=== PATIENT | female | born 1940 | race Caucasian/White ===

== ENCOUNTER → 2016-07-19 | Outpatient (CLI) | payer OTHER, BC ==
[~2016-07-19] MED LIST: ACET325T96 PO; ACET650S10 PO; AMLO-110 PO; CALC1CHW; CALCTAB5 PO; CHOL1000 PO; CHOL100010 PO; CLOP1TAB15 PO; DVN80 PO; FLUC100T4 PO; FRRG PO; LEVO100T PO; METF750T PO; NXM/40 PO; OMEG10007 PO; ROSU5TAB PO; SPIR25TA89 PO; VALS40TA2 PO; VERA120T65 PO; WARF1TAB PO
[2016-07-19 09:32] LABS: BLOOD UREA NITROGEN 10 mg/dl (7-18); BUN/CREATININE RATIO 13.2 (10-20); CALCIUM 8.8 mg/dl (8.5-10.1); CARBON DIOXIDE 26 mmol/L (21-32); CHLORIDE 106 mmol/L (98-107); CREATININE 0.72 mg/dl (0.60-1.20); GLUCOSE 135 mg/dl (70-99); POTASSIUM 4.5 mmol/L (3.5-5.1); SODIUM 140 mmol/L (136-145)
== END | disposition home or self-care (01) ==
LOC: C.LABFOXMH 08:47
PROVIDERS: ATTEND Internal Medicine
DX: I10 Essential (primary) hypertension (principal)

== ENCOUNTER → 2016-08-06 | Outpatient (CLI) | payer OTHER, BC ==
--- NOTE | 2016-08-06 16:41 | DIAGNOSTIC IMAGING REPORT ---
CT HEAD WITHOUT CONTRAST (CT) CLINICAL HISTORY: Increasing right-sided headache. Left hand numbness. COMPARISON STUDY: 12/15/2013 TECHNIQUE: Axial CT of the brain is performed from the vertex to the skull base. IV contrast was not administered for this examination. CT DOSE: 537.48 mGy.cm FINDINGS: No intra or extra-axial mass lesions are visualized. There is no CT evidence of acute cortical infarction. There is no evidence of midline shift. There is no acute hemorrhage. No calvarial fractures are visualized. There are patchy white matter hypodensities likely on a small vessel basis. There is no evidence of pathologic ventricular dilatation. There is no evidence of acute sinusitis IMPRESSION: No acute intracranial findings Electronically signed by: Thien Sullivan M.D. 08/06/2016 4:39 PM Dictated Date/Time: 08/06/2016 4:38 PM
== END | disposition home or self-care (01) ==
LOC: C.CTS 16:27
PROVIDERS: ATTEND Internal Medicine
DX: R51 Headache (principal); H53.2 Diplopia; R20.0 Anesthesia of skin; Z91.81 History of falling

== ENCOUNTER → 2016-08-07 | Outpatient (CLI) | payer OTHER, BC ==
--- NOTE | 2016-08-07 14:29 | DIAGNOSTIC IMAGING REPORT ---
ULTRASOUND OF THE CAROTID ARTERIES CLINICAL HISTORY: Headache. Left hand numbness. Diplopia. COMPARISON STUDY: No priors. TECHNIQUE: Real-time, grayscale, and color Doppler sonography of the carotid arteries is performed. Images are reviewed in the transverse and longitudinal planes. FINDINGS: Blood pressures were not assessed at the patient's request. The carotid arteries are patent bilaterally and demonstrate antegrade flow. There is mild echogenic shadowing atherosclerotic plaque seen in the carotid bulbs bilaterally, left greater than right. Normal doppler arterial waveforms are seen throughout. Velocity measurements are listed below. Common carotid peak systolic velocity (cm/sec): RIGHT: 51 LEFT: 52 ICA proximal peak systolic velocity (cm/sec): RIGHT: 55 LEFT: 60 ICA mid peak systolic velocity (cm/sec): RIGHT: 66 LEFT: 53 ICA distal peak systolic velocity (cm/sec): RIGHT: 68 LEFT: 61 ICA/CC peak systolic ratio: RIGHT: 1.3 LEFT: 1.2 Antegrade flow was shown in the vertebral arteries. The external carotid arteries are patent. IMPRESSION: 1. There is no sonographic evidence of hemodynamically significant stenosis in the right or left carotid arterial system. 2. Antegrade flow is shown in the vertebral arteries. Electronically signed by: Bertin Siu M.D. 08/07/2016 2:27 PM Dictated Date/Time: 08/07/2016 2:26 PM
--- NOTE | 2016-08-13 07:49 | CODING QUERY MEDICAL NECESSITY ---
SUPPORTING DIAGNOSIS NEEDED A supporting diagnosis is required for the test/procedure performed on this patient in order for us to be reimbursed by the patient's insurance. Please provide a supporting diagnosis for the following test/procedure listed below next to the test name along with your signature. *If there is no additional diagnosis for this patient that would support the following test/procedure please document that below next to the test/procedure. Test(s)/Procedure(s) that require a supporting diagnosis: * CAROTID DOPPLER DUPLEX NECK DIAGNOSIS: * DOS: 08/07/16 Provider Signature: Date: Thank you Abby Basurto Health Information Management Once completed, please kindly fax back to [phone] For questions please call [phone]
== END | disposition home or self-care (01) ==
LOC: C.ULTR 13:45
PROVIDERS: ATTEND Internal Medicine
DX: R51 Headache (principal); R20.0 Anesthesia of skin; H53.2 Diplopia

== ENCOUNTER 2016-08-25 12:59 | Observation (INO) | payer OTHER, BC ==
[~2016-08-25] VITALS: Ht 162.6 cm; Wt 75.4 kg
[~2016-08-25 12:59] MED LIST changes: -ACET325T96 PO; -CALC1CHW; -CHOL1000 PO; -CLOP1TAB15 PO; -DVN80 PO; -FLUC100T4 PO; -SPIR25TA89 PO; -VERA120T65 PO
[2016-08-25] MEDS ORDERED: SODIUM CHLORIDE 0.9% 1000ML 1,000 ML IV SCH (13:02)
--- NOTE | 2016-08-25 13:24 | DIAGNOSTIC IMAGING REPORT ---
HEAD CT NONCONTRAST CT DOSE: 537.48 mGy.cm HISTORY: Mental status change Stroke. TECHNIQUE: Multiaxial CT images of the head were performed without the use of intravenous contrast. Comparison: 08/06/2016 Findings: The paranasal sinuses and mastoid air cells are clear. The calvarium and skull base are intact. The ventricles and sulci are within normal limits. There is no mass, hematoma, midline shift, or acute infarct. Impression: No acute intracranial abnormality. Electronically signed by: John Wallace M.D. 08/25/2016 1:22 PM Dictated Date/Time: 08/25/2016 1:22 PM
[2016-08-25 13:46] LABS: BASO % 0.4 %; BASO ABS # 0.04 K/uL (0-0.2); COMPLETE YES; EOS % 1.2 %; HEMATOCRIT 37.9 % (37-47); IG% 0.3 %; LYMPH % 19.6 %; LYMPH ABS # 1.76 K/uL (1.2-3.4); MEAN CELL VOLUME 88.3 fL (80-100); MEAN CORPUSCULAR HEMOGLOBIN 29.6 pg (25-34); MEAN CORPUSCULAR HGB CONC 33.5 g/dl (32-36); MEAN PLATELET VOLUME 8.5 fL (7.4-10.4); MONO % 8.7 %; NEUT % 69.8 %; PLATELET COUNT 251 K/uL (130-400); RED BLOOD COUNT 4.29 M/uL (4.2-5.4); WHITE BLOOD COUNT 8.97 K/uL (4.8-10.8)
[2016-08-25] MEDS ORDERED: SODIUM CHLORIDE 0.9% 1000ML 1,000 ML IV STA (13:50)
[2016-08-25] MEDS ORDERED: CLOPIDOGREL BISULFATE 300 MG TAB PO STA (13:50)
[2016-08-25 13:54] LABS: PARTIAL THROMBOPLASTIN RATIO 0.9; PROTHROMBIN TIME (PATIENT) 10.3 SECONDS (9.0-12.0)
[2016-08-25 14:03] LABS: ISTAT CREATININE 0.7 mg/dl (0.6-1.3); ISTAT HEMOGLOBIN 12.2 g/dl (12.0-16.0); ISTAT IONIZED CALCIUM 1.27 mmol/l (1.12-1.32)
[2016-08-25 14:05] LABS: BLOOD UREA NITROGEN 19 mg/dl (7-18); BUN/CREATININE RATIO 25.8 (10-20); CALCIUM 8.9 mg/dl (8.5-10.1); CARBON DIOXIDE 26 mmol/L (21-32); CHLORIDE 100 mmol/L (98-107); CREATININE 0.72 mg/dl (0.60-1.20); GLUCOSE 120 mg/dl (70-99); POTASSIUM 4.5 mmol/L (3.5-5.1); SODIUM 136 mmol/L (136-145)
[2016-08-25 14:10] LABS: CKMB/CK RATIO 1.9 (0-3.0)
[2016-08-25] MEDS ORDERED: ACET325T96 PO (14:25)
[2016-08-25] MEDS ORDERED: METF750T PO (14:29)
[2016-08-25] MEDS ORDERED: DVN80 PO (14:31)
[2016-08-25] MEDS ORDERED: CLOP1TAB15 PO (14:33)
[2016-08-25 14:47] LABS: BENZODIAZEPINE, URINE NEG (NEG); COCAINE,URINE NEG (NEG); PHENCYCLIDINE, URINE NEG (NEG)
[2016-08-25] MEDS ORDERED: HydrALAZINE HCL 20 MG/ML VIAL ONE (15:08)
[2016-08-25] MEDS ORDERED: HydrALAZINE HCL 20 MG/ML VIAL IV. STA (15:12)
[2016-08-25] MEDS ORDERED: PHARMACIST DISCHARGE MED REC CONSULT PRN (15:30)
[2016-08-25] MEDS ORDERED: HydrALAZINE HCL 20 MG/ML VIAL IV. PRN (15:30)
[2016-08-25] MEDS ORDERED: MAGNESIUM HYDROXIDE SUSP 30 ML UDC PO PRN (15:30)
[2016-08-25] MEDS ORDERED: GLUCOSE 10 TABS/TUBE PO PRN (15:30)
[2016-08-25] MEDS ORDERED: GLUCAGON FOR INJ 1 MG VIAL SQ PRN (15:30)
[2016-08-25] MEDS ORDERED: DEXTROSE 50% 50 ML SYR IV PRN (15:30)
[2016-08-25] MEDS ORDERED: ALUMINUM/MAGNESIUM/SIMETH (MAALOX MAX) 30 ML UDC PO PRN (15:30)
[2016-08-25] MEDS ORDERED: GLUCOSE 40% GEL 15 GM TUBE PO PRN (15:30)
[2016-08-25 16:01] LABS: URINE APPEARANCE CLEAR (CLEAR); URINE BILIRUBIN NEG (NEG); URINE COLOR YELLOW; URINE NITRITE NEG (NEG); URINE PH 6.5 (4.5-7.5); URINE SPECIFIC GRAVITY <= 1.005 (1.000-1.030); UROBILINOGEN NEG (NEG)
[2016-08-25 16:05] LABS: MANUAL MICROSCOPIC REQUIRED? YES; REVIEW REQ? NO
[2016-08-25 16:06] LABS: URINE BACTERIA NEG (NEG); URINE RBC 0-4 /hpf (0-4)
[2016-08-25] MEDS ORDERED: IV FLUIDS COMPLETED PRN (16:15)
[2016-08-25 16:30] VITALS: O2SAT 98; Ht 162.6 cm; Wt 75.4 kg
[2016-08-25 17:00] VITALS: BP 198/78; PULSE 99; TEMP 36.7; O2SAT 99
[2016-08-25 17:35] VITALS: BP 156/79
--- NOTE | 2016-08-25 18:09 | EMERGENCY ROOM VISIT NOTE ---
History Report prepared by Cholo: Gaetano Elliott Under the Supervision of: Dr. Jason Hogue D.O. First contact with patient: 13:00 Stated Complaint: STROKE SYMPTOMS History of Present Illness The patient is a 76 year old female who presents to the Emergency Room with complaints of stroke-like symptoms that began a half hour ago. [facility]. Suddenly, she could not speak words correctly, and her words were mumbling together. She then experienced right upper arm numbness and weakness. Her weakness has resolved. Two weeks ago she was here and evaluated for a TIA. She was not admitted and sent home. She notes that these symptoms are similar to her prior episode. Patient denies headache, change in vision, fevers, chest pain, shortness of breath, nausea, vomiting, diarrhea, pain with urination, and melena. She is currently not taking any blood thinners. Source of History: patient, EMS Onset: a half hour ago Position: other (global) Symptom Intensity: moderate Quality: other (stroke-like symptoms) Timing: intermittent Review of Systems See HPI for pertinent positives & negatives. A total of 10 systems reviewed and were otherwise negative. Past Medical & Surgical Medical Problems: (1) TIA (transient ischemic attack) Family History Omitted due to age. Social History Smokeless Tobacco Use: No Drug Use: none Marital Status: Occupation Status: retired Current/Historical Medications Scheduled Calcium (Caltrate), 1 TAB PO DAILY Cholecalciferol (Vitamin D), 1,000 INTER.UNIT PO DAILY Clopidogrel (Plavix), 75 MG PO DAILY Esomeprazole Magnesium (Nexium), 40 MG PO DAILY Fish Oil ([place]-3), 1 CAP PO DAILY Levothyroxine Sodium (Synthroid), 100 MCG PO DAILY Metformin Hcl (Glucophage Er), 1,500 MG PO HS Metformin Hcl (Glucophage Er), 1 TAB PO QAM Rosuvastatin Calcium (Crestor), 5 MG PO DAILY Valsartan (Diovan), 1 TAB PO DAILY Scheduled PRN Acetaminophen Tab (Tylenol), 650 MG PO DAILY PRN for Pain Allergies Coded Allergies: Oxycodone (Unverified Adverse Reaction, Severe, VOMITING, 08/25/16) Aspirin (Unverified Adverse Reaction, Unknown, "stomach bleeds", 08/25/16) Codeine (Verified Adverse Reaction, Unknown, vomiting, 08/25/16) Physical Exam Vital Signs Date Time Temp Pulse Resp B/P Pulse Ox O2 Delivery O2 Flow Rate FiO2 08/25/16 15:20 85 16 186/89 98 Room Air 08/25/16 15:15 88 18 214/98 95 Room Air 08/25/16 14:30 90 18 177/92 98 Room Air 08/25/16 14:04 99 Room Air 08/25/16 14:00 86 18 189/95 99 Room Air 08/25/16 13:29 86 08/25/16 13:20 94 18 182/96 92 Room Air 08/25/16 13:10 88 18 222/106 95 Room Air Physical Exam GENERAL: Sitting up in bed, disheveled, alert, well appearing, well nourished, no distress, non-toxic EYE EXAM: normal conjunctiva, PERRL and EOM's intact OROPHARYNX: no exudate, no erythema, lips, buccal mucosa, and tongue normal and mucous membranes are moist NECK: supple, no nuchal rigidity, no adenopathy, non-tender LUNGS: Clear to auscultation. Normal chest wall mechanics HEART: no murmurs, S1 normal and S2 normal ABDOMEN: abdomen soft, non-tender, normo-active bowel sounds, no masses, no rebound or guarding. BACK: Back is symmetrical on inspection and there is no deformity, no midline tenderness, no CVA tenderness. SKIN: no rashes and no bruising UPPER EXTREMITIES: upper extremities are grossly normal. LOWER EXTREMITIES: No pitting edema. NEURO EXAM: Normal sensorium, cranial nerves II-XII intact, normal speech, no weakness of arms, no weakness of legs. No drift. Finger to nose intact. Sensation intact. At completion of the exam, the patient began slurring her words with expressive aphasia. Stroke alert was called. Medical Decision & Procedures ER Provider Diagnostic Interpretation: Xray results per the radiologist and my interpretation. Other results have been interpreted by the radiologist and reviewed by me. HEAD CT NONCONTRAST CT DOSE: 537.48 mGy.cm HISTORY: Mental status change Stroke. TECHNIQUE: Multiaxial CT images of the head were performed without the use of intravenous contrast. Comparison: 08/06/2016 Findings: The paranasal sinuses and mastoid air cells are clear. The calvarium and skull base are intact. The ventricles and sulci are within normal limits. There is no mass, hematoma, midline shift, or acute infarct. Impression: No acute intracranial abnormality. Electronically signed by: John Wallace M.D. 08/25/2016 1:22 PM Dictated Date/Time: 08/25/2016 1:22 PM Laboratory Results 08/25/16 13:35 Red Blood Count 4.29, Mean Corpuscular Volume 88.3, Mean Corpuscular Hemoglobin 29.6, Mean Corpuscular Hemoglobin Concent 33.5, Mean Platelet Volume 8.5, Neutrophils (%) (Auto) 69.8, Lymphocytes (%) (Auto) 19.6, Monocytes (%) (Auto) 8.7, Eosinophils (%) (Auto) 1.2, Basophils (%) (Auto) 0.4, Neutrophils # (Auto) 6.25, Lymphocytes # (Auto) 1.76, Monocytes # (Auto) 0.78, Eosinophils # (Auto) 0.11, Basophils # (Auto) 0.04 08/25/16 13:35 Test 08/25/16 13:30 08/25/16 13:35 08/25/16 13:51 08/25/16 14:10 Bedside Prothrombin Time INR 0.9 (0.9-1.1) White Blood Count 8.97 K/uL (4.8-10.8) Red Blood Count 4.29 M/uL (4.2-5.4) Hemoglobin 12.7 g/dL (12.0-16.0) Hematocrit 37.9 % (37-47) Mean Corpuscular Volume 88.3 fL (80-100) Mean Corpuscular Hemoglobin 29.6 pg (25-34) Mean Corpuscular Hemoglobin Concent 33.5 g/dl (32-36) Platelet Count 251 K/uL (130-400) Mean Platelet Volume 8.5 fL (7.4-10.4) Neutrophils (%) (Auto) 69.8 % Lymphocytes (%) (Auto) 19.6 % Monocytes (%) (Auto) 8.7 % Eosinophils (%) (Auto) 1.2 % Basophils (%) (Auto) 0.4 % Neutrophils # (Auto) 6.25 K/uL (1.4-6.5) Lymphocytes # (Auto) 1.76 K/uL (1.2-3.4) Monocytes # (Auto) 0.78 K/uL (0.11-0.59) Eosinophils # (Auto) 0.11 K/uL (0-0.5) Basophils # (Auto) 0.04 K/uL (0-0.2) RDW Standard Deviation 42.5 fL (36.4-46.3) RDW Coefficient of Variation 13.2 % (11.5-14.5) Immature Granulocyte % (Auto) 0.3 % Immature Granulocyte # (Auto) 0.03 K/uL (0.00-0.02) Prothrombin Time 10.3 SECONDS (9.0-12.0) Prothromb Time International Ratio 1.0 (0.9-1.1) Activated Partial Thromboplast Time 23.3 SECONDS (21.0-31.0) Partial Thromboplastin Ratio 0.9 Est Creatinine Clear Calc Drug Dose 65.9 ml/min Estimated GFR () 94.3 Estimated GFR (Non- 81.3 BUN/Creatinine Ratio 25.8 (10-20) Calcium Level 8.9 mg/dl (8.5-10.1) Total Creatine Kinase 32 U/L (26-192) Creatine Kinase MB 0.6 ng/ml (0.5-3.6) Creatine Kinase MB Ratio 1.9 (0-3.0) Troponin I < 0.015 ng/ml (0-0.045) Bedside Hemoglobin 12.2 g/dl (12.0-16.0) Bedside Hematocrit 36 % (37-47) Bedside Sodium 134 mEq/L (135-144) Bedside Potassium 4.6 mEq/L (3.3-5.0) Bedside Chloride 98 mEq/L (101-112) Bedside Total CO2 23 mEq/l (24-31) Anion Gap 19.0 mmol/L (16-25) Bedside Blood Urea Nitrogen 20 mg/dl (7-18) Bedside Creatinine 0.7 mg/dl (0.6-1.3) Bedside Glucose (other) 121 mg/dl (70-99) Bedside Ionized Calcium ([place]) 1.27 mmol/l (1.12-1.32) Urine Opiates Screen NEG (NEG) Urine Methadone, Qualitative NEG (NEG) Urine Barbiturates NEG (NEG) Urine Phencyclidine (PCP) Level NEG (NEG) Ur Amphetamine/Methamphetamine NEG (NEG) MDMA (Ecstasy) Screen NEG (NEG) Urine Benzodiazepines Screen NEG (NEG) Urine Cocaine Metabolite NEG (NEG) Urine Marijuana (THC) NEG (NEG) Test 08/25/16 15:30 Urine Color YELLOW Urine Appearance CLEAR (CLEAR) Urine pH 6.5 (4.5-7.5) Urine Specific [place] <= 1.005 (1.000-1.030) Urine Protein NEG (NEG) Urine Glucose (UA) NEG (NEG) Urine Ketones NEG (NEG) Urine Occult Blood NEG (NEG) Urine Nitrite NEG (NEG) Urine Bilirubin NEG (NEG) Urine Urobilinogen NEG (NEG) Urine Leukocyte Esterase NEG (NEG) Urine RBC 0-4 /hpf (0-4) Urine WBC 1-5 /hpf (0-5) Urine Epithelial Cells 0-5 /lpf (0-5) Urine Bacteria NEG (NEG) Laboratory results per my review. Medications Administered Medications (Trade) Dose Ordered Sig/Maureen Route Start Time Stop Time Status Last Admin Dose Admin Sodium Chloride 1,000 ml @ 50 mls/hr Q20H IV 08/25/16 13:02 09/24/16 13:01 08/25/16 14:09 50 MLS/HR Sodium Chloride (Nss 1000ml) 1,000 ml @ 999 mls/hr Q1H1M STAT IV 08/25/16 13:50 08/25/16 14:50 DC 08/25/16 14:09 999 MLS/HR Clopidogrel Bisulfate (plAVix TAB) 300 mg NOW STAT PO 08/25/16 13:50 08/25/16 13:52 DC 08/25/16 14:16 300 MG Hydralazine HCl (HydrALAZINE INJ) 20 mg STK-MED ONCE .ROUTE 08/25/16 15:08 08/25/16 15:11 DC 08/25/16 15:14 10 MG ECG Indication: altered mental status Rate (beats per minute): 88 Rhythm: sinus rhythm Findings: 1st degree AV block, no ectopy, other (normal axis) ED Course ED COURSE: Vital signs were reviewed and showed hypertension The patients medical record was reviewed The above diagnostic studies were performed and reviewed. ED treatments and interventions as stated above. 1300: The patient was evaluated in room A1. A complete history and physical examination was performed. 1302: Ordered Sodium Chloride 1000 ml @ 50 mls/hr IV 1322: The patient is back to her baseline. 1350: Ordered Clopidogrel Bisulfate 300 mg PO, Sodium Chloride 1000 ml @ 999 mls /hr IV 1356: Upon reevaluation, the patient is resting. I discussed my findings with the patient and she understands and agrees with the treatment plan. Based on the patients age, coexisting illnesses, exam and lab findings the decision to treat as an inpatient was made. The patient remained stable while under my care. The patient will be evaluated by Dr. Cabrera ORDONEZ, for further management. Medical Decision Differential Diagnosis includes but is not limited to ischemic Stroke, hemorrhagic stroke, bells palsy, mass, neoplasm, migraine headache, seizure, subarachnoid hemorrhage, TIA, and transient global amnesia. Patient is a 76 her old female who presents the ER for strokelike symptoms. [facility] started slurring her words and had weakness of her upper extremity. EMS was called upon presentation to the ER her symptoms completely resolved. Slurred speech/aphasia has resolved along with the right upper extremity numbness and weakness. Following my exam for which she was completely neurologically intact she started having expressive aphasia again. A stroke alert was immediate recall. She was taken to the CT scanner. CT of her head was unremarkable. Her symptoms have resolved. She was evaluated by [facility] and they recommended a loading dose of Lasix along with a bolus normal saline. CBC along with BMP, and troponin were unremarkable. UA was negative. INR was unremarkable. Patient was completely neurologically intact with resolution of her symptoms and was admitted to internal medicine with a stuttering stroke at baseline. Consults Time Called: 1350 Consulting Physician: Dr. Cabrera ORDONEZ Returned Call: [phone] He will be evaluating the patient for further management. Impression Primary Impression: TIA (transient ischemic attack) Scribe Attestation The scribe's documentation has been prepared under my direction and personally reviewed by me in its entirety. I confirm that the note above accurately reflects all work, treatment, procedures, and medical decision making performed by me. Departure Information Dispostion Being Evaluated By Hospitalist Problem Qualifiers Primary Impression: TIA (transient ischemic attack) Transient cerebral ischemia type: unspecified Qualified Codes: G45.9 - Transient cerebral ischemic attack, unspecified
[2016-08-25] MEDS ORDERED: LORAZEPAM 2 MG/ML 1 ML VIAL ONE (18:11)
[2016-08-25] MEDS ORDERED: NURSING VERBAL MED ORDER ONE (18:15)
[2016-08-25] MEDS ORDERED: LORAZEPAM 2 MG/ML 1 ML VIAL IV PRN (18:30)
[2016-08-25] MEDS ORDERED: LORAZEPAM INJ 0.5 MG in SYRINGE 0.75 ML IV PRN (18:30)
--- NOTE | 2016-08-25 19:08 | DIAGNOSTIC IMAGING REPORT ---
Brain MRA HISTORY: Mental status change Stroke - Attention to [place] TECHNIQUE: 3-D [id number] MRA of the brain was performed without contrast. COMPARISON STUDY: None. FINDINGS: Visualized intracranial internal carotid arteries, distal vertebral arteries, and basilar artery are widely patent. 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 IMPRESSION: No significant stenosis, occlusion, or aneurysm within the [place]. Electronically signed by: John Wallace M.D. 08/25/2016 7:07 PM Dictated Date/Time: 08/25/2016 7:06 PM
--- NOTE | 2016-08-25 19:43 | DIAGNOSTIC IMAGING REPORT ---
MRI OF THE BRAIN WITHOUT AND WITH IV CONTRAST CLINICAL HISTORY: Stroke mental status change COMPARISON STUDY: No previous studies for comparison. TECHNIQUE: Utilizing a 1.5 [place] magnet and dedicated coil, multiplanar, multiecho imaging of the brain was performed pre and postcontrast administration. IV administration of 8 mL of Gadavist contrast was uneventful. FINDINGS: Diffusion-weighted images show no evidence for an acute ischemic process. Multiple foci of increased signal within the periventricular deep matter regions are present. This consistent with moderate chronic small vessel change of aging. Ventricular system is midline. Findings of mild age-related cerebral atrophy. Postcontrast images are negative for an enhancing lesion. IMPRESSION: 1. No evidence for an acute ischemic process. 2. Age-related changes including atrophy and chronic small vessel change. 3. No evidence for abnormal postcontrast enhancement Electronically signed by: John Wallace M.D. 08/25/2016 7:41 PM Dictated Date/Time: 08/25/2016 7:39 PM
[2016-08-25] MEDS ORDERED: GADAVIST IV PRN (20:00)
--- NOTE | 2016-08-25 20:00 | DIAGNOSTIC IMAGING REPORT ---
NECK MRA HISTORY: Mental status change Stroke TECHNIQUE: [id number] and gadolinium-enhanced MRA of the neck was performed both before and after the intravenous administration of contrast. All measurements were calculated based on NASCET criteria. COMPARISON STUDY: None. FINDINGS: The aortic arch and proximal great vessels are widely patent. Mild 30-40% narrowing origin left internal carotid artery. Minimal plaque formation carotid bifurcations bilaterally. Negative vertebral basilar system evaluation. IMPRESSION: 1. No evidence for high-grade stenosis. 2. 30-40% narrowing origin left internal carotid artery. 3. Minimal scattered plaque formation Electronically signed by: John Wallace M.D. 08/25/2016 7:58 PM Dictated Date/Time: 08/25/2016 7:56 PM
[2016-08-25 20:01] VITALS: BP_SYST 176; BP_SYST 195; BP_DIAS 84; BP_DIAS 91; PULSE 97; TEMP 36.6; O2SAT 98
[2016-08-25] MEDS: ONDANSETRON INJ 2 MG/ML 2 ML VIAL IV PRN (20:09)
[2016-08-25] MEDS: ACETAMINOPHEN 325 MG TAB PO PRN (20:15)
[2016-08-25] MEDS: INSULIN ASPART 100 UNITS/ML 3 ML PEN SC SCH (21:00)
[2016-08-25 21:16] VITALS: BP 153/80; PULSE 99; O2SAT 99
[2016-08-25] MEDS: HEPARIN SOD 5000 UNIT/0.5 ML CARP SQ SCH (21:20)
[2016-08-25 21:47] LABS: CKMB/CK RATIO 1.8 (0-3.0)
[2016-08-25 21:57] VITALS: BP 165/75; PULSE 100; TEMP 36.6; O2SAT 97
[2016-08-26] VITALS (9 sets, daily range): BP systolic 117–148; BP diastolic 70–85; PULSE 70–87; TEMP 36.4–36.9; O2SAT 96–99
--- NOTE | 2016-08-26 00:34 | History and Physical ---
History & Physical Date & Time of Service: Aug 25, 2016 at 14:43 Chief Complaint: Stroke Symptoms Primary Care Physician: Vidal Vegas History of Present Illness Source: patient, family Pt is a 76 yo female with a h/o DMII, HTN, HL, GERD, obesity, OA, Vit D deficiency, and hypothyroidism who presents as a code stroke alert to the ER. She had expressive aphasia and right sided weakness that resolved after 10 min.She presented with complaints of stroke-like symptoms that began a half hour prior to arrival. The patient was at [facility] when she started exhibiting stroke symptoms. Suddenly, she could not speak words correctly; she knew what she wanted to say but could not get the words out. She then experienced right upper arm numbness and weakness. Her weakness and aphasia resolved by the time she reached the ER via EMS, however her aphasia returned during exam with ER doctor and stroke alert was called. Two weeks ago she was here as an outpatient after describing a 15 min episode of left hand numbness to her PCP (after the fact). She had a head CT that was negative and the next day had a Carotid US which was normal. She was advised to start Plavix but never did as she forgot to take it. She was also advised by her PCP that if symptoms returned, she was to go immediately to the ER. She reports intermittent headaches since mid-May that are across the forehead and down right side of her face that sometimes last all night. She also has a h/o intermittent vertigo thought to be related to her chronic right TM rupture but not acute. No previous h/o CVA or TIA. Denies chest pains, SOB, abd pains, recent illness. Her BP has been under good control, but she recently was discontinued from her amlodipine due to side effect of heartburn, and was doubled up on her valsartan dose. Past Medical/Surgical History PMH: DMII HTN Hyperlipidemia Hypothyroidism OA s/p Right TKA Vitamin D deficiency GERD PSH: Right TKA Bilateral RC repairs Bilateral thumb joint replacements Appendectomy Cholecystectomy Family History Mom had PUD, otherwise noncontributory Social History Smoking Status: Former Smoker (briefly, in her 20s) Smokeless Tobacco Use: No Alcohol Use: occasionally (1 drink per month) Drug Use: none Marital Status: Housing status: lives alone (in independent living at [facility]) Immunizations History of Influenza Vaccine: Yes History of Tetanus Vaccine?: Unknown History of Pneumococcal: Yes History of Hepatitis B Vaccine: Unknown Allergies Coded Allergies: Oxycodone (Unverified Adverse Reaction, Severe, VOMITING, 08/25/16) Aspirin (Unverified Adverse Reaction, Unknown, "stomach bleeds", 08/25/16) Codeine (Verified Adverse Reaction, Unknown, vomiting, 08/25/16) Home Medications Scheduled Calcium (Caltrate), 1 TAB PO DAILY Cholecalciferol (Vitamin D), 1,000 INTER.UNIT PO DAILY Clopidogrel (Plavix), 75 MG PO DAILY Esomeprazole Magnesium (Nexium), 40 MG PO DAILY Fish Oil ([place]-3), 1 CAP PO DAILY Levothyroxine Sodium (Synthroid), 100 MCG PO DAILY Metformin Hcl (Glucophage Er), 1,500 MG PO HS Metformin Hcl (Glucophage Er), 1 TAB PO QAM Rosuvastatin Calcium (Crestor), 5 MG PO DAILY Valsartan (Diovan), 1 TAB PO DAILY Scheduled PRN Acetaminophen Tab (Tylenol), 650 MG PO DAILY PRN for Pain Review of Systems Constitutional: No chills, No fever Eyes: No worsening of vision ENT: No trouble swallowing Respiratory: No cough, No shortness of breath Cardiovascular: No PND, No chest pain, No edema, No orthopnea, No palpitations Abdomen: No nausea, No pain, No vomiting Musculoskeletal: No problem reported Genitourinary - Female: No problem reported Neurologic: + numbness/tingling, + vertigo, + weakness Psychiatric: No problem reported Endocrine: No problem reported Hematologic / Lymphatic: No problem reported Integumentary: No problem reported Allergic / Immunologic: No problem reported Physical Exam Vital Signs Date Time Temp Pulse Resp B/P Pulse Ox O2 Delivery O2 Flow Rate FiO2 08/25/16 14:04 99 Room Air 08/25/16 14:00 86 18 189/95 99 Room Air 08/25/16 13:29 86 08/25/16 13:20 94 18 182/96 92 Room Air 08/25/16 13:10 88 18 222/106 95 Room Air General Appearance: WD/WN, no apparent distress Head: normocephalic, atraumatic Eyes: normal inspection, PERRL, EOMI, sclerae normal ENT: hearing grossly normal, pharynx normal Neck: supple, no adenopathy, thyroid normal, no JVD, no carotid bruits, + adenopathy present Respiratory/Chest: lungs clear, normal breath sounds, no respiratory distress, no accessory muscle use Cardiovascular: regular rate, rhythm, no edema, no gallop, no JVD, normal peripheral pulses, + systolic murmur (2/6 MIN heard best at [facility] c/w mitral valve regurgitation) Abdomen/GI: normal bowel sounds, non tender, soft, no organomegaly, no pulsatile mass Back: normal inspection Extremities/Musculoskelatal: normal inspection, no calf tenderness, normal capillary refill, no pedal edema, normal range of motion, non-tender Neurologic/Psych: 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 nml as tested, no motor/sensory deficits, alert, normal mood/affect, normal reflexes, oriented x 3, + pertinent finding (neg pronator drift in arms and legs, normal finger to nose bilat) Skin: normal color, warm/dry, no rash Lymphatic: no adenopathy Diagnostics Laboratory Results Results Past 24 Hours Test 08/25/16 13:10 08/25/16 13:30 08/25/16 13:35 08/25/16 13:51 Range/Units Bedside Glucose 116 70-90 mg/dl Bedside Prothrombin Time INR 0.9 0.9-1.1 White Blood Count 8.97 4.8-10.8 K/uL Red Blood Count 4.29 4.2-5.4 M/uL Hemoglobin 12.7 12.0-16.0 g/dL Hematocrit 37.9 37-47 % Mean Corpuscular Volume 88.3 80-100 fL Mean Corpuscular Hemoglobin 29.6 25-34 pg Mean Corpuscular Hemoglobin Concent 33.5 32-36 g/dl Platelet Count 251 130-400 K/uL Mean Platelet Volume 8.5 7.4-10.4 fL Neutrophils (%) (Auto) 69.8 % Lymphocytes (%) (Auto) 19.6 % Monocytes (%) (Auto) 8.7 % Eosinophils (%) (Auto) 1.2 % Basophils (%) (Auto) 0.4 % Neutrophils # (Auto) 6.25 1.4-6.5 K/uL Lymphocytes # (Auto) 1.76 1.2-3.4 K/uL Monocytes # (Auto) 0.78 0.11-0.59 K/uL Eosinophils # (Auto) 0.11 0-0.5 K/uL Basophils # (Auto) 0.04 0-0.2 K/uL RDW Standard Deviation 42.5 36.4-46.3 fL RDW Coefficient of Variation 13.2 11.5-14.5 % Immature Granulocyte % (Auto) 0.3 % Immature Granulocyte # (Auto) 0.03 0.00-0.02 K/uL Prothrombin Time 10.3 9.0-12.0 SECONDS Prothromb Time International Ratio 1.0 0.9-1.1 Activated Partial Thromboplast Time 23.3 21.0-31.0 SECONDS Partial Thromboplastin Ratio 0.9 Sodium Level 136 136-145 mmol/L Potassium Level 4.5 3.5-5.1 mmol/L Chloride Level 100 98-107 mmol/L Carbon Dioxide Level 26 21-32 mmol/L Anion Gap 10.0 19.0 16-25 mmol/L Blood Urea Nitrogen 19 7-18 mg/dl Creatinine 0.72 0.60-1.20 mg/dl Est Creatinine Clear Calc Drug Dose 65.9 ml/min Estimated GFR () 94.3 Estimated GFR (Non- 81.3 BUN/Creatinine Ratio 25.8 10-20 Random Glucose 120 70-99 mg/dl Calcium Level 8.9 8.5-10.1 mg/dl Total Creatine Kinase 32 26-192 U/L Creatine Kinase MB 0.6 0.5-3.6 ng/ml Creatine Kinase MB Ratio 1.9 0-3.0 Troponin I < 0.015 0-0.045 ng/ml Bedside Hemoglobin 12.2 12.0-16.0 g/dl Bedside Hematocrit 36 37-47 % Bedside Sodium 134 135-144 mEq/L Bedside Potassium 4.6 3.3-5.0 mEq/L Bedside Chloride 98 101-112 mEq/L Bedside Total CO2 23 24-31 mEq/l Bedside Blood Urea Nitrogen 20 7-18 mg/dl Bedside Creatinine 0.7 0.6-1.3 mg/dl Bedside Glucose (other) 121 70-99 mg/dl Bedside Ionized Calcium ([place]) 1.27 1.12-1.32 mmol/l Test 08/25/16 14:10 Range/Units Diagnostic Radiology HEAD CT NONCONTRAST CT DOSE: 537.48 mGy.cm HISTORY: Mental status change Stroke. TECHNIQUE: Multiaxial CT images of the head were performed without the use of intravenous contrast. Comparison: 08/06/2016 Findings: The paranasal sinuses and mastoid air cells are clear. The calvarium and skull base are intact. The ventricles and sulci are within normal limits. There is no mass, hematoma, midline shift, or acute infarct. Impression: No acute intracranial abnormality. EKG Normal Sinus rhythm,1st degree AV block, no ischemic changes Impression Assessment and Plan Pt is a 76 yo female with a h/o DMII, HTN, HL, GERD, obesity, OA, Vit D deficiency, and hypothyroidism who presents as a code stroke alert to the ER. She had expressive aphasia and right sided weakness that resolved after 10 min. TIA, rule out CVA- 10 min of expressive aphasia and right sided weakness, symptoms resolved. CT head negative, BP significantly elevated on presentation at 222/106-acclerated HTN, Hypertensive emergency, HTN--> Her symptoms could be a result of hypertensive emergency with hypertensive encephalopathy vs TIA/CVA. TeleStroke consultation made and recommendation was for admission for MRI/MRA brain and load with Plavix 300mg po x 1, then continue daily.No TPA indicated given resolution of symptoms. Clinically is a stuttering stroke. No residual symptoms at this time. Headaches frequent since May may be related to elevated BPs -monitor on tele for cardiac arrhythmia -Neuro checks q4 hrs -Consult to Neurology placed and appreciated -loaded with Plavix 300mg po x 1 then continue 75mg once daily (cannot tolerate ASA due to GI upset) -bring BP down as is significantly elevated at 215 systolic--> IV hydralazine prn but allow permissive HTN 160-180 range -continue valsartan but hold for BP<160/80 -check brain MRI/MRA and Neck MRA (despite normal carotid Doppler 2 weeks ago) -check ECHO and serial troponin/CK/CKMB -PT/OT/ST evals -continue home statin DMII-stable, usual glucose in low 100s at home but lately has been elevated in the 170s the last 2 weeks -check HgbA1C to assess control of DM -SSI, accuchecks qachs -restart home metformin upon discharge-holding due to dye load with MRIs Hypothyroidism-stable -check TSH -continue home levothyroxine dose and adjust as necessary GERD-stable, no issues -continue PPI Proph- heparin, PPI Dispo-FULL CODE -to [facility] independent living likely in 1 day Level of Care Telemetry Resuscitation Status FULL RESUSCITATION VTE Prophylaxis VTE Risk Assessment Done? Y/N: Yes Risk Level: Low Given or contraindicated: Unfractionated heparin SQ Additional Copies To Mina Enamorado M.D.
[2016-08-26] MEDS: LEVOTHYROXINE 100 MCG TAB PO SCH (05:30)
[2016-08-26 06:04] LABS: BASO % 0.3 %; BASO ABS # 0.02 K/uL (0-0.2); COMPLETE YES; EOS % 1.2 %; HEMATOCRIT 35.9 % (37-47); IG% 0.1 %; LYMPH % 19.3 %; MEAN CELL VOLUME 86.1 fL (80-100); MEAN CORPUSCULAR HEMOGLOBIN 28.8 pg (25-34); MEAN CORPUSCULAR HGB CONC 33.4 g/dl (32-36); MEAN PLATELET VOLUME 8.3 fL (7.4-10.4); MONO % 7.7 %; NEUT % 71.4 %; PLATELET COUNT 261 K/uL (130-400); RED BLOOD COUNT 4.17 M/uL (4.2-5.4); WHITE BLOOD COUNT 6.74 K/uL (4.8-10.8)
[2016-08-26 06:36] LABS: BLOOD UREA NITROGEN 16 mg/dl (7-18); CALCIUM 8.7 mg/dl (8.5-10.1); CARBON DIOXIDE 24 mmol/L (21-32); CHLORIDE 105 mmol/L (98-107); CREATININE 0.65 mg/dl (0.60-1.20); GLUCOSE 148 mg/dl (70-99); POTASSIUM 4.1 mmol/L (3.5-5.1); SODIUM 138 mmol/L (136-145)
[2016-08-26 06:47] LABS: CHOLESTEROL 135 mg/dl (0-200); CHOLESTEROL/HDL RATIO 2.8; HDL CHOLESTEROL 49 mg/dl; LDL CHOLESTEROL CALCULATED 52 mg/dl; THYROID STIMULATING HORMONE 0.462 uIu/ml (0.300-4.500); TRIGLYCERIDES 168 mg/dl (0-150); VERY LOW DENSITY LIPOPROT CALC 34 mg/dl
[2016-08-26] MEDS: INSULIN ASPART 100 UNITS/ML 3 ML PEN SC SCH ×4 (07:00→21:00)
[2016-08-26 07:02] LABS: ESTIMATED AVERAGE GLUCOSE 171 mg/dl; HA1C FLAG Normal (Normal)
[2016-08-26] MEDS: ACETAMINOPHEN 325 MG TAB PO PRN (08:28)
[2016-08-26] MEDS: ONDANSETRON INJ 2 MG/ML 2 ML VIAL IV PRN (08:28)
[2016-08-26] MEDS: VALSARTAN 80 MG TAB PO SCH (08:29)
[2016-08-26] MEDS: CLOPIDOGREL BISULFATE 75 MG TAB PO SCH (08:29)
[2016-08-26] MEDS: PANTOprazole SOD 40 MG TAB PO SCH (08:29)
[2016-08-26] MEDS: ROSUVASTATIN CALCIUM 10 MG TAB PO SCH (08:30)
[2016-08-26] MEDS: HEPARIN SOD 5000 UNIT/0.5 ML CARP SQ SCH ×2 (08:35→21:00)
[2016-08-26] MEDS ORDERED: ATORVASTATIN 20 MG TAB PO SCH (09:00)
--- NOTE | 2016-08-26 09:33 | Neurology Consultation ---
Neurology Consultation Date of Consultation: Aug 26, 2016. Attending Physician: Hebert Massey M.D. Primary Care Physician: Vidal [place] Reason for Consultation: TIA-like episode History of Present Illness Source: patient, hospital records The patient is a 76-year-old female who presented to the emergency department yesterday with acute change in speech and associated right upper extremity numbness and weakness that began about 30 minutes prior to arrival. She had been in evangelical at the time of symptom onset and recalls having difficulty getting words out. Her speech was mumbled at the time. Shortly after onset of the speech changes, the patient then developed a feeling of numbness and weakness affecting only the right upper extremity. These symptoms resolved in about 10 minutes. However, she then developed a frontal headache with associated nausea and light sensitivity that escalated in intensity overnight. These particular symptoms have modestly improved this morning. The patient recalls having a similar constellation of symptoms 2-3 weeks ago, although with a feeling of numbness and weakness affecting the left hand. Plavix have been recommended at that time. However, the patient admits that she took this medication for only about 1 week and some concerns over possible side effects. She reports that her mother apparently developed hallucinations while taking Plavix. Past medical history notable for hypertension. The patient indicates that she had previously been prescribed amlodipine. However, this medication was discontinued due to upset stomach/GERD type symptoms. She was notably hypertensive at the time of her current presentation. Past medical history also notable for diabetes mellitus currently managed with oral hyperglycemic medication. Blood glucose only modestly elevated at time of presentation. I reviewed the images and radiologist's interpretation of her recent, extensive , neuro imaging evaluation. CT of the head dated yesterday unremarkable. No evidence of hemorrhage or other acute process. Brain MRI completed as well. The study reveals mild atrophy and mild to moderate small vessel ischemic disease of a chronic nature, consistent with age. No evidence of acute or subacute stroke. MRA of the head unremarkable. MRA of the neck suggests a 30-40% narrowing at the origin of the left internal carotid artery. The carotid duplex completed on 08/07/[address] of the head completed at that time was unremarkable as well. Recently completed electrocardiogram reveals a sinus rhythm, 84 bpm, first-degree AV block noted. A transthoracic echocardiogram completed in March 2016 revealed type I diastolic dysfunction and mild aortic valve sclerosis. However, no significant abnormalities were appreciated. Family History Patient denies a family history of migraine Social History Smoking Status: Former smoker Smokeless Tobacco Use: No Alcohol Use: occasionally (1 drink per month) Drug Use: none Marital Status: Occupation Status: retired Allergies Coded Allergies: Oxycodone (Unverified Adverse Reaction, Severe, VOMITING, 08/25/16) Aspirin (Unverified Adverse Reaction, Unknown, "stomach bleeds", 08/25/16) Codeine (Verified Adverse Reaction, Unknown, vomiting, 08/25/16) Current Inpatient Medications Current Inpatient Medications Medications (Trade) Dose Ordered Sig/Maureen Route Start Time Stop Time Status Last Admin Dose Admin Clopidogrel Bisulfate (plAVix TAB) 75 mg QAM PO 08/26/16 09:00 09/25/16 08:59 08/26/16 08:29 75 MG Miscellaneous Information (Pharmacist Discharge Med Rec Consult) 1 ea UD PRN N/A 08/25/16 15:30 09/24/16 15:29 Heparin Sodium (Porcine) (Heparin Sq 5000 Unit/0.5ml) 5,000 unit Q12 SQ 08/25/16 21:00 09/24/16 20:59 08/26/16 08:35 5,000 UNIT Acetaminophen (Tylenol Tab) 650 mg Q4H PRN PO 08/25/16 15:30 09/24/16 15:29 08/26/16 08:28 650 MG Al Hydrox/Mg Hydrox/Simethicone (Maalox Max Susp) 15 ml Q4H PRN PO 08/25/16 15:30 09/24/16 15:29 Magnesium Hydroxide (Milk Of Magnesia Susp) 30 ml Q12H PRN PO 08/25/16 15:30 09/24/16 15:29 Ondansetron HCl (Zofran Inj) 4 mg Q6H PRN IV 08/25/16 15:30 09/24/16 15:29 08/26/16 08:28 4 MG Levothyroxine Sodium (Synthroid Tab) 100 mcg DAILYBB PO 08/26/16 06:00 09/25/16 06:59 08/26/16 05:30 100 MCG Rosuvastatin Calcium (Crestor Tab) 5 mg DAILY PO 08/26/16 09:00 09/25/16 08:59 08/26/16 08:30 5 MG Valsartan (Diovan Tab) 80 mg DAILY PO 08/26/16 09:00 09/25/16 08:59 08/26/16 08:29 80 MG Pantoprazole Sodium (Protonix Tab) 40 mg QAM PO 08/26/16 09:00 09/25/16 08:59 08/26/16 08:29 40 MG Insulin Aspart (novoLOG ASPART) SLIDING SCALE If C... ACHS SC 08/25/16 21:00 09/24/16 20:59 Glucose (Glucose 40% Gel) 15-30 GRAMS 15 GRAMS... UD PRN PO 08/25/16 15:30 09/24/16 15:29 Glucose (Glucose Chew Tab) 4-8 Tablets 4 Tabl... UD PRN PO 08/25/16 15:30 09/24/16 15:29 Dextrose (Dextrose 50% 50ML Syringe) 25-50ML OF 50% DW IV FOR... UD PRN IV 08/25/16 15:30 09/24/16 15:29 Glucagon (Glucagon Inj) 1 mg UD PRN SQ 08/25/16 15:30 09/24/16 15:29 Hydralazine HCl (HydrALAZINE INJ) 10 mg Q8H PRN IV. 08/25/16 15:30 09/24/16 15:29 08/25/16 20:13 10 MG Miscellaneous (Iv Fluids Completed) 1 ea PRN PRN N/A 08/25/16 16:15 08/25/17 16:14 Pneumococcal Polysaccharide Vaccine (Pneumovax-23 Inj) 25 mcg ONCE ONCE IM. 08/26/16 17:00 08/26/16 17:01 Gadobutrol (Gadavist) 8 mmol UD PRN IV 08/25/16 20:00 08/29/16 19:59 Review of Systems Patient denies experiencing recent fever, chills, or night sweats. No significant change in weight. She does recall experiencing some associated vision disturbance with the strokelike episode that occurred 2-3 weeks ago. The vision disturbance persisted for 20-30 minutes which she describes as difficulty with her peripheral vision, both eyes. No diplopia, no vision loss. The patient endorses a history of chronic hearing loss for which he uses bilateral hearing aids. She denies problems with speech or swallowing at this time. Patient denies chest pain, palpitations, shortness of breath, cough, or wheezing. She did endorse the symptom of nausea as described above. No vomiting. No diarrhea. No dysuria. No abdominal pain. Patient denies rash, skin lesion, sores, significant muscle pain, myalgia, arthralgia. She denies feeling significantly anxious or depressed. No significant sleep disruption. No swollen glands, easy bruising, or abnormal bleeding. A full 10 point systems review was obtained by this patient and his described in the history of present illness and otherwise described above in the review of systems. Physical Exam Vital Signs (Past 24 Hrs): Date Time Temp Pulse Resp B/P Pulse Ox O2 Delivery O2 Flow Rate FiO2 08/26/16 08:08 36.5 70 18 140/70 98 Room Air 08/26/16 04:01 36.4 86 18 146/73 98 Room Air 08/26/16 04:00 98 Room Air 08/26/16 00:01 99 Room Air 08/25/16 21:57 36.6 100 18 165/75 97 Room Air 08/25/16 21:16 99 18 153/80 99 Room Air 08/25/16 20:01 36.6 97 18 195/84 98 Room Air 176/91 08/25/16 20:00 Room Air 08/25/16 17:35 156/79 08/25/16 17:00 36.7 99 16 198/78 99 Room Air 08/25/16 17:00 Room Air 08/25/16 16:54 104 18 167/76 98 08/25/16 16:30 98 Room Air 08/25/16 15:45 92 16 186/68 98 Room Air 08/25/16 15:20 85 16 186/89 98 Room Air 08/25/16 15:15 88 18 214/98 95 Room Air 08/25/16 14:30 90 18 177/92 98 Room Air 08/25/16 14:04 99 Room Air 08/25/16 14:00 86 18 189/95 99 Room Air 08/25/16 13:29 86 08/25/16 13:20 94 18 182/96 92 Room Air 08/25/16 13:10 88 18 222/106 95 Room Air The patient is a well-developed, elderly female, lying in bed, no acute distress. She is pleasant and cooperative. She is oriented to person place and time and exhibits normal attention and concentration. She is able to name objects, repeat tax, and repeat phrases without difficulty. Speech is fluent and non-dysarthric. Recent and remote memory intact. She exhibits a normal age appropriate fund of knowledge and normal vocabulary. Visual mitchell full to confrontation. Visual acuity normal with corrective eyewear. Pupils equal round reactive to light and accommodation. Eye movements intact. There is no nystagmus. There is no facial droop. Normal facial strength and symmetry observed. Facial sensation intact bilaterally. Palate elevates to midline. Tongue protrudes to midline. Shoulder shrug strength intact bilaterally. Hearing intact to finger rub bilaterally with hearing aids. Sensation intact to light touch, temperature, proprioception, and vibration in all 4 limbs. There is no dysmetria with finger to nose or heel to braxton testing bilaterally. Deep tendon reflexes are 2+ for the arms and legs bilaterally, 1+ at the Achilles tendons bilaterally. Plantar responses downgoing bilaterally. Ophthalmoscopic examination reveals normal-appearing optic nerves and posterior segments. No papilledema. No hemorrhages. Carotid pulses normal bilaterally, no bruits to auscultation. There is no pronator drift with outstretched arms. Muscle strength and tone normal for all 4 limbs proximally and distally. No abnormal movements observed. No atrophy observed. Gait and station normal. Laboratory Results Past 24 Hours: 08/26/16 05:40 Red Blood Count 4.17, Mean Corpuscular Volume 86.1, Mean Corpuscular Hemoglobin 28.8, Mean Corpuscular Hemoglobin Concent 33.4, Mean Platelet Volume 8.3, Neutrophils (%) (Auto) 71.4, Lymphocytes (%) (Auto) 19.3, Monocytes (%) (Auto) 7.7, Eosinophils (%) (Auto) 1.2, Basophils (%) (Auto) 0.3, Neutrophils # (Auto) 4.81, Lymphocytes # (Auto) 1.30, Monocytes # (Auto) 0.52, Eosinophils # (Auto) 0.08, Basophils # (Auto) 0.02 08/26/16 05:40 Test 08/25/16 13:30 08/25/16 13:35 08/25/16 13:51 08/25/16 14:10 Bedside Prothrombin Time INR 0.9 (0.9-1.1) Prothrombin Time 10.3 SECONDS (9.0-12.0) Prothromb Time International Ratio 1.0 (0.9-1.1) Activated Partial Thromboplast Time 23.3 SECONDS (21.0-31.0) Partial Thromboplastin Ratio 0.9 Estimated Average Glucose 171 mg/dl Hemoglobin A1c 7.6 % (4.5-5.6) Bedside Hemoglobin 12.2 g/dl (12.0-16.0) Bedside Hematocrit 36 % (37-47) Bedside Sodium 134 mEq/L (135-144) Bedside Potassium 4.6 mEq/L (3.3-5.0) Bedside Chloride 98 mEq/L (101-112) Bedside Total CO2 23 mEq/l (24-31) Bedside Blood Urea Nitrogen 20 mg/dl (7-18) Bedside Creatinine 0.7 mg/dl (0.6-1.3) Bedside Glucose (other) 121 mg/dl (70-99) Bedside Ionized Calcium (Lesvia) 1.27 mmol/l (1.12-1.32) Urine Opiates Screen NEG (NEG) Urine Methadone, Qualitative NEG (NEG) Urine Barbiturates NEG (NEG) Urine Phencyclidine (PCP) Level NEG (NEG) Ur Amphetamine/Methamphetamine NEG (NEG) MDMA (Ecstasy) Screen NEG (NEG) Urine Benzodiazepines Screen NEG (NEG) Urine Cocaine Metabolite NEG (NEG) Urine Marijuana (THC) NEG (NEG) Test 08/25/16 15:30 08/26/16 05:40 08/26/16 07:01 Urine Color YELLOW Urine Appearance CLEAR (CLEAR) Urine pH 6.5 (4.5-7.5) Urine Specific [place] <= 1.005 (1.000-1.030) Urine Protein NEG (NEG) Urine Glucose (UA) NEG (NEG) Urine Ketones NEG (NEG) Urine Occult Blood NEG (NEG) Urine Nitrite NEG (NEG) Urine Bilirubin NEG (NEG) Urine Urobilinogen NEG (NEG) Urine Leukocyte Esterase NEG (NEG) Urine RBC 0-4 /hpf (0-4) Urine WBC 1-5 /hpf (0-5) Urine Epithelial Cells 0-5 /lpf (0-5) Urine Bacteria NEG (NEG) White Blood Count 6.74 K/uL (4.8-10.8) Red Blood Count 4.17 M/uL (4.2-5.4) Hemoglobin 12.0 g/dL (12.0-16.0) Hematocrit 35.9 % (37-47) Mean Corpuscular Volume 86.1 fL (80-100) Mean Corpuscular Hemoglobin 28.8 pg (25-34) Mean Corpuscular Hemoglobin Concent 33.4 g/dl (32-36) Platelet Count 261 K/uL (130-400) Mean Platelet Volume 8.3 fL (7.4-10.4) Neutrophils (%) (Auto) 71.4 % Lymphocytes (%) (Auto) 19.3 % Monocytes (%) (Auto) 7.7 % Eosinophils (%) (Auto) 1.2 % Basophils (%) (Auto) 0.3 % Neutrophils # (Auto) 4.81 K/uL (1.4-6.5) Lymphocytes # (Auto) 1.30 K/uL (1.2-3.4) Monocytes # (Auto) 0.52 K/uL (0.11-0.59) Eosinophils # (Auto) 0.08 K/uL (0-0.5) Basophils # (Auto) 0.02 K/uL (0-0.2) RDW Standard Deviation 41.9 fL (36.4-46.3) RDW Coefficient of Variation 13.2 % (11.5-14.5) Immature Granulocyte % (Auto) 0.1 % Immature Granulocyte # (Auto) 0.01 K/uL (0.00-0.02) Anion Gap 9.0 mmol/L (3-11) Est Creatinine Clear Calc Drug Dose 73.0 ml/min Estimated GFR () 100.0 Estimated GFR (Non- 86.2 BUN/Creatinine Ratio 25.0 (10-20) Calcium Level 8.7 mg/dl (8.5-10.1) Total Creatine Kinase 26 U/L (26-192) Creatine Kinase MB < 0.5 ng/ml (0.5-3.6) Creatine Kinase MB Ratio (0-3.0) Troponin I < 0.015 ng/ml (0-0.045) Triglycerides Level 168 mg/dl (0-150) Cholesterol Level 135 mg/dl (0-200) HDL Cholesterol 49 mg/dl LDL Cholesterol, Calculated 52 mg/dl VLDL Cholesterol, Calculated 34 mg/dl Cholesterol/HDL Ratio 2.8 Thyroid Stimulating Hormone (TSH) 0.462 uIu/ml (0.300-4.500) Bedside Glucose 145 mg/dl (70-90) Impression Strokelike episode occurring in the context of hypertensive urgency. The patient endorses many symptoms that are suggestive of migraine as well. She may be experiencing complex migraine episodes potentially triggered by significant elevations in blood pressure. Temporal arteritis possible although she does not really endorse associated symptoms such as proximal myalgia, jaw claudication, or scalp tenderness. Recurrent embolic TIA possible although would not typically expect migrainous symptoms of headache, nausea, and photosensitivity. No evidence of atrial fibrillation. The observed 30-40% stenosis of the proximal left internal carotid artery is of undetermined, but unlikely clinical significance. Plan I stressed the importance of compliance with Plavix 75 mg per day as the patient admitted to discontinuing this medication about 2 weeks ago on her own given concerns over potential side effects that were encountered in her mother while on this medication. Adequate control of this patient's hypertension will be important in managing her case going forward. Given the possibility of complex migraine that theoretically could be related to vasospasm, I think another trial of a calcium channel anyi is warranted. She reports an intolerance to amlodipine, I think a trial of verapamil SR taken in the evening would be a reasonable alternative. I would typically start with 120 mg and uptitrate depending on tolerance. I will defer to the hospitalist on the appropriateness of starting this type of medication in the context of her current admission. Her hypertension does appear to be better controlled this morning. Would check a sedimentation rate as a general screen for vasculitis/temporal arthritis. If significantly elevated would consider treatment with prednisone and obtaining a temporal artery biopsy. No further immediate recommendations. The patient may follow-up with me in clinic if desired for ongoing monitoring of her neurological status. Please contact me if I may be of further assistance.
--- NOTE | 2016-08-26 14:48 | Hospitalist Progress Note ---
Hospitalist Progress Note Date of Service Aug 26, 2016. Subjective Pt evaluation today including: conversation w/ patient, conversation w/ family , physical exam, chart review, lab review, review of studies, review of inpatient medication list Medications Medications (Trade) Dose Ordered Sig/Maureen Route Start Time Stop Time Status Last Admin Dose Admin Hydralazine HCl (HydrALAZINE INJ) 20 mg STK-MED ONCE .ROUTE 08/25/16 15:08 08/25/16 15:11 DC 08/25/16 15:14 10 MG Clopidogrel Bisulfate (plAVix TAB) 75 mg QAM PO 08/26/16 09:00 09/25/16 08:59 08/26/16 08:29 75 MG Heparin Sodium (Porcine) (Heparin Sq 5000 Unit/0.5ml) 5,000 unit Q12 SQ 08/25/16 21:00 09/24/16 20:59 08/26/16 08:35 5,000 UNIT Acetaminophen (Tylenol Tab) 650 mg Q4H PRN PO 08/25/16 15:30 09/24/16 15:29 08/26/16 08:28 650 MG Ondansetron HCl (Zofran Inj) 4 mg Q6H PRN IV 08/25/16 15:30 09/24/16 15:29 08/26/16 08:28 4 MG Levothyroxine Sodium (Synthroid Tab) 100 mcg DAILYBB PO 08/26/16 06:00 09/25/16 06:59 08/26/16 05:30 100 MCG Rosuvastatin Calcium (Crestor Tab) 5 mg DAILY PO 08/26/16 09:00 09/25/16 08:59 08/26/16 08:30 5 MG Valsartan (Diovan Tab) 80 mg DAILY PO 08/26/16 09:00 09/25/16 08:59 08/26/16 08:29 80 MG Pantoprazole Sodium (Protonix Tab) 40 mg QAM PO 08/26/16 09:00 09/25/16 08:59 08/26/16 08:29 40 MG Hydralazine HCl (HydrALAZINE INJ) 10 mg Q8H PRN IV. 08/25/16 15:30 09/24/16 15:29 08/25/16 20:13 10 MG Lorazepam (Ativan Inj) 0.5 mg TODAY@1830 PRN IV 08/25/16 18:30 08/25/16 23:59 DC 08/25/16 18:20 0.5 MG Objective Vital Signs Date Time Temp Pulse Resp B/P Pulse Ox O2 Delivery O2 Flow Rate FiO2 08/26/16 12:21 36.6 87 18 148/76 96 Room Air 08/26/16 12:00 97 Room Air 08/26/16 08:08 36.5 70 18 140/70 98 Room Air 08/26/16 08:00 98 Room Air 08/26/16 04:01 36.4 86 18 146/73 98 Room Air 08/26/16 04:00 98 Room Air 08/26/16 00:01 99 Room Air 08/25/16 21:57 36.6 100 18 165/75 97 Room Air 08/25/16 21:16 99 18 153/80 99 Room Air 08/25/16 20:01 36.6 97 18 195/84 98 Room Air 176/91 08/25/16 20:00 Room Air 08/25/16 17:35 156/79 08/25/16 17:00 36.7 99 16 198/78 99 Room Air 08/25/16 17:00 Room Air 08/25/16 16:54 104 18 167/76 98 08/25/16 16:30 98 Room Air 08/25/16 15:45 92 16 186/68 98 Room Air 08/25/16 15:20 85 16 186/89 98 Room Air 08/25/16 15:15 88 18 214/98 95 Room Air Physical Exam General Appearance: WD/WN, no apparent distress Eyes: normal inspection, EOMI, sclerae normal ENT: hearing grossly normal, pharynx normal Neck: supple, trachea midline Respiratory/Chest: chest non-tender, lungs clear Cardiovascular: regular rate, rhythm, no edema, no JVD, no murmur Abdomen: normal bowel sounds Extremities: non-tender Neurologic/Psychiatric: no motor/sensory deficits Laboratory Results Last 24 Hours Test 08/25/16 15:30 08/25/16 15:53 08/25/16 20:52 08/25/16 21:13 Urine Color YELLOW Urine Appearance CLEAR Urine pH 6.5 Urine Specific [place] <= 1.005 Urine Protein NEG Urine Glucose (UA) NEG Urine Ketones NEG Urine Occult Blood NEG Urine Nitrite NEG Urine Bilirubin NEG Urine Urobilinogen NEG Urine Leukocyte Esterase NEG Urine RBC 0-4 /hpf Urine WBC 1-5 /hpf Urine Epithelial Cells 0-5 /lpf Urine Bacteria NEG Bedside Glucose 122 mg/dl 154 mg/dl Total Creatine Kinase 28 U/L Creatine Kinase MB 0.5 ng/ml Creatine Kinase MB Ratio 1.8 Troponin I < 0.015 ng/ml Test 08/26/16 05:40 08/26/16 07:01 08/26/16 11:19 White Blood Count 6.74 K/uL Red Blood Count 4.17 M/uL Hemoglobin 12.0 g/dL Hematocrit 35.9 % Mean Corpuscular Volume 86.1 fL Mean Corpuscular Hemoglobin 28.8 pg Mean Corpuscular Hemoglobin Concent 33.4 g/dl Platelet Count 261 K/uL Mean Platelet Volume 8.3 fL Neutrophils (%) (Auto) 71.4 % Lymphocytes (%) (Auto) 19.3 % Monocytes (%) (Auto) 7.7 % Eosinophils (%) (Auto) 1.2 % Basophils (%) (Auto) 0.3 % Neutrophils # (Auto) 4.81 K/uL Lymphocytes # (Auto) 1.30 K/uL Monocytes # (Auto) 0.52 K/uL Eosinophils # (Auto) 0.08 K/uL Basophils # (Auto) 0.02 K/uL RDW Standard Deviation 41.9 fL RDW Coefficient of Variation 13.2 % Immature Granulocyte % (Auto) 0.1 % Immature Granulocyte # (Auto) 0.01 K/uL Erythrocyte Sedimentation Rate 8 mm/hr Sodium Level 138 mmol/L Potassium Level 4.1 mmol/L Chloride Level 105 mmol/L Carbon Dioxide Level 24 mmol/L Anion Gap 9.0 mmol/L Blood Urea Nitrogen 16 mg/dl Creatinine 0.65 mg/dl Est Creatinine Clear Calc Drug Dose 73.0 ml/min Estimated GFR () 100.0 Estimated GFR (Non- 86.2 BUN/Creatinine Ratio 25.0 Random Glucose 148 mg/dl Calcium Level 8.7 mg/dl Total Creatine Kinase 26 U/L Creatine Kinase MB < 0.5 ng/ml Creatine Kinase MB Ratio Troponin I < 0.015 ng/ml Triglycerides Level 168 mg/dl Cholesterol Level 135 mg/dl HDL Cholesterol 49 mg/dl LDL Cholesterol, Calculated 52 mg/dl VLDL Cholesterol, Calculated 34 mg/dl Cholesterol/HDL Ratio 2.8 Thyroid Stimulating Hormone (TSH) 0.462 uIu/ml Bedside Glucose 145 mg/dl 178 mg/dl Assessment and Plan (1) HTN, goal below 130/80 Assessment & Plan: will add verapamil SR 120 QHS. Discussed relationship between bp and stroke and patient's risk factors for cva, htn and diabetes. (2) Advance care planning Assessment & Plan: patient does not want to be resuscitated. Discussed with her POA. Will change code status to reflect her wishes. (3) Diabetes mellitus (4) TIA (transient ischemic attack) will follow bp and discharge to home on 08/27. Problem Qualifiers (1) Diabetes mellitus: Diabetes mellitus type: type 2 (2) TIA (transient ischemic attack): Transient cerebral ischemia type: unspecified Qualified Codes: G45.9 - Transient cerebral ischemic attack, unspecified
[2016-08-26] MEDS ORDERED: PNEUMOCOCCAL ADMINISTRATION CHARGE ONE (17:00)
[2016-08-26] MEDS ORDERED: PNEUMOCOCCAL POLYSACCHARIDES 25 MCG/0.5 ML VIAL/SYR IM. ONE (17:00)
--- NOTE | 2016-08-26 17:01 | ECHOCARDIOGRAM REPORT ---
*NOTICE TO RECEIVING DEMOCRAT AGENCY This information is strictly Confidential and protected under [place] law. [place] law prohibits you from making any further disclosure of this information unless further disclosure is expressly permitted by the written consent of the person to whom it pertains or is authorized by law. A general authorization for the release of medical or other information is not sufficient for this purpose. Hospital accepts no responsibility if the information is made available to any other person, INCLUDING THE PATIENT. Interpretation Summary * Name: MARKEL YE Study Date: 08/26/2016 07:18 AM BP: 146/73 mmHg * Patient Location: C.2T\S\S239\S\2 HR: 84 * : 1940 (M/d/yyy) Gender: Female Height: 64 in * Age: 76 yrs Ethnicity: CA Weight: 165 lb * Ordering Physician: Evie Hinojosa * Referring Physician: Vidal Vegas * Performed By: Nova Hansen [facility] [place] * * Reason For Study: TIA/CVA * BSA: 1.8 m2 * Normal biventricular systolic function. * Left ventricular diastolic dysfunction. * Mild aortic stensosis. * Trace aortic regurgitation. * Trace mitral regurgitation. * No cardiac source of emboli noted. Procedure Details * A complete two-dimensional transthoracic echocardiogram was performed (2D, M-mode, Doppler and color flow Doppler). * A saline contrast injection was performed to assess for cardiac shunting. * The injection was performed through an intravenous line in the left arm. * The attending nurse who injected the saline contrast was JOSEPH REYES, RN. * A total of 20 cc of agitated saline was given. Left Ventricle * The left ventricle is normal in size. * There is no thrombus. * There is normal left ventricular wall thickness. * Left ventricular systolic function is normal. * Ejection Fraction = 60-65%. * A full diastolic examination was done with clinical findings of Class I diastolic dysfunction. * The left ventricular wall motion is normal. Right Ventricle * The right ventricle is normal in size and function. Atria * The left atrial size is normal. * Right atrial size is normal. * Injection of contrast documented no interatrial shunt. Mitral Valve * There is mild mitral annular calcification. * There is no mitral valve stenosis. * There is trace mitral regurgitation. Tricuspid Valve * The tricuspid valve is not well visualized, but is grossly normal. * Significant tricuspid regurgitation is absent. Aortic Valve * The aortic valve is trileaflet and calcified. Decreased but adequate opening on 2 D imaging. * Aortic valve area was calculated at 1.4 cm\S\2 using the continuity equation. * Mild valvular aortic stenosis. * Trace aortic regurgitation. Pulmonic Valve * The pulmonic valve is not well visualized. * The pulmonary valve is inadequately visualized, but the Doppler data is adequate for interpretation. * There is no pulmonic valvular stenosis. * There is no significant pulmonary regurgitation. Great Vessels * The aortic root is normal size. Pericardium/Pleural * There is no pericardial effusion. Great Vessels * Normal inferior vena cava diameter and respiratory variation suggests normal central venous pressure. MMode 2D Measurements and Calculations IVSd 1.0 cm IVSs 1.7 cm LVIDd 3.6 cm LVIDs 2.4 cm LVPWd 1.1 cm LVPWs 1.3 cm IVS/LVPW 0.93 FS 33.8 % EDV(Teich) 52.8 ml ESV(Teich) 19.2 ml EF(Teich) 63.7 % EDV(cubed) 44.9 ml ESV(cubed) 13.0 ml EF(cubed) 71.0 % % IVS thick 68.5 % % LVPW thick 20.2 % LV mass(C)d 116.8 grams LV mass(C)dI 64.8 grams/m\S\2 LV mass(C)s 122.3 grams LV mass(C)sI 67.9 grams/m\S\2 SV(Teich) 33.7 ml SI(Teich) 18.7 ml/m\S\2 SV(cubed) 31.9 ml SI(cubed) 17.7 ml/m\S\2 Ao root diam 3.1 cm Ao root area 7.5 cm\S\2 LA dimension 3.7 cm LA/Ao 1.2 LVOT diam 2.0 cm LVOT area 3.1 cm\S\2 LVAs ap4 19.3 cm\S\2 LVLs ap4 7.5 cm ESV(MOD-sp4) 40.9 ml ESV(sp4-el) 42.5 ml LVAs ap2 18.7 cm\S\2 LVLs ap2 7.3 cm ESV(MOD-sp2) 39.2 ml ESV(sp2-el) 40.8 ml LVLs %diff -2.74 % ESV(MOD-bp) 39.9 ml Doppler Measurements and Calculations Ao V2 max 193.0 cm/sec Ao max PG 14.9 mmHg Ao max PG (full) 11.8 mmHg HOANG(V,A) 1.4 cm\S\2 HOANG(V,D) 1.4 cm\S\2 AI max estevan 480.1 cm/sec AI max PG 92.2 mmHg AI dec slope 294.4 cm/sec\S\2 AI P1/2t 477.6 msec LV V1 max PG 3.2 mmHg LV V1 max 88.8 cm/sec PA V2 max 111.8 cm/sec PA max PG 5.0 mmHg
[2016-08-26] MEDS ORDERED: VERAPAMIL HCL 120 MG TABCR PO SCH (21:00)
[2016-08-27] VITALS: BP 116/71; PULSE 83; TEMP 36.6; O2SAT 95
[2016-08-27 04:00] VITALS: BP 122/68; PULSE 80; TEMP 36.5; O2SAT 95
[2016-08-27] MEDS: LEVOTHYROXINE 100 MCG TAB PO SCH (05:47)
[2016-08-27 07:21] LABS: BASO % 0.2 %; BASO ABS # 0.01 K/uL (0-0.2); COMPLETE YES; EOS % 2.9 %; HEMATOCRIT 35.2 % (37-47); IG% 0.2 %; LYMPH % 18.8 %; LYMPH ABS # 0.98 K/uL (1.2-3.4); MEAN CELL VOLUME 87.8 fL (80-100); MEAN CORPUSCULAR HEMOGLOBIN 29.2 pg (25-34); MEAN CORPUSCULAR HGB CONC 33.2 g/dl (32-36); MEAN PLATELET VOLUME 8.6 fL (7.4-10.4); MONO % 9.8 %; NEUT % 68.1 %; PLATELET COUNT 250 K/uL (130-400); RED BLOOD COUNT 4.01 M/uL (4.2-5.4); WHITE BLOOD COUNT 5.22 K/uL (4.8-10.8)
[2016-08-27 07:45] LABS: BUN/CREATININE RATIO 22.5 (10-20); CALCIUM 8.6 mg/dl (8.5-10.1); CREATININE 0.7 mg/dl (0.60-1.20); POTASSIUM 4.6 mmol/L (3.5-5.1)
[2016-08-27] MEDS: INSULIN ASPART 100 UNITS/ML 3 ML PEN SC SCH ×2 (07:49→12:11)
[2016-08-27] MEDS: PANTOprazole SOD 40 MG TAB PO SCH (07:50)
[2016-08-27] MEDS: CLOPIDOGREL BISULFATE 75 MG TAB PO SCH (07:50)
[2016-08-27] MEDS: VALSARTAN 80 MG TAB PO SCH (07:50)
[2016-08-27 07:51] VITALS: BP 117/74; PULSE 80; TEMP 36.7; O2SAT 97
[2016-08-27] MEDS: ROSUVASTATIN CALCIUM 10 MG TAB PO SCH (07:51)
[2016-08-27] MEDS: HEPARIN SOD 5000 UNIT/0.5 ML CARP SQ SCH (07:54)
[2016-08-27] MEDS ORDERED: VERA120T65 PO (15:29)
[2016-08-27] MEDS ORDERED: CLOP1TAB15 PO (15:29)
--- NOTE | 2016-08-27 15:35 | Discharge Instructions ---
Discharge Instructions Date of Service Aug 27, 2016. Admission Reason for Admission: Tia (Transient Ischemic Attack) Discharge Discharge Diagnosis / Problem: TIA Discharge Goals Goal(s): Prevent Disease Progression Activity Recommendations Activity Limitations: resume your previous activity Exercise/Sports Limitations: as tolerated May Resume Sexual Activity: when tolerated Shower/Bathe: no limitations Driving or Machine Use: 3 weeks . Instructions / Follow-Up Instructions / Follow-Up Risk Factors for Stroke: You can reduce your chances of stroke by working with your medical provider to adopt a healthy lifestyle. Some specific ways to lower your chance of stroke are: * If you are a smoker, now is the time to stop smoking cigarettes * If you are diabetic, improve the control of your blood sugars * Avoid excessive amounts of alcohol * Control high blood pressure * Lose weight if you are overweight * Be sure to lead an active lifestyle * Eat a healthy diet low in salt, cholesterol and fat You should know about other risk factors for stroke that you are unable to control. These include: * Age 55 years or older * Male gender * Certain racial groups: , or / * Family History of Stroke, Mini stroke or Heart Attack * Sickle Cell Disease Follow Up: It is important for you to keep your follow up appointments with your medical provider. Current Hospital Diet Patient's current hospital diet: Diabetes Type 2 Diet Discharge Diet Recommended Diet: Diabetes Type 2 Diet Fluid Restriction: None Pending Studies Studies pending at discharge: no Laboratory Results Hemoglobin A1c Test 08/25/16 13:35 Range/Units Estimated Average Glucose 171 mg/dl Hemoglobin A1c 7.6 H 4.5-5.6 % Lipid Panel Test 08/26/16 05:40 Range/Units Triglycerides Level 168 H 0-150 mg/dl Cholesterol Level 135 0-200 mg/dl HDL Cholesterol 49 mg/dl Cholesterol/HDL Ratio 2.8 LDL Cholesterol, Calculated 52 mg/dl Medical Emergencies . Who to Call and When: Medical Emergencies: Call 911 immediately if you experience any of the following warning signs and symptoms of Stroke: * Sudden numbness or weakness of the face, arm or leg, especially on one side of the body * Sudden confusion, trouble speaking or understanding * Sudden trouble seeing in one or both eyes * Sudden trouble walking, dizziness, loss of balance or coordination * Sudden severe headache with no cause Do not delay calling 911 if you experience any warning signs or symptoms of a stroke. Delay in seeking medical attention may affect what treatments can be given to you. . Non-Emergent Contact Non-Emergency issues call your: Primary Care Provider . . "Provider Documentation" section prepared by Seven Dicekrson. Stroke Core Measures Reason no t-PA for Stroke: Treatment not indicated Reason no antithrom by day 2: Treatment not indicated Reason no antithrom at D/C: Treatment provided - N/A Reason no statin at D/C: Treatment provided - N/A Reason no anticoag w/a fib: Treatment not indicated VTE Core Measure Inpt VTE Proph given/why not?: Unfractionated heparin SQ
[2016-08-27 15:48] VITALS: BP 117/74; PULSE 80; TEMP 36.7; O2SAT 97
[2016-08-28] MEDS ORDERED: SPIR25TA89 PO (13:52)
[2016-08-28] MEDS ORDERED: CALC1CHW (13:52)
[2016-08-28] MEDS ORDERED: CHOL1000 PO (13:52)
[2016-08-28] MEDS ORDERED: FLUC100T4 PO (13:52)
--- NOTE | 2016-09-09 03:37 | DISCHARGE SUMMARY ---
Please see H\T\P for full details of her presentation. BRIEFLY: The patient is a 76-year-old history of type 2 diabetes, hypertension, hyperlipidemia, obesity who was a stroke alert. She presented with expressive aphasia and right-sided weakness that resolved 10 minutes after presentation. Her stroke like symptoms had begun half hour prior to arrival. She was at [facility] and could not speak. She then began to experience right upper arm numbness and weakness. Two weeks prior to admission, she had had a similar episode of left hand numbness, which she described to her primary care physician. CAT scan of the head at that time and carotid ultrasound were both normal and she was advised to start Plavix. The patient never started Plavix. She had started 4 week; however, had concerns about side effects of the medication and therefore discontinued. She was seen first by tele neurology, who recommended Plavix be loaded and started. Plavix loading was 300 mg p.o. x1 followed by a regular dose of 75 daily. No TPA was given secondary to resolution of her symptoms. A neurology consultation was obtained with Seven Burgess. Dr. Burgess reviewed the entirety of her workup. CT of the head which was unremarkable. Brain MRI showed mild atrophy, mild to moderate small vessel ischemic disease of chronic nature consistent with AH evidence of acute stroke or subacute. MRA of the head was unremarkable MRA of the neck suggests a 30-40% narrowing of the origin of the left internal carotid artery. EKG showed normal sinus rhythm and a transthoracic echocardiogram completed in March 2016 revealed type 1 diastolic dysfunction and mild aortic valve sclerosis. Dr. Burgess stressed the importance of compliance with Plavix and also believes that this event may be secondary to vasospasm and recommended starting the calcium channel anyi. Verapamil SR since she had intolerance to amlodipine. Medication was started and the patient had no complaints, and once discharged to home in stable condition on August 27. DISCHARGE DIAGNOSES: 1. Transient ischemic attack. 2. Diabetes. 3. Hypertension. 4. Medical noncompliance. 5. Obesity. 6. Hyperlipidemia. 7. Hypothyroidism. 8. Vitamin D deficiency. 9. Gastroesophageal reflux disease.
== END 2016-08-27 17:00 | disposition home or self-care (01) ==
LOC: ENRESERVTM → ENRESERVDT → EDBD 12:59 → C.EDB 13:07 → C.2T 15:40
PROVIDERS: ADMIT Family Medicine; ATTEND Internal Medicine
DX: G45.9 Transient cerebral ischemic attack, unspecified (principal); I16.0 Hypertensive urgency; E11.9 Type 2 diabetes mellitus without complications; E55.9 Vitamin D deficiency, unspecified; E03.9 Hypothyroidism, unspecified; E66.9 Obesity, unspecified; K21.9 Gastro-esophageal reflux disease without esophagitis; M19.90 Unspecified osteoarthritis, unspecified site; E78.5 Hyperlipidemia, unspecified; Z96.693 Finger-joint replacement, bilateral; Z96.651 Presence of right artificial knee joint; Z90.49 Acquired absence of other specified parts of digestive tract; Z87.891 Personal history of nicotine dependence; Z88.5 Allergy status to narcotic agent; Z88.6 Allergy status to analgesic agent; Z79.899 Other long term (current) drug therapy

== ENCOUNTER 2016-08-28 13:15 | Emergency (ER) | payer OTHER, BC ==
[~2016-08-28 13:15] MED LIST changes: +ACET325T96 PO; -ACET650S10 PO; -AMLO-110 PO; +CLOP1TAB15 PO; +DVN80 PO; -FRRG PO; -VALS40TA2 PO; +VERA120T65 PO; -WARF1TAB PO
[2016-08-28 13:21] VITALS: TEMP 36.8; Ht 170.2 cm
[2016-08-28] MEDS ORDERED: SODIUM CHLORIDE 0.9% 500ML 500 ML IV STA (13:37)
[2016-08-28] MEDS ORDERED: CHOL1000 PO (13:52)
[2016-08-28] MEDS ORDERED: CALC1CHW (13:52)
[2016-08-28] MEDS ORDERED: SPIR25TA89 PO (13:52)
[2016-08-28] MEDS ORDERED: FLUC100T4 PO (13:52)
[2016-08-28] MEDS ORDERED: OPTIRAY 320 IV PRN (14:00)
[2016-08-28 14:07] LABS: HEMATOCRIT 37.8 % (37-47); MEAN CELL VOLUME 85.9 fL (80-100); MEAN CORPUSCULAR HEMOGLOBIN 29.1 pg (25-34); MEAN CORPUSCULAR HGB CONC 33.9 g/dl (32-36); MEAN PLATELET VOLUME 8.6 fL (7.4-10.4); PLATELET COUNT 265 K/uL (130-400)
[2016-08-28 14:47] LABS: BLOOD UREA NITROGEN 18 mg/dl (7-18); BUN/CREATININE RATIO 21.9 (10-20); CALCIUM 8.9 mg/dl (8.5-10.1); CARBON DIOXIDE 23 mmol/L (21-32); CHLORIDE 101 mmol/L (98-107); GLUCOSE 151 mg/dl (70-99); POTASSIUM 4.4 mmol/L (3.5-5.1); SODIUM 134 mmol/L (136-145)
--- NOTE | 2016-08-28 15:50 | EMERGENCY ROOM VISIT NOTE ---
History Report prepared by Cholo: Drea Ruffin Under the Supervision of: Dr. Bertin Sheriff M.D. First contact with patient: 13:23 Chief Complaint: NEURO SYMPTOMS Stated Complaint: STROKE SYMPTOMS Nursing Triage Summary: Pt arrives ALS from [facility] At 1245 pt had trouble getting her words out and left sided facial droop Staff noted this to last approx 10 mins Pt admitted to [facility] on Friday for same sx and all tests were neg Pt's sx have resolved at this time History of Present Illness The patient is a 76 year old female who presents to the Emergency Room with complaints of resolved stroke like symptoms that began about 45 minutes LOFTSMAN/WOMAN. The patient notes that she was reading her mail after eating lunch when she suddenly developed numbness to the right side of her face and her right hand. She had a right facial droop. The right side of her face and right hand did not seem paralyzed. She also complains of jumbled speech during that time. She knew what she wanted to say but could not speak. She states that she had difficulty saying grapefruit but was able to say it normally after her symptoms resolved. She did not notice any numbness in her legs. Her symptoms lasted about 10 minutes in total. She does not have a headache. She has had a few episodes of similar symptoms in the past. She was hospitalized for similar right sided stroke-like symptoms and speech difficulties [address] Burgess of Neurology evaluated the patient and did not find any evidence of stroke. She was discharged from the hospital yesterday with a diagnosis of TIA. She had another episode of symptoms, but on the left side, earlier this month. During each episode, she developed a headache after her symptoms resolved. The patient has had some memory loss but notes that it has been progressively worsening for a while now. She has never been officially diagnosed with a stroke. She is on Plavix. Source of History: patient Onset: 45 minutes LOFTSMAN/WOMAN Position: other (neurological) Quality: other (right sided facial and right hand numbness) Timing: resolved Associated Symptoms: No headache Note: Other symptoms: speech difficulties Review of Systems See HPI for pertinent positives & negatives. A total of 10 systems reviewed and were otherwise negative. Past Medical & Surgical Medical Problems: (1) Advance care planning (2) Diabetes mellitus (3) HTN, goal below 130/80 (4) TIA (transient ischemic attack) Family History No pertinent family history stated. Social History Smoking Status: Former Smoker Drug Use: none Marital Status: Occupation Status: retired Current/Historical Medications Scheduled Cholecalciferol (Vitamin D3), 1 TAB PO DAILY Esomeprazole Magnesium (Nexium), 40 MG PO DAILY Fluconazole (Diflucan), 1 TAB PO DAILY Levothyroxine Sodium (Synthroid), 100 MCG PO DAILY Metformin Hcl (Glucophage Er), 1,500 MG PO HS Metformin Hcl (Glucophage Er), 1 TAB PO QAM Rosuvastatin Calcium (Crestor), 5 MG PO DAILY Spironolactone (Aldactone), 1 TAB PO DAILY Valsartan (Diovan), 1 TAB PO DAILY Scheduled PRN Acetaminophen Tab (Tylenol), 650 MG PO DAILY PRN for Pain Miscellaneous Medications Calcium Carbonate-Vitamin D (Caltrate 600+D) Allergies Coded Allergies: Oxycodone (Unverified Adverse Reaction, Severe, VOMITING, 08/25/16) Aspirin (Unverified Adverse Reaction, Unknown, "stomach bleeds", 08/25/16) Codeine (Verified Adverse Reaction, Unknown, vomiting, 08/25/16) Physical Exam Vital Signs Date Time Temp Pulse Resp B/P Pulse Ox O2 Delivery O2 Flow Rate FiO2 08/28/16 16:45 81 18 152/87 97 08/28/16 15:32 77 18 143/85 94 Room Air 08/28/16 13:26 75 08/28/16 13:21 36.8 73 20 170/66 98 Room Air Physical Exam GENERAL: Patient is in no acute distress. HEENT: No acute trauma, normocephalic atraumatic, mucous membranes moist, no nasal congestion, no scleral icterus. NECK: No stridor, no adenopathy, no meningismus, trachea is midline. LUNGS: Clear to auscultation bilaterally, no wheeze, no rhonchi, breath sounds equal. HEART: 2/6 systolic murmur with a regular rate and rhythm. ABDOMEN: Soft, nontender, bowel sounds positive, no hernias, no peritonitis. EXTREMITIES: No cyanosis or edema, full range of motion of all the joints without pain or difficulty, no signs for acute trauma. NEUROLOGIC: Awake, alert, oriented x3, no speech slur or facial drop, no drifting or cerebellar dysfunction. SKIN: No rash, no jaundice, no diaphoresis. Medical Decision & Procedures ER Provider Diagnostic Interpretation: Radiology results and stated below per my review and radiologist interpretation: NECK CTA HISTORY: Right-sided weakness. TECHNIQUE: Multiaxial CT images of the neck were performed following the intravenous administration of contrast to evaluate the major cervical vessels. Maximum intensity projection images were also obtained. All measurements were calculated based on NASCET criteria. COMPARISON STUDY: Neck MRA 08/25/2016. FINDINGS: The aortic arch and proximal great vessels are widely patent. The bilateral common carotid and vertebral arteries are widely patent. There is moderate calcified plaque at the bilateral carotid bulbs resulting in approximately 30% stenosis bilaterally. No evidence for carotid artery vertebral artery dissection. A 4 mm nodule within the left lung apex. No cervical lymphadenopathy. IMPRESSION: 1. Approximately 30% stenosis within the bilateral carotid bulbs due to the moderate calcified plaque. 2. The common carotid and vertebral arteries are widely patent. 3. A 4 mm indeterminate pulmonary nodule within the left lung apex. Please refer to the chart below for recommended follow-up. Please refer to below summary of Fleischner criteria recommendations for follow-up of incidental CT nodules (Baylee Ball, Guidelines for management of small pulmonary nodules detected on CT scans: A statement from the Fleischner Society, Radiology 237: [phone].) Low Risk Patient: Minimal or no smoking or other known risk factors for malignancy <=4 mm: No follow-up needed. >4-6 mm: Initial follow-up CT at 12 months; if unchanged, no further follow-up. >6-8 mm: Initial follow-up CT at 6-12 months then at 18-24 months if no change. >8 mm: Follow-up CT at \\R\\3, 9, 24 months, or PET and/or biopsy. High Risk Patient: History of smoking or other known risk factors <=4 mm: Follow-up at 12 months; if unchanged, no further follow-up. >4-6 mm: Initial follow-up CT at 6-12 months then at 18-24 months if no change. >6-8 mm: Initial follow-up CT at 3-6 months then at 9-12 and 24 months if no change. >8 mm: Same as low risk patient. Note: Nodule size measured as average of length and width. Ground glass or partly solid nodules may require longer follow-up to exclude indolent adenocarcinoma. Electronically signed by: Eduardo Paulson M.D. 08/28/2016 3:51 PM Dictated Date/Time: 08/28/2016 3:[address] brain angiogram HEAD ANGIO WITH CONTRAST CLINICAL HISTORY: Mental status change TECHNIQUE: Transaxial acquisition with multi axial reformatted images COMPARISON STUDY: None FINDINGS: Normal study. All major intracranial vasculature is unremarkable. There is no significant stenotic or aneurysmal process. IMPRESSION: Negative study Electronically signed by: John Wallace M.D. 08/28/2016 3:51 PM Dictated Date/Time: 08/28/2016 3:48 PM Laboratory Results 08/28/16 13:55 08/28/16 13:55 Test 08/28/16 13:55 Red Blood Count 4.40 M/uL (4.2-5.4) Mean Corpuscular Volume 85.9 fL (80-100) Mean Corpuscular Hemoglobin 29.1 pg (25-34) Mean Corpuscular Hemoglobin Concent 33.9 g/dl (32-36) RDW Standard Deviation 40.8 fL (36.4-46.3) RDW Coefficient of Variation 13.0 % (11.5-14.5) Mean Platelet Volume 8.6 fL (7.4-10.4) Anion Gap 10.0 mmol/L (3-11) Estimated GFR () 83.0 Estimated GFR (Non- 71.6 BUN/Creatinine Ratio 21.9 (10-20) Calcium Level 8.9 mg/dl (8.5-10.1) Chemistry Specimen Hemolysis Laboratory results reviewed by me. Medications Administered Medications (Trade) Dose Ordered Sig/Maureen Route Start Time Stop Time Status Last Admin Dose Admin Sodium Chloride (Nss 500ml) 500 ml @ 999 mls/hr Q31M STAT IV 08/28/16 13:37 08/28/16 14:07 DC 08/28/16 13:55 999 MLS/HR ECG Indication: other (stoke-like symptoms) Rate (beats per minute): 73 Rhythm: sinus rhythm Findings: 1st degree AV block, PAC, no acute ischemic change ED Course 1324: The patient was evaluated in room B12B. A complete history and physical exam was performed. 1332: I discussed the case with [place]. [place] [facility] [place] [facility] He said that if a head CTA is normal, the patient can be discharged home. 1337: Ordered NSS 500 ml @ 999 mls/hr IV. 1616: Reevaluated the patient. She is currently asymptomatic and has not had any any symptoms since coming to the ER. Discussed results and discharge instructions: She verbalized understanding and agreement. The patient is ready for discharge. Medical Decision Differential includes but is not limited to TIA, complex migraine, stroke, intracranial bleeding, electrolyte imbalance. There is no leukocytosis or concerning anemia. No significant electrolyte abnormality or kidney failure. EKG shows a sinus rhythm, no acute ischemia. No dysrhythmia. CT of the brain does not show evidence for stroke or aneurysm. No intracranial bleeding. CTA of the neck shows some minimal narrowing, nothing significant, nothing has changed since her recent imaging. The patient is completely asymptomatic now. She has a normal neurologic exam. She has had symptoms over the last few months that have been on one side and then the other. The symptoms are typically associated with some sort of mild headache. I did speak with the neurologist marble mason who knows the patient well. The patient was felt stable for discharge to continue her Plavix. At this point, the neurology group feels her symptoms are likely migraine related. She was encouraged to return for worsening or more persistent symptoms. Consults Time Called: 1328 Consulting Physician: Dr. Burgess - [facility] [place] [facility] Returned Call: [phone] I discussed the case with him. He said that if a head CTA is normal, the patient can be discharged home. Impression Primary Impression: Stroke-like symptoms Scribe Attestation The scribe's documentation has been prepared under my direction and personally reviewed by me in its entirety. I confirm that the note above accurately reflects all work, treatment, procedures, and medical decision making performed by me. Departure Information Dispostion Home / Self-Care Referrals Vidal eVgas (PCP) Mina Enamorado M.D. Patient Instructions My [facility] Additional Instructions all meds as before return for persistent or worsening symptoms testing was ok today as discussed follow with your family doctor and neurology as an outpt
--- NOTE | 2016-08-28 15:53 | DIAGNOSTIC IMAGING REPORT ---
CT brain angiogram HEAD ANGIO WITH CONTRAST CLINICAL HISTORY: Mental status change TECHNIQUE: Transaxial acquisition with multi axial reformatted images COMPARISON STUDY: None FINDINGS: Normal study. All major intracranial vasculature is unremarkable. There is no significant stenotic or aneurysmal process. IMPRESSION: Negative study Electronically signed by: John Wallace M.D. 08/28/2016 3:51 PM Dictated Date/Time: 08/28/2016 3:48 PM
--- NOTE | 2016-08-28 15:53 | DIAGNOSTIC IMAGING REPORT ---
NECK CTA HISTORY: Right-sided weakness. TECHNIQUE: Multiaxial CT images of the neck were performed following the intravenous administration of contrast to evaluate the major cervical vessels. Maximum intensity projection images were also obtained. All measurements were calculated based on NASCET criteria. COMPARISON STUDY: Neck MRA 08/25/2016. FINDINGS: The aortic arch and proximal great vessels are widely patent. The bilateral common carotid and vertebral arteries are widely patent. There is moderate calcified plaque at the bilateral carotid bulbs resulting in approximately 30% stenosis bilaterally. No evidence for carotid artery vertebral artery dissection. A 4 mm nodule within the left lung apex. No cervical lymphadenopathy. IMPRESSION: 1. Approximately 30% stenosis within the bilateral carotid bulbs due to the moderate calcified plaque. 2. The common carotid and vertebral arteries are widely patent. 3. A 4 mm indeterminate pulmonary nodule within the left lung apex. Please refer to the chart below for recommended follow-up. Please refer to below summary of Fleischner criteria recommendations for follow-up of incidental CT nodules (Baylee Ball, Guidelines for management of small pulmonary nodules detected on CT scans: A statement from the Fleischner Society, Radiology 237: [phone].) Low Risk Patient: Minimal or no smoking or other known risk factors for malignancy <=4 mm: No follow-up needed. >4-6 mm: Initial follow-up CT at 12 months; if unchanged, no further follow-up. >6-8 mm: Initial follow-up CT at 6-12 months then at 18-24 months if no change. >8 mm: Follow-up CT at \R\3, 9, 24 months, or PET and/or biopsy. High Risk Patient: History of smoking or other known risk factors <=4 mm: Follow-up at 12 months; if unchanged, no further follow-up. >4-6 mm: Initial follow-up CT at 6-12 months then at 18-24 months if no change. >6-8 mm: Initial follow-up CT at 3-6 months then at 9-12 and 24 months if no change. >8 mm: Same as low risk patient. Note: Nodule size measured as average of length and width. Ground glass or partly solid nodules may require longer follow-up to exclude indolent adenocarcinoma. Electronically signed by: Eduardo Paulson M.D. 08/28/2016 3:51 PM Dictated Date/Time: 08/28/2016 3:46 PM
[2016-08-28 16:45] VITALS: BP 152/87; PULSE 81; O2SAT 97
== END 2016-08-28 16:46 | disposition home or self-care (01) ==
LOC: EDBD 13:15 → C.EDB 13:17
DX: R29.810 Facial weakness (principal); R20.0 Anesthesia of skin; E11.9 Type 2 diabetes mellitus without complications; I10 Essential (primary) hypertension; I65.23 Occlusion and stenosis of bilateral carotid arteries; R91.8 Other nonspecific abnormal finding of lung field; R91.1 Solitary pulmonary nodule; Z86.73 Personal history of transient ischemic attack (TIA), and cerebral infarction without residual deficits; Z79.01 Long term (current) use of anticoagulants

== ENCOUNTER → 2016-09-10 | Outpatient (CLI) | payer OTHER, BC ==
[~2016-09-10] MED LIST changes: +CALC1CHW; -CALCTAB5 PO; +CHOL1000 PO; -CHOL100010 PO; -CLOP1TAB15 PO; +FLUC100T4 PO; -OMEG10007 PO; +SPIR25TA89 PO; -VERA120T65 PO
[2016-09-10 10:19] LABS: BLOOD UREA NITROGEN 13 mg/dl (7-18); BUN/CREATININE RATIO 16.6 (10-20); CALCIUM 9.2 mg/dl (8.5-10.1); CARBON DIOXIDE 29 mmol/L (21-32); CHLORIDE 100 mmol/L (98-107); CREATININE 0.78 mg/dl (0.60-1.20); GLUCOSE 135 mg/dl (70-99); POTASSIUM 4.4 mmol/L (3.5-5.1); SODIUM 135 mmol/L (136-145)
[2016-09-10 10:57] LABS: BASO % 0.4 %; BASO ABS # 0.03 K/uL (0-0.2); COMPLETE YES; EOS % 1.8 %; HEMATOCRIT 36.6 % (37-47); IG% 0.3 %; LYMPH % 22.7 %; LYMPH ABS # 1.64 K/uL (1.2-3.4); MEAN CELL VOLUME 86.9 fL (80-100); MEAN CORPUSCULAR HEMOGLOBIN 30.2 pg (25-34); MEAN CORPUSCULAR HGB CONC 34.7 g/dl (32-36); MEAN PLATELET VOLUME 8.8 fL (7.4-10.4); MONO % 6.2 %; NEUT % 68.6 %; PLATELET COUNT 307 K/uL (130-400); RED BLOOD COUNT 4.21 M/uL (4.2-5.4); WHITE BLOOD COUNT 7.24 K/uL (4.8-10.8)
[2016-09-10 10:59] LABS: ESTIMATED AVERAGE GLUCOSE 166 mg/dl; HA1C FLAG Normal (Normal)
== END ==
LOC: C.LABFOXMH 09:05
PROVIDERS: ATTEND Internal Medicine
DX: E11.9 Type 2 diabetes mellitus without complications (principal)

== ENCOUNTER → 2016-12-30 | Outpatient (CLI) | payer OTHER, BC ==
[2016-12-30 08:50] LABS: BLOOD UREA NITROGEN 11 mg/dl (7-18); BUN/CREATININE RATIO 15.4 (10-20); CALCIUM 9.7 mg/dl (8.5-10.1); CARBON DIOXIDE 24 mmol/L (21-32); CHLORIDE 106 mmol/L (98-107); CREATININE 0.74 mg/dl (0.60-1.20); GLUCOSE 150 mg/dl (70-99); POTASSIUM 4.5 mmol/L (3.5-5.1); SODIUM 138 mmol/L (136-145)
[2016-12-30 08:51] LABS: ESTIMATED AVERAGE GLUCOSE 151 mg/dl; HA1C FLAG Normal (Normal)
== END | disposition home or self-care (01) ==
LOC: C.LABFOXMH 08:11
PROVIDERS: ATTEND Internal Medicine
DX: E11.9 Type 2 diabetes mellitus without complications (principal)

== ENCOUNTER → 2017-01-30 | Outpatient (CLI) | payer OTHER, BC ==
--- NOTE | 2017-01-30 16:10 | MAMMOGRAPHY REPORT ---
BILATERAL DIGITAL SCREENING MAMMOGRAM WITH CAD: 01/30/2017 CLINICAL HISTORY: Routine screening. Patient has no complaints. TECHNIQUE: Current study was also evaluated with a Computer Aided Detection (CAD) system. Bilateral CC and MLO views were obtained. COMPARISON: Comparison is made to exams dated: 01/30/2016 mammogram, 01/27/2015 mammogram, 01/26/2014 m ammogram, 01/21/2013 mammogram, 01/21/2012 mammogram, and 01/03/2011 mammogram - [facility] enter. BREAST COMPOSITION: There are scattered areas of fibroglandular density in both breasts. FINDINGS: There is a 7 mm focal asymmetry seen within the right upper outer quadrant, for which spot compression tomosynthesis views and possible breast ultrasound are recommended for further evaluation . The remainder of both breasts are stable compared to prior exams, without suspicious masses, calcific ations, or areas of architectural distortion noted. Scattered bilateral benign-appearing calcificati ons are again noted. IMPRESSION: ACR BI-RADS CATEGORY 0: INCOMPLETE EVALUATION: NEED ADDITIONAL IMAGING EVALUATION Right breast asymmetry, for which additional imaging evaluation is recommended. The patient will be called to schedule an appointment. Approximately 10% of breast cancers are not detected with mammography. A negative mammographic report should not delay biopsy if a clinically suggestive mass is present. Brenna Alvarez M.D. /:01/30/2017 14:59:38 Environmental Lawyer: Nicole ANTHONY)(Fabián), [facility] letter sent: Addl Imaging 0 BI-RADS Code: ACR BI-RADS Category 0: Incomplete Evaluation: Need Additional Imaging Evaluation
== END | disposition home or self-care (01) ==
LOC: C.MAMM 13:00
PROVIDERS: ATTEND Internal Medicine
DX: Z12.31 Encounter for screening mammogram for malignant neoplasm of breast (principal); N64.9 Disorder of breast, unspecified

== ENCOUNTER → 2017-02-20 | Outpatient (CLI) | payer OTHER, BC ==
--- NOTE | 2017-02-20 14:20 | MAMMOGRAPHY REPORT ---
UNILATERAL RIGHT DIGITAL DIAGNOSTIC MAMMOGRAM TOMOSYNTHESIS AND TARGETED RIGHT ULTRASOUND: 02/20/2017 CLINICAL HISTORY: Callback from screening mammogram for right breast asymmetry. TECHNIQUE: Breast tomosynthesis in addition to standard 2D mammography was performed. Spot compress ion right CC and MLO 2-D and tomosynthesis images were obtained. COMPARISON: Comparison is made to exams dated: 01/30/2016 mammogram, 01/30/2017 mammogram, 01/27/2015 m ammogram, 01/26/2014 mammogram, 01/21/2013 mammogram, and 01/21/2012 mammogram - [facility] enter. BREAST COMPOSITION: The tissue of the right breast is almost entirely fatty. FINDINGS: Spot compression views of the right breast demonstrate a superficial 5 mm mass with non-cir cumscribed margins in the right upper outer quadrant. A coarse benign-appearing calcification is see n within the mass. Targeted ultrasound was performed of the right upper outer quadrant in the region of the mammographic mass. In the right breast at 9:00, 4 cm from the nipple, there is a superficial hypoechoic non-circ umscribed 4 x 4 x 4 mm mass. An echogenic focus is seen within the anterior aspect of the mass, whic h corresponds with the coarse calcification seen mammographically. Given the superficial location of the mass and given the coarse calcification within the mass, it likely represents fat necrosis, to yaneth, it remains indeterminate at this time. The patient denies any known trauma to this region. The options of short interval follow-up versus biopsy were discussed with the patient, and at this time we will proceed with biopsy. IMPRESSION: ACR BI-RADS CATEGORY 4A: LOW SUSPICION FOR MALIGNANCY, TARGETED ULTRASOUND ACR BI-RADS C ATEGORY 4A: LOW SUSPICION FOR MALIGNANCY Superficial hypoechoic 4 mm mass with an associated coarse calcification in the right 9:00 breast. T he mass likely represents fat necrosis although is indeterminate and ultrasound-guided core needle bi opsy is recommended for further evaluation. A phone call was made to the physician's office to confirm faxed results were received. The patient has been verbally notified of the results. She tentatively scheduled the biopsy before leaving the [facility]. I will leave it up to her prescribing physician if she can safely discontinue Plavix for 5-7 days prior to the procedure. Approximately 10% of breast cancers are not detected with mammography. A negative mammographic report should not delay biopsy if a clinically suggestive mass is present. Brenna Alvarez M.D. ah/:02/20/2017 11:38:33 Control Director: Lisa BROOKS(Sveta)(M), [facility] letter sent: Abnormal 4/5 BI-RADS Code: ACR BI-RADS Category 4A: Low Suspicion For Malignancy Ultrasound BI-RADS: ACR BI-RADS Category 4A: Low Suspicion For Malignancy
== END | disposition home or self-care (01) ==
LOC: C.MAMM 10:44
PROVIDERS: ATTEND Internal Medicine
DX: N64.89 Other specified disorders of breast (principal); N63 Unspecified lump in breast; R92.1 Mammographic calcification found on diagnostic imaging of breast

== ENCOUNTER → 2017-02-26 | Outpatient (CLI) | payer OTHER, BC ==
--- NOTE | 2017-02-26 14:06 | Discharge Instructions ---
Discharge Instructions Procedure Procedure Date: Feb 26, 2017. Reason for visit: Right Mass. Discharge Discharge Date: Feb 26, 2017. Discharge Diagnosis: status post breast biopsy Instructions Activity Recommendations: Additional Limitations (see below) Return to School/Work: no limitations Recommended Home Diet: No Limitations Provider Instructions: ACTIVITY RECOMMENDATIONS: * No lifting, pushing, pulling or exercising the affected side for three days. RETURN TO SCHOOL/WORK: * You may return to work/school after the procedure, but do not perform any strenuous activities for 24 to 48 hours. MEDICATIONS: * Tylenol (two 325 mg) every four to six hours if needed for mild pain (if not allergic to Tylenol). DIET: * Resume previous diet. SPECIAL CARE INSTRUCTIONS: * Keep biopsy site dry for 24 hours. May shower after 24 hours, but do not soak (bathe) incision. * May remove Tegaderm (plastic patch) tomorrow AFTER showering. * Leave the steri-strips on for one week. Allow the steri-strips to fall off by themselves. If not off after one week, you may remove them. You may place a Bandaid crosswise over the strips, if desired. * Apply ice 10 minutes on and 10 minutes off as needed. * Wear a bra at bedtime to sleep more comfortably for 2-3 days. * Your referring physician should have the results after approximately 5 to 7 business days. * Call for unusual bleeding, fever, drainage, etc or if you have any questions call during normal business hours or after hours call Dr Alvarez, [phone]. FOLLOW UP VISIT: Follow-up with Referring Physician as scheduled. Allergies Coded Allergies: Oxycodone (Unverified Adverse Reaction, Severe, VOMITING, 08/25/16) Aspirin (Unverified Adverse Reaction, Unknown, "stomach bleeds", 08/25/16) Codeine (Verified Adverse Reaction, Unknown, vomiting, 08/25/16) Mayra Roy Recommendations: Call your doctor if: * Temperature above 101 degrees * Pain not relieved by pain medicine ordered * There is increased drainage or redness from any incision * You have any unanswered questions or concerns. Your Doctors Instructions noted above were prepared by provider Brenna Alvarez. Patient Signature Section: Patient Instructions Signature Page Cha Garner Patient (or Guardian) Signature/Date: I have read and understand the instructions given to me by my caregivers. Caregiver/RN/Doctor Signature/Date: The above-named patient and/or guardian has received patient instructions on this date. + Original Patient Signature Page (only) stays with chart. Please make copy for patient.
--- NOTE | 2017-02-26 15:18 | MAMMOGRAPHY REPORT ---
UNILATERAL RIGHT DIGITAL DIAGNOSTIC MAMMOGRAM TOMOSYNTHESIS: 02/26/2017 CLINICAL HISTORY: Right 9:00 breast mass. TECHNIQUE: Breast tomosynthesis in addition to standard 2D mammography was performed. Postprocedura l right CC and ML 2D and tomosynthesis images were obtained. COMPARISON: Comparison is made to exams dated: 02/20/2017 mammogram, 02/20/2017 ultrasound, 01/30/2016 mammogram, 01/30/2017 mammogram, 01/27/2015 mammogram, and 01/26/2014 mammogram - [facility]. BREAST COMPOSITION: The tissue of the right breast is almost entirely fatty. FINDINGS: A new biopsy marker clip is seen at the site of the biopsied mass in the right 9:00 breast . No significant postbiopsy hematoma is seen. IMPRESSION: POST PROCEDURE IMAGING FOR MARKER PLACEMENT New biopsy marker clip status post right breast ultrasound-guided biopsy. Pathology results are pend ing. Approximately 10% of breast cancers are not detected with mammography. A negative mammographic report should not delay biopsy if a clinically suggestive mass is present. Brenna Alvarez M.D. ah/:02/26/2017 14:19:04 Meat Grader: Manuela BOROKS(Sveta)(M), [facility] BI-RADS Code: Post Procedure Imaging For Marker Placement
--- NOTE | 2017-02-26 15:18 | MAMMOGRAPHY REPORT ---
ULTRASOUND GUIDED BIOPSY RIGHT BREAST: 02/26/2017 CLINICAL HISTORY: Right 9:00 breast mass. PATIENT CONSENT: The procedure, risks and benefits were discussed with the patient and informed writt en consent was obtained. A timeout was performed immediately prior to the procedure. PROCEDURE DESCRIPTION: With ultrasound guidance, aseptic technique, and lidocaine as the local anesth etic (1% lidocaine to anesthetize the skin and 1% lidocaine with epinephrine to anesthetize the deepe r tissues), the mass of concern in the right 9 o'clock breast was sampled 3 times with a 14-gauge [place] ieve biopsy needle. Immediately thereafter, with ultrasound guidance, aseptic technique, and lidoca ine as the local anesthetic, a metallic localizer clip was placed at the biopsy site. Direct pressur e was applied to the site immediately post procedure and hemostasis was achieved. Postprocedure unil ateral mammograms were performed to confirm placement of the clip in the expected location of the mansoor ast mass. The patient tolerated the procedure without complication. She was given wound care instru ctions. The specimens were sent to pathology for analysis. COMPARISON: Comparison is made to exams dated: 02/20/2017 mammogram, 02/20/2017 ultrasound, 01/30/2017 mammogram, 01/30/2016 mammogram, 01/27/2015 mammogram, and 01/26/2014 mammogram - [facility]. IMPRESSION: ULTRASOUND GUIDED BIOPSY Ultrasound-guided core needle biopsy of the right 9:00 breast mass, with clip placement. The patient will receive pathology results from her referring provider. Brenna Alvarez M.D. /:02/26/2017 14:20:24 Self Rising Flour Mixer: Manuela ANTHONY)(Fabián), [facility]
== END | disposition home or self-care (01) ==
LOC: C.MAMM 13:30
PROVIDERS: ATTEND Internal Medicine
DX: N63 Unspecified lump in breast (principal); N60.11 Diffuse cystic mastopathy of right breast; N64.1 Fat necrosis of breast

== ENCOUNTER → 2017-05-06 | Outpatient (CLI) | payer OTHER, BC ==
[2017-05-06 09:19] LABS: ALT/SGPT 20 U/L (12-78); BLOOD UREA NITROGEN 12 mg/dl (7-18); BUN/CREATININE RATIO 17.5 (10-20); CALCIUM 9.1 mg/dl (8.5-10.1); CARBON DIOXIDE 25 mmol/L (21-32); CHLORIDE 103 mmol/L (98-107); CHOLESTEROL 153 mg/dl (0-200); CREATININE 0.71 mg/dl (0.60-1.20); GLUCOSE 129 mg/dl (70-99); POTASSIUM 4.3 mmol/L (3.5-5.1); SODIUM 136 mmol/L (136-145); TRIGLYCERIDES 197 mg/dl (0-150); VERY LOW DENSITY LIPOPROT CALC 39 mg/dl
[2017-05-06 09:29] LABS: ALB/GLOB RATIO 1.1 (0.9-2); ALKALINE PHOSPHATASE 62 U/L (45-117); AST/SGOT 13 U/L (15-37); CHOLESTEROL/HDL RATIO 2.4; HDL CHOLESTEROL 64 mg/dl; LDL CHOLESTEROL CALCULATED 50 mg/dl
== END ==
LOC: C.LABFOXMH 08:57
PROVIDERS: ATTEND Internal Medicine Hospice and Palliative Medicine
DX: E78.00 Pure hypercholesterolemia, unspecified (principal); E03.9 Hypothyroidism, unspecified

== ENCOUNTER 2017-07-14 13:15 | Observation (INO) | payer OTHER, BC ==
[~2017-07-14] VITALS: Ht 165.1 cm; Wt 77.7 kg
[~2017-07-14 13:15] MED LIST changes: +ACET-1693 PO; -ACET325T96 PO; -CALC1CHW; +CALC1CHW PO
[2017-07-14] MEDS ORDERED: SODIUM CHLORIDE 0.9% 1000ML 1,000 ML IV SCH (13:17)
--- NOTE | 2017-07-14 13:29 | DIAGNOSTIC IMAGING REPORT ---
HEAD WITHOUT CONTRAST (CT) CT DOSE: 623.48 mGy.cm HISTORY: Mental status change Stroke TECHNIQUE: Multiaxial CT images of the head were performed without the use of intravenous contrast. A dose lowering technique was utilized adhering to the principles of ALARA. Comparison: None. Findings: The paranasal sinuses and mastoid air cells are clear. The calvarium and skull base are intact. The ventricles and sulci are within normal limits. There is no mass, hematoma, midline shift, or acute infarct. Impression: No acute intracranial abnormality. The above report was generated using voice recognition software. It may contain grammatical, syntax or spelling errors. Electronically signed by: John Wallace M.D. 07/14/2017 1:28 PM Dictated Date/Time: 07/14/2017 1:26 PM
--- NOTE | 2017-07-14 13:34 | EMERGENCY ROOM VISIT NOTE ---
History Report prepared by Cholo: Glen Jorgensen Under the Supervision of: Dr. Brigido Rodriguez M.D. First contact with patient: 13:15 Stated Complaint: STROKE ALERT History of Present Illness The patient is a 77 year old female who presents to the Emergency Room via [facility] with complaints of stroke-like symptoms that occurred this morning. The patient lives independently at [facility]. Per EMS, staff members at [facility] state they they received a call from the patient at 1220 this morning stating that she was not feeling right. The patient noted to EMS that she experienced a headache and blurred vision two hours before she made the call to the nursing staff. With this being said, the patient's last known well time is 1020 this morning, three hours prior to her arrival to the emergency department. Per EMS, the patient is having trouble getting her words out and is exhibiting some speech aphasia. 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 When the nursing staff arrived to the patient this morning the patient could not state the name of her nurse. She would know the nurse's name at baseline. The patient presented similarly in August of 2016 and was diagnosed with a transient ischemic attack. Upon first communication with the patient she believes that her symptoms are resolving. 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 A total of 10 systems reviewed and were otherwise negative. Past Medical & Surgical Medical Problems: (1) Advance care planning (2) Diabetes mellitus (3) HTN, goal below 130/80 (4) TIA (transient ischemic attack) Family History Family history omitted secondary to age. Social History Smoking Status: Former Smoker Drug Use: none Marital Status: Housing Status: longterm Occupation Status: retired Current/Historical Medications Scheduled Cholecalciferol (Vitamin D3), 1 TAB PO DAILY Clopidogrel Bisulfate (Plavix), 75 MG PO DAILY Esomeprazole Magnesium (Nexium), 40 MG PO DAILY Levothyroxine Sodium (Synthroid), 100 MCG PO DAILY Metformin Hcl (Glucophage Er), 1,500 MG PO HS Metformin Hcl (Glucophage Er), 1 TAB PO QAM Rosuvastatin Calcium (Crestor), 5 MG PO DAILY Spironolactone (Aldactone), 1 TAB PO DAILY Valsartan (Diovan), 1 TAB PO DAILY Scheduled PRN Acetaminophen Tab (Tylenol), 650 MG PO DAILY PRN for Pain Miscellaneous Medications Calcium Carbonate-Vitamin D (Caltrate 600+D) Verapamil Hcl (Verapamil Hcl Sr) Allergies Coded Allergies: Oxycodone (Unverified Adverse Reaction, Severe, VOMITING, 07/14/17) Aspirin (Unverified Adverse Reaction, Unknown, "stomach bleeds", 07/14/17) Codeine (Verified Adverse Reaction, Unknown, vomiting, 07/14/17) Physical Exam Vital Signs Date Time Temp Pulse Resp B/P (MAP) Pulse Ox O2 Delivery O2 Flow Rate FiO2 07/14/17 17:53 75 07/14/17 17:34 76 20 152/74 95 Room Air 07/14/17 16:30 80 20 172/83 97 Room Air 07/14/17 15:35 81 20 178/70 96 Room Air 07/14/17 14:31 85 16 181/100 95 Room Air 07/14/17 13:57 88 16 170/99 100 Room Air 07/14/17 13:48 83 07/14/17 13:40 100 Room Air 07/14/17 13:36 36.5 87 18 190/95 100 Room Air Physical Exam GENERAL: Patient is a healthy-appearing well-nourished [] HEAD: Normocephalic atraumatic EYES: Ocular movements intact pupils equal and react to light OROPHARYNX mucous membranes are moist no exudates present no erythema or edema present NECK: Supple no nuchal rigidity CHEST: Good equal expansion LUNGS: Clear and equal to auscultation CARDIAC: Normal S1 and S2 ABDOMEN: Soft nontender no guarding BACK: No CVA tenderness EXTREMITIES: No pain upon palpation normal muscle strength in all groups no clubbing cyanosis or edema NEURO: Patient is following commands and answering questions appropriately. Alert and oriented x3 Cranial Nerves 2-12 grossly intact Medical Decision & Procedures ER Provider Diagnostic Interpretation: Radiology results as stated below per my review and radiologist interpretation: CHEST ONE VIEW PORTABLE HISTORY: 77 years-old Female Stroke acute strokelike symptoms COMPARISON: Acute abdominal series radiographs 10/20/2013 TECHNIQUE: Portable AP view of the chest FINDINGS: Cardiomediastinal and hilar silhouettes are within normal limits. Calcified granuloma of the medial right lung base redemonstrated. There is no pneumothorax, pleural effusion, focal airspace consolidation or overt pulmonary edema. Bones of the chest appear grossly intact. Degenerative changes are seen within the shoulders and spine. IMPRESSION: No acute process. The above report was generated using voice recognition software. It may contain grammatical, syntax or spelling errors. Electronically signed by: Andres Lockhart M.D. 07/14/2017 1:52 PM Dictated Date/Time: 07/14/2017 1:51 PM HEAD WITHOUT CONTRAST (CT) CT DOSE: 623.48 mGy.cm HISTORY: Mental status change Stroke TECHNIQUE: Multiaxial CT images of the head were performed without the use of intravenous contrast. A dose lowering technique was utilized adhering to the principles of ALARA. Comparison: None. Findings: The paranasal sinuses and mastoid air cells are clear. The calvarium and skull base are intact. The ventricles and sulci are within normal limits. There is no mass, hematoma, midline shift, or acute infarct. Impression: No acute intracranial abnormality. The above report was generated using voice recognition software. It may contain grammatical, syntax or spelling errors. Electronically signed by: John Wallace M.D. 07/14/2017 1:28 PM Dictated Date/Time: 07/14/2017 1:26 PM Laboratory Results 07/14/17 13:52 Red Blood Count 4.60, Mean Corpuscular Volume 86.1, Mean Corpuscular Hemoglobin 29.1, Mean Corpuscular Hemoglobin Concent 33.8, Mean Platelet Volume 8.9, Neutrophils (%) (Auto) 77.7, Lymphocytes (%) (Auto) 13.4, Monocytes (%) (Auto) 7.4, Eosinophils (%) (Auto) 1.1, Basophils (%) (Auto) 0.3, Neutrophils # (Auto) 7.10, Lymphocytes # (Auto) 1.23, Monocytes # (Auto) 0.68, Eosinophils # (Auto) 0.10, Basophils # (Auto) 0.03 07/14/17 13:52 Test 07/14/17 13:34 07/14/17 13:52 07/14/17 14:00 Bedside Prothrombin Time INR 0.9 (0.9-1.1) Bedside Glucose 115 mg/dl (70-90) White Blood Count 9.15 K/uL (4.8-10.8) Red Blood Count 4.60 M/uL (4.2-5.4) Hemoglobin 13.4 g/dL (12.0-16.0) Hematocrit 39.6 % (37-47) Mean Corpuscular Volume 86.1 fL (80-100) Mean Corpuscular Hemoglobin 29.1 pg (25-34) Mean Corpuscular Hemoglobin Concent 33.8 g/dl (32-36) Platelet Count 239 K/uL (130-400) Mean Platelet Volume 8.9 fL (7.4-10.4) Neutrophils (%) (Auto) 77.7 % Lymphocytes (%) (Auto) 13.4 % Monocytes (%) (Auto) 7.4 % Eosinophils (%) (Auto) 1.1 % Basophils (%) (Auto) 0.3 % Neutrophils # (Auto) 7.10 K/uL (1.4-6.5) Lymphocytes # (Auto) 1.23 K/uL (1.2-3.4) Monocytes # (Auto) 0.68 K/uL (0.11-0.59) Eosinophils # (Auto) 0.10 K/uL (0-0.5) Basophils # (Auto) 0.03 K/uL (0-0.2) RDW Standard Deviation 40.6 fL (36.4-46.3) RDW Coefficient of Variation 12.9 % (11.5-14.5) Immature Granulocyte % (Auto) 0.1 % Immature Granulocyte # (Auto) 0.01 K/uL (0.00-0.02) Prothrombin Time 10.0 SECONDS (9.0-12.0) Prothromb Time International Ratio 1.0 (0.9-1.1) Activated Partial Thromboplast Time 24.9 SECONDS (21.0-31.0) Partial Thromboplastin Ratio 1.0 Anion Gap 12.0 mmol/L (3-11) Est Creatinine Clear Calc Drug Dose 61.5 ml/min Estimated GFR () 81.2 Estimated GFR (Non- 70.1 BUN/Creatinine Ratio 17.1 (10-20) Calcium Level 9.4 mg/dl (8.5-10.1) Magnesium Level 1.5 mg/dl (1.8-2.4) Total Creatine Kinase 39 U/L (26-192) Creatine Kinase MB 0.5 ng/ml (0.5-3.6) Creatine Kinase MB Ratio 1.3 (0-3.0) Troponin I < 0.015 ng/ml (0-0.045) Urine Color YELLOW Urine Appearance CLEAR (CLEAR) Urine pH 7.0 (4.5-7.5) Urine Specific [place] 1.009 (1.000-1.030) Urine Protein NEG (NEG) Urine Glucose (UA) NEG (NEG) Urine Ketones TRACE (NEG) Urine Occult Blood NEG (NEG) Urine Nitrite POS (NEG) Urine Bilirubin NEG (NEG) Urine Urobilinogen NEG (NEG) Urine Leukocyte Esterase TRACE (NEG) Urine WBC (Auto) 1-5 /hpf (0-5) Urine RBC (Auto) 0-4 /hpf (0-4) Urine Hyaline Casts (Auto) 0 /lpf (0-5) Urine Epithelial Cells (Auto) 0-5 /lpf (0-5) Urine Bacteria (Auto) 1+ (NEG) Labs reviewed by ED physician. Medications Administered Medications (Trade) Dose Ordered Sig/Maureen Route Start Time Stop Time Status Last Admin Dose Admin Sodium Chloride 1,000 ml @ 50 mls/hr Q20H IV 07/14/17 13:17 08/13/17 13:16 07/14/17 17:27 50 MLS/HR Ondansetron HCl (Zofran Inj) 4 mg Q6H PRN IV 07/14/17 15:15 08/13/17 15:14 07/14/17 17:26 4 MG Magnesium Sulfate 100 ml @ 100 mls/hr NOW STAT IV 07/14/17 15:37 07/14/17 16:36 DC 07/14/17 17:26 100 MLS/HR ECG Indication: other (Stoke-like Sx) Rate (beats per minute): 85 Rhythm: normal sinus Findings: no acute ischemic change, no ectopy Change: Patient's electrocardiogram per my interpretation. ED Course 1317: Past medical records reviewed. The patient was evaluated in room B1. A complete history and physical examination was performed. 1317: Ordered Sodium Chloride 1000 mL @ 50 mL/hr IV. 1352: I discussed the case with Dr[facility]. He will evaluate the patient for further treatment. Medical Decision Differential diagnosis: Etiologies such as metabolic, infection, hypo/hyperglycemia, electrolyte abnormalities, cardiac sources, intracerebral event, toxicologic, neurologic, as well as others were entertained. This is a 77-year-old female who presents emergency department complaining of or dysphagia as well as right sided weakness. The patient's symptoms at this point have already resolved. A stroke alert was initiated she was sent for CAT scan of the head which did not show any acute process. I did discuss the case with the hospitalist service who agreed to admit the patient. Patient and family were in agreement with the treatment plan. Consults Time Called: [phone] Consulting Physician: Dr. [facility] Returned Call: [phone] I discussed the case with Dr. [facility]. He will evaluate the patient for further treatment. Impression Primary Impression: TIA (transient ischemic attack) Scribe Attestation The scribe's documentation has been prepared under my direction and personally reviewed by me in its entirety. I confirm that the note above accurately reflects all work, treatment, procedures, and medical decision making performed by me. Departure Information Dispostion Being Evaluated By Hospitalist Referrals [place] (PCP) Problem Qualifiers Primary Impression: TIA (transient ischemic attack) Transient cerebral ischemia type: unspecified Qualified Codes: G45.9 - Transient cerebral ischemic attack, unspecified
--- NOTE | 2017-07-14 13:53 | DIAGNOSTIC IMAGING REPORT ---
CHEST ONE VIEW PORTABLE HISTORY: 77 years-old Female Stroke acute strokelike symptoms COMPARISON: Acute abdominal series radiographs 10/20/2013 TECHNIQUE: Portable AP view of the chest FINDINGS: Cardiomediastinal and hilar silhouettes are within normal limits. Calcified granuloma of the medial right lung base redemonstrated. There is no pneumothorax, pleural effusion, focal airspace consolidation or overt pulmonary edema. Bones of the chest appear grossly intact. Degenerative changes are seen within the shoulders and spine. IMPRESSION: No acute process. The above report was generated using voice recognition software. It may contain grammatical, syntax or spelling errors. Electronically signed by: Andres Lockhart M.D. 07/14/2017 1:52 PM Dictated Date/Time: 07/14/2017 1:51 PM
[2017-07-14 14:07] LABS: BASO % 0.3 %; BASO ABS # 0.03 K/uL (0-0.2); EOS % 1.1 %; HEMATOCRIT 39.6 % (37-47); HEMOGLOBIN 13.4 g/dL (12.0-16.0); IG# 0.01 K/uL (0.00-0.02); LYMPH % 13.4 %; LYMPH ABS # 1.23 K/uL (1.2-3.4); MEAN CELL VOLUME 86.1 fL (80-100); MEAN CORPUSCULAR HEMOGLOBIN 29.1 pg (25-34); MEAN CORPUSCULAR HGB CONC 33.8 g/dl (32-36); MEAN PLATELET VOLUME 8.9 fL (7.4-10.4); MONO % 7.4 %; MONO ABS # 0.68 K/uL (0.11-0.59); NEUT % 77.7 %; PLATELET COUNT 239 K/uL (130-400); RED CELL DISTRIBUTION WIDTH CV 12.9 % (11.5-14.5); RED CELL DISTRIBUTION WIDTH SD 40.6 fL (36.4-46.3); WHITE BLOOD COUNT 9.15 K/uL (4.8-10.8)
[2017-07-14 14:18] LABS: PTT PATIENT 24.9 SECONDS (21.0-31.0)
[2017-07-14 14:33] LABS: BLOOD UREA NITROGEN 14 mg/dl (7-18); CALCIUM 9.4 mg/dl (8.5-10.1); CARBON DIOXIDE 22 mmol/L (21-32); CREATININE 0.81 mg/dl (0.60-1.20); GLUCOSE 118 mg/dl (70-99); POTASSIUM 3.7 mmol/L (3.5-5.1); SODIUM 130 mmol/L (136-145)
[2017-07-14 14:34] LABS: CKMB 0.5 ng/ml (0.5-3.6)
[2017-07-14] MEDS ORDERED: PHARMACIST DISCHARGE MED REC CONSULT PRN (15:15)
[2017-07-14] MEDS ORDERED: GLUCOSE 10 TABS/TUBE PO PRN (15:15)
[2017-07-14] MEDS ORDERED: GLUCOSE 40% GEL 15 GM TUBE PO PRN (15:15)
[2017-07-14] MEDS ORDERED: ONDANSETRON INJ 2 MG/ML 2 ML VIAL IV PRN (15:15)
[2017-07-14] MEDS ORDERED: GLUCAGON FOR INJ 1 MG VIAL SQ PRN (15:15)
[2017-07-14] MEDS ORDERED: ACETAMINOPHEN 325 MG TAB PO PRN (15:15)
[2017-07-14] MEDS ORDERED: MAGNESIUM HYDROXIDE SUSP 30 ML UDC PO PRN (15:15)
[2017-07-14] MEDS ORDERED: ALUMINUM/MAGNESIUM/SIMETH (MAALOX MAX) 30 ML UDC PO PRN (15:15)
[2017-07-14] MEDS ORDERED: DEXTROSE 50% 50 ML SYR IV PRN (15:15)
[2017-07-14] MEDS ORDERED: POLYETHYLENE (MIRALAX) 17 GM PACK PO PRN (15:15)
--- NOTE | 2017-07-14 15:36 | History and Physical ---
History & Physical Date & Time of Service: Jul 14, 2017 at 15:10 Chief Complaint: Stroke Alert Primary Care Physician: Vidal Vegas History of Present Illness Source: patient Ms. Garner is a 77 y/o female with PMHx of T2DM, HTN, HLD, GERD, and Hypothyroidism who presents to the ED from [facility] for stroke-like symptoms. Patient has had similar issues in the past with unremarkable findings. Last episode was in August 2016 with echo, MRI, and Carotids that were unremarkable. Patient reports waking up her normal self today. Last known well time is approx. 1030 this AM. She then developed blurred vision and states she knew what she wanted to say but could not get her words out. 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 After these symptoms started she then developed a headache that is common for her normal ongoing headaches. Headache was located in the back of her head b/l and also in the forehead b/l. States her headache is still present but improving. During previous admission, it was recommended to utilize Verapamil for vasospasms and she states she is on this. She states her headaches, which used to be very frequent, have reduced in severity since starting Verapamil. She states she still gets minor headaches that quickly resolve but nothing with neurological symptoms other than on her previous admission in August 2016. She is currently on Plavix and reports compliance with this. She cannot take ASA due to GI upset. At this time, aphasia and blurred vision is completely resolved. Headache remains but is not as severe. Her BP is elevated and she states her BPs are normally controlled at 120s/70s but when she last say her PCP it was 140/80 which is not her normal. Review of previous admission states her BP was significantly elevated at that time as well. Past Medical/Surgical History Medical Problems: (1) TIA (transient ischemic attack) Status: Resolved Family History Diabetes mellitus Hypertension Social History Smoking Status: Never Smoker Smokeless Tobacco Use: No Alcohol Use: none Drug Use: none Marital Status: Housing status: lives alone Occupational Status: retired Immunizations History of Influenza Vaccine: Yes History of Tetanus Vaccine?: Unknown History of Pneumococcal: Yes History of Hepatitis B Vaccine: Unknown Allergies Coded Allergies: Oxycodone (Unverified Adverse Reaction, Severe, VOMITING, 07/14/17) Aspirin (Unverified Adverse Reaction, Unknown, "stomach bleeds", 07/14/17) Codeine (Verified Adverse Reaction, Unknown, vomiting, 07/14/17) Home Medications Scheduled Cholecalciferol (Vitamin D3), 1 TAB PO DAILY Clopidogrel Bisulfate (Plavix), 75 MG PO DAILY Esomeprazole Magnesium (Nexium), 40 MG PO DAILY Levothyroxine Sodium (Synthroid), 100 MCG PO DAILY Metformin Hcl (Glucophage Er), 1,500 MG PO HS Metformin Hcl (Glucophage Er), 1 TAB PO QAM Rosuvastatin Calcium (Crestor), 5 MG PO DAILY Spironolactone (Aldactone), 1 TAB PO DAILY Valsartan (Diovan), 1 TAB PO DAILY Scheduled PRN Acetaminophen Tab (Tylenol), 650 MG PO DAILY PRN for Pain Miscellaneous Medications Calcium Carbonate-Vitamin D (Caltrate 600+D) Verapamil Hcl (Verapamil Hcl Sr) Review of Systems ROS General/Constitutional: + chronic fatigue; Denies fever/chills, weakness, weight gain/loss ENT: + blurred vision (resolved); Denies nasal drainage, hearing loss, sore throat, trouble swallowing Cardiovascular: Denies chest pain, palpitations, edema Respiratory: Denies cough, sputum, SOB, wheezing, orthopnea GI: Denies nausea, vomiting, abdominal pain, constipation, diarrhea, melena/ hematochezia : Denies dysuria Musculoskeletal: Denies joint/muscle aches, weakness, swelling Neurologic: + aphasia; + word finding issues; Denies dizziness/lightheadedness, numbness/tingling, weakness Hematologic/Lymphatic: Denies bleeding/clotting abnormalities Skin: Denies rash Physical Exam Vital Signs Date Time Temp Pulse Resp B/P (MAP) Pulse Ox O2 Delivery O2 Flow Rate FiO2 07/14/17 14:31 85 16 181/100 95 Room Air 07/14/17 13:57 88 16 170/99 100 Room Air 07/14/17 13:48 83 07/14/17 13:40 100 Room Air 07/14/17 13:36 36.5 87 18 190/95 100 Room Air General Appearance: WDWN in NAD who is A&O x 3 HEENT: Head is normocephalic/atraumatic; EOMI; PERRLA; Hearing grossly intact; Mucous membranes moist; Pharynx negative for exudate/lesions Neck: Supple; Trachea midline; Neg JVD; Neg lymphadenopathy Heart: RRR with no M/G/R Lungs: CTA in all lung mitchell bilaterally; Respirations unlabored; Neg accessory muscle use Abdomen: Soft, non-tender, non-distended; Positive BS x 4 quadrants Extremities: Neg cyanosis or edema Neurological: Speech clear; Gross motor/sensory function intact; Neg focal neurologic deficits; facial movements symmetrical; diffuse strength testing is 5 /5 without unilateral weakness; Romberg negative; ISAIAS are WNL Psychiatric: Appropriate mood/affect Skin: Normal Color; Warm/Dry Diagnostics Laboratory Results Results Past 24 Hours Test 07/14/17 13:34 07/14/17 13:52 07/14/17 14:00 Range/Units Bedside Prothrombin Time INR 0.9 0.9-1.1 Bedside Glucose 115 70-90 mg/dl White Blood Count 9.15 4.8-10.8 K/uL Red Blood Count 4.60 4.2-5.4 M/uL Hemoglobin 13.4 12.0-16.0 g/dL Hematocrit 39.6 37-47 % Mean Corpuscular Volume 86.1 80-100 fL Mean Corpuscular Hemoglobin 29.1 25-34 pg Mean Corpuscular Hemoglobin Concent 33.8 32-36 g/dl Platelet Count 239 130-400 K/uL Mean Platelet Volume 8.9 7.4-10.4 fL Neutrophils (%) (Auto) 77.7 % Lymphocytes (%) (Auto) 13.4 % Monocytes (%) (Auto) 7.4 % Eosinophils (%) (Auto) 1.1 % Basophils (%) (Auto) 0.3 % Neutrophils # (Auto) 7.10 1.4-6.5 K/uL Lymphocytes # (Auto) 1.23 1.2-3.4 K/uL Monocytes # (Auto) 0.68 0.11-0.59 K/uL Eosinophils # (Auto) 0.10 0-0.5 K/uL Basophils # (Auto) 0.03 0-0.2 K/uL RDW Standard Deviation 40.6 36.4-46.3 fL RDW Coefficient of Variation 12.9 11.5-14.5 % Immature Granulocyte % (Auto) 0.1 % Immature Granulocyte # (Auto) 0.01 0.00-0.02 K/uL Prothrombin Time 10.0 9.0-12.0 SECONDS Prothromb Time International Ratio 1.0 0.9-1.1 Activated Partial Thromboplast Time 24.9 21.0-31.0 SECONDS Partial Thromboplastin Ratio 1.0 Sodium Level 130 136-145 mmol/L Potassium Level 3.7 3.5-5.1 mmol/L Chloride Level 96 98-107 mmol/L Carbon Dioxide Level 22 21-32 mmol/L Anion Gap 12.0 3-11 mmol/L Blood Urea Nitrogen 14 7-18 mg/dl Creatinine 0.81 0.60-1.20 mg/dl Est Creatinine Clear Calc Drug Dose 61.5 ml/min Estimated GFR () 81.2 Estimated GFR (Non- 70.1 BUN/Creatinine Ratio 17.1 10-20 Random Glucose 118 70-99 mg/dl Calcium Level 9.4 8.5-10.1 mg/dl Magnesium Level 1.5 1.8-2.4 mg/dl Total Creatine Kinase 39 26-192 U/L Creatine Kinase MB 0.5 0.5-3.6 ng/ml Creatine Kinase MB Ratio 1.3 0-3.0 Troponin I < 0.015 0-0.045 ng/ml Urine Color YELLOW Urine Appearance CLEAR CLEAR Urine pH 7.0 4.5-7.5 Urine Specific Opdyke 1.009 1.000-1.030 Urine Protein NEG NEG Urine Glucose (UA) NEG NEG Urine Ketones TRACE NEG Urine Occult Blood NEG NEG Urine Nitrite POS NEG Urine Bilirubin NEG NEG Urine Urobilinogen NEG NEG Urine Leukocyte Esterase TRACE NEG Urine WBC (Auto) 1-5 0-5 /hpf Urine RBC (Auto) 0-4 0-4 /hpf Urine Hyaline Casts (Auto) 0 0-5 /lpf Urine Epithelial Cells (Auto) 0-5 0-5 /lpf Urine Bacteria (Auto) 1+ NEG Microbiology Results 07/14/17 Urine Culture, Received Pending Diagnostic Radiology HEAD WITHOUT CONTRAST (CT) Comparison: None. Findings: The paranasal sinuses and mastoid air cells are clear. The calvarium and skull base are intact. The ventricles and sulci are within normal limits. There is no mass, hematoma, midline shift, or acute infarct. Impression: No acute intracranial abnormality. EKG Normal sinus rhythm Low voltage QRS Poor R wave progression, consider anterior MS vs. lead placement vs. LVH Abnormal ECG When compared with ECG of 28-AUG-2016 13:47, Premature atrial complexes are no longer Present CA interval has decreased Minimal criteria for Anterior infarct are now Present Confirmed by DAYANA SARMIENTO ([id number]) on 07/14/2017 2:27:13 PM Impression Assessment and Plan Ms. Garner is a 77 y/o female with PMHx of T2DM, HTN, HLD, GERD, and Hypothyroidism who presents to the ED from [facility] for stroke-like symptoms. TIA will R/O CVA vs Complex Migraine: Symptoms Resolved - NIH stroke scale and neuro checks - Has had work-up in August 2016 which unremarkable echo, MRI, and carotid U/S - MRI reveals no acute findings - Will stop permissive HTN as MRI neg - Resume Losartan and increase Verapamil 120 mg daily to BID dosing (patient is not sure of the dosing but states she does not think this was increased) this was started on previous admission but cannot find what she was actually D/C'd on - Plavix 75 mg daily - unsure how much further we can optimize this given ASA allergy (GI upset per patient) however our records state GI bleed - Increased Crestor to 10 mg daily and will obtain lipid profile - Replace magnesium and gently hydrate to help with headache; will hold Spironolactone with hydration - Consult neurology - appreciate recommendations Hypertensive Urgency vs CVA: - Patient reports good control as outpatient but has noticed on last PCP visit it was 140/80 and reporting compliance with medications; review of previous admission and BPs were significantly elevated - Resume Losartan and increased Verapamil to BID dosing - unsure if this will produce much of a response for her BP and a different regimen or addition of ACEI may be of benefit given T2DM - BP control will be necessary to optimize her to reduce CVA risk T2DM: - Check A1c - Hold Metformin and cover with SSI Hypothyroidism: - Synthroid 100 mcg daily DVT Prophylaxis: SCDs Code Status: FULL RESUSCITATION Disposition: - From [facility] - Unsure if HTN precipitated SOLORZANO which precipitated Complex Migraine? vs this being a actual TIA PA Physician Supervision Note: I interviewed and examined the patient. Discussed with Anyi MOON and agree with findings and plan as documented in the note. Any exceptions or clarifications are listed here: None Patient presented with word finding difficulties and difficulty speaking this is similar her previous event last year in August at the time she had extensive evaluation and CVA was ruled out at this time CT scan and MRI of her brain did not show any signs of CVA and this likely may be treated to atypical headache as she has had in the past she typically sees Dr. Seven Burgess with regard to this and takes verapamil at preventative measure Her physical exam shows her to be awake alert and oriented she is a fluent speech cranial nerves and peripheral nerves seem to be intact upon exam Vitals are stable with exception of systolic hypertension which could be from anxiety from being in the ER will follow this and control her blood pressure as a secondary risk reduction Atypical headache with inability to speak this is resolved we'll discuss his case with neurology to consider if we should alter her mender preventative medications we'll continue to observe her for recurrence in the hospital, we'll increase her Crestor also for secondary risk reduction for's cerebrovascular disease Documented By: Hebert Massey Level of Care Telemetry Resuscitation Status FULL RESUSCITATION VTE Prophylaxis VTE Risk Assessment Done? Y/N: Yes Risk Level: Moderate
[2017-07-14] MEDS ORDERED: MAGNESIUM SULFATE 1GM / D5W 1 GM IV STA (15:37)
[2017-07-14] MEDS ORDERED: VERA120C3 (15:41)
[2017-07-14] MEDS ORDERED: CLOP1TAB5 PO (15:41)
--- NOTE | 2017-07-14 16:09 | DIAGNOSTIC IMAGING REPORT ---
MRI OF THE BRAIN WITHOUT AND WITH IV CONTRAST CLINICAL HISTORY: Stroke like symptoms. Left-sided headache. Blurred vision. Difficulty speaking. COMPARISON STUDY: Noncontrast head CT dated 07/14/2017, MRI the brain dated 08/25/2016 TECHNIQUE: MRI of the brain was performed from the vertex to the skull base utilizing various T1 and T2 weighted sequences. Following the IV administration of 8 mL of Gadavist contrast, additional enhanced images were obtained. FINDINGS: Sagittal T1, axial diffusion, proton density and T2 weighted axial, coronal FLAIR, and pre and post axial T1-weighted images were acquired. These were supplemented with post gadolinium coronal T1 weighted images. No intra or extra-axial mass lesions are visualized. Axial diffusion-weighted images reveal no evidence of acute or subacute infarction. There is no evidence of ventricular dilatation. Proton density T2-weighted and FLAIR images reveal scattered foci of increased T2 signal within the white matter, likely on a small vessel basis, and similar to the preceding study. There are no abnormal flow voids. There is no evidence of pathologic enhancement. IMPRESSION: 1. No acute intracranial findings 2. No evidence of acute or subacute infarction 3. No evidence of intracranial mass Electronically signed by: Thien Sullivan M.D. 07/14/2017 4:08 PM Dictated Date/Time: 07/14/2017 4:05 PM
[2017-07-14] MEDS ORDERED: GADAVIST IV PRN (16:15)
[2017-07-14] MEDS ORDERED: IV FLUIDS COMPLETED PRN (16:15)
[2017-07-14] MEDS: INSULIN ASPART 100 UNITS/ML 3 ML PEN SC SCH ×2 (18:46→21:00)
[2017-07-14] MEDS ORDERED: VERAPAMIL HCL 240 MG TABCR PO SCH (21:00)
[2017-07-14] MEDS ORDERED: VERAPAMIL HCL 120 MG TABCR PO SCH (21:00)
[2017-07-14] MEDS: SODIUM CHLORIDE 0.9% 1000ML 1,000 ML IV SCH (22:26)
[2017-07-14 22:27] VITALS: BP 166/90; PULSE 62; TEMP 36.7; O2SAT 94; Ht 165.1 cm; Wt 77.7 kg
[2017-07-14 23:57] VITALS: BP 117/66; PULSE 76; TEMP 36.8; O2SAT 97
[2017-07-15 05:43] LABS: HEMOGLOBIN A1C 7.3 % (4.5-5.6)
[2017-07-15] MEDS ORDERED: LEVOTHYROXINE 100 MCG TAB PO SCH (06:30)
[2017-07-15 06:56] LABS: BASO % 0.3 %; BASO ABS # 0.02 K/uL (0-0.2); EOS % 1.6 %; EOS ABS # 0.11 K/uL (0-0.5); HEMATOCRIT 34.5 % (37-47); HEMOGLOBIN 11.6 g/dL (12.0-16.0); IG# 0.01 K/uL (0.00-0.02); LYMPH % 19.5 %; LYMPH ABS # 1.31 K/uL (1.2-3.4); MEAN CORPUSCULAR HEMOGLOBIN 28.9 pg (25-34); MEAN CORPUSCULAR HGB CONC 33.6 g/dl (32-36); MEAN PLATELET VOLUME 8.3 fL (7.4-10.4); MONO % 8.5 %; MONO ABS # 0.57 K/uL (0.11-0.59); NEUT ABS # 4.71 K/uL (1.4-6.5); PLATELET COUNT 213 K/uL (130-400); RED CELL DISTRIBUTION WIDTH CV 12.8 % (11.5-14.5); RED CELL DISTRIBUTION WIDTH SD 40.2 fL (36.4-46.3); WHITE BLOOD COUNT 6.73 K/uL (4.8-10.8)
[2017-07-15 07:20] VITALS: BP 124/75; PULSE 68; TEMP 36.9; O2SAT 96
[2017-07-15 07:32] LABS: CALCIUM 8.4 mg/dl (8.5-10.1); CREATININE 0.79 mg/dl (0.60-1.20); POTASSIUM 4.2 mmol/L (3.5-5.1)
[2017-07-15 08:00] VITALS: O2SAT 96
[2017-07-15] MEDS: SODIUM CHLORIDE 0.9% 1000ML 1,000 ML IV SCH (08:27)
--- NOTE | 2017-07-15 08:28 | Neurology Consultation ---
Neurology Consultation Date of Consultation: Jul 15, 2017. Attending Physician: Hebert Massey M.D. Primary Care Physician: Mina Enamorado M.D. Reason for Consultation: Patient is a 77-year-old, who was asked to see the request of Dr. Massey, for neurologic consultation regarding TIA type symptoms. History of Present Illness Source: patient, caregiver, hospital records Patient has a longstanding history of hypertension and currently has type 2 diabetes, dyslipidemia in the history of TIA early in 2017. She has no history of migraine headaches or significant/frequent headaches in the past. Shet was seen in August of 2016 Dr. Burgess for an episode where she the sudden onset of trouble getting words out and some numbness and weakness in her right upper extremity only lasting about 10 minutes. This was followed by a bifrontal headache. MRI of the brain showed no CVA but there was mild to moderate old ischemic changes. MR angiography of the head was unremarkable an MR angiography of the neck was unremarkable except for a 30-40% stenosis in the left internal carotid artery. Echocardiogram including CHIQUIS was largely unremarkable she was discharged on Plavix. She did very well until yesterday. She remains on Plavix Yesterday, she got up ate breakfast and dressed as usual, except she was fatigued. Around 1030, she had the onset of blurry vision in both eyes which lasted about 5 minutes or so. Around the same time she noted that she had trouble getting words out. She knew what she wanted to say and could comprehend but the words were coming out. There may have been a little bit of trouble recalling things but she felt that her thinking was otherwise unremarkable and she was not especially confused. She did notice a little bit of tingling in her finger tips bilaterally but denied any weakness or numbness in the limbs. All of the symptoms lasted about 30 minutes or so and then resolved. Around 1220 she called the ambulance because she felt poorly. She arrived to the emergency room at 1336 hours with a temperature of 36.5, pulse 87, respiratory rate 18, blood pressure 190/95, and O2 saturation 100 percent. In the emergency room she had no symptoms except for a bifrontal and occipital headache. This was a dull achy headache with some nausea and no vomiting. There was some photophobia she noted on the ambulance ride over but no sonophobia. The headache lasted the rest of the day although is mild. Chest x-ray was unremarkable. CT scan of the head was unremarkable with no acute changes. Because her symptoms resolved she was felt to be not a tPA candidate. Repeat blood pressure in the emergency room was 180/100. Her neurologic examination was unremarkable. CBC was unremarkable. Chemistry profile was remarkable only for an elevated glucose and hemoglobin A1c of 7.3. All labs and imaging reports were reviewed. MRI of the brain showed no acute stroke. There was some old mild to at best moderate scattered white matter changes bilaterally, consistent with the previous scan in 2017. There was some mild generalized atrophy as well and no other changes. MRI images were reviewed. She has had no symptoms overnight although she still has a very slight headache this morning. She denies vision problems, speech or swallowing problems, mentation problems, weakness, numbness, balance issues or other problems. Patient has bilateral hearing loss for the last 5 years and wears hearing aids which helped considerably. She has had some intermittent fatigue recently. Past Medical/Surgical History Medical Problems: (1) Stroke-like symptoms Status: Acute Episode of motor speech problems and visual symptoms followed by headache August of 2016 and July 14, 2017 Hypertension Type 2 diabetes Dyslipidemia Gastroesophageal reflux disease Hypothyroidism Post bilateral rotator cuff surgeries Right total knee replacement Tonsillectomy Cholecystectomy Family History Mother age 86 with heart disease and diabetes Father age 78 from complications from alcoholism. Social History Patient smoked cigarettes up until the 1970s. She has quit using tobacco products since that time. Patient consumes a drink of alcohol perhaps once every few months. 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 She retired at age 62 and moved back to this area. She has been and [place], in an apartment, for 8 years. She has no children. Smoking Status: Former smoker Smokeless Tobacco Use: No Alcohol Use: Drug Use: none Marital Status: Housing Status: lives alone, correction Occupation Status: retired Allergies Coded Allergies: Oxycodone (Unverified Adverse Reaction, Severe, VOMITING, 07/14/17) Aspirin (Unverified Adverse Reaction, Unknown, "stomach bleeds", 07/14/17) Codeine (Verified Adverse Reaction, Unknown, vomiting, 07/14/17) Current Inpatient Medications Current Inpatient Medications Medications (Trade) Dose Ordered Sig/Maureen Route Start Time Stop Time Status Last Admin Dose Admin Acetaminophen (Tylenol Tab) 650 mg Q4H PRN PO 07/14/17 15:15 08/13/17 15:14 Al Hydrox/Mg Hydrox/Simethicone (Maalox Max Susp) 15 ml Q4H PRN PO 07/14/17 15:15 08/13/17 15:14 Magnesium Hydroxide (Milk Of Magnesia Susp) 30 ml Q12H PRN PO 07/14/17 15:15 08/13/17 15:14 Ondansetron HCl (Zofran Inj) 4 mg Q6H PRN IV 07/14/17 15:15 08/13/17 15:14 07/14/17 17:26 4 MG Polyethylene (Miralax Powder Packet) 17 gm DAILY PRN PO 07/14/17 15:15 08/13/17 15:14 Miscellaneous Information (Pharmacist Discharge Med Rec Consult) 1 ea UD PRN N/A 07/14/17 15:15 08/13/17 15:14 Levothyroxine Sodium (Synthroid Tab) 100 mcg DAILYBB PO 07/15/17 06:30 08/14/17 06:59 07/15/17 05:59 100 MCG Pantoprazole Sodium (Protonix Tab) 40 mg QAM PO 07/15/17 09:00 08/14/17 08:59 Clopidogrel Bisulfate (plAVix TAB) 75 mg QAM PO 07/15/17 09:00 08/14/17 08:59 Insulin Aspart (novoLOG ASPART) SLIDING SCALE If C... ACHS SC 07/14/17 16:00 08/13/17 15:59 07/14/17 18:46 3 UNITS Glucose (Glucose 40% Gel) 15-30 GRAMS 15 GRAMS... UD PRN PO 07/14/17 15:15 08/13/17 15:14 Glucose (Glucose Chew Tab) 4-8 Tablets 4 Tabl... UD PRN PO 07/14/17 15:15 08/13/17 15:14 Dextrose (Dextrose 50% 50ML Syringe) 25-50ML OF 50% DW IV FOR... UD PRN IV 07/14/17 15:15 08/13/17 15:14 Glucagon (Glucagon Inj) 1 mg UD PRN SQ 07/14/17 15:15 08/13/17 15:14 Sodium Chloride 1,000 ml @ 80 mls/hr [id number] IV 07/14/17 22:15 08/13/17 22:14 07/14/17 22:26 80 MLS/HR Rosuvastatin Calcium (Crestor Tab) 10 mg DAILY PO 07/15/17 09:00 08/14/17 08:59 Gadobutrol (Gadavist) 8 mmol UD PRN IV 07/14/17 16:15 07/18/17 16:14 Miscellaneous (Iv Fluids Completed) 1 ea PRN PRN N/A 07/14/17 16:15 07/14/18 16:14 Valsartan (Diovan Tab) 80 mg DAILY PO 07/15/17 09:00 08/14/17 08:59 Verapamil HCl (Calan-Sr Tab) 240 mg HS PO 07/14/17 21:00 08/13/17 20:59 Review of Systems Constitutional: + fatigue, No fever, No weakness Eyes: No worsening of vision, No diplopia ENT: + hearing loss, No trouble swallowing Respiratory: No cough, No shortness of breath Cardiovascular: No chest pain, No palpitations Abdomen: No pain, No nausea Musculoskeletal: No joint pain, No muscle pain Genitourinary - Female: No dysuria, No urinary incontinence Neurologic: No memory loss, No weakness, No numbness/tingling, No vertigo, No balance problems Psychiatric: No depression symptoms, No anxiety Endocrine: + fatigue Hematologic / Lymphatic: No abnormal bleeding/bruising Integumentary: No rash Allergic / Immunologic: No hives Physical Exam Vital Signs (Past 24 Hrs): Date Time Temp Pulse Resp B/P (MAP) Pulse Ox O2 Delivery O2 Flow Rate FiO2 07/15/17 07:20 36.9 68 18 124/75 (91) 96 Room Air 07/15/17 04:00 Room Air 07/15/17 00:00 Room Air 07/14/17 23:57 36.8 76 20 117/66 (83) 97 Room Air 07/14/17 22:27 36.7 62 16 166/90 94 Room Air 07/14/17 20:48 72 18 99 Room Air 07/14/17 20:18 74 17 07/14/17 19:43 142/59 97 Room Air 07/14/17 19:30 70 19 07/14/17 19:00 76 19 07/14/17 18:30 77 17 07/14/17 17:53 75 07/14/17 17:34 76 20 152/74 95 Room Air 07/14/17 16:30 80 20 172/83 97 Room Air 07/14/17 15:35 81 20 178/70 96 Room Air 07/14/17 14:31 85 16 181/100 95 Room Air 07/14/17 13:57 88 16 170/99 100 Room Air 07/14/17 13:48 83 2 13:40 100 Room Air 07/14/17 13:36 36.5 87 18 190/95 100 Room Air Patient is right-handed. The patient is awake and alert. Speech is normal without aphasia or dysarthria. Mentation and thought processes are intact with orientation and normal fund of knowledge. Mood and affect are normal and appropriate. Appearance and grooming are normal. Long and short-term memory are intact. The discs are sharp with positive venous pulsations. There are no exudates, hemorrhages, or blood vessel changes seen. Pupils are 4mm bilaterally and reactive to light. Extraocular eye muscles are intact without nystagmus. Visual acuity and visual mitchell seem normal grossly to confrontation. There are no deficits to sensation of the face bilaterally. Corneal reflexes are positive bilaterally. Facial strength and symmetry is normal bilaterally. Hearing is decreased bilaterally and she wears hearing aids bilaterally. Palate moves well without asymmetry. There is normal sternocleidomastoid and trapezius strength bilaterally. Tongue is midline with good strength bilaterally. Neck is with full range of motion without discomfort. There are no cervical bruits. There are no cranial or ocular bruits. Heart is without murmur. Cervical, thoracic, and lumbar spine are nontender to palpation. Gait is narrow based with good arm swing and turns. Stance with eyes open is normal. With outstretched arms there is no drift. There are no resting, postural, or action tremors. There is no ataxia with [id number] testing. There is good facility in the hands. There are no abnormal involuntary movements noted. Motor strength is 5/5 diffusely in the arms bilaterally including deltoids, biceps, brachioradialis, wrist flexors and extensors, clinical nursing instructor, and intrinsic hand muscles. Motor strength is 5/5 diffusely in the legs bilaterally including hip flexors, quadriceps, hamstring, gastrocnemius, tibialis anterior, tibialis posterior, and peroneii muscles bilaterally. Toe extensors are normal and there is good bulk in the extensor digitorum brevis muscle bilaterally. The limbs have good tone without rigidity or spasticity, and there is no atrophy noted. Muscle bulk is normal, there is no tenderness, no myotonia noted to percussion, and no fasciculations seen. Sensory examination is intact to pin and touch throughout all four limbs. Vibratory and position sense testing is normal bilaterally as well. There is normal sensation to temperature. Reflexes are 1/4 in the biceps, triceps, brachioradialis, quadriceps, and Achilles tendons bilaterally. Toes are downgoing with plantar stimulation bilaterally. Peripheral pulses are present and of normal quality distally in all four limbs. There is no peripheral edema noted. Laboratory Results Past 24 Hours: 07/15/17 06:41 Red Blood Count 4.01, Mean Corpuscular Volume 86.0, Mean Corpuscular Hemoglobin 28.9, Mean Corpuscular Hemoglobin Concent 33.6, Mean Platelet Volume 8.3, Neutrophils (%) (Auto) 70.0, Lymphocytes (%) (Auto) 19.5, Monocytes (%) (Auto) 8.5, Eosinophils (%) (Auto) 1.6, Basophils (%) (Auto) 0.3, Neutrophils # (Auto) 4.71, Lymphocytes # (Auto) 1.31, Monocytes # (Auto) 0.57, Eosinophils # (Auto) 0.11, Basophils # (Auto) 0.02 07/15/17 06:41 Test 07/14/17 13:34 07/14/17 13:52 07/14/17 14:00 07/14/17 21:33 Bedside Prothrombin Time INR 0.9 (0.9-1.1) Prothrombin Time 10.0 SECONDS (9.0-12.0) Prothromb Time International Ratio 1.0 (0.9-1.1) Activated Partial Thromboplast Time 24.9 SECONDS (21.0-31.0) Partial Thromboplastin Ratio 1.0 Estimated Average Glucose 163 mg/dl Hemoglobin A1c 7.3 % (4.5-5.6) Total Creatine Kinase 39 U/L (26-192) Creatine Kinase MB 0.5 ng/ml (0.5-3.6) Creatine Kinase MB Ratio 1.3 (0-3.0) Troponin I < 0.015 ng/ml (0-0.045) Urine Color YELLOW Urine Appearance CLEAR (CLEAR) Urine pH 7.0 (4.5-7.5) Urine Specific [place] 1.009 (1.000-1.030) Urine Protein NEG (NEG) Urine Glucose (UA) NEG (NEG) Urine Ketones TRACE (NEG) Urine Occult Blood NEG (NEG) Urine Nitrite POS (NEG) Urine Bilirubin NEG (NEG) Urine Urobilinogen NEG (NEG) Urine Leukocyte Esterase TRACE (NEG) Urine WBC (Auto) 1-5 /hpf (0-5) Urine RBC (Auto) 0-4 /hpf (0-4) Urine Hyaline Casts (Auto) 0 /lpf (0-5) Urine Epithelial Cells (Auto) 0-5 /lpf (0-5) Urine Bacteria (Auto) 1+ (NEG) Bedside Glucose 159 mg/dl (70-90) Test 07/15/17 06:41 White Blood Count 6.73 K/uL (4.8-10.8) Red Blood Count 4.01 M/uL (4.2-5.4) Hemoglobin 11.6 g/dL (12.0-16.0) Hematocrit 34.5 % (37-47) Mean Corpuscular Volume 86.0 fL (80-100) Mean Corpuscular Hemoglobin 28.9 pg (25-34) Mean Corpuscular Hemoglobin Concent 33.6 g/dl (32-36) Platelet Count 213 K/uL (130-400) Mean Platelet Volume 8.3 fL (7.4-10.4) Neutrophils (%) (Auto) 70.0 % Lymphocytes (%) (Auto) 19.5 % Monocytes (%) (Auto) 8.5 % Eosinophils (%) (Auto) 1.6 % Basophils (%) (Auto) 0.3 % Neutrophils # (Auto) 4.71 K/uL (1.4-6.5) Lymphocytes # (Auto) 1.31 K/uL (1.2-3.4) Monocytes # (Auto) 0.57 K/uL (0.11-0.59) Eosinophils # (Auto) 0.11 K/uL (0-0.5) Basophils # (Auto) 0.02 K/uL (0-0.2) RDW Standard Deviation 40.2 fL (36.4-46.3) RDW Coefficient of Variation 12.8 % (11.5-14.5) Immature Granulocyte % (Auto) 0.1 % Immature Granulocyte # (Auto) 0.01 K/uL (0.00-0.02) Anion Gap 8.0 mmol/L (3-11) Est Creatinine Clear Calc Drug Dose 61.5 ml/min Estimated GFR () 83.7 Estimated GFR (Non- 72.2 BUN/Creatinine Ratio 15.5 (10-20) Calcium Level 8.4 mg/dl (8.5-10.1) Magnesium Level 1.7 mg/dl (1.8-2.4) Triglycerides Level 142 mg/dl (0-150) Cholesterol Level 111 mg/dl (0-200) HDL Cholesterol 48 mg/dl LDL Cholesterol, Calculated 35 mg/dl VLDL Cholesterol, Calculated 28 mg/dl Cholesterol/HDL Ratio 2.3 Imaging [~ rep ct add3]] MRI OF THE BRAIN WITHOUT AND WITH IV CONTRAST CLINICAL HISTORY: Stroke like symptoms. Left-sided headache. Blurred vision. Difficulty speaking. COMPARISON STUDY: Noncontrast head CT dated 07/14/2017, MRI the brain dated 08/25/2016 TECHNIQUE: MRI of the brain was performed from the vertex to the skull base utilizing various T1 and T2 weighted sequences. Following the IV administration of 8 mL of Gadavist contrast, additional enhanced images were obtained. FINDINGS: Sagittal T1, axial diffusion, proton density and T2 weighted axial, coronal FLAIR, and pre and post axial T1-weighted images were acquired. These were supplemented with post gadolinium coronal T1 weighted images. No intra or extra-axial mass lesions are visualized. Axial diffusion-weighted images reveal no evidence of acute or subacute infarction. There is no evidence of ventricular dilatation. Proton density T2-weighted and FLAIR images reveal scattered foci of increased T2 signal within the white matter, likely on a small vessel basis, and similar to the preceding study. There are no abnormal flow voids. There is no evidence of pathologic enhancement. IMPRESSION: 1. No acute intracranial findings 2. No evidence of acute or subacute infarction 3. No evidence of intracranial mass Electronically signed by: Thien Sullivan M.D. 07/14/2017 4:08 PM Dictated Date/Time: 07/14/2017 4:05 PM Impression 1. Episode July 14, 2017 consisting of sudden onset of visual symptoms, tingling in the upper extremities and motor speech problems lasting less than 30 minutes, followed by a nonspecific headache. Currently the patient has no focal neurologic findings, meningeal signs, or encephalopathy. MRI shows no acute stroke and old ischemic changes quite similar to the previous MRI of August of 2016. Current episode is very similar to the original spell of August,. Although I cannot entirely exclude a typical transient ischemic attack, I believe this case fits more with a vasospasm/migraine variant. Although headaches sometimes are associated with strokes, they typically are not associated with TIAs. The time frame of symptoms lasting a short period of time followed by headache is more consistent with vasospasm/migraine. Hypertension would be the triggering factor for these events. This event happened on Plavix. 2. Hypertension, not adequately controlled on admission. Other risk factors for stroke include type 2 diabetes and dyslipidemia. 3. Left carotid stenosis, 30-40 percent, noted August of 2016, on Plavix. Plan 1. Control blood pressure as you are doing. She should at least have a mean arterial pressure of approximately 100 and slowly improved from there. 2. Control other stroke risk factors such as hyperglycemia and dyslipidemia. Fasting lipid profile is pending. 3. Verapamil for hypertension, as this is my drug of choice for preventing vasospasm. 4. Continue Plavix 75 milligrams daily. I see no need for additional changes regarding antiplatelet therapy. I see no indication for anticoagulation. 5. CT angiography of the head and neck could be considered, although I am not sure if treatment will be changed by this study since MR angiography 11 months ago was largely unremarkable. Nevertheless, vessel stenosis could have developed and CTA is typically more accurate than MRA 6. Increase activity as able. I spoke with Dr. Ambrosio regarding this case including treatment options Overall, I spent 75 minutes with this case including records and film review, discussion with nursing and clinicians, and direct care discussion at the bedside with the patient.
[2017-07-15] MEDS: INSULIN ASPART 100 UNITS/ML 3 ML PEN SC SCH ×2 (08:35→13:25)
[2017-07-15] MEDS ORDERED: VALSARTAN 80 MG TAB PO SCH (09:00)
[2017-07-15] MEDS ORDERED: ROSUVASTATIN CALCIUM 10 MG TAB PO SCH ×2 (09:00)
[2017-07-15] MEDS ORDERED: PANTOprazole SOD 40 MG TAB PO SCH (09:00)
[2017-07-15] MEDS ORDERED: SPIRONOLACTONE 25 MG TAB PO SCH (09:00)
[2017-07-15] MEDS ORDERED: CLOPIDOGREL BISULFATE 75 MG TAB PO SCH (09:00)
[2017-07-15] MEDS ORDERED: MAGNESIUM OXIDE 400 MG TAB PO ONE (09:30)
[2017-07-15] MEDS ORDERED: OPTIRAY 320 IV PRN (10:45)
[2017-07-15 11:18] VITALS: BP 117/68; PULSE 72; TEMP 36.8; O2SAT 97
[2017-07-15 12:00] VITALS: O2SAT 96
--- NOTE | 2017-07-15 12:55 | DIAGNOSTIC IMAGING REPORT ---
NECK ANGIO WITH CONTRAST CLINICAL HISTORY: 77 years-old Female presenting with TIA. TECHNIQUE: Multidetector CT angiography of the neck was performed after the administration of intravenous contrast. 3-D volumetric and/or maximum intensity projection (MIP) images were subsequently reconstructed for review. IV contrast: 93 mL of Optiray 320. A dose lowering technique was used consistent with the principles of ALARA (as low as reasonably achievable). Stenosis measurements were based on NASCET-like criteria. COMPARISON: 08/28/2016. CT DOSE (mGy.cm): The estimated cumulative dose is 1487.92 mGy.cm. FINDINGS: Chief Dispatcher Service topogram: Unremarkable. Atherosclerosis of the three-vessel aortic arch. Patent origins of the cervical vessels. Bilateral common carotid arteries patent. Calcified atherosclerotic plaque at the carotid bulbs. Approximately 25% stenosis of the origins of the bilateral internal carotid arteries at the carotid bulbs. The remainder of the internal carotid arteries are widely patent bilaterally. Atherosclerosis of the cavernous segments of the internal carotid arteries without significant narrowing. Codominant vertebral arteries with patent origins and courses. No evidence of significant stenosis, focal vessel occlusion, or dissection of the cervical arteries. Limited intracranial evaluation within normal limits. Visualized portion of the paranasal sinuses and mastoid air cells demonstrate fluid in the left mastoid air cells. Degenerative changes of the cervical spine. Stable 3 mm solid nodule at the left apex. IMPRESSION: 1. No evidence of significant stenosis, focal vessel occlusion, or dissection of the cervical arteries. 2. Nonsignificant stenosis of the origins of the bilateral internal carotid arteries secondary to calcified atherosclerotic plaque at the carotid bulbs. 3. Stable solid 3 mm pulmonary nodule at the left apex. Electronically signed by: Misha Rogel M.D. 07/15/2017 12:54 PM Dictated Date/Time: 07/15/2017 12:49 PM
--- NOTE | 2017-07-15 13:01 | DIAGNOSTIC IMAGING REPORT ---
ANGIOGRAPHY HEAD COMBO HISTORY: Mental status change TECHNIQUE: Multiaxial CT images of the head were performed both before and after the intravenous administration of contrast to evaluate the major cerebral vessels. Maximum intensity projection images were also obtained. A dose lowering technique was utilized adhering to the principles of ALARA. COMPARISON: 07/14/2017 FINDINGS: There is no mass, hematoma, midline shift, or acute infarct. Visualized intracranial internal carotid arteries, distal vertebral arteries, and basilar artery are widely patent. There is moderate stenosis approximately 50% origin right posterior cerebral artery. There is minimal narrowing origin left posterior cerebral. There is no evidence for aneurysmal distention. There is minimal scattered plaque formation throughout intracranial vasculature. IMPRESSION: 1. Moderate 50% narrowing origin right posterior cerebral. 2. Minimal stenosis origin left posterior cerebral. 3. Minimal scattered plaque formation throughout the anterior and middle cerebral circulation with no significant stenotic process. 4. No acute process of the brain. The above report was generated using voice recognition software. It may contain grammatical, syntax or spelling errors. Electronically signed by: John Wallace M.D. 07/15/2017 12:59 PM Dictated Date/Time: 07/15/2017 12:50 PM
[2017-07-15] MEDS ORDERED: VRPSR240 PO (13:57)
--- NOTE | 2017-07-15 14:03 | Discharge Instructions ---
Discharge Instructions Date of Service Jul 15, 2017. Admission Reason for Admission: Tia (Transient Ischemic Attack) Discharge Discharge Diagnosis / Problem: TIA likely caused by vasospasm, no signs of ischemia Discharge Goals Goal(s): Decrease discomfort, Improve function, Improve disease control Activity Recommendations Activity Limitations: resume your previous activity . Instructions / Follow-Up Instructions / Follow-Up Medications - VERAPAMIL: need to make sure you are on 240mg daily, recommend taking extended release in the evening Possible TIA, likely cerebral vasospasm MRI brain without ischemia CT angiogram head and neck, no significant stenosis or aneurysm will treat blood pressure with prior regimen, can always titrate medications upward as needed continue Plavix continue Crestor all symptoms resolved, cleared to return to [facility] FOLLOW UP - Dr. Enamorado in one week - Neurology in one month Risk Factors for Stroke: You can reduce your chances of stroke by working with your medical provider to adopt a healthy lifestyle. Some specific ways to lower your chance of stroke are: * If you are a smoker, now is the time to stop smoking cigarettes * If you are diabetic, improve the control of your blood sugars * Avoid excessive amounts of alcohol * Control high blood pressure * Lose weight if you are overweight * Be sure to lead an active lifestyle * Eat a healthy diet low in salt, cholesterol and fat You should know about other risk factors for stroke that you are unable to control. These include: * Age 55 years or older * Male gender * Certain racial groups: , or / * Family History of Stroke, Mini stroke or Heart Attack * Sickle Cell Disease Follow Up: It is important for you to keep your follow up appointments with your medical provider. Current Hospital Diet Patient's current hospital diet: Diabetes Type 2 Diet Discharge Diet Recommended Diet: AHA Diet (Heart Healthy), Diabetes Type 2 Diet Pending Studies Studies pending at discharge: no Laboratory Results Hemoglobin A1c Test 07/14/17 13:52 Range/Units Estimated Average Glucose 163 mg/dl Hemoglobin A1c 7.3 H 4.5-5.6 % Lipid Panel Test 07/15/17 06:41 Range/Units Triglycerides Level 142 0-150 mg/dl Cholesterol Level 111 0-200 mg/dl HDL Cholesterol 48 mg/dl Cholesterol/HDL Ratio 2.3 LDL Cholesterol, Calculated 35 mg/dl Medical Emergencies . Who to Call and When: Medical Emergencies: Call 911 immediately if you experience any of the following warning signs and symptoms of Stroke: * Sudden numbness or weakness of the face, arm or leg, especially on one side of the body * Sudden confusion, trouble speaking or understanding * Sudden trouble seeing in one or both eyes * Sudden trouble walking, dizziness, loss of balance or coordination * Sudden severe headache with no cause Do not delay calling 911 if you experience any warning signs or symptoms of a stroke. Delay in seeking medical attention may affect what treatments can be given to you. . Non-Emergent Contact Non-Emergency issues call your: Primary Care Provider Call Non-Emergent contact if: you have any medication questions . . "Provider Documentation" section prepared by Sandro Ambrosio. . Stroke Core Measures Reason no t-PA for Stroke: Treatment not indicated Reason no antithrom by day 2: Treatment provided - N/A Reason no antithrom at D/C: Treatment provided - N/A Reason no statin at D/C: Treatment provided - N/A Reason no anticoag w/a fib: Treatment not indicated VTE Core Measure Inpt VTE Proph given/why not?: Unfractionated heparin SQ PA Drug Monitoring Program Search Results: no issues identified
[2017-07-15 14:10] VITALS: BP 117/68; PULSE 72; TEMP 36.8; O2SAT 96
--- NOTE | 2017-07-15 16:47 | Pharmacy Progress Note ---
Pharmacist Stroke Counseling Date of Service Jul 15, 2017. Scope Pharmacy has been consulted to provide medication discharge counseling for this patient admitted with ischemic stroke/hemorrhagic stroke/ transient ischemic attack as per the Pharmacist Discharge Counseling for Stroke Patients Protocol. Medications on Discharge New Medications: Verapamil HCl (Verapamil HCl ER) 240 Mg Tabcr 240 MG PO HS, #30 TABS 3 Refills Continued Medications: Acetaminophen Tab (Tylenol) 325 Mg Tab 650 MG PO DAILY PRN for Pain, TAB Calcium Carbonate-Vitamin D (Caltrate 600+D) 1 Chw Chw Cholecalciferol (Vitamin D3) 1,000 Unit Tab 1 TAB PO DAILY for 30 Days, #30 TAB 5 Refills Clopidogrel Bisulfate (Plavix) 75 Mg Tab 75 MG PO DAILY, TAB Esomeprazole Magnesium (Nexium) 40 Mg Cap 40 MG PO DAILY, CAP Levothyroxine Sodium (Synthroid) 100 Mcg Tab 100 MCG PO DAILY, TAB Metformin Hcl (Glucophage Er) 750 Mg Tab 1500 MG PO HS, TAB Metformin Hcl (Glucophage Er) 750 Mg Tab 1 TAB PO QAM for 90 Days, #90 TAB 3 Refills Rosuvastatin Calcium (Crestor) 5 Mg Tab 5 MG PO DAILY, TAB Spironolactone (Aldactone) 25 Mg Tab 1 TAB PO DAILY for 90 Days, #90 TAB 1 Refill Valsartan (Diovan) 80 Mg Tab 1 TAB PO DAILY for 30 Days, #30 TAB 5 Refills Discontinued Medications: Verapamil Hcl (Verapamil Hcl Sr) 120 Mg Cap Action The above medications, specifically ones for stroke treatment/prophylaxis, have been reviewed in detail with the patient and/or patient electronics parts sales representative(s) prior to discharge. This includes indication, common adverse reactions, drug interactions, and medication administration. Medication counseling has been employed using the teach-back method to ensure understanding. Outcome The patient and/or patient electronics parts sales representative(s) have demonstrated understanding of the medications. Please note, they are aware that the pharmacist will call them within 72 hours post-discharge to confirm that the appropriate medications are being taken and answer any further medication related questions the patient might have at that time. Contact information Individual to be contacted: Patient Relationship to patient (if applicable): Phone number: [phone] Best time to call: anytime Additional comments: * Patient is being discharged back to [facility], as part of their independent living * Plavix and Crestor are NOT new medications for the patient but I reviewed these in detail * Based upon her age and cholesterol levels, neuro would not normally recommend high intensity dosing * I discussed the interaction between Nexium and Plavix with the patient. She has been on both for quite some time but I told her I would follow up with Dr. Enamorado to recommend an alternative PPI with less of a CYP interaction (ie. pantoprazole). For now, I recommended that she take them at least 12 hours apart. * I also updated her med list regarding her correct dose of calcium/vitamin D Thank you for allowing pharmacy to be involved in the care of this patient. Please call [phone] with any additional questions
--- NOTE | 2017-07-16 08:02 | Discharge Summary ---
Discharge Summary Date of Service Jul 15, 2017. Discharge Summary Admission Date: Jul 14, 2017 at 15:10 Discharge Date: Jul 15, 2017 Discharge Disposition: Personal care Principal Diagnosis: TIA suspected to be due to vasospasm Problems/Secondary Diagnoses: Hypertension Headache Immunizations: Have You Had Influenza Vaccine: Yes History of Tetanus Vaccine?: Unknown History of Pneumococcal: Yes History of Hepatitis B Vaccine: Unknown Procedures: none Consultations: Neurology Medication Reconciliation New Medications: Verapamil HCl (Verapamil HCl ER) 240 Mg Tabcr 240 MG PO HS, #30 TABS 3 Refills Continued Medications: Acetaminophen Tab (Tylenol) 325 Mg Tab 650 MG PO DAILY PRN for Pain, TAB Calcium Carbonate-Vitamin D (Caltrate 600+D) 1 Chw Chw 2 TABS PO BID Cholecalciferol (Vitamin D3) 1,000 Unit Tab 1 TAB PO DAILY for 30 Days, #30 TAB 5 Refills Clopidogrel Bisulfate (Plavix) 75 Mg Tab 75 MG PO DAILY, TAB Esomeprazole Magnesium (Nexium) 40 Mg Cap 40 MG PO DAILY, CAP Levothyroxine Sodium (Synthroid) 100 Mcg Tab 100 MCG PO DAILY, TAB Metformin Hcl (Glucophage Er) 750 Mg Tab 1500 MG PO HS, TAB Metformin Hcl (Glucophage Er) 750 Mg Tab 1 TAB PO QAM for 90 Days, #90 TAB 3 Refills Rosuvastatin Calcium (Crestor) 5 Mg Tab 5 MG PO DAILY, TAB Spironolactone (Aldactone) 25 Mg Tab 1 TAB PO DAILY for 90 Days, #90 TAB 1 Refill Valsartan (Diovan) 80 Mg Tab 1 TAB PO DAILY for 30 Days, #30 TAB 5 Refills Discontinued Medications: Verapamil Hcl (Verapamil Hcl Sr) 120 Mg Cap Discharge Exam Patient feeling well, no further neurologic symptoms, no headache. MRI showed no ischemic changes. Discussed with Dr. Hooker, he felt that symptoms could be explained by vasospasm. Recommended increasing Verapamil to 240mg. Checked CTA head and neck, no significant stenosis. Patient wanted to go back to [facility]. Review of Systems: Constitutional: No fever, No chills, No sweats, No weight loss, No weakness , No fatigue, No problem reported Eyes: No worsening of vision, No eye pain, No redness, No discharge, No diplopia, No problem reported ENT: No hearing loss, No unusual epistaxis, No nasal symptoms, No sore throat, No tinnitus, No dental problems, No trouble swallowing, No problem reported Respiratory: No cough, No sputum, No wheezing, No shortness of breath, No dyspnea on exertion, No dyspnea at rest, No hemoptysis, No problem reported Cardiovascular: No chest pain, No orthopnea, No PND, No edema, No claudication, No palpitations, No problem reported Abdomen: No pain, No nausea, No vomiting, No diarrhea, No constipation, No GI bleeding, No problem reported Musculoskeletal: No joint pain, No muscle pain, No swelling, No calf pain, No problem reported Genitourinary - Female: No dysuria, No urinary frequency, No urinary urgency , No urinary incontinence, No urinary retention, No hematuria Neurologic: No memory loss, No paralysis, No weakness, No numbness/tingling , No vertigo, No balance problems, No problem reported Psychiatric: No depression symptoms, No anhedonism, No anxiety, No insomnia , No substance abuse, No problem reported Endocrine: No fatigue, No excessive thirst, No excessive urination, No problem reported Hematologic / Lymphatic: No abnormal bleeding/bruising, No clotting problems , No swollen lymph nodes, No night sweats, No problem reported Integumentary: No rash, No itch, No new/changing skin lesions, No color change, No bleeding, No problem reported Physical Exam: General Appearance: no apparent distress, + obese Eyes: normal inspection, EOMI, funduscopic exam normal ENT: normal ENT inspection, hearing grossly normal, pharynx normal Neck: supple, no adenopathy, no JVD, trachea midline Respiratory/Chest: chest non-tender, lungs clear, normal breath sounds, no respiratory distress, no accessory muscle use Cardiovascular: regular rate, rhythm, no edema, no gallop, no JVD, no murmur , normal peripheral pulses Abdomen / GI: normal bowel sounds, non tender, soft, no organomegaly Extremities: normal inspection, no calf tenderness, normal capillary refill , no pedal edema, normal range of motion, pelvis stable Neurologic/Psychiatric: radio personality II-XII nml as tested, no motor/sensory deficits , alert, normal mood/affect, normal reflexes, oriented x 3 Skin: normal color, warm/dry, no rash Lymphatic: no adenopathy Hospital Course Ms. Garner is a 77 y/o female with PMHx of T2DM, HTN, HLD, GERD, and Hypothyroidism who presents to the ED from [facility] for stroke-like symptoms. TIA symptoms secondary to cerebral vasospasm symptoms completely resolved, MRI brain normal, CTA head and neck without significant stenosis had echo in August 2016, will not repeat discussed with Neurology, recommend treating with Verapamil, better blood pressure control as outpatient continue with Plavix due to aspirin intolerance okay to discharge back to [facility] with close follow up Hypertension, poorly controlled continue Losartan increase Verapamil to 240mg daily to prevent vasospasm titrate blood pressure control to <140/90 as outpatient T2DM: - Check A1c - 7.3 - continue Metformin on discharge Hypothyroidism: - Synthroid 100 mcg daily Hypomagnesemia: replaced DVT Prophylaxis: SCDs Code Status: FULL RESUSCITATION Total Time Spent: Greater than 30 minutes This includes examination of the patient, discharge planning, medication reconciliation, and communication with other providers. Discharge Instructions Please refer to the electronic Patient Visit Report (Discharge Instructions) for additional information. Follow-Up Dr. Enamorado in one week Neurology in one month Additional Copies To [facility] [place]; Velia Hooker M.D.; Mina Enamorado M.D.
--- NOTE | 2017-07-17 14:01 | Pharmacy Progress Note ---
Pharmacist Post D/C Phone Note Date of phone call: Jul 17, 2017. The patient and/or patient financial sales representative(s) were unable to be reached. A message was left on answering machine. Discharge counseling pharmacist contact information has already been provided to the patient should questions arise. Thank you for allowing us to be involved in the care of this patient.
== END 2017-07-15 15:38 | disposition home or self-care (01) ==
LOC: EDBD 13:15 → C.EDB 13:17 → C.MED 15:10 → ENRESERV 20:50
PROVIDERS: ADMIT Internal Medicine; ATTEND Internal Medicine
DX: G45.9 Transient cerebral ischemic attack, unspecified (principal); I67.848 Other cerebrovascular vasospasm and vasoconstriction; E83.42 Hypomagnesemia; I10 Essential (primary) hypertension; E11.9 Type 2 diabetes mellitus without complications; E78.5 Hyperlipidemia, unspecified; K21.9 Gastro-esophageal reflux disease without esophagitis; E03.9 Hypothyroidism, unspecified; Z83.3 Family history of diabetes mellitus; Z82.49 Family history of ischemic heart disease and other diseases of the circulatory system

== ENCOUNTER → 2017-08-27 | Outpatient (CLI) | payer OTHER, BC ==
[~2017-08-27] MED LIST changes: +CLOP1TAB5 PO; -FLUC100T4 PO; +VRPSR240 PO
[2017-08-27 09:42] LABS: HEMOGLOBIN A1C 7.1 % (4.5-5.6)
== END | disposition home or self-care (01) ==
LOC: C.LABFOXMH 09:03
PROVIDERS: ATTEND Internal Medicine Hospice and Palliative Medicine
DX: E11.9 Type 2 diabetes mellitus without complications (principal)

== ENCOUNTER 2017-09-08 23:57 | Emergency (ER) | payer OTHER, BC ==
[~2017-09-08] VITALS: Ht 167.6 cm; Wt 80.9 kg
[2017-09-09 00:02] VITALS: TEMP 36.5; Ht 167.6 cm; Wt 80.9 kg
--- NOTE | 2017-09-09 00:41 | EMERGENCY ROOM VISIT NOTE ---
History Report prepared by Cholo: Leigh Ann Noland Under the Supervision of: Dr. Domingo Layton M.D. First contact with patient: 00:03 Chief Complaint: FALL Stated Complaint: FALL History of Present Illness The patient is a 77 year old female who presents to the Emergency Room with complaints of an episode of a fall occurring prior to arrival. The patient states that she had just let the dog out and was turning around to go into the bathroom when she lost her balance. She states that she hit her head and shoulder on the door frame and landed on her knees. She notes that it is normal for her to loose her balance, but she is usually able to catch herself. The patient states that she became nauseated right after falling, but was able to get up and walk. The patient complains of knee pain. The patient denies drinking alcohol, doing drugs, loss of consciousness, chest pain, headache, lightheadedness, neck pain, hip pain, abdominal pain, leg swelling, urinary symptoms, and eye pain. The patient notes that she takes Plavix. Source of History: patient Onset: prior to arrival Position: other (global) Quality: other (fall) Timing: other (episode) Associated Symptoms: + nausea, No LOC, No headache, No neck pain, No chest pain, No abdominal pain, No urinary symptoms Note: The patient complains of knee pain. The patient denies lightheadedness, hip pain , leg swelling, and eye pain. Review of Systems See HPI for pertinent positives & negatives. A total of 10 systems reviewed and were otherwise negative. Past Medical & Surgical Medical Problems: (1) Advance care planning (2) Diabetes mellitus (3) HTN, goal below 130/80 (4) TIA (transient ischemic attack) Family History Diabetes mellitus Hypertension Social History Smoking Status: Former Smoker Drug Use: none Marital Status: Housing Status: lives alone, [facility] Occupation Status: retired Current/Historical Medications Scheduled Calcium Carbonate-Vitamin D (Caltrate 600+D), 2 TABS PO BID Cholecalciferol (Vitamin D3), 1 TAB PO DAILY Clopidogrel Bisulfate (Plavix), 75 MG PO DAILY Esomeprazole Magnesium (Nexium), 40 MG PO DAILY Levothyroxine Sodium (Synthroid), 100 MCG PO DAILY Metformin Hcl (Glucophage Er), 1,500 MG PO HS Metformin Hcl (Glucophage Er), 1 TAB PO QAM Rosuvastatin Calcium (Crestor), 5 MG PO DAILY Spironolactone (Aldactone), 1 TAB PO DAILY Valsartan (Diovan), 1 TAB PO DAILY Verapamil HCl (Verapamil HCl ER), 240 MG PO HS Scheduled PRN Acetaminophen Tab (Tylenol), 650 MG PO DAILY PRN for Pain Allergies Coded Allergies: Oxycodone (Unverified Adverse Reaction, Severe, VOMITING, 09/09/17) Aspirin (Unverified Adverse Reaction, Unknown, "stomach bleeds", 09/09/17) Codeine (Verified Adverse Reaction, Unknown, vomiting, 09/09/17) Physical Exam Vital Signs Date Time Temp Pulse Resp B/P (MAP) Pulse Ox O2 Delivery O2 Flow Rate FiO2 09/09/17 01:39 63 18 114/59 97 09/09/17 00:06 62 09/09/17 00:02 36.5 64 18 146/69 99 Room Air Physical Exam GENERAL: Patient is well appearing and in minimal distress. EYES: No scleral icterus, unremarkable pupils. ENT: Mucous membranes moist, no nasal congestion. Contusion with abrasion to the left posterior scalp with pain to palpation. NECK: No masses appreciated, no meningismus, trachea is midline. RESPIRATORY: No dyspnea. Clear to auscultation and equal bilaterally. No wheeze , no rhonchi. CARDIOVASCULAR: Regular rate and rhythm. No murmurs, rubs, gallops appreciated. GASTROINTESTINAL: Abdomen soft, nontender, no peritonitis. Bowel sounds positive. No masses appreciated. BACK: No midline tenderness, no CVA tenderness EXTREMITIES: Normal motion all extremities, no cyanosis, no edema. Bruising bilateral anterior knees. Left anterior shoulder. Abrasion of her left anterior shoulder. NEUROLOGIC: Alert and oriented, no acute motor or sensory deficits, no focal weakness, cranial nerves grossly intact. SKIN: No rash, no jaundice, no diaphoresis. Medical Decision & Procedures ER Provider Diagnostic Interpretation: Radiology results and stated below per my review and radiologist interpretation: BILATERAL KNEE X-RAYS 4 VIEW: The results were interpreted by me. Right knee arthroplasty. Arthritic changes bilaterally. No fractures or dislocations. LEFT SHOULDER 2 VIEW X-RAY: The results were interpreted by me. No fractures or dislocations. CHEST X-RAY: The results were interpreted by me. No fracture or dislocation. No pneumothorax. Mildly enlarged cardiac border. 1 VIEW PELVIS X-RAY: The results were interpreted by me. Arthritic changes. No fracture or dislocation. CT HEAD: Compared to 07/14/17. No intracranial hemorrhage or skull fracture. Posterior scalp soft tissue swelling. Involutional changes. Patchy white matter low attenuation may represent small vessel disease. Radiologist: Kenisha Avalos MD Study ready at 00:35 and initial results transmitted at 00:54. ED Course 0005: The patient was evaluated in room B9. A complete history and physical exam was performed. 0115: Reevaluated the patient. Discussed results and discharge instructions: She verbalized understanding and agreement. The patient is ready for discharge. Medical Decision Pleasant 77 yr old female with mechanical fall this evening and multiple contusions. With posterior head injury CT head done which was negative. No neck pain nor TTP nor neuro deficits thus she does not meet criteria for CT Cervical spine. CXR, Shoulder xray, pelvic, and bilateral knees are negative for acute findings. She is stable, no complaints and neuro intact with GCS 15. Discussed likely further sore tomorrow. RTED if worsenign or other concerns. Discussed post head injury instructions as well. Head Trauma GCS Score: 15 Medication Reconcilliation Current Medication List: was personally reviewed by me Blood Pressure Screening Patient's blood pressure: Normal blood pressure Blood pressure disposition: Did not require urgent referral Impression Primary Impression: Fall Additional Impressions: Contusion of multiple sites Head injury, closed Abrasion, shoulder w/o infection Scribe Attestation The scribe's documentation has been prepared under my direction and personally reviewed by me in its entirety. I confirm that the note above accurately reflects all work, treatment, procedures, and medical decision making performed by me. Departure Information Dispostion Home / Self-Care Referrals [facility] (PCP) Forms HOME CARE DOCUMENTATION FORM, IMPORTANT VISIT INFORMATION Patient Instructions ED Mechanical Fall, [facility] Problem Qualifiers
[2017-09-09 01:39] VITALS: BP 114/59; PULSE 63; O2SAT 97
--- NOTE | 2017-09-09 07:11 | DIAGNOSTIC IMAGING REPORT ---
CT SCAN OF THE BRAIN WITHOUT IV CONTRAST CLINICAL HISTORY: Fall with head injury. COMPARISON STUDY: CT of the brain dated 07/15/2017. TECHNIQUE: Unenhanced axial CT scan of the brain is performed from the vertex to the skull base. A dose lowering technique was utilized adhering to the principles of ALARA. CT DOSE: 614.27 mGy.cm FINDINGS: Brain parenchyma: There are age-related involutional changes noting mild subcortical and periventricular microangiopathic change. There is no hemorrhage, mass effect, or evidence of acute territorial ischemia by CT criteria. Carrillo-white matter is preserved. No extra-axial fluid collection is seen. Ventricles, sulci, cisterns: Prominent secondary to involutional change. Intracranial vasculature: There is atherosclerotic calcification of the cavernous carotid arteries. Calvarium: The skeletal structures are osteopenic. No depressed calvarial fracture is seen. Sinuses and mastoids: The visualized paranasal sinuses are clear. The mastoid air cells are well pneumatized. Orbits: The bony orbits are grossly intact. There are bilateral ocular lens implants. IMPRESSION: There is no hemorrhage, mass effect, or evidence of acute territorial ischemia by CT criteria. Electronically signed by: Bertin Siu M.D. 09/09/2017 7:10 AM Dictated Date/Time: 09/09/2017 7:08 AM
--- NOTE | 2017-09-09 07:12 | DIAGNOSTIC IMAGING REPORT ---
SINGLE VIEW CHEST CLINICAL HISTORY: Fall with chest injury. FINDINGS: An AP, portable, upright chest radiograph is compared to study dated 07/14/2017. The examination is degraded by portable technique and apical lordotic positioning. The cardiomediastinal silhouette is unremarkable. Chronic interstitial thickening is similar to previous. A large calcified granuloma is noted at the right lung base. No airspace consolidation or large pleural effusion is identified. No pneumothorax is seen. The skeletal structures are osteopenic. The bony thorax is grossly intact. Arthritic change is seen in the shoulders. Cholecystectomy clips are identified in the right upper quadrant. IMPRESSION: No acute cardiopulmonary abnormality. Electronically signed by: Bertin Siu M.D. 09/09/2017 7:11 AM Dictated Date/Time: 09/09/2017 7:10 AM
--- NOTE | 2017-09-09 07:27 | DIAGNOSTIC IMAGING REPORT ---
RIGHT KNEE 2 VIEWS CLINICAL HISTORY: Fall with right knee pain. FINDINGS: AP and crosstable lateral views of the right knee are compared to study dated 11/12/2013. The skeletal structures are osteopenic. No fracture is seen. A right knee arthroplasty is in near-anatomic alignment. There has been undersurface remodeling of the patella. No periprosthetic lucency is identified. A small joint effusion is suspected. Calcific densities seen above the pelvis may be in the soft tissues or could reflect joint bodies. There is atherosclerotic calcification of the popliteal artery. Mild soft tissue swelling is present around the knee. IMPRESSION: 1. Joint effusion and soft tissue swelling. No fracture is seen. 2. A right knee arthroplasty is in near anatomic alignment. Electronically signed by: Bertin Siu M.D. 09/09/2017 7:25 AM Dictated Date/Time: 09/09/2017 7:24 AM
--- NOTE | 2017-09-09 07:36 | DIAGNOSTIC IMAGING REPORT ---
LEFT KNEE 2 VIEWS CLINICAL HISTORY: Fall with left knee pain. FINDINGS: AP and crosstable lateral views of left knee are compared to study dated 02/28/2011. The skeletal structures are osteopenic. No fracture is seen. There is advanced degenerative narrowing in the medial compartment with near complete loss of the joint space and associated bony sclerosis. Moderate narrowing is seen at the patellofemoral articulation. There are large medial marginal osteophytes with bony overgrowth along the medial aspect of the joint space. There is degenerative beaking of the tibial spine and small patellar enthesophytes. No joint effusion is identified. Mild soft tissue swelling is noted medially. Atherosclerotic calcification is observed in the popliteal artery. A small calcified fabella is incidentally noted. IMPRESSION: 1. Mild soft tissue swelling with no radiographic evidence of left knee fracture. 2. Osteopenia and advanced arthritic change as above. Electronically signed by: Bertin Siu M.D. 09/09/2017 7:35 AM Dictated Date/Time: 09/09/2017 7:33 AM
--- NOTE | 2017-09-09 07:37 | DIAGNOSTIC IMAGING REPORT ---
LEFT SHOULDER 3 VIEWS CLINICAL HISTORY: Fall with left arm pain. FINDINGS: 3 views of the left shoulder are obtained. No prior studies are available for comparison at the time of dictation. The skeletal structures are osteopenic. No fracture or dislocation is identified. Productive degenerative change is noted at the acromioclavicular joint. Bony overgrowth is seen along the inferior aspect of the glenoid. The overlying soft tissues are normal in appearance. The visualized left upper lobe lung parenchyma appears clear. Cardiomegaly is noted. IMPRESSION: Osteopenia and arthritic change as above with no radiographic evidence of left shoulder fracture or dislocation. Electronically signed by: Bertin Siu M.D. 09/09/2017 7:36 AM Dictated Date/Time: 09/09/2017 7:35 AM
--- NOTE | 2017-09-09 07:38 | DIAGNOSTIC IMAGING REPORT ---
SINGLE VIEW PELVIS CLINICAL HISTORY: Fall with leg injury. FINDINGS: An AP pelvic radiograph is correlated with radiographs of the right hip dated 02/14/2015. The skeletal structures are osteopenic. There is no radiographic evidence of fracture involving the hips or bony pelvis. Mild arthritic change and joint space narrowing is seen in the hips. The sacroiliac joints are preserved. The overlying soft tissues are normal as visualized. Surgical clips are noted in the right lower quadrant. Atherosclerotic calcification is present in the femoral arteries. No bowel obstruction is identified. IMPRESSION: Osteopenia with no radiographic evidence of fracture involving the hips or bony pelvis. Electronically signed by: Bertin Siu M.D. 09/09/2017 7:37 AM Dictated Date/Time: 09/09/2017 7:36 AM
== END 2017-09-09 01:35 | disposition home or self-care (01) ==
LOC: EDBD 23:57 → C.EDB 23:59
DX: S40.012A Contusion of left shoulder, initial encounter (principal); S80.01XA Contusion of right knee, initial encounter; S80.02XA Contusion of left knee, initial encounter; S09.90XA Unspecified injury of head, initial encounter; S40.212A Abrasion of left shoulder, initial encounter; W18.30XA Fall on same level, unspecified, initial encounter; Y92.009 Unspecified place in unspecified non-institutional (private) residence as the place of occurrence of the external cause; E11.9 Type 2 diabetes mellitus without complications; I10 Essential (primary) hypertension; Z79.01 Long term (current) use of anticoagulants; Z86.73 Personal history of transient ischemic attack (TIA), and cerebral infarction without residual deficits; Z96.651 Presence of right artificial knee joint; Z87.891 Personal history of nicotine dependence; Z79.84 Long term (current) use of oral hypoglycemic drugs; Z88.5 Allergy status to narcotic agent; Z88.6 Allergy status to analgesic agent

== ENCOUNTER → 2017-09-15 | Outpatient (CLI) | payer OTHER, BC | END | disposition home or self-care (01) | LOC: C.LABFOXMH 12:58 | PROVIDERS: ATTEND Internal Medicine | DX: R35.0 Frequency of micturition (principal) ==

== ENCOUNTER → 2017-12-25 | Outpatient (CLI) | payer OTHER, BC ==
[~2017-12-25] MED LIST changes: +SPIR25TA5 PO; -SPIR25TA89 PO
[2017-12-25 08:39] LABS: HEMATOCRIT 39.9 % (37-47); HEMOGLOBIN 12.9 g/dL (12.0-16.0); MEAN CELL VOLUME 86.9 fL (80-100); MEAN CORPUSCULAR HEMOGLOBIN 28.1 pg (25-34); MEAN CORPUSCULAR HGB CONC 32.3 g/dl (32-36); MEAN PLATELET VOLUME 8.6 fL (7.4-10.4); PLATELET COUNT 313 K/uL (130-400); RED CELL DISTRIBUTION WIDTH CV 13.3 % (11.5-14.5); RED CELL DISTRIBUTION WIDTH SD 42.5 fL (36.4-46.3); WHITE BLOOD COUNT 8.59 K/uL (4.8-10.8)
[2017-12-25 09:02] LABS: ALBUMIN 3.7 gm/dl (3.4-5.0); ALKALINE PHOSPHATASE 65 U/L (45-117); ALT/SGPT 20 U/L (12-78); AST/SGOT 14 U/L (15-37); BLOOD UREA NITROGEN 15 mg/dl (7-18); CALCIUM 9.3 mg/dl (8.5-10.1); CARBON DIOXIDE 22 mmol/L (21-32); CREATININE 0.88 mg/dl (0.60-1.20); GLUCOSE 150 mg/dl (70-99); POTASSIUM 4.5 mmol/L (3.5-5.1); SODIUM 138 mmol/L (136-145)
== END ==
LOC: C.LABFOXMH 07:53
PROVIDERS: ATTEND Internal Medicine Hospice and Palliative Medicine
DX: E03.9 Hypothyroidism, unspecified (principal); E78.5 Hyperlipidemia, unspecified; E11.9 Type 2 diabetes mellitus without complications; I10 Essential (primary) hypertension

== ENCOUNTER → 2018-02-02 | Outpatient (CLI) | payer OTHER, BC ==
--- NOTE | 2018-02-03 14:48 | MAMMOGRAPHY REPORT ---
BILATERAL DIGITAL SCREENING MAMMOGRAM TOMOSYNTHESIS WITH CAD: 02/02/2018 CLINICAL HISTORY: Routine screening. Patient has no complaints. TECHNIQUE: Breast tomosynthesis in addition to standard 2D mammography was performed. Current study w as also evaluated with a Computer Aided Detection (CAD) system. COMPARISON: Comparison is made to exams dated: 02/26/2017 mammogram, 02/20/2017 mammogram, 01/30/2017 m ammogram, 01/30/2016 mammogram, 01/27/2015 mammogram, and 02/20/2017 ultrasound - [facility]. BREAST COMPOSITION: The tissue of both breasts is almost entirely fatty. FINDINGS: No suspicious masses, calcifications, or areas of architectural distortion are noted in either breast . There has been no significant interval change compared to prior exams. Scattered bilateral benign-a ppearing calcifications are not significantly changed. A biopsy clip is again noted within the right upper outer quadrant from prior benign biopsy. IMPRESSION: ACR BI-RADS CATEGORY 2: BENIGN There is no mammographic evidence of malignancy. A 1 year screening mammogram is recommended.( 019) The patient will receive written notification of the results. Some breast cancers are not detected with mammography. A negative mammographic report should not wilmer y biopsy if a clinically suggestive mass is present. Brenna Alvarez M.D. /:02/02/2018 14:59:07 [employer] Instructor: Lisa Vee, [facility] letter sent: Normal 1/2 BI-RADS Code: ACR BI-RADS Category 2: Benign
== END | disposition home or self-care (01) ==
LOC: C.MAMM 12:59
PROVIDERS: ATTEND Internal Medicine
DX: Z12.31 Encounter for screening mammogram for malignant neoplasm of breast (principal)

== ENCOUNTER 2019-06-11 16:43 | Inpatient (IN) ==
[2019-06-11] MEDS ORDERED: SODIUM CHLORIDE 0.9% 1000ML 1,000 ML IV ONE (18:54)
--- NOTE | 2019-06-11 19:04 | XRay Report ---
XR chest 1V portable CLINICAL HISTORY: SEPSIS dyspnea COMPARISON STUDY: 09/09/2017 FINDINGS: The bones soft tissues and hemidiaphragms are normal. The cardiomediastinal silhouette is n ormal. The lungs are clear. The pulmonary vasculature is normal. IMPRESSION: Negative chest. ACT 112: Negative or not required by law. The above report was generated using voice recognition software. It may contain grammatical, syntax or spelling errors. Electronically signed by: John Wallace M.D. 06/11/2019 7:03 PM
[2019-06-11] MEDS: SODIUM CHLORIDE 0.9% 1000ML 1,000 ML IV ONE ×2 (19:19→19:20)
[2019-06-11 19:29] LABS: Basophils # (auto) 0.02 K/uL (0-0.2); Basophils % (auto) 0.2 %; Eosinophils # (auto) 0.02 K/uL (0-0.5); Eosinophils % (auto) 0.2 %; Hematocrit (blood only) 32.6 % (37-47); Hemoglobin 10.8 g/dL (12.0-16.0); Immature Granulocytes # (auto) 0.02 K/uL (0.00-0.02); Immature Granulocytes % (auto) 0.2 %; Lymphocytes # (auto) 1.05 K/uL (1.2-3.4); Lymphocytes % (auto) 8.6 %; Mean Corpuscular Hemoglobin 28.1 pg (25-34); Mean Corpuscular Hgb Conc 33.1 g/dL (32-36); Mean Corpuscular Volume 84.7 fL (80-100); Mean Platelet Volume 8.6 fL (7.4-10.4); Monocytes # (auto) 1.27 K/uL (0.11-0.59); Monocytes % (auto) 10.4 %; Neutrophils # (auto) 9.84 K/uL (1.4-6.5); Neutrophils % (auto) 80.4 %; Platelet Count 281 K/uL (130-400); RDW Coefficient of Variation 13.6 % (11.5-14.5); Red Blood Count 3.85 M/uL (4.2-5.4); White Blood Count 12.22 K/uL (4.8-10.8)
[2019-06-11 19:40] LABS: Alanine Aminotransferase 13 U/L (12-78); Albumin Level 2.8 gm/dl (3.4-5.0); Aspartate Aminotransferase 7 U/L (15-37); BUN Creatinine Ratio 19.5 (10-20); Blood Urea Nitrogen 14 mg/dl (7-18); Calcium 8.8 mg/dl (8.5-10.1); Carbon Dioxide 25 mmol/L (21-32); Chloride 101 mmol/L (98-107); Creatinine Clr Calc Pharmacy 63.4 ml/min; Est GFR (African American) 92.3; Est GFR (Non-African American) 79.7; Glucose 138 mg/dl (70-99); Magnesium 1.7 mg/dl (1.8-2.4); Partial Thromboplastin Ratio 1.1; Potassium 3.9 mmol/L (3.5-5.1); Prothrombin Time 10.5 Seconds (9.0-12.0); Sodium 131 mmol/L (136-145)
[2019-06-11 19:45] LABS: Albumin Globulin Ratio 0.8 (0.9-2); Alkaline Phosphatase 55 U/L (45-117); Bilirubin,Total 0.7 mg/dl (0.2-1); Globulin 3.7 gm/dl (2.5-4.0); Total Protein 6.5 gm/dl (6.4-8.2); Troponin I < 0.015 ng/ml (0-0.045)
[2019-06-11 19:48] LABS: Appearance Urine Cloudy (Clear); Bacteria Urine Automated 2+ (Negative); Bilirubin Urine Negative (Negative); Blood Urine Negative (Negative); Color Urine Yellow; Epithelial Cell Urine Auto 0-5 /lpf (0-5); Glucose Urine UA Negative (Negative); Ketones Urine 1+ (Negative); Leukocyte Esterase Urine Negative (Negative); Nitrite Urine Positive (Negative); Protein Urine Trace (Negative); RBC Urine Automated 0-4 /hpf (0-4); Specific Gravity Urine 1.014 (1.000-1.030); Urobilinogen Urine Negative (Negative)
[2019-06-11] MEDS ORDERED: IOVERSOL 100ml IV PRN (20:07)
--- NOTE | 2019-06-11 20:23 | CT Scan Report ---
ABDOMEN AND PELVIS CT WITH IV CONTRAST CT DOSE: HISTORY: Generalized abdominal pain. TECHNIQUE: Multiaxial CT images of the abdomen and pelvis were performed following the use of intrave nous contrast. A dose lowering technique was utilized adhering to the principles of ALARA. COMPARISON STUDY: None. FINDINGS: Calcified granulomas seen within the right lung base. Patchy densities within the lung base s posteriorly favor mild dependent change. No pneumoperitoneum. No pneumatosis. No suspicious lytic a re blastic osseous lesions. Cholecystectomy. The liver, pancreas, and adrenal glands unremarkable. A few punctate calcified granulomas within the spleen. Mild calcified plaque within the normal caliber abdominal aorta. No retroperitoneal lymphadenopathy. No renal or ureteral stones. No hydronephrosis. Mild bladder wall thickening. The uterus and bilateral adnexa are unremarkable. Bilateral perinephric edema. There is subtle heterogeneous enhancement within the upper poles of both kidneys. Therefore, these findings raise the possibility of a bilateral pyelonephritis. There are 2 hypodense lesions wit hin the right kidney with the largest measuring 3.2 cm. These favor cysts. Trace pelvic free fluid. A few colonic diverticula. No evidence for diverticulitis. No bowel wall thickening or obstruction. Th e appendix appears surgically absent. IMPRESSION: 1. Focal areas of heterogeneous enhancement within the upper poles of the bilateral kidneys. There is also perinephric edema. Therefore, these findings favor a bilateral pyelonephritis. Recommend correl ation with urinalysis. 2. Mild bladder wall thickening which may represent a cystitis. 3. Colonic diverticulosis. 4. Cholecystectomy and appendectomy. 5. No bowel wall thickening or obstruction. ACT 112: Negative or not required by law. Electronically signed by: Eduardo Paulson M.D. 06/11/2019 8:22 PM
--- NOTE | 2019-06-11 20:26 | CT Scan Report ---
HEAD CT NONCONTRAST CT DOSE: 1396.42 mGy.cm HISTORY: headache TECHNIQUE: Multiaxial CT images of the head were performed without the use of intravenous contrast. A utomated exposure control was utilized for this study. A dose lowering technique was utilized adheri ng to the principles of ALARA. Comparison: Head CT 09/09/2017. Findings: Near complete opacification the right mastoid air cells and right middle ear cavity. The pa ranasal sinuses and left mastoid air cells are clear. The calvarium and skull base are intact. There is no mass, hematoma, midline shift, acute infarct. White matter hypodensity is nonspecific but sugge stive of microvascular ischemic change. The ventricles and sulci demonstrate mild age-related involut ional changes. Impression: 1. No acute intracranial abnormality. 2. Near complete opacification of the right mastoid air cells and middle ear cavity. ACT 112: Negative or not required by law. Electronically signed by: Eduardo Paulson M.D. 06/11/2019 8:25 PM
[2019-06-11] MEDS ORDERED: cefTRIAXone SODIUM 1,000 MG/50 ML BAG IV STA (20:33)
--- NOTE | 2019-06-11 22:11 | History & Physical Report ---
Date of Service June 11, 2019 Assessment & Plan (1) UTI (urinary tract infection): 79-year-old female with past medical history of hypertension, hyperlipidemia, mild aortic stenosis, hypothyroidism, diabetes type 2. Patient is a 79-year-old female with a past medical history of hypertension, hyperlipidemia, mild aortic stenosis, hypothyroidism, diabetes type 2, with a recent history of infrequent recurrent syncopal episodes which are currently being worked up by [facility] cardiology, she is recently status post L IN Q insertion. The patient presents the [facility] emergency department today with complaints of chills, headache, weakness, dizzy when walking, increased frequency of urination and burning with urination. Collectively history, labs, and physical exam findings are all consistent with an acute urinary tract infection. #UTI Patient presenting with a clinical history, physical exam findings, and laboratory findings are consistent with an acute UTI. Urine was sent for culture patient reports a recent history of frequent UTIs, increasing in frequency. Most recent UTI was 2 months ago and treated with antibiotics. She is unsure of what antibiotics were given to her at that time. On presentation patient borderline criteria for sepsis, tachycardia improved status post fluid resuscitation. Patient was given 1 dose of ceftriaxone in the emergency department. -Admitted to telemetry given recent history of syncopal episodes thought to be arrhythmogenic in nature, patient recently had a LINQ inserted. -Urinalysis consistent with acute urinary tract infection, culture sent -Continue ceftriaxone 1 g daily -Narrow ABX pending culture results -Trend daily CBC -Monitor vitals, trend fever curve -Advil 600 mg as needed for pain/fever -Tylenol PRN for pain -Received 1 L crystalloid in the ED, will provide another overnight #History of syncopal episodes thought to be arrhythmogenic in nature Patient follows with [facility] cardiology for evaluation and management of this. Recently had a LINQ placed to monitor for arrhythmias. Patient is not currently anticoagulated. Patient denying cardiac symptoms on presentation, specifically denying chest pain, chest pressure, shortness of breath, funny feeling in her left arm. -Monitor on telemetry -Continue verapamil 240 mg p.o. daily p.m. -Monitor for signs and symptoms of syncope #Weakness Thought to be secondary to above, will consult PT OT. Expect to improve with resolution of UTI -pt/ot consult #Diabetes type 2 Patient with history of diabetes type 2 treated with metformin as an outpatient. Most recent A1c from 05/24 was 7.1 demonstrating good control of her diabetes. -Holding metformin while inpatient -Glycemic consult placed #Electrolyte abnormalities On sensation patient was a bit hyponatremic, also demonstrating hypomagnesemia. -Replete electrolytes as indicated #History of mild aortic stenosis -Follows with [facility] cardiology #Hyperlipidemia Continue rosuvastatin 5 mg every afternoon #Hypertension Patient hypertensive on admissions to the 160 systolic, improved to 130 systolic. -Monitor, asymptomatic -Continue candesartan, no signs of JACQUI or nephrotoxicity #Hypothyroidism -Continue levothyroxine 100 mcg p.o. every morning FENa: Heart healthy diabetes type 2 Code Status: Conditional code, patient is okay with CPR, but does not want intubation. Has a living will will bring it. DVT PPX: Lovenox PT/OT: Consulted Dispo: Telemetry pending clinical improvement Aayush Rosado MD PGY 2, FCM This chart was completed utilizing [employer] voice recognition software. Grammatical errors, random word insertions, pronoun errors, and in complete sentences are an occasional consequence of the system. Any questions or concerns about the content, text, or information contained within the body of this dictation should be addressed directly to the physician for clarification. (2) Diabetes mellitus: (3) Hypomagnesemia: (4) Weakness: (5) Arrhythmia: (6) HLD (hyperlipidemia): (7) Aortic stenosis, mild: (8) Hypothyroid: (9) Hx of syncope: History of Present Illness Primary Care Provider: [facility] Patient is a 79-year-old female with a past medical history of hypertension, hyperlipidemia, mild aortic stenosis, hypothyroidism, diabetes type 2, with a recent history of infrequent recurrent syncopal episodes which are currently being worked up by [facility] cardiology, she is recently status post L IN Q insertion. The patient presents the [facility] emergency department today with complaints of chills, headache, weakness, dizzy when walking, increased frequency of urination and burning with urination. Patient reports he symptoms started yesterday after exercise class. She was so fatigued after exercise class that she came home and laid down to rest. Her symptoms progressively worsened throughout the night, she also experienced subjective fever. She reports that she has not eaten today she lives at [facility] and is retired. She reports a history of urinary tract infections with increasing frequency, her most recent was 2 months ago. She said she received an outpatient antibiotic at that time, she does not remember the name of that medication. ED: On presentation to on presentation the emergency department she was hypertensive, tachycardic, hypothermic, white count on admission was 12.2 with a neutrophil predominance, hemoglobin 10.8. Patient was a bit hyponatremic sodium 131 other electrolytes within normal limits glucose was 138, mag 1.7 albumin a touch low however total protein is 6.5. UA was cloudy positive for nitrites, negative leuk esterase, positive today for bacteria it is been sent for culture. Chest x-ray was negative, head CT obtained to the ED was within normal limits, abdominal CT demonstrated heterogeneous enhancement of the upper poles of bilateral kidneys with perinephric edema favoring bilateral pyelonephritis, bladder wall thickening representing cystitis and colonic diverticulosis. On presentation the emergency department she received an ECG that demonstrated ventricular rate of 98 QTC of 439, sinus rhythm with PACs. She received a total of 1 L of normal saline in the emergency department, and 1 g of ceftriaxone. The hospital service was consulted for admission and the patient was admitted to telemetry due to her history of syncopal episodes and presence of Linq. Patient reports she is unable to tolerate narcotics at any time as they make her sick and loopy please avoid the use Allergies Allergy/AdvReac Type Severity Reaction Status Date / Time oxycodone AdvReac Severe VOMITING Verified 06/11/19 19:53 aspirin AdvReac Unknown "stomach Verified 06/11/19 19:53 bleeds" codeine AdvReac Unknown vomiting Verified 06/11/19 19:53 Home Medications Home Medications Medication Instructions Recorded Confirmed Type esomeprazole magnesium 40 mg 40 mg PO QAM 05/11/19 06/11/19 History capsule,delayed release levothyroxine 100 mcg tablet 100 mcg PO QAM 05/11/19 06/11/19 History metformin 500 mg tablet 1,500 mg PO QPM tab 05/11/19 06/11/19 History candesartan 8 mg PO QPM 05/26/19 06/11/19 History clopidogrel [Plavix] 75 mg PO QAM 05/26/19 06/11/19 History rosuvastatin [Crestor] 5 mg QPM 05/26/19 06/11/19 History verapamil 240 mg PO QPM 05/26/19 06/11/19 History calcium carbonate [Calcium 600] 1,200 mg PO DAILY 06/11/19 06/11/19 History cholecalciferol (vitamin D3) 0 unit PO DAILY 06/11/19 06/11/19 History [Vitamin D3] cyanocobalamin (vitamin B-12) 0 mcg PO DAILY 06/11/19 06/11/19 History [Vitamin B-12] Past Med/Surg History Medical History Abrasion, shoulder w/o infection (Acute) Contusion of multiple sites (Acute) Diabetes mellitus ETD (eustachian tube dysfunction) Fall (Acute) HTN, goal below 130/80 Surgical History History of cholecystectomy History of knee replacement RIGHT History of shoulder surgery History of tonsillectomy and adenoidectomy Family History Sister Hypertension Mother Diabetes Social History Preferred Language: Indonesian Communication Ability: Effective Visual Impairment: No Limitations Hearing Ability: Normal Employment Appeals Examiner Required: No Beliefs That Will Affect Care: None marital status: / Current Living Situation: Personal Care Facility current occupational status: retired Other Information That Helps Us Care for You: No Feels Safe at Home: Yes Safety Concerns: Feels Safe At This Time Smoking Status: Former smoker Do You Dip or Chew Tobacco: No ; Second Hand Exposure: No ; Tobacco Cessation Education Requested by Patient: No Hx Alcohol Use: Yes Hx Substance Use: No Review of Systems Review of Systems: All systems reviewed & are unremarkable except as noted in HPI & below Physical Exam Physical Exam: General: Elderly female lying in bed in no acute distress HEENT: Normocephalic atraumatic Neck: Normal to visual inspection, trachea midline Cardiac: Regular rate and rhythm, I did not appreciate any significant murmurs, rubs, gallops, normal S1, normal S2, negative pedal edema, negative calf tenderness Respiratory: Clear to auscultation bilaterally with symmetrical chest rise, I did not appreciate significant wheezes, rales, rhonchi GI: Soft, nontender, nondistended, negative CVA tenderness bilaterally MSK: Moves all extremities Skin: No concerns at present Neuro: Alert and oriented x4 Psych: Calm and cooperative with the interview. Results & Data Vital Signs (Past 12 Hours) Vital Signs Temp Pulse Resp BP Pulse Ox 06/11/19 21:01 94 H 20 96 06/11/19 21:00 98 H 18 159/80 H 96 06/11/19 20:31 92 H 19 94 06/11/19 20:30 92 H 21 150/67 H 94 06/11/19 20:15 112 H 23 96 06/11/19 20:00 93 H 23 157/59 H 96 06/11/19 19:31 102 H 21 94 06/11/19 19:30 95 H 19 179/83 H 95 06/11/19 19:17 100 H 23 167/85 H 94 06/11/19 19:00 101 H 19 06/11/19 18:40 96 H 17 96 06/11/19 18:38 91 H 22 162/85 H 95 06/11/19 17:19 37.9 C H 89 20 151/67 H 96 Laboratory Results 06/11/19 06/11/19 06/11/19 Range/Units 19:25 19:08 19:08 WBC (4.8-10.8) K/uL RBC (4.2-5.4) M/uL Hgb (12.0-16.0) g/dL Hct (37-47) % MCV (80-100) fL MCH (25-34) pg MCHC (32-36) g/dL RDW Std Deviation (36.4-46.3) fL RDW Coeff of Gadiel (11.5-14.5) % Plt Count (130-400) K/uL MPV (7.4-10.4) fL Immature Gran % (Auto) % Neut % (Auto) % Lymph % (Auto) % Brooke % (Auto) % Eos % (Auto) % Baso % (Auto) % Immature Gran # (Auto) (0.00-0.02) K/uL Neut # (Auto) (1.4-6.5) K/uL Lymph # (Auto) (1.2-3.4) K/uL Brooke # (Auto) (0.11-0.59) K/uL Eos # (Auto) (0-0.5) K/uL Baso # (Auto) (0-0.2) K/uL PT (9.0-12.0) Seconds INR (0.9-1.1) APTT (21.0-31.0) Seconds PTT Ratio Sodium 131 L (136-145) mmol/L Potassium 3.9 (3.5-5.1) mmol/L Chloride 101 (98-107) mmol/L Carbon Dioxide 25 (21-32) mmol/L Anion Gap 5.0 (3-11) BUN 14 (7-18) mg/dl Creatinine 0.72 (0.6-1.2) mg/dl Est Cr Clr Drug Dosing 63.4 ml/min Est GFR ( Amer) 92.3 Est GFR (Non-Af Amer) 79.7 BUN/Creatinine Ratio 19.5 (10-20) Glucose 138 H (70-99) mg/dl Lactate 0.8 (0.4-2.0) mmol/L Calcium 8.8 (8.5-10.1) mg/dl Magnesium 1.7 L (1.8-2.4) mg/dl Total Bilirubin 0.7 (0.2-1) mg/dl AST 7 L (15-37) U/L ALT 13 (12-78) U/L Alkaline Phosphatase 55 (45-117) U/L Troponin I < 0.015 (0-0.045) ng/ml Total Protein 6.5 (6.4-8.2) gm/dl Albumin 2.8 L (3.4-5.0) gm/dl Globulin 3.7 (2.5-4.0) gm/dl Albumin/Globulin Ratio 0.8 L (0.9-2) Urine Color Yellow Urine Appearance Cloudy A (Clear) Urine pH 7.0 (4.5-7.5) Ur Specific [place] 1.014 (1.000-1.030) Urine Protein Trace H (Negative) Urine Glucose (UA) Negative (Negative) Urine Ketones 1+ H (Negative) Urine Blood Negative (Negative) Urine Nitrite Positive A (Negative) Urine Bilirubin Negative (Negative) Urine Urobilinogen Negative (Negative) Ur Leukocyte Esterase Negative (Negative) Urine WBC (Auto) 10-30 H (0-5) /hpf Urine RBC (Auto) 0-4 (0-4) /hpf U Hyaline Cast (Auto) 1-5 (0-5) /lpf U Epithel Cells (Auto) 0-5 (0-5) /lpf Urine Bacteria (Auto) 2+ H (Negative) 06/11/19 06/11/19 Range/Units 19:08 19:08 WBC 12.22 H (4.8-10.8) K/uL RBC 3.85 L (4.2-5.4) M/uL Hgb 10.8 L (12.0-16.0) g/dL Hct 32.6 L (37-47) % MCV 84.7 (80-100) fL MCH 28.1 (25-34) pg MCHC 33.1 (32-36) g/dL RDW Std Deviation 42.0 (36.4-46.3) fL RDW Coeff of Gadiel 13.6 (11.5-14.5) % Plt Count 281 (130-400) K/uL MPV 8.6 (7.4-10.4) fL Immature Gran % (Auto) 0.2 % Neut % (Auto) 80.4 % Lymph % (Auto) 8.6 % Brooke % (Auto) 10.4 % Eos % (Auto) 0.2 % Baso % (Auto) 0.2 % Immature Gran # (Auto) 0.02 (0.00-0.02) K/uL Neut # (Auto) 9.84 H (1.4-6.5) K/uL Lymph # (Auto) 1.05 L (1.2-3.4) K/uL Brooke # (Auto) 1.27 H (0.11-0.59) K/uL Eos # (Auto) 0.02 (0-0.5) K/uL Baso # (Auto) 0.02 (0-0.2) K/uL PT 10.5 (9.0-12.0) Seconds INR 1.0 (0.9-1.1) APTT 30.0 (21.0-31.0) Seconds PTT Ratio 1.1 Sodium (136-145) mmol/L Potassium (3.5-5.1) mmol/L Chloride (98-107) mmol/L Carbon Dioxide (21-32) mmol/L Anion Gap (3-11) BUN (7-18) mg/dl Creatinine (0.6-1.2) mg/dl Est Cr Clr Drug Dosing ml/min Est GFR ( Amer) Est GFR (Non-Af Amer) BUN/Creatinine Ratio (10-20) Glucose (70-99) mg/dl Lactate (0.4-2.0) mmol/L Calcium (8.5-10.1) mg/dl Magnesium (1.8-2.4) mg/dl Total Bilirubin (0.2-1) mg/dl AST (15-37) U/L ALT (12-78) U/L Alkaline Phosphatase (45-117) U/L Troponin I (0-0.045) ng/ml Total Protein (6.4-8.2) gm/dl Albumin (3.4-5.0) gm/dl Globulin (2.5-4.0) gm/dl Albumin/Globulin Ratio (0.9-2) Urine Color Urine Appearance (Clear) Urine pH (4.5-7.5) Ur Specific [place] (1.000-1.030) Urine Protein (Negative) Urine Glucose (UA) (Negative) Urine Ketones (Negative) Urine Blood (Negative) Urine Nitrite (Negative) Urine Bilirubin (Negative) Urine Urobilinogen (Negative) Ur Leukocyte Esterase (Negative) Urine WBC (Auto) (0-5) /hpf Urine RBC (Auto) (0-4) /hpf U Hyaline Cast (Auto) (0-5) /lpf U Epithel Cells (Auto) (0-5) /lpf Urine Bacteria (Auto) (Negative) Medications Administered Current Inpatient Medications Ioversol (Optiray 320 100ml) 90 ml IV ONCE PRN PRN Reason: Interaction Checking Stop: 06/15/19 20:06 Last Admin: 06/11/19 20:07 Dose: 90 ml Documented by: Code Status & VTE Plan Code Status CPR okay, no Intubation. Will bring living will. Supervising Physician Co-Signing Physician Notes Patient was seen and examined by me personally. I reviewed the chart, the orders and discussed the case in detail with Dr. Aayush Rosado MD . I read this H&P and agree with its contents to entirety. Resident Activity Tracking Resident Involvement: Resident Care Provided Care Provided: Adult [facility]
[2019-06-11] MEDS ORDERED: ACETAMINOPHEN 325 MG TAB PO PRN (22:49)
[2019-06-11] MEDS ORDERED: ONDANSETRON INJ 2 MG/ML 2 ML VIAL IV PRN (22:49)
[2019-06-11] MEDS ORDERED: LACTATED RINGER'S 1,000 ML IV SCH (23:00)
--- NOTE | 2019-06-11 23:36 | Emergency Department Note ---
Entered by Drea Kendrick acting as a scribe for History of Present Illness General Chief complaint: Dizziness Stated complaint: CONGESTION, DIZZINESS, HEADACHE Source: patient Limitations: no limitations History of Present Illness Onset (ago): hour(s) (this morning ) Location: head Pain Consistency: + intermittent Maximum Pain Intensity: 6 Quality: + other (lightheadedness and dizziness) Associated symptoms: + denies other symptoms (cough, rhinorrhea, sore throat, chest pain, SOB, vomiting, and abdominal pain) and + fever/chills The patient is a 79 year old female who presents to the Emergency Room with complaints of intermittent lightheadedness and dizziness that began this morning. She notes that the symptoms are positional, stating that the dizziness exacerbates with movement. The patient reports that she had a headache yesterday after her exercise class. She complains of fever/chills last night and constant lethargy. The patient complains of nausea and dysuria that began 2 weeks ago, noting this feels similar to her past UTIs. She denies any cough, rhinorrhea, sore throat, chest pain, SOB, vomiting, and abdominal pain. The patient notes that she takes Plavix. Home Medications Home Medications Medication Instructions Recorded Confirmed Type esomeprazole magnesium 40 mg 40 mg PO QAM 05/11/19 06/11/19 History capsule,delayed release levothyroxine 100 mcg tablet 100 mcg PO QAM 05/11/19 06/11/19 History metformin 500 mg tablet 1,500 mg PO QPM tab 05/11/19 06/11/19 History candesartan 8 mg PO QPM 05/26/19 06/11/19 History clopidogrel [Plavix] 75 mg PO QAM 05/26/19 06/11/19 History rosuvastatin [Crestor] 5 mg QPM 05/26/19 06/11/19 History verapamil 240 mg PO QPM 05/26/19 06/11/19 History calcium carbonate [Calcium 600] 1,200 mg PO DAILY 06/11/19 06/11/19 History cholecalciferol (vitamin D3) 0 unit PO DAILY 06/11/19 06/11/19 History [Vitamin D3] cyanocobalamin (vitamin B-12) 0 mcg PO DAILY 06/11/19 06/11/19 History [Vitamin B-12] Allergies Allergy/AdvReac Type Severity Reaction Status Date / Time oxycodone AdvReac Severe VOMITING Verified 06/11/19 19:53 aspirin AdvReac Unknown "stomach Verified 06/11/19 19:53 bleeds" codeine AdvReac Unknown vomiting Verified 06/11/19 19:53 Past Med/Surg History Medical History Abrasion, shoulder w/o infection (Acute) Contusion of multiple sites (Acute) Diabetes mellitus ETD (eustachian tube dysfunction) Fall (Acute) HTN, goal below 130/80 Surgical History History of cholecystectomy History of knee replacement RIGHT History of shoulder surgery History of tonsillectomy and adenoidectomy Family History Sister Hypertension Mother Diabetes Social History Preferred Language: [place] Communication Ability: Effective Visual Impairment: No Limitations Hearing Ability: Normal Beliefs That Will Affect Care: None marital status: / Current Living Situation: Alone current occupational status: retired Feels Safe at Home: Yes Smoking Status: Former smoker Second Hand Exposure: No ; Hx Alcohol Use: Yes Hx Substance Use: No Review of Systems See HPI for pertinent positives & negatives. and A total of 10 systems reviewed and were otherwise negative Physical Exam Vital Signs Vital Signs - 24 hr 06/11/19 17:19 06/11/19 18:38 06/11/19 18:40 Temperature 37.9 C H Temperature Source Oral Pulse Rate 89 91 H 96 H Pulse Rate [Right Finger] Pulse Rate from SpO2 Sensor 93 H 93 H Pulse Rhythm Regular Pulse Rhythm [Right Finger] Pulse Strength Normal Pulse Strength [Right Finger] Respiratory Rate 20 22 17 Respiratory Effort / Characteristics Non-Labored Spontaneous Respiratory Depth Normal Respiratory Pattern Regular Blood Pressure 151/67 H 162/85 H Blood Pressure [Right Arm] Blood Pressure Mean 95 126 Blood Pressure Mean [Right Arm] Blood Pressure Position Sitting Blood Pressure Position [Right Arm] Pulse Oximetry 96 95 96 Oxygen Delivery Method Room Air Sepsis Recent Fever Within 48 Hours Yes Sepsis New/Unexplained Change in Mental Status No Sepsis Action Taken by Nursing No Action Required 06/11/19 19:00 06/11/19 19:17 06/11/19 19:30 Temperature Temperature Source Pulse Rate 101 H 100 H 95 H Pulse Rate [Right Finger] Pulse Rate from SpO2 Sensor 97 H Pulse Rhythm Pulse Rhythm [Right Finger] Pulse Strength Pulse Strength [Right Finger] Respiratory Rate 19 23 19 Respiratory Effort / Characteristics Respiratory Depth Respiratory Pattern Blood Pressure 167/85 H 179/83 H Blood Pressure [Right Arm] Blood Pressure Mean 122 126 Blood Pressure Mean [Right Arm] Blood Pressure Position Blood Pressure Position [Right Arm] Pulse Oximetry 94 95 Oxygen Delivery Method Room Air Sepsis Recent Fever Within 48 Hours Sepsis New/Unexplained Change in Mental Status Sepsis Action Taken by Nursing 06/11/19 19:31 06/11/19 20:00 06/11/19 20:15 Temperature Temperature Source Pulse Rate 102 H 93 H 112 H Pulse Rate [Right Finger] Pulse Rate from SpO2 Sensor 99 H 96 H 94 H Pulse Rhythm Pulse Rhythm [Right Finger] Pulse Strength Pulse Strength [Right Finger] Respiratory Rate 21 23 23 Respiratory Effort / Characteristics Respiratory Depth Respiratory Pattern Blood Pressure 157/59 H Blood Pressure [Right Arm] Blood Pressure Mean 86 Blood Pressure Mean [Right Arm] Blood Pressure Position Blood Pressure Position [Right Arm] Pulse Oximetry 94 96 96 Oxygen Delivery Method Sepsis Recent Fever Within 48 Hours Sepsis New/Unexplained Change in Mental Status Sepsis Action Taken by Nursing 06/11/19 20:30 06/11/19 20:31 06/11/19 21:00 Temperature Temperature Source Pulse Rate 92 H 92 H 98 H Pulse Rate [Right Finger] Pulse Rate from SpO2 Sensor 98 H 96 H 99 H Pulse Rhythm Pulse Rhythm [Right Finger] Pulse Strength Pulse Strength [Right Finger] Respiratory Rate 21 19 18 Respiratory Effort / Characteristics Respiratory Depth Respiratory Pattern Blood Pressure 150/67 H 159/80 H Blood Pressure [Right Arm] Blood Pressure Mean 93 103 Blood Pressure Mean [Right Arm] Blood Pressure Position Blood Pressure Position [Right Arm] Pulse Oximetry 94 94 96 Oxygen Delivery Method Sepsis Recent Fever Within 48 Hours Sepsis New/Unexplained Change in Mental Status Sepsis Action Taken by Nursing 06/11/19 21:01 06/11/19 21:30 06/11/19 21:31 Temperature Temperature Source Pulse Rate 94 H 94 H 92 H Pulse Rate [Right Finger] Pulse Rate from SpO2 Sensor 100 H 96 H 97 H Pulse Rhythm Pulse Rhythm [Right Finger] Pulse Strength Pulse Strength [Right Finger] Respiratory Rate 20 21 20 Respiratory Effort / Characteristics Respiratory Depth Respiratory Pattern Blood Pressure 150/56 H Blood Pressure [Right Arm] Blood Pressure Mean 108 Blood Pressure Mean [Right Arm] Blood Pressure Position Blood Pressure Position [Right Arm] Pulse Oximetry 96 95 92 Oxygen Delivery Method Sepsis Recent Fever Within 48 Hours Sepsis New/Unexplained Change in Mental Status Sepsis Action Taken by Nursing 06/11/19 22:00 06/11/19 22:01 06/11/19 22:48 Temperature 37.2 C Temperature Source Oral Pulse Rate 98 H 98 H Pulse Rate [Right Finger] 87 Pulse Rate from SpO2 Sensor 88 98 H Pulse Rhythm Pulse Rhythm [Right Finger] Regular Pulse Strength Pulse Strength [Right Finger] Normal Respiratory Rate 19 21 20 Respiratory Effort / Characteristics Non-Labored Spontaneous Respiratory Depth Normal Respiratory Pattern Regular Blood Pressure 136/103 H Blood Pressure [Right Arm] 147/59 H Blood Pressure Mean 107 Blood Pressure Mean [Right Arm] 88 Blood Pressure Position Blood Pressure Position [Right Arm] Sitting Pulse Oximetry 96 96 95 Oxygen Delivery Method Room Air Sepsis Recent Fever Within 48 Hours Sepsis New/Unexplained Change in Mental Status Sepsis Action Taken by Nursing GENERAL: sitting up in bed, [id number], no acute distress, wearing hospital gown EYE EXAM: normal conjunctiva, PERRL and EOM's intact OROPHARYNX: no exudate, no erythema, lips, buccal mucosa, and tongue normal and mucous membranes are moist NECK: supple, no nuchal rigidity, no adenopathy, non-tender LUNGS: Diminished at bilateral bases HEART: no murmurs, S1 normal and S2 normal ABDOMEN: abdomen soft, non-tender, normo-active bowel sounds, no masses, no re bound or guarding. BACK: Back is symmetrical on inspection and there is no deformity, no midline te nderness, no CVA tenderness. SKIN: no rashes and no bruising UPPER EXTREMITIES: upper extremities are grossly normal. LOWER EXTREMITIES: No pitting edema. NEURO EXAM: Normal sensorium, cranial nerves II-XII intact, normal speech, no weakness of arms, no weakness of legs. No drift. Finger to nose intact. Gross sensation intact. Course Course ED COURSE: Vital signs were reviewed and showed hypertension and febrile. The patients medical record was reviewed The above diagnostic studies were performed and reviewed. ED treatments and interventions as stated above. 1847: The patient was evaluated in room B08. A complete history and physical examination was performed. 2041: I spoke with Dr. Bay [facility] hospitalist, about the patient's case. He will further evaluate the patient. 2047: Upon reevaluation, the patient is stable. I discussed my findings with the patient and she understands and agrees with the treatment plan. Based on the patients age, coexisting illnesses, exam and lab findings the deci soraya to treat as an inpatient was made. The patient remained stable while under my care. The patient will be evaluated for further management. Administered Medications Ioversol (Optiray 320 100ml) 90 ml IV ONCE PRN PRN Reason: Interaction Checking Stop: 06/15/19 20:06 Last Admin: 06/11/19 20:07 Dose: 90 ml Documented by: [id number] Discontinued Medications Sodium Chloride (Nss 1000ml) 1,000 mls @ 999 mls/hr IV .Q1H1M ONE Stop: 06/11/19 19:44 Last Infusion: 06/11/19 20:32 Dose: 0 mls/hr Documented by: [id number] Admin: 06/11/19 19:20 Dose: 999 mls/hr Documented by: [id number] Admin: 06/11/19 19:19 Dose: Not Given Documented by: [id number] Sodium Chloride (Nss 1000ml) 1,000 mls @ 999 mls/hr IV .Q1H1M ONE Stop: 06/11/19 19:54 Last Admin: 06/11/19 19:30 Dose: Not Given Documented by: [id number] Ceftriaxone Sodium (Rocephin) 1,000 mg in 50 mls @ 100 mls/hr IV NOW STA Stop: 06/11/19 21:02 Last Infusion: 06/11/19 21:20 Dose: 0 mls/hr Documented by: [id number] Admin: 06/11/19 20:43 Dose: 100 mls/hr Documented by: [id number] Medical Decision Making Differential Diagnosis Differential diagnosis includes etiologies such as sepsis, UTI, pneumonia, metabolic, electrolyte abnormalities, cardiac sources, intracerebral event, toxicologic, neurologic, as well as others were entertained. Medical Records Attestation: I reviewed the patient's medical records. Home Medications Current Medication List: was personally reviewed by me Laboratory Data Attestation: I reviewed the patient's lab results. Result diagrams: 06/11/19 19:08 06/11/19 19:08 Lab Results 06/11/19 06/11/19 06/11/19 Range/Units 19:08 19:08 19:08 WBC 12.22 H (4.8-10.8) K/uL RBC 3.85 L (4.2-5.4) M/uL Hgb 10.8 L (12.0-16.0) g/dL Hct 32.6 L (37-47) % MCV 84.7 (80-100) fL MCH 28.1 (25-34) pg MCHC 33.1 (32-36) g/dL RDW Std Deviation 42.0 (36.4-46.3) fL RDW Coeff of Gadiel 13.6 (11.5-14.5) % Plt Count 281 (130-400) K/uL MPV 8.6 (7.4-10.4) fL Immature Gran % (Auto) 0.2 % Neut % (Auto) 80.4 % Lymph % (Auto) 8.6 % [place] % (Auto) 10.4 % Eos % (Auto) 0.2 % Baso % (Auto) 0.2 % Immature Gran # (Auto) 0.02 (0.00-0.02) K/uL Neut # (Auto) 9.84 H (1.4-6.5) K/uL Lymph # (Auto) 1.05 L (1.2-3.4) K/uL [place] # (Auto) 1.27 H (0.11-0.59) K/uL Eos # (Auto) 0.02 (0-0.5) K/uL Baso # (Auto) 0.02 (0-0.2) K/uL PT 10.5 (9.0-12.0) Seconds INR 1.0 (0.9-1.1) APTT 30.0 (21.0-31.0) Seconds PTT Ratio 1.1 Sodium 131 L (136-145) mmol/L Potassium 3.9 (3.5-5.1) mmol/L Chloride 101 (98-107) mmol/L Carbon Dioxide 25 (21-32) mmol/L Anion Gap 5.0 (3-11) BUN 14 (7-18) mg/dl Creatinine 0.72 (0.6-1.2) mg/dl Est Cr Clr Drug Dosing 63.4 ml/min Est GFR ( Amer) 92.3 Est GFR (Non-Af Amer) 79.7 BUN/Creatinine Ratio 19.5 (10-20) Glucose 138 H (70-99) mg/dl Lactate (0.4-2.0) mmol/L Calcium 8.8 (8.5-10.1) mg/dl Magnesium 1.7 L (1.8-2.4) mg/dl Total Bilirubin 0.7 (0.2-1) mg/dl AST 7 L (15-37) U/L ALT 13 (12-78) U/L Alkaline Phosphatase 55 (45-117) U/L Troponin I < 0.015 (0-0.045) ng/ml Total Protein 6.5 (6.4-8.2) gm/dl Albumin 2.8 L (3.4-5.0) gm/dl Globulin 3.7 (2.5-4.0) gm/dl Albumin/Globulin Ratio 0.8 L (0.9-2) Urine Color Urine Appearance (Clear) Urine pH (4.5-7.5) Ur Specific [place] (1.000-1.030) Urine Protein (Negative) Urine Glucose (UA) (Negative) Urine Ketones (Negative) Urine Blood (Negative) Urine Nitrite (Negative) Urine Bilirubin (Negative) Urine Urobilinogen (Negative) Ur Leukocyte Esterase (Negative) Urine WBC (Auto) (0-5) /hpf Urine RBC (Auto) (0-4) /hpf U Hyaline Cast (Auto) (0-5) /lpf U Epithel Cells (Auto) (0-5) /lpf Urine Bacteria (Auto) (Negative) 06/11/19 06/11/19 Range/Units 19:08 19:25 WBC (4.8-10.8) K/uL RBC (4.2-5.4) M/uL Hgb (12.0-16.0) g/dL Hct (37-47) % MCV (80-100) fL MCH (25-34) pg MCHC (32-36) g/dL RDW Std Deviation (36.4-46.3) fL RDW Coeff of Gadiel (11.5-14.5) % Plt Count (130-400) K/uL MPV (7.4-10.4) fL Immature Gran % (Auto) % Neut % (Auto) % Lymph % (Auto) % [place] % (Auto) % Eos % (Auto) % Baso % (Auto) % Immature Gran # (Auto) (0.00-0.02) K/uL Neut # (Auto) (1.4-6.5) K/uL Lymph # (Auto) (1.2-3.4) K/uL [place] # (Auto) (0.11-0.59) K/uL Eos # (Auto) (0-0.5) K/uL Baso # (Auto) (0-0.2) K/uL PT (9.0-12.0) Seconds INR (0.9-1.1) APTT (21.0-31.0) Seconds PTT Ratio Sodium (136-145) mmol/L Potassium (3.5-5.1) mmol/L Chloride (98-107) mmol/L Carbon Dioxide (21-32) mmol/L Anion Gap (3-11) BUN (7-18) mg/dl Creatinine (0.6-1.2) mg/dl Est Cr Clr Drug Dosing ml/min Est GFR ( Amer) Est GFR (Non-Af Amer) BUN/Creatinine Ratio (10-20) Glucose (70-99) mg/dl Lactate 0.8 (0.4-2.0) mmol/L Calcium (8.5-10.1) mg/dl Magnesium (1.8-2.4) mg/dl Total Bilirubin (0.2-1) mg/dl AST (15-37) U/L ALT (12-78) U/L Alkaline Phosphatase (45-117) U/L Troponin I (0-0.045) ng/ml Total Protein (6.4-8.2) gm/dl Albumin (3.4-5.0) gm/dl Globulin (2.5-4.0) gm/dl Albumin/Globulin Ratio (0.9-2) Urine Color Yellow Urine Appearance Cloudy A (Clear) Urine pH 7.0 (4.5-7.5) Ur Specific [place] 1.014 (1.000-1.030) Urine Protein Trace H (Negative) Urine Glucose (UA) Negative (Negative) Urine Ketones 1+ H (Negative) Urine Blood Negative (Negative) Urine Nitrite Positive A (Negative) Urine Bilirubin Negative (Negative) Urine Urobilinogen Negative (Negative) Ur Leukocyte Esterase Negative (Negative) Urine WBC (Auto) 10-30 H (0-5) /hpf Urine RBC (Auto) 0-4 (0-4) /hpf U Hyaline Cast (Auto) 1-5 (0-5) /lpf U Epithel Cells (Auto) 0-5 (0-5) /lpf Urine Bacteria (Auto) 2+ H (Negative) Imaging Data Radiologist's Impression: Radiology results as stated below per my review and the radiologist's interpretation: XR chest 1V portable CLINICAL HISTORY: SEPSIS dyspnea COMPARISON STUDY: 09/09/2017 FINDINGS: The bones soft tissues and hemidiaphragms are normal. The cardiomediastinal silhouette is normal. The lungs are clear. The pulmonary vasculature is normal. IMPRESSION: Negative chest. ACT 112: Negative or not required by law. The above report was generated using voice recognition software. It may contain grammatical, syntax or spelling errors. Electronically signed by: John Wallace M.D. 06/11/2019 7:03 PM ABDOMEN AND PELVIS CT WITH IV CONTRAST CT DOSE: HISTORY: Generalized abdominal pain. TECHNIQUE: Multiaxial CT images of the abdomen and pelvis were performed following the use of intravenous contrast. A dose lowering technique was utilized adhering to the principles of ALARA. COMPARISON STUDY: None. FINDINGS: Calcified granulomas seen within the right lung base. Patchy densities within the lung bases posteriorly favor mild dependent change. No pneumoperitoneum. No pneumatosis. No suspicious lytic are blastic osseous lesions. Cholecystectomy. The liver, pancreas, and adrenal glands unremarkable. A few punctate calcified granulomas within the spleen. Mild calcified plaque within the normal caliber abdominal aorta. No retroperitoneal lymphadenopathy. No renal or ureteral stones. No hydronephrosis. Mild bladder wall thickening. The uterus and bilateral adnexa are unremarkable. Bilateral perinephric edema. There is subtle heterogeneous enhancement within the upper poles of both kidneys. Therefore, these findings raise the possibility of a bilateral pyelonephritis. There are 2 hypodense lesions within the right kidney with the largest measuring 3.2 cm. These favor cysts. Trace pelvic free fluid. A few colonic diverticula. No evidence for diverticulitis. No bowel wall thickening or obstruction. The appendix appears surgically absent. IMPRESSION: 1. Focal areas of heterogeneous enhancement within the upper poles of the bilateral kidneys. There is also perinephric edema. Therefore, these findings favor a bilateral pyelonephritis. Recommend correlation with urinalysis. 2. Mild bladder wall thickening which may represent a cystitis. 3. Colonic diverticulosis. 4. Cholecystectomy and appendectomy. 5. No bowel wall thickening or obstruction. ACT 112: Negative or not required by law. Electronically signed by: Eduardo Paulson M.D. 06/11/2019 8:[address] CT DOSE: 1396.42 mGy.cm HISTORY: headache TECHNIQUE: Multiaxial CT images of the head were performed without the use of intravenous contrast. Automated exposure control was utilized for this study. A dose lowering technique was utilized adhering to the principles of ALARA. Comparison: Head CT 09/09/2017. Findings: Near complete opacification the right mastoid air cells and right middle ear cavity. The paranasal sinuses and left mastoid air cells are clear. The calvarium and skull base are intact. There is no mass, hematoma, midline shift, acute infarct. White matter hypodensity is nonspecific but suggestive of microvascular ischemic change. The ventricles and sulci demonstrate mild age- related involutional changes. Impression: 1. No acute intracranial abnormality. 2. Near complete opacification of the right mastoid air cells and middle ear cavity. ACT 112: Negative or not required by law. Electronically signed by: Eduardo Paulson M.D. 06/11/2019 8:25 PM ECG Data Attestation: I personally reviewed and interpreted this ECG as follows: Indication: + other (fever) Rate (beats per minute): 98 Rhythm: + sinus rhythm ECG [place]: + Normal ECG Findings: + PACs and + Other (poor baseline, normal QTC) Blood Pressure Blood Pressure Findings: Elevated blood pressure Blood Pressure Disposition: further management by hospitalist TRUNG Narrative Patient is a 79-year-old female who presents the ER from [facility] for headache, chills, nausea burning and frequency with urination associated with weakness. Upon arrival she is found to be febrile and tachycardic. IV was established blood work was obtained and showed a leukocytosis of 12,000. Mild anemia at 11,000. INR was unremarkable. BMP with mild hyponatremia. LFTs bilirubin and troponin was unremarkable. UA shows a clear UTI with nitrates whites and bacteria. There is no signs of meningitis or encephalitis on exam and I do favor that the fever and tachycardia and white count is secondary to her UTI. Chest x-ray to question an infiltrate but did perform a CT of the abdomen pelvis which showed bilateral renal stranding questioning pyelonephritis. Patient was given IV fluids, oral Toradol, and IV Rocephin. Patient was updated bedside. She was discussed with the hospitalist and family was updated as well. Patient was admitted for sepsis secondary to UTI. Impression & Plan Sepsis, UTI (urinary tract infection), Acute pyelonephritis Discharge Plan Visit Data Chief Complaint: Dizziness Stated Complaint: CONGESTION, DIZZINESS, HEADACHE ED Provider: Jason Hogue Discharge Problem: Sepsis, UTI (urinary tract infection), Acute pyelonephritis Patient Disposition: Being Evaluated by Hospitalist Forms Stand Alone Forms: My [facility] Prescriptions Prescriptions: No Action metformin 500 mg tablet 1,500 mg PO QPM RF: 0 esomeprazole magnesium [Nexium] 40 mg capsule,delayed release(DR/EC) 40 mg PO QAM RF: 0 levothyroxine [Synthroid] 100 mcg tablet 100 mcg PO QAM RF: 0 cyanocobalamin (vitamin B-12) [Vitamin B-12] 1,000 mcg Tablet 0 mcg PO DAILY RF: 0 calcium carbonate [Calcium 600] 600 mg calcium (1,500 mg) Tablet 1,200 mg PO DAILY RF: 0 cholecalciferol (vitamin D3) [Vitamin D3] 2,000 unit Tablet 0 unit PO DAILY RF: 0 clopidogrel [Plavix] 75 mg Tablet 75 mg PO QAM RF: 0 candesartan 8 mg Tablet 8 mg PO QPM RF: 0 rosuvastatin [Crestor] 5 mg Tablet 5 mg QPM RF: 0 verapamil 240 mg Tablet Extended Release 240 mg PO QPM RF: 0 Referrals Referrals: Shasta Drake [Primary Care Provider] - Discharge Problem: Sepsis Qualifiers: Sepsis type: sepsis due to unspecified organism Sepsis acute organ dysfunction status: unspecified Qualified Code(s): A41.9 - Sepsis, unspecified organism UTI (urinary tract infection) Qualifiers: Urinary tract infection type: acute pyelonephritis Qualified Code(s): N10 - Acute pyelonephritis The scribe's documentation has been prepared under my direction and personally reviewed by me in its entirety. I confirm that the note above accurately reflects all work, treatment, procedures, and medical decision making performed by me.
[2019-06-12] MEDS: MAGNESIUM SULFATE / D5W 1 GM/100 ML BAG IV SCH ×2 (00:48→02:55)
[2019-06-12] MEDS ORDERED: PHARMACY GLYCEMIC MGMT CONSULT PRN (02:10)
--- NOTE | 2019-06-12 04:12 | Billing Data ---
Date of Service June 11, 2019 Coding Level of Care Code 19028 Initial Inpt Care Lvl 3
[2019-06-12] MEDS: LEVOTHYROXINE SODIUM 100 MCG TABLET PO SCH (05:52)
[2019-06-12] MEDS ORDERED: CARBOHYDRATES FOR HYPOGLYCEMIA PO PRN (06:00)
[2019-06-12] MEDS ORDERED: DEXTROSE 50% 50 ML SYRINGE IV PRN (06:00)
[2019-06-12] MEDS ORDERED: GLUCOSE 10 TABS/TUBE PO PRN (06:00)
[2019-06-12] MEDS ORDERED: GLUCOSE 40% GEL 15 GM TUBE PO PRN (06:00)
[2019-06-12] MEDS ORDERED: GLUCAGON FOR INJ 1 MG VIAL IM PRN (06:00)
[2019-06-12] MEDS: PANTOprazole 40 MG TAB PO SCH (07:48)
[2019-06-12] MEDS: CALCIUM 600MG + VIT D 400 IU TAB PO SCH (07:48)
[2019-06-12] MEDS: CLOPIDOGREL BISULFATE 75 MG TAB PO SCH (07:48)
[2019-06-12] MEDS: ENOXAPARIN INJ 40 MG/0.4 ML SYR SQ SCH (07:48)
[2019-06-12] MEDS: INSULIN ASPART 100 UNITS/ML 3 ML PEN SC SCH ×4 (07:50→22:10)
[2019-06-12] MEDS: POLYETHYLENE (MIRALAX) 17 GM PACK PO SCH (07:52)
--- NOTE | 2019-06-12 09:11 | Pharmacy Report ---
Glycemic Control Consultation - Date of Service June 12, 2019 - Scope Scope: Glycemic Pharmacist consulted for glycemic control and to write orders per [facility] inpatient glycemic control protocol - Objective Weight: 73.7 kg Accuchecks BSG (last 24hrs): 06/11/19 06/12/19 19:08 07:44 Glucose 138 H POC Glucose 149 H Laboratory Data (last 24hrs): 06/11/19 19:08 Potassium 3.9 Carbon Dioxide 25 Anion Gap 5.0 Creatinine 0.72 Est Cr Clr Drug Dosing 63.4 HbA1c: 7.1% on 05/24/19 - Recent Pertinent Medications Outpatient Anti-diabetic Regimen: * Metformin - Assessment & Plan Assessment & Plan: ASSESSMENT: * 79yo T2DM female with excellent outpatient control per recent A1c * Pt is maintained on oral antidiabetic agents as an outpatient * Oral agents are not recommended for inpatient use d/t drug interactions, changing PO intake, and difficulty titrating for acute hyper/hypoglycemia. ADA recommends re-initiating outpatient oral agents 1-2 days prior to discharge if/when appropriate if they were held on admission. * Will hold oral agents for admission and utilize SQ basal bolus insulin regimen which is the recommended regimen for inpatient glycemic control. * Will initiate weight based insulin dosing for insulin balaji patient and titrate based on BSG trends. * Will utilize a higher goal range d/t dizziness with hx of syncope. * Will initiate basal insulin when BSG > 180 since baseline control w/o basal insulin and minimal risk factors for insulin resistance. PLAN FOR INPATIENT GLYCEMIC CONTROL: * Holding outpatient oral diabetes medications * Pt received contrast 06/11/19 @ 1999 * Will not be able to re-start metformin until 06/13/19 @ 1999 * Basal insulin * Lantus 10 units SQ daily if BSG > 180 * Bolus insulin * NovoLog per scale ACHS or Q6hrs while NPO * Goal Range: Low 140 mg/dL - High 180 mg/dL * Correction Factor: 40 mg/dL/unit * Nutritional / Prandial insulin per carb ratio of 1 unit per 15 grams CHO consumed * Please note that the plan above was derived based on current level of insulin resistance and hospital stress. These recommendations are appropriate for inpatient admission only. Plan of care upon discharge will need to be reassessed to avoid potential outpatient hypo/hyperglycemia. Thank you.
--- NOTE | 2019-06-12 12:47 | Electrocardiogram Report ---
Test Reason : Blood Pressure : / mmHG Vent. Rate : 098 BPM Atrial Rate : 098 BPM P-R Int : 202 ms QRS Dur : 072 ms QT Int : 344 ms P-R-T Axes : 068 024 054 degrees QTc Int : 439 ms Sinus rhythm with frequent , and consecutive Premature atrial complexes Low voltage QRS Borderline ECG When compared with ECG of 15-JUL-2017 06:51, Premature atrial complexes are now Present Confirmed by Romeo Vasquez ([id number]) on 06/12/2019 12:46:30 PM Referred By: REFERRED SELF Confirmed By:Romeo Vasquez
[2019-06-12 14:31] LABS: BUN Creatinine Ratio 14.8 (10-20); Calcium 8.7 mg/dl (8.5-10.1); Creatinine Clr Calc Pharmacy 53.4 ml/min; Est GFR (African American) 76.6; Est GFR (Non-African American) 66.1; Magnesium 1.9 mg/dl (1.8-2.4); Potassium 3.5 mmol/L (3.5-5.1)
[2019-06-12] MEDS: cefTRIAXone SODIUM 1,000 MG in DEXTROSE 5% 50 ML IV SCH (19:48)
[2019-06-12] MEDS: ROSUVASTATIN CALCIUM 5 MG TAB PO SCH (20:56)
[2019-06-12] MEDS: VERAPAMIL HCL 240 MG TABCR PO SCH (20:56)
--- NOTE | 2019-06-13 01:32 | Hospitalist Progress Note ---
Date of Service June 12, 2019 Assessment & Plan (1) Acute pyelonephritis: CT abd and pelvis yesterday w/ findings suggestive of b/l pyelonephritis. cont IV rocephin. blood cx's thus far neg. urine cx w/ GNR - follow to completion. plan - 14 days of IV/PO abx. (2) UTI (urinary tract infection): as above in "pyelonephritis" (3) Diabetes mellitus: control thus far acceptable cont DM diet novolog sliding scale (4) Hypomagnesemia: repeat level today wnl (5) Weakness: 2nd to UTI/pyelonephritis PT, OT evals (6) Arrhythmia: suspected in light of recurrent syncope events loop recorder implanted recently by [facility] tele stable thus far (7) HLD (hyperlipidemia): (8) Aortic stenosis, mild: mild (9) Hypothyroid: TSH 01/2019 wnl cont synthroid (10) Hx of syncope: see "arrhythmia" above (11) DVT prophylaxis: lovenox daily improving nicely home 06/13? 06/14? Subjective patient feeling better today denies any flank pain, abd pain, suprapubic pain appetite improved energy improved tele normal overnight; blocked PACS present she relates the recent events of her receiving a loop recorder by [facility]/EP Review of Systems Constitutional: no fever and no chills Respiratory: no cough and no dyspnea Cardiovascular: no chest pain Gastrointestinal: + nausea (fleeting/transient); no abdominal pain and no vomiting Physical Exam Constitutional: well developed and well nourished; no acute distress ENMT: external ear and nose normal, oropharynx normal Respiratory: normal respiratory effort, lungs clear to auscultation Cardiovascular: Rate/Rhythm: regular rate and regular rhythm Heart Sounds: normal S1, normal S2 and + murmur (2/6 RUSB) Vessels: posterior tibial pulses present and dorsalis pedis pulses present; no JVD Extremities: no edema Gastrointestinal (Abdomen): normal bowel sounds, soft, nontender, no hepatosplenomegaly Percussion/Palpation: abdomen nontender (no flank pain b/l) Psychiatric: A+Ox3, euthymic affect Results & Data Vital Signs (Past 12 Hours) Vital Signs Temp Pulse Pulse Resp BP Pulse Ox 06/12/19 23:59 70 06/12/19 23:29 37.3 C 77 18 129/55 L 95 06/12/19 18:30 37.8 C H 61 18 160/71 H 94 06/12/19 15:37 37.0 C 70 18 160/71 H 95 Laboratory Results Laboratory Results - last 24 hr 06/12/19 06/12/19 06/12/19 07:44 10:59 13:56 Sodium 135 L Potassium 3.5 Chloride 103 Carbon Dioxide 25 Anion Gap 6.0 BUN 12 Creatinine 0.84 Est Cr Clr Drug Dosing 53.4 Est GFR ( Amer) 76.6 Est GFR (Non-Af Amer) 66.1 BUN/Creatinine Ratio 14.8 Glucose 218 H POC Glucose 149 H 162 H Calcium 8.7 Magnesium 1.9 06/12/19 06/12/19 16:24 20:11 Sodium Potassium Chloride Carbon Dioxide Anion Gap BUN Creatinine Est Cr Clr Drug Dosing Est GFR ( Amer) Est GFR (Non-Af Amer) BUN/Creatinine Ratio Glucose POC Glucose 198 H 134 H Calcium Magnesium Diagnostic Findings urine cx w/ GNR PG Care Time/CCT Total # of Minutes Spent Total Time Spent with Patient: Total time spent is greater than 50% in coordination of care (as documented) at patient's floor/unit and/or counseling patient:
[2019-06-13] MEDS: LEVOTHYROXINE SODIUM 100 MCG TABLET PO SCH (06:30)
[2019-06-13] MEDS: CLOPIDOGREL BISULFATE 75 MG TAB PO SCH (07:39)
[2019-06-13] MEDS: CALCIUM 600MG + VIT D 400 IU TAB PO SCH (07:39)
[2019-06-13] MEDS: ENOXAPARIN INJ 40 MG/0.4 ML SYR SQ SCH (07:40)
[2019-06-13] MEDS: PANTOprazole 40 MG TAB PO SCH (07:40)
[2019-06-13] MEDS: INSULIN ASPART 100 UNITS/ML 3 ML PEN SC SCH ×4 (07:41→20:17)
[2019-06-13] MEDS: POLYETHYLENE (MIRALAX) 17 GM PACK PO SCH (07:41)
--- NOTE | 2019-06-13 08:55 | Pharmacy Report ---
Pharmacy Glycemic Short Note 2 - Date of Service June 13, 2019 - Glycemic Short BSG Results (Last 24 hours): 06/12/19 06/12/19 06/12/19 10:59 13:56 16:24 Glucose 218 H POC Glucose 162 H 198 H 06/12/19 06/13/19 06/13/19 20:11 03:03 07:34 Glucose POC Glucose 134 H 148 H 138 H OUTPATIENT ANTIDIABETIC REGIMEN: * Metformin * A1c = 7.1% on 05/24/19 ASSESSMENT: * 79yo T2DM female with excellent outpatient control per recent A1c * 06/12/19: Outpatient PO antidiabetic medications held on admissions. Pharmacy initiated weight based bolus insulin monotherapy. Basal insulin not needed at the time of admission based on BSGs * 06/13/19: BSGs well controlled over the past 24hrs based on age/co-morbidities. Only one elevated pre-dinner BSG of 198 mg/dl. Will tighten CR slightly. No basal needed based on AM fasting BSG this AM. PLAN FOR INPATIENT GLYCEMIC CONTROL: * Hold outpatient oral diabetes medications * Basal insulin * Not needed based on A1c and BSGs * Bolus insulin: tighten CR slightly from 15 to 13 * NovoLog per scale ACHS or Q6hrs while NPO * Goal Range: Low 120 mg/dL - High 150 mg/dL * Correction Factor: 40 mg/dL/unit * Nutritional / Prandial insulin per carb ratio of 1 unit per 13 grams CHO consumed PLAN FOR DISCHARGE: * A1c is in goal range for patient based on age/comorbidities. * No changes needed to outpatient regimen. * Of note, patient did receive contrast 06/11/19 @ 1999 therefore metformin should not be resumed until at least 06/13/19 @ 1999
[2019-06-13] MEDS: VERAPAMIL HCL 240 MG TABCR PO SCH (20:17)
[2019-06-13] MEDS: ROSUVASTATIN CALCIUM 5 MG TAB PO SCH (20:17)
[2019-06-13] MEDS: cefTRIAXone SODIUM 1,000 MG in DEXTROSE 5% 50 ML IV SCH (20:17)
--- NOTE | 2019-06-13 20:29 | Hospitalist Progress Note ---
Date of Service June 13, 2019 Assessment & Plan (1) Acute pyelonephritis: 2nd to klebsiella. blood cx's thus far negative although they are not [address] abd and pelvis at admission w/ findings suggestive of b/l pyelonephritis. cont IV rocephin today; can likely transition to PO abx tomorrow; then complete 14 days in total of IV/PO abx. (2) UTI (urinary tract infection): as above in "pyelonephritis" (3) Diabetes mellitus: control acceptable cont DM diet novolog sliding scale resume metformin at d/c (4) Hypomagnesemia: resolved (5) Weakness: 2nd to UTI/pyelonephritis PT, OT evals appreciated PT recommending use of cane at d/c (6) Arrhythmia: in light of recurrent syncope events loop recorder implanted recently by [facility] cardiology tele has not shown any serious arrhythmia d/c tele -- move to med/surg (7) HLD (hyperlipidemia): cont statin (8) Aortic stenosis, mild: no issues (9) Hypothyroid: TSH 01/2019 wnl cont synthroid (10) Hx of syncope: see "arrhythmia" above (11) DVT prophylaxis: lovenox daily improving nicely home tomorrow with PO abx move to med/surg Subjective pt had low-grade fever last pm. she feels better overall today with improved energy. appetite is good. no flank pain, abd pain or back pain. no dysuria. tele overnight with blocked PACs and NSR. Review of Systems Constitutional: no chills Respiratory: no cough and no dyspnea Cardiovascular: no chest pain Gastrointestinal: no abdominal pain, no nausea and no vomiting Physical Exam Constitutional: well developed and well nourished; no acute distress ENMT: external ear and nose normal, oropharynx normal Respiratory: normal respiratory effort, lungs clear to auscultation Cardiovascular: Rate/Rhythm: regular rate and regular rhythm Heart Sounds: normal S1, normal S2 and + murmur (2/6 RUSB) Vessels: posterior tibial pulses present and dorsalis pedis pulses present; no JVD Extremities: no edema Gastrointestinal (Abdomen): normal bowel sounds, soft, nontender, no hepatosplenomegaly Percussion/Palpation: abdomen nontender (no flank pain on R or L) Psychiatric: A+Ox3, euthymic affect Results & Data Vital Signs (Past 12 Hours) Vital Signs Temp Pulse Resp BP Pulse Ox 06/13/19 15:26 36.4 C L 75 20 164/69 H 95 06/13/19 13:03 36.9 C 67 20 149/86 H 96 06/13/19 12:09 36.7 C 70 18 157/64 H 97 Laboratory Results Laboratory Results - last 24 hr 06/13/19 06/13/19 06/13/19 03:03 07:34 11:43 POC Glucose 148 H 138 H 163 H 06/13/19 06/13/19 17:05 19:31 POC Glucose 137 H 175 H PG Care Time/CCT Total # of Minutes Spent Total Time Spent with Patient: Total time spent is greater than 50% in coordination of care (as documented) at patient's floor/unit and/or counseling patient: (1) UTI (urinary tract infection) Urinary tract infection type: acute pyelonephritis Qualified Code(s): N10 - Acute pyelonephritis (2) Diabetes mellitus Diabetes mellitus type: type 2 Diabetes mellitus alf insulin use: without long term care pharmacist use Diabetes mellitus complication status: without complication Qualified Code(s): E11.9 - Type 2 diabetes mellitus without complications
[2019-06-14] MEDS: LEVOTHYROXINE SODIUM 100 MCG TABLET PO SCH (06:03)
[2019-06-14 07:23] LABS: BUN Creatinine Ratio 17.4 (10-20); Calcium 9.4 mg/dl (8.5-10.1); Est GFR (African American) 72.4; Est GFR (Non-African American) 62.5; Potassium 4.2 mmol/L (3.5-5.1)
[2019-06-14] MEDS: CALCIUM 600MG + VIT D 400 IU TAB PO SCH (08:55)
[2019-06-14] MEDS: POLYETHYLENE (MIRALAX) 17 GM PACK PO SCH (08:55)
[2019-06-14] MEDS: PANTOprazole 40 MG TAB PO SCH (08:55)
[2019-06-14] MEDS: CLOPIDOGREL BISULFATE 75 MG TAB PO SCH (08:55)
[2019-06-14] MEDS: ENOXAPARIN INJ 40 MG/0.4 ML SYR SQ SCH (08:56)
[2019-06-14] MEDS: INSULIN ASPART 100 UNITS/ML 3 ML PEN SC SCH ×2 (08:57→13:11)
[2019-06-14] MEDS ORDERED: METFORMIN HCL ER 500 MG TABCR PO SCH (16:30)
--- NOTE | 2019-06-14 17:35 | Discharge Summary ---
Date of Service June 14, 2019 Admission HPI Per Admitting Provider Patient is a 79-year-old female with a past medical history of hypertension, hyperlipidemia, mild aortic stenosis, hypothyroidism, diabetes type 2, with a recent history of infrequent recurrent syncopal episodes which are currently being worked up by [facility] cardiology, she is recently status post L IN Q insertion. The patient presents the [facility] emergency department today with complaints of chills, headache, weakness, dizzy when walking, increased frequency of urination and burning with urination. Patient reports he symptoms started yesterday after exercise class. She was so fatigued after exercise class that she came home and laid down to rest. Her symptoms progressively worsened throughout the night, she also experienced subjective fever. She reports that she has not eaten today she lives at [facility] and is retired. She reports a history of urinary tract infections with increasing frequency, her most recent was 2 months ago. She said she received an outpatient antibiotic at that time, she does not remember the name of that medication. ED: On presentation to on presentation the emergency department she was hypertensive, tachycardic, hypothermic, white count on admission was 12.2 with a neutrophil predominance, hemoglobin 10.8. Patient was a bit hyponatremic sodium 131 other electrolytes within normal limits glucose was 138, mag 1.7 albumin a touch low however total protein is 6.5. UA was cloudy positive for nitrites, negative leuk esterase, positive today for bacteria it is been sent for culture. Chest x-ray was negative, head CT obtained to the ED was within normal limits, abdominal CT demonstrated heterogeneous enhancement of the upper poles of bilateral kidneys with perinephric edema favoring bilateral pyelonephritis, bladder wall thickening representing cystitis and colonic diverticulosis. On presentation the emergency department she received an ECG that demonstrated ventricular rate of 98 QTC of 439, sinus rhythm with PACs. She received a total of 1 L of normal saline in the emergency department, and 1 g of ceftriaxone. The hospital service was consulted for admission and the patient was admitted to telemetry due to her history of syncopal episodes and presence of Linq. Patient reports she is unable to tolerate narcotics at any time as they make her sick and loopy please avoid the use Principal Diagnosis Pyelonephritis Discharge Exam Constitutional well developed and well nourished; no acute distress ENMT external ear and nose normal, oropharynx normal Respiratory normal respiratory effort, lungs clear to auscultation Cardiovascular Rate/Rhythm: regular rate and regular rhythm Heart Sounds: normal S1, normal S2 and + murmur (2/6 RUSB) Vessels: posterior tibial pulses present and dorsalis pedis pulses present; no JVD Extremities: no edema Gastrointestinal (Abdomen) normal bowel sounds, soft, nontender, no hepatosplenomegaly Percussion/Palpation: abdomen nontender (no flank pain on R or L) Psychiatric A+Ox3, euthymic affect Discharge Data Allergies Allergy/AdvReac Type Severity Reaction Status Date / Time oxycodone AdvReac Severe VOMITING Verified 06/11/19 19:53 aspirin AdvReac Unknown "stomach Verified 06/11/19 19:53 bleeds" codeine AdvReac Unknown vomiting Verified 06/11/19 19:53 Consultations 06/11/19 20:41 ED Decision to Admit Stat Ordered Studies 06/11/19 18:54 CT abd pelvis IV con only Stat CT head/brain wo con Stat Hospital Course (1) Acute pyelonephritis: 2nd to klebsiella, resistant only to nitrofurantoin. Blood cx's were negative on discharge. - Did well on ceftriaxone -> Switched to cefdinir 300mg PO BID x 11 more days (total of 14-day course). Follow up with Dr. Enamorado. (2) UTI (urinary tract infection): as above in "pyelonephritis" (3) Diabetes mellitus: control acceptable cont DM diet novolog sliding scale resume metformin at d/c (4) Hypomagnesemia: resolved (5) Weakness: 2nd to UTI/pyelonephritis PT, OT evals appreciated PT recommending use of cane at d/c (6) Arrhythmia: in light of recurrent syncope events loop recorder implanted recently by [facility] cardiology tele has not shown any serious arrhythmia (7) HLD (hyperlipidemia): cont statin (8) Aortic stenosis, mild: no issues (9) Hypothyroid: TSH 01/2019 wnl cont synthroid (10) Hx of syncope: see "arrhythmia" above (11) DVT prophylaxis: lovenox daily Total Time Total Time Spent Total Time Spent (In Minutes): 35 Discharge Plan Discharge Items Patient Disposition: Personal Snf Reason For Visit: UTI Discharge Diagnosis: Urinary tract infection, possible pyelonephritis Activity: Resume your previous activity Non-emergency contact: Primary Care Provider Call non-emergency contact if: your symptoms worsen, your pain is worsening and your temperature is above 101 Follow-up/Referrals: Shasta Drake [Primary Care Provider] - Diet: Regular Addtl Attending Provider Instructions: You were admitted for a urinary tract infection with kidney involvement (pyelonephritis). Your blood cultures remained negative while in the hospital. We will give you a total of 14 days of antibiotics to treat this infection. You got the first doses via IV. At this point, you can transition to oral antibiotics. We will also give you Zofran to help keep any nausea at bay. If you cannot take the oral antibiotic, please contact Dr. Enamorado to try a different one. Please see Dr. Enamorado in 1 week to ensure you are doing well. Pending Studies at Discharge: No Stand-Alone Forms: My [employer], Smoking Cessation Skilled Items Patient informed of condition?: Yes DNR: No Discharge Level of Care: Other Communicable Disease: No Discharge Prognosis: Improving Lines: None Urinary Catheter: No Medications and DC Order Prescriptions: New cefdinir 300 mg capsule 300 mg PO Q12H 11 Days Qty: 22 RF: 0 ondansetron HCl [Zofran] 4 mg tablet 4 mg PO Q8H PRN (Reason: nausea and vomiting) Qty: 20 RF: 0 Continued metformin 500 mg tablet 1,500 mg PO QPM RF: 0 esomeprazole magnesium [Nexium] 40 mg capsule,delayed release(DR/EC) 40 mg PO QAM RF: 0 levothyroxine [Synthroid] 100 mcg tablet 100 mcg PO QAM RF: 0 cyanocobalamin (vitamin B-12) [Vitamin B-12] 1,000 mcg Tablet 0 mcg PO DAILY RF: 0 calcium carbonate [Calcium 600] 600 mg calcium (1,500 mg) Tablet 1,200 mg PO DAILY RF: 0 cholecalciferol (vitamin D3) [Vitamin D3] 2,000 unit Tablet 0 unit PO DAILY RF: 0 clopidogrel [Plavix] 75 mg Tablet 75 mg PO QAM RF: 0 candesartan 8 mg Tablet 8 mg PO QPM RF: 0 rosuvastatin [Crestor] 5 mg Tablet 5 mg QPM RF: 0 verapamil 240 mg Tablet Extended Release 240 mg PO QPM RF: 0 Discharge Orders: Discharge Order (Routine); Ordered 06/14/19 Ordered By: Mello Cooley Admission Data Admit Date/Time: 06/11/19 22:50 Attending Provider: Mello Cooley Admit Provider: Aayush Rosado I. Primary Care Provider: Shasta Drake Other Providers: Mello Cooley Other Interventions: Discharge Summary Assessment (RN) Last Done: 06/14/19 13:47 DC Date/Time DO NOT enter until pt leaves facility: 06/14/19 14:44
== END 2019-06-14 14:44 | disposition home or self-care (01) | DRG 690 ==
LOC: ED 16:43 → SUATTDRO 22:50 → 2S 22:50 → 4W 06-13 12:52

== ENCOUNTER 2022-01-18 09:21 | Inpatient (IN) ==
[2022-01-18] MEDS ORDERED: SODIUM CHLORIDE 0.9% 500 ML IV STA (09:47)
--- NOTE | 2022-01-18 09:57 | Emergency Department Note ---
History of Present Illness General Chief complaint: Syncope Stated complaint: SYNCOPE, FALL Time Seen by Provider: 01/18/22 09:37 Source: patient, RN notes reviewed and old records reviewed Mode of arrival: EMS Limitations: no limitations History of Present Illness This patient is an 81-year-old female who comes in after having a syncopal episode. She lives at [facility] independently but says she has been feeling poorly for about a month. She was on a cruise and got sick with a urinary tract infection she was started on Bactrim but the Bactrim made her feel sick so she did not finish it. She has been having back pain radiating to her right hip which she tends to have chronic disc issues and just finished a course of steroids as well. She said today she was sitting on the edge of her bed she just eaten she she said her blood sugar was 109 this morning. She felt extremely hot and next thing she knows she wakes up on the floor she was down for about 1/2-hour she thinks she was diaphoretic. She had no chest pain shor tness breath or palpitations any point no headache she does not think she injured herself. She has had some right hip pain for a week and a half which she relates to her back. No focal numbness or weakness no change in vision no difficulty speaking or swallowing. She does have frequency of urination occasional dysuria but no blood. No history of kidney stones. She has no exposure to COVID known and was tested at in December 3 times negative. She also tells me that she is on Plavix but she is not sure why but she does have a history of a TIA documented in the chart Home Medications Medication Instructions Recorded Confirmed Type esomeprazole magnesium 40 mg 40 mg PO QAM 05/11/19 06/13/20 History capsule,delayed release (Nexium) levothyroxine 100 mcg tablet 100 mcg PO QAM 05/11/19 06/13/20 History (Synthroid) metformin 500 mg tablet 1,500 mg PO QPM 05/11/19 06/13/20 History candesartan 8 mg tablet 8 mg PO QPM 05/26/19 06/13/20 History clopidogrel 75 mg tablet (Plavix) 75 mg PO QAM 05/26/19 06/13/20 History rosuvastatin 5 mg tablet (Crestor) 5 mg QPM 05/26/19 06/13/20 History verapamil 240 mg tablet,extended 240 mg PO QPM 05/26/19 07/12/19 History release calcium carbonate 600 mg calcium 1,200 mg PO DAILY 06/11/19 06/13/20 History (1,500 mg) tablet (Calcium) cholecalciferol (vitamin D3) 50 0 unit PO DAILY 06/11/19 06/13/20 History mcg (2,000 unit) tablet (Vitamin D3) cyanocobalamin (vitamin B-12) 0 mcg PO DAILY 06/11/19 06/13/20 History 1,000 mcg tablet (Vitamin B-12) ondansetron HCl 4 mg tablet 4 mg PO Q8H PRN nausea and 06/14/19 07/12/19 Rx (Zofran) vomiting #20 tabs ciprofloxacin 0.3 %-dexamethasone 4 drp otic (ear) BID #7.5 mL 06/30/19 07/12/19 Rx 0.1 % ear drops,suspension omega 0-fsp-mzm-fish oil 1,000 mg 1 cap PO DAILY 07/12/19 07/12/19 History (120 mg-180 mg) capsule (Fish Oil) pioglitazone 45 mg tablet 45 mg PO 07/12/19 07/12/19 History cefuroxime axetil 250 mg tablet 250 mg PO BID #14 tabs 05/02/20 Rx mirabegron 50 mg tablet,extended 50 mg PO DAILY #90 tabs 08/14/20 08/14/20 Rx release 24 hr (Myrbetriq) ciprofloxacin HCl 500 mg tablet 500 mg PO BID 5 days #10 tabs 08/13/21 Rx Allergies Allergy/AdvReac Type Severity Reaction Status Date / Time oxycodone AdvReac Severe VOMITING Verified 06/13/20 10:44 aspirin AdvReac Unknown "stomach Verified 06/13/20 10:44 bleeds" codeine AdvReac Unknown vomiting Verified 06/13/20 10:44 Past Med/Surg History Medical History Abrasion, shoulder w/o infection Acute pyelonephritis (~07/2019) Contusion of multiple sites Diabetes mellitus ETD (eustachian tube dysfunction) Fall HTN, goal below 130/80 TIA (transient ischemic attack) Urinary symptom or sign Surgical History History of cholecystectomy History of knee replacement RIGHT History of shoulder surgery History of tonsillectomy and adenoidectomy Family History Sister Hypertension Mother Diabetes Denies family history of Cancer Social History Smoking Status: Former smoker Second Hand Exposure: No; Hx Alcohol Use: Yes Hx Substance Use: No Preferred Language: Nepalese Communication Ability: Effective Visual Impairment: No Limitations Hearing 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: Normal 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 Beliefs That Will Affect Care: None marital status: / Current Living Situation: Personal Care Facility Current Living Situation Comment: [facility] current occupational status: retired Feels Safe at Home: Yes during the past year weight has: decreased > 10 lbs Assistive Devices: Glasses and Hearing Aid - Bilateral Review of Systems A total of 10 systems reviewed and were otherwise negative Physical Exam Vital Signs Vital Signs - 24 hr 01/18/22 09:58 01/18/22 09:40 Temperature 36.6 C Temperature Source Oral Pulse Rate 75 75 Pulse Rhythm Regular Regular Pulse Strength Normal Respiratory Rate 18 18 Respiratory Effort / Characteristics Non-Labored Spontaneous Respiratory Depth Normal Respiratory Pattern Regular Blood Pressure 193/77 H Blood Pressure Mean 115 Blood Pressure Position Sitting Pulse Oximetry 99 99 Oxygen Delivery Method Room Air Room Air Sepsis Recent Fever Within 48 Hours No Sepsis New/Unexplained Change in Mental Status No Sepsis Action Taken by Nursing No Action Required General: Well developed well nourished older female who appears in no acute di stress, breathing comfortably on room air. Normal speech, nonslurred. Alert on x3 answers all questions appropriately HEENT: Normal cephalic atraumatic. Pupils are equal round and reactive to light. Extraocular movements are intact. Oropharynx is pink with moist mucous membranes. No swelling of the mouth lips or tongue. Neck: Supple with a midline trachea. No meningeal signs or stiffness, no JVD or bruits. No Stridor. Chest: Clear to auscultation bilaterally. No wheezes or rhonchi. No increased work of breathing. Heart: Regular rate and rhythm without murmurs or gallops. Abdomen: Soft nontender, nondistended without rebound guarding or rigidity. Extremities: No cyanosis clubbing or edema. No calf tenderness or assymetry Spine/Back. Non tender to palpation. No CVA tenderness Skin: Good turgor without rashes. Neurologic exam: Cranial nerves two through 12 are intact. Motor and sensation are intact and symmetrical throughout. Course Administered Medications Discontinued Medications Sodium Chloride (Nss) 500 mls @ 999 mls/hr IV .Q31M STA Stop: 01/18/22 10:17 Last Infusion: 01/18/22 10:31 Dose: 0 mls/hr Documented By: Admin: 01/18/22 10:00 Dose: 999 mls/hr Documented By: NIKIA Medical Decision Making Differential Diagnosis Syncope, arrhythmia, infection, pyelonephritis, dehydration, trauma, anemia, electrolyte or metabolic abnormality, UTI Medical Records Attestation: I reviewed the patient's medical records. Home Medications Current Medication List: was personally reviewed by me Laboratory Data Attestation: I reviewed the patient's lab results. Result diagrams: 01/18/22 09:49 01/18/22 09:49 Lab Results 01/18/22 01/18/22 01/18/22 Range/Units 09:49 09:49 09:49 WBC 13.62 H (4.8-10.8) K/ul RBC 4.89 (3.93-5.22) M/uL Hgb 13.8 (12.0-16.0) g/dl Hct 41.9 (34.1-44.9) % MCV 85.7 (80.0-100.0) fL MCH 28.2 (25.0-34.0) pg MCHC 32.9 (32.0-36.0) g/dL RDW Std Deviation 43.0 (36.4-46.3) fL RDW Coeff of Gadiel 13.7 (11.5-14.5) % Plt Count 321 (130-400) K/uL MPV 8.4 L (9.4-12.3) fL Immature Gran % (Auto) 1.2 % Neut % (Auto) 74.7 % Lymph % (Auto) 15.6 % Webb % (Auto) 7.4 % Eos % (Auto) 0.7 % Baso % (Auto) 0.4 % Neut # (Auto) 10.16 H (1.4-6.5) K/uL Lymph # (Auto) 2.13 (1.2-3.4) K/uL Webb # (Auto) 1.01 H (0.24-0.82) K/uL Eos # (Auto) 0.10 (0-0.50) K/uL Baso # (Auto) 0.05 (0-0.2) K/uL Immature Gran # (Auto) 0.17 H (0.00-0.02) K/uL PT 10.5 (9.0-12.0) Seconds INR 1.0 (0.9-1.1) APTT 21.9 (21.0-31.0) Seconds PTT Ratio 0.8 Sodium 126 L (136-145) mmol/L Potassium 3.8 (3.5-5.1) mmol/L Chloride 92 L (98-107) mmol/L Carbon Dioxide 25 (21-32) mmol/L Anion Gap 9 (3-11) BUN 21 (6-23) mg/dl Creatinine 1.00 (0.6-1.2) mg/dl Est Cr Clr Drug Dosing 42.6 ml/min Est GFR ( Amer) 61.2 ml/min Est GFR (Non-Af Amer) 52.8 ml/min BUN/Creatinine Ratio 21.0 H (10-20) Glucose 260 H (70-99(Fasting)) mg/dl Lactate (0.4-2.0) mmol/L Calcium 9.4 (8.5-10.1) mg/dl Total Bilirubin 0.6 (0.2-1.0) mg/dl AST 13 (13-39) U/L ALT 11 (7-52) U/L Alkaline Phosphatase 72 (34-104) U/L Troponin I High Sens 4.2 (0-14) pg/ml Total Protein 6.7 (6.0-8.3) gm/dl Albumin 4.3 (3.4-5.0) gm/dl Globulin 2.4 L (2.5-4.0) gm/dl Albumin/Globulin Ratio 1.8 (0.9-2) Lipase 41 (11-82) U/L TSH (0.300-4.500) uIu/ml Urine Color Urine Appearance (Clear) Urine pH (4.5-7.5) Ur Specific [place] (1.000-1.030) Urine Protein (Negative) Urine Glucose (UA) (Negative) Urine Ketones (Negative) Urine Blood (Negative) Urine Nitrite (Negative) Urine Bilirubin (Negative) Urine Urobilinogen (Negative) Ur Leukocyte Esterase (Negative) SARS-CoV-2, RNA, NAAT (NEGATIVE) 01/18/22 01/18/22 01/18/22 Range/Units 09:49 09:52 10:22 WBC (4.8-10.8) K/ul RBC (3.93-5.22) M/uL Hgb (12.0-16.0) g/dl Hct (34.1-44.9) % MCV (80.0-100.0) fL MCH (25.0-34.0) pg MCHC (32.0-36.0) g/dL RDW Std Deviation (36.4-46.3) fL RDW Coeff of Gadiel (11.5-14.5) % Plt Count (130-400) K/uL MPV (9.4-12.3) fL Immature Gran % (Auto) % Neut % (Auto) % Lymph % (Auto) % Webb % (Auto) % Eos % (Auto) % Baso % (Auto) % Neut # (Auto) (1.4-6.5) K/uL Lymph # (Auto) (1.2-3.4) K/uL Webb # (Auto) (0.24-0.82) K/uL Eos # (Auto) (0-0.50) K/uL Baso # (Auto) (0-0.2) K/uL Immature Gran # (Auto) (0.00-0.02) K/uL PT (9.0-12.0) Seconds INR (0.9-1.1) APTT (21.0-31.0) Seconds PTT Ratio Sodium (136-145) mmol/L Potassium (3.5-5.1) mmol/L Chloride (98-107) mmol/L Carbon Dioxide (21-32) mmol/L Anion Gap (3-11) BUN (6-23) mg/dl Creatinine (0.6-1.2) mg/dl Est Cr Clr Drug Dosing ml/min Est GFR ( Amer) ml/min Est GFR (Non-Af Amer) ml/min BUN/Creatinine Ratio (10-20) Glucose (70-99(Fasting)) mg/dl Lactate 1.2 (0.4-2.0) mmol/L Calcium (8.5-10.1) mg/dl Total Bilirubin (0.2-1.0) mg/dl AST (13-39) U/L ALT (7-52) U/L Alkaline Phosphatase (34-104) U/L Troponin I High Sens (0-14) pg/ml Total Protein (6.0-8.3) gm/dl Albumin (3.4-5.0) gm/dl Globulin (2.5-4.0) gm/dl Albumin/Globulin Ratio (0.9-2) Lipase (11-82) U/L TSH 1.571 (0.300-4.500) uIu/ml Urine Color Urine Appearance (Clear) Urine pH (4.5-7.5) Ur Specific [place] (1.000-1.030) Urine Protein (Negative) Urine Glucose (UA) (Negative) Urine Ketones (Negative) Urine Blood (Negative) Urine Nitrite (Negative) Urine Bilirubin (Negative) Urine Urobilinogen (Negative) Ur Leukocyte Esterase (Negative) SARS-CoV-2, RNA, NAAT NEGATIVE (NEGATIVE) 01/18/22 Range/Units 12:17 WBC (4.8-10.8) K/ul RBC (3.93-5.22) M/uL Hgb (12.0-16.0) g/dl Hct (34.1-44.9) % MCV (80.0-100.0) fL MCH (25.0-34.0) pg MCHC (32.0-36.0) g/dL RDW Std Deviation (36.4-46.3) fL RDW Coeff of Gadiel (11.5-14.5) % Plt Count (130-400) K/uL MPV (9.4-12.3) fL Immature Gran % (Auto) % Neut % (Auto) % Lymph % (Auto) % Webb % (Auto) % Eos % (Auto) % Baso % (Auto) % Neut # (Auto) (1.4-6.5) K/uL Lymph # (Auto) (1.2-3.4) K/uL Webb # (Auto) (0.24-0.82) K/uL Eos # (Auto) (0-0.50) K/uL Baso # (Auto) (0-0.2) K/uL Immature Gran # (Auto) (0.00-0.02) K/uL PT (9.0-12.0) Seconds INR (0.9-1.1) APTT (21.0-31.0) Seconds PTT Ratio Sodium (136-145) mmol/L Potassium (3.5-5.1) mmol/L Chloride (98-107) mmol/L Carbon Dioxide (21-32) mmol/L Anion Gap (3-11) BUN (6-23) mg/dl Creatinine (0.6-1.2) mg/dl Est Cr Clr Drug Dosing ml/min Est GFR ( Amer) ml/min Est GFR (Non-Af Amer) ml/min BUN/Creatinine Ratio (10-20) Glucose (70-99(Fasting)) mg/dl Lactate (0.4-2.0) mmol/L Calcium (8.5-10.1) mg/dl Total Bilirubin (0.2-1.0) mg/dl AST (13-39) U/L ALT (7-52) U/L Alkaline Phosphatase (34-104) U/L Troponin I High Sens (0-14) pg/ml Total Protein (6.0-8.3) gm/dl Albumin (3.4-5.0) gm/dl Globulin (2.5-4.0) gm/dl Albumin/Globulin Ratio (0.9-2) Lipase (11-82) U/L TSH (0.300-4.500) uIu/ml Urine Color Yellow Urine Appearance Clear (Clear) Urine pH 6.0 (4.5-7.5) Ur Specific [place] 1.012 (1.000-1.030) Urine Protein Negative (Negative) Urine Glucose (UA) 2+ H (Negative) Urine Ketones Negative (Negative) Urine Blood Negative (Negative) Urine Nitrite Negative (Negative) Urine Bilirubin Negative (Negative) Urine Urobilinogen Negative (Negative) Ur Leukocyte Esterase Negative (Negative) SARS-CoV-2, RNA, NAAT (NEGATIVE) Imaging Data Attestation: I personally reviewed and interpreted this imaging study as follows: My Impression: Chest x-rayno acute infiltrate, failure, pneumothorax seen Radiologist's Impression: Abdomen/Pelvis CT 01/18/22 09:47 CT abd pelvis wo con CLINICAL HISTORY: flank pain, recent uti TECHNIQUE: Helical axial images of the abdomen and pelvis were obtained. Automated dose lowering techniques and/or adjustment according to patient size were utilized for this exam. This exam was performed without intravenous contrast. CT DOSE: 1007.73 mGycm COMPARISON: Comparison is made to CT abdomen pelvis 06/11/2019 FINDINGS: Lower chest: No acute abnormality Liver: Unremarkable. No focal lesions are seen. Gallbladder and biliary tree: Patient is status post cholecystectomy. No intra- or extrahepatic biliary ductal dilation. Pancreas: Unremarkable, no focal lesions. Spleen: Calcifications are noted in the spleen compatible with prior granulomatous disease. Adrenals: Unremarkable. Kidneys and ureters: Perinephric stranding is noted bilaterally. Bladder: Unremarkable. Reproductive organs: Unremarkable. Bowel: Patient is status post appendectomy. Lymph nodes Retroperitoneal: Unremarkable. Pelvic: Unremarkable. Mesenteric: Unremarkable. Peritoneum: Normal. Vessels: Atherosclerotic calcifications are seen. Abdominal wall: Unremarkable. Bones: Degenerative changes in the visualized spine. IMPRESSION: No acute abnormality, in particular no evidence of nephrolithiasis or hydronephrosis. CT without contrast is not a sensitive modality for UTI or pyelonephritis. ACT 112: Negative or not required by law. Electronically signed by: Sandro Santiago M.D. 01/18/2022 10:[address] 01/18/22 09:47 CT head/brain wo con CLINICAL HISTORY: fall, on plavix Technique: Contiguous axial CT images of the head were acquired from the base of the skull to the vertex without intravenous contrast administration. Images were viewed in brain, subdural and bone windows. Automated dose lowering techniques and/or adjustment according to patient size were utilized for this exam. Comparison: Comparison is made to CT head 06/11/2019 Findings: The ventricles, basal cisterns, and cerebral sulci are normal. There is no acute intracranial hemorrhage or evidence of acute territorial infarction. Neither mass effect, shift of the midline structures, nor abnormal extra-axial fluid collections are shown. Imaged portions of the paranasal sinuses and mastoid air cells are clear. The orbits appear normal. There are no acute fractures of the calvaria or scalp swelling. Impression: No acute intracranial hemorrhage, no evidence of acute territorial infarction or other acute intracranial disease process. ACT 112: Negative or not required by law. Electronically signed by: Sandro Santiago M.D. 01/18/2022 10:49 AM Chest X-Ray 01/18/22 09:48 XR chest 1V portable CLINICAL HISTORY: Atypical chest pain. COMPARISON STUDY: Chest radiograph June 11, 2022 FINDINGS: Lung volumes are normal. Basilar opacity reflects atelectasis. Calcified granulomas within the right lower lung are incidentally noted. There are cholecystectomy clips. There is no pneumothorax or pleural effusion. Cardiac size is stable. Mediastinal contours are normal. There is no evidence for pulmonary edema. IMPRESSION: No acute cardiopulmonary findings. ACT 112: Negative or not required by law. Electronically signed by: García Tenorio M.D. 01/18/2022 10:08 AM ECG Data Attestation: I personally reviewed and interpreted this ECG as follows: Indication: + syncope Rate (beats per minute): 77 Rhythm: + sinus with SA ECG Intervals/blocks: + Normal QRS, + Normal QT and + Normal [place] ECG Reeds: + Normal ECG ST segments: + Normal ST segments ECG Findings: no PACs or no PVCs Comparison ECG Date: from (06/11/19) Change: the following changes noted MDM Narrative This patient comes in as described above. She had a syncopal episode. She looks well at present has stable vital signs. She has had a recent UTI and has not been feeling well. I did order urinalysis and blood work. EKG was also obtained I did do a chest x-ray and a CAT scan of her head as she fell and she is on Plavix. I also ordered a CT stone study to evaluate her kidneys to make sure. there is no stone or other abnormality as she has been having back pain and urinary symptoms. She was hydrated with an IV normal saline bolus. Multiple blood testing was obtained, she was reassessed frequently. EKG does not suggest acute coronary syndrome or arrhythmia. Her troponin is negative. Her urine does not suggest a UTI. Her sodium is low at 126 and that may be why she does not feel well. Her rest of her labs look unremarkable COVID testing was negative. I do think she needs to be admitted/observed given her syncopal episode and her hyponatremia. I have consulted the [facility] hospitalist group to see her in ER for these measures Continuous cardiac monitoring: An order was placed in the EMR for continuous cardiac monitoring. 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, Lab test negative for COVID-19 virus Forms Stand Alone Forms: [facility] Prescriptions Prescriptions: No Action cefuroxime axetil 250 mg tablet 250 mg PO BID Qty: 14 0RF ciprofloxacin HCl 500 mg tablet 500 mg PO BID 5 Days Qty: 10 0RF pioglitazone 45 mg tablet 45 mg PO omega [id number]-fish oil [Fish Oil] 1,000 mg (120 mg-180 mg) capsule 1 cap PO DAILY Myrbetriq 50 mg tablet extended release 24 hr 50 mg PO DAILY Qty: 90 3RF metformin 500 mg tablet 1,500 mg PO QPM esomeprazole magnesium [Nexium] 40 mg capsule,delayed release(DR/EC) 40 mg PO QAM levothyroxine [Synthroid] 100 mcg tablet 100 mcg PO QAM ciprofloxacin-dexamethasone 0.3-0.1 % drops,suspension 4 drp OT BID Qty: 7.5 1RF Rx Instructions: Apply to affected ear twice daily for 14 days cyanocobalamin (vitamin B-12) [Vitamin B-12] 1,000 mcg Tablet 0 mcg PO DAILY calcium carbonate [Calcium 600] 600 mg calcium (1,500 mg) Tablet 1,200 mg PO DAILY cholecalciferol (vitamin D3) [Vitamin D3] 2,000 unit Tablet 0 unit PO DAILY ondansetron HCl [Zofran] 4 mg tablet 4 mg PO Q8H PRN (Reason: nausea and vomiting) Qty: 20 0RF clopidogrel [Plavix] 75 mg Tablet 75 mg PO QAM candesartan 8 mg Tablet 8 mg PO QPM rosuvastatin [Crestor] 5 mg Tablet 5 mg QPM verapamil 240 mg Tablet Extended Release 240 mg PO QPM Referrals Referrals: Shasta Drake [Primary Care Provider] -
[2022-01-18 10:04] LABS: Basophils # (auto) 0.05 K/uL (0-0.2); Basophils % (auto) 0.4 %; Eosinophils % (auto) 0.7 %; Hematocrit (blood only) 41.9 % (34.1-44.9); Hemoglobin 13.8 g/dl (12.0-16.0); Immature Granulocytes # (auto) 0.17 K/uL (0.00-0.02); Immature Granulocytes % (auto) 1.2 %; Lymphocytes # (auto) 2.13 K/uL (1.2-3.4); Lymphocytes % (auto) 15.6 %; Mean Corpuscular Hemoglobin 28.2 pg (25.0-34.0); Mean Corpuscular Hgb Conc 32.9 g/dL (32.0-36.0); Mean Corpuscular Volume 85.7 fL (80.0-100.0); Mean Platelet Volume 8.4 fL (9.4-12.3); Monocytes # (auto) 1.01 K/uL (0.24-0.82); Monocytes % (auto) 7.4 %; Neutrophils # (auto) 10.16 K/uL (1.4-6.5); Neutrophils % (auto) 74.7 %; Platelet Count 321 K/uL (130-400); RDW Coefficient of Variation 13.7 % (11.5-14.5); Red Blood Count 4.89 M/uL (3.93-5.22); White Blood Count 13.62 K/ul (4.8-10.8)
--- NOTE | 2022-01-18 10:09 | XRay Report ---
XR chest 1V portable CLINICAL HISTORY: Atypical chest pain. COMPARISON STUDY: Chest radiograph June 11, 2022 FINDINGS: Lung volumes are normal. Basilar opacity reflects atelectasis. Calcified granulomas within the right lower lung are incidentally noted. There are cholecystectomy clips. There is no pneumothora x or pleural effusion. Cardiac size is stable. Mediastinal contours are normal. There is no evidence for pulmonary edema. IMPRESSION: No acute cardiopulmonary findings. ACT 112: Negative or not required by law. Electronically signed by: García Tenorio M.D. 01/18/2022 10:08 AM
[2022-01-18 10:18] LABS: Partial Thromboplastin Ratio 0.8; Partial Thromboplastin Time 21.9 Seconds (21.0-31.0); Prothrombin Time 10.5 Seconds (9.0-12.0)
[2022-01-18 10:26] LABS: Albumin Globulin Ratio 1.8 (0.9-2); Albumin Level 4.3 gm/dl (3.4-5.0); Bilirubin,Total 0.6 mg/dl (0.2-1.0); Calcium 9.4 mg/dl (8.5-10.1); Creatinine Clr Calc Pharmacy 42.6 ml/min; Est GFR (African American) 61.2 ml/min; Est GFR (Non-African American) 52.8 ml/min; Globulin 2.4 gm/dl (2.5-4.0); Potassium 3.8 mmol/L (3.5-5.1); Total Protein 6.7 gm/dl (6.0-8.3)
[2022-01-18 10:28] LABS: Troponin I High Sensitivity 4.2 pg/ml (0-14)
--- NOTE | 2022-01-18 10:51 | CT Scan Report ---
CT head/brain wo con CLINICAL HISTORY: fall, on plavix Technique: Contiguous axial CT images of the head were acquired from the base of the skull to the yaneth reinier without intravenous contrast administration. Images were viewed in brain, subdural and [facility]. Automated dose lowering techniques and/or adjustment according to patient size were utilized for this exam. Comparison: Comparison is made to CT head 06/11/2019 Findings: The ventricles, basal cisterns, and cerebral sulci are normal. There is no acute intracranial hemorrh age or evidence of acute territorial infarction. Neither mass effect, shift of the midline structures , nor abnormal extra-axial fluid collections are shown. Imaged portions of the paranasal sinuses and mastoid air cells are clear. The orbits appear normal. There are no acute fractures of the calvaria or scalp swelling. Impression: No acute intracranial hemorrhage, no evidence of acute territorial infarction or other acute intracra nial disease process. ACT 112: Negative or not required by law. Electronically signed by: Sandro Santiago M.D. 01/18/2022 10:49 AM
--- NOTE | 2022-01-18 11:01 | CT Scan Report ---
CT abd pelvis wo con CLINICAL HISTORY: flank pain, recent uti TECHNIQUE: Helical axial images of the abdomen and pelvis were obtained. Automated dose lowering tech niques and/or adjustment according to patient size were utilized for this exam. This exam was perfor med without intravenous contrast. CT DOSE: 1007.73 mGycm COMPARISON: Comparison is made to CT abdomen pelvis 06/11/2019 FINDINGS: Lower chest: No acute abnormality Liver: Unremarkable. No focal lesions are seen. Gallbladder and biliary tree: Patient is status post cholecystectomy. No intra- or extrahepatic bilia ry ductal dilation. Pancreas: Unremarkable, no focal lesions. Spleen: Calcifications are noted in the spleen compatible with prior granulomatous disease. Adrenals: Unremarkable. Kidneys and ureters: Perinephric stranding is noted bilaterally. Bladder: Unremarkable. Reproductive organs: Unremarkable. Bowel: Patient is status post appendectomy. Lymph nodes Retroperitoneal: Unremarkable. Pelvic: Unremarkable. Mesenteric: Unremarkable. Peritoneum: Normal. Vessels: Atherosclerotic calcifications are seen. Abdominal wall: Unremarkable. Bones: Degenerative changes in the visualized spine. IMPRESSION: No acute abnormality, in particular no evidence of nephrolithiasis or hydronephrosis. CT without cont rast is not a sensitive modality for UTI or pyelonephritis. ACT 112: Negative or not required by law. Electronically signed by: Sandro Santiago M.D. 01/18/2022 10:58 AM
--- NOTE | 2022-01-18 11:25 | History & Physical Report ---
Date of Service January 18, 2022 Assessment & Plan (1) Syncope: Plan: Syncope, ?UTI, Leukocytosis to 13 Sodium 126, Creatinine normal at baseline, admitting creatinine 1.0 with BUN/creatinine ratio 21 Potassium normal Lactate normal on admission No transaminitis High-sensitivity troponin 4.2 TSH 1.57, normal COVID-negative CXR: No acute findings CThead: No acute findings including hemorrhage, infarct, or fracture CTA/P: No acute abnormality, no evidence of hydronephrosis - + dysuria and frequency, hx UTIs. Will empirically tx with cefepime given hx of past cx with rocephin resistance. Follow UC. UA: pending UC: pending UC from 12/20 positive for lactobacillus, prior urine with Klebsiella staph and resistant cefepime sensitive EKG: Normal sinus rhythm, first-degree AV block CO 226. QTc 427. No acute ST segment changes Comparison EKG 06/2019: CO 202-208, sinus with PACs Patient does have history of arrhythmia/PACs and had a loop recorder by [facility] which was normal in the past Echo 05/2019: Concentric LVH, LV wall motion normal, EF approximately 62%, moderate aortic sclerosis with mild stenosis -Echo 01/10/2022 with [facility]: Moderate concentric LVH. EF 60-64% (normal). Grade 1 diastolic dysfunction. Mild aortic valve stenosis, mild aortic regurg. Moderate mitral annular calcification. No significant mitral regurg. No clinically significant AAS. Hyponatremia Sodium 126, baseline appears to be approximately [id number]. Pt reports eating and drinking OK, but feeling generally poor and w increased BUN/Cr. DDx include pseudohyponatremia in the setting of hyperglycemia We will Jose Enrique blood sugar, trend BMP Received IV FM, patient is not nauseous and tolerating p.o. Will encourage p.o. and follow If drops after IVF, or labs consistent with SIADH fluid restrict to 1500 cc. If improving and suspect element of nutritional depletion, can continue supplementation Serum osmole's, urine osmole's, urine electrolytes pending Type 2 diabetes mellitus No longer on metforming/pioglit. On lantus 8 units daily per pt Continue DM diet Lantus 8u daily + SSI LUTS, nocturia Did not tolerate anticholinergics, no longer Myrbetriq Patient had been offered desmopressin/nerve stimulation/Botox in the past, prefer to hold off Bladder scan DVT prophylaxis: Heparin twice daily, history of epistaxis. SCDs Diet: Heart healthy, DM2 CODE STATUS: DNR/DNI, discussed with patient. Dispo: Medical/telemetry for syncope (2) Urinary symptom or sign: (3) UTI (urinary tract infection): (4) Hypothyroid: (5) HLD (hyperlipidemia): (6) Arrhythmia: (7) UTI (urinary tract infection): (8) Hyponatremia: History of Present Illness Primary Care Provider: [facility] Cha Stephen is an 81-year-old female with a past medical history of hypothyroidism, mild aortic stenosis, hyperlipidemia, eustachian tube dysfunction, diabetes mellitus, hypertension who lives at [facility] and presents after an episode of syncope with 1 month of feeling poorly. Episode of syncope. 1mo unwellness since UTI on a cruise. Recent cruise, had a UTI and was put on Bactrim but did not finish the Bactrim due to feeling sick while on Endorses back pain radiating to her right hip at baseline, on steroids for back pain as an outpatient Prior episode of syncope reports she felt hot and diaphoretic. Down for approximately 30 minutes Denies chest pain, chest pressure, headache. Endorses right hip pain for approximately 10 days Endorses dysuria. Hx TIA on plaavix Eating and drinking OK Reports 1 month ago she went on a cruise with her boyfriend. After returning home she felt ill. Urgent care doctor diagnosed her with a UTI and she took bactrim for 3 days but felt extremely ill to the stomach and stopped after 3 days. Several COVID tests were all negative during and the day after the cruise. Day after returning reji efelt tired and 'collapsed'. She got a shot which she is not sure what, but thinks it was an antibiotic for a kidney infection and felt much better. Slowly over the last few weeks does not think she has recovered and progressively has felt more tired. She was going about her normal routine this mornign and walked in the shower and felt suddenly lightheaded 'and going' and next thing she knew she was bathed in sweat on the floor. Was able to get up on the bed after that, scraped her hand, but felt very weak and tired washed out. She did eat some breakfast since she was diabetic (BSG 109 after the episode) then sat on her chair and read the paper but energy felt progressively more poor and was recommended for ER evaluation. no chest pain or chest pressure. +heart murmur. No nausea, vomiting, diarrhea, or abdominal pain. Hx of vertigo, but reports this did not feel like vertigo, no spinning Did feel syncope coming for a few seconds beforehand Did not hit her head, endorses she scraped her hand Endorses chronic back pain from L2-L4 protruding disk which she finished a prednisone taper for yesterday (taper was ~7 days) Endorses dysuria which has been intermittent but continued in the last month. Endorses recurrent UTIs. Endorses nocturia. Does not take Mybetriq. Has q2h ugency recently for small volumes, worse at night. Denies difficulty voiding, but notes she does have some dribbling and follows with Dr. Serna. Denies change in voiding ability. No URI or cold like symptoms. Medical History: Reviewed Medications: Reviewed. Took all medications this AM. Candasartan, crestor, plaavix, synthroid. Takes insulin for DM (no longer on DM or pioglitasone. '6 clicks of lantus'). No longer taking verapamil. Surgical History: Reviewed Allergies: Reviewed. No narcotics, no aspirin, and notes severe upset stomach to bactrim/sulfa Social History: No tobacco product use, rare social alcohol use Code Status: Surrogate DM would be sister Nanda [phone]. DNR/DNI, discussed with patient at bedside. Allergies Allergy/AdvReac Type Severity Reaction Status Date / Time oxycodone AdvReac Severe VOMITING Verified 06/13/20 10:44 aspirin AdvReac Unknown "stomach Verified 06/13/20 10:44 bleeds" codeine AdvReac Unknown vomiting Verified 06/13/20 10:44 Home Medications Medication Instructions Recorded Confirmed Type esomeprazole magnesium 40 mg 40 mg PO QAM 05/11/19 06/13/20 History capsule,delayed release (Nexium) levothyroxine 100 mcg tablet 100 mcg PO QAM 05/11/19 06/13/20 History (Synthroid) metformin 500 mg tablet 1,500 mg PO QPM 05/11/19 06/13/20 History candesartan 8 mg tablet 8 mg PO QPM 12/18/19 01/05/21 History clopidogrel 75 mg tablet (Plavix) 75 mg PO QAM 05/26/19 06/13/20 History rosuvastatin 5 mg tablet (Crestor) 5 mg QPM 05/26/19 06/13/20 History verapamil 240 mg tablet,extended 240 mg PO QPM 05/26/19 07/12/19 History release calcium carbonate 600 mg calcium 1,200 mg PO DAILY 06/11/19 06/13/20 History (1,500 mg) tablet (Calcium) cholecalciferol (vitamin D3) 50 0 unit PO DAILY 06/11/19 06/13/20 History mcg (2,000 unit) tablet (Vitamin D3) cyanocobalamin (vitamin B-12) 0 mcg PO DAILY 06/11/19 06/13/20 History 1,000 mcg tablet (Vitamin B-12) ondansetron HCl 4 mg tablet 4 mg PO Q8H PRN nausea and 06/14/19 07/12/19 Rx (Zofran) vomiting #20 tabs ciprofloxacin 0.3 %-dexamethasone 4 drp otic (ear) BID #7.5 mL 06/30/19 07/12/19 Rx 0.1 % ear drops,suspension omega 2-djs-mqn-fish oil 1,000 mg 1 cap PO DAILY 07/12/19 07/12/19 History (120 mg-180 mg) capsule (Fish Oil) pioglitazone 45 mg tablet 45 mg PO 07/12/19 07/12/19 History cefuroxime axetil 250 mg tablet 250 mg PO BID #14 tabs 05/02/20 Rx mirabegron 50 mg tablet,extended 50 mg PO DAILY #90 tabs 08/14/20 08/14/20 Rx release 24 hr (Myrbetriq) ciprofloxacin HCl 500 mg tablet 500 mg PO BID 5 days #10 tabs 08/13/21 Rx Past Med/Surg History Medical History Abrasion, shoulder w/o infection Acute pyelonephritis (~07/2019) Contusion of multiple sites Diabetes mellitus ETD (eustachian tube dysfunction) Fall HTN, goal below 130/80 TIA (transient ischemic attack) Urinary symptom or sign Surgical History History of cholecystectomy History of knee replacement RIGHT History of shoulder surgery History of tonsillectomy and adenoidectomy Family History Sister Hypertension Mother Diabetes Denies family history of Cancer Social History Smoking Status: Former smoker Second Hand Exposure: No; Hx Alcohol Use: Yes Hx Substance Use: No Preferred Language: Japanese Communication Ability: Effective Visual Impairment: No Limitations Hearing Ability: Normal Patent 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 NAD. Cooperative. HEENT: Atraumatic, normocephalic. Pulm: CTAB A&P. -wheezes, -rales, -rhonchi. Symmetrical chest rise. No increased work of breathing. No respiratory distress. Cardiac: RRR, +SM. Radial pulses intact and symmetrical. Abdominal: Nontender, nondistended, soft. BS present. Ext: Warm, dry. Moving equally. No edema. Results & Data Results & Data ([facility]) Vital Signs (Past 12 Hours) Vital Signs Temp Pulse Resp BP Pulse Ox O2 Del Method 01/18/22 09:40 36.6 C 75 18 193/77 H 99 Room Air 01/18/22 09:58 75 18 99 Room Air PG Care Time/CCT Total # of Minutes Spent Total Time Spent with Patient: Total time spent is greater than 50% in coordination of care (as documented) at patient's floor/unit and/or counseling patient: Coding Level of Care Code INT OBSERVATION CARE 50M LVL 2 Diagnoses Syncope R55 Urinary symptom or sign R39.9 UTI (urinary tract infection) N10 Urinary tract infection type: acute pyelonephritis Hypothyroid E03.9 HLD (hyperlipidemia) E78.5 Arrhythmia I49.9 UTI (urinary tract infection) N10 Urinary tract infection type: acute pyelonephritis Hyponatremia E87.1 (1) UTI (urinary tract infection) Urinary tract infection type: acute pyelonephritis Qualified Code(s): N10 - Acute pyelonephritis (2) UTI (urinary tract infection) Urinary tract infection type: acute pyelonephritis Qualified Code(s): N10 - Acute pyelonephritis
[2022-01-18] MEDS ORDERED: INSULIN ASPART PER UNIT SC STA (12:26)
[2022-01-18] MEDS ORDERED: INSULIN ASPART PER UNIT SC SCH (12:26)
[2022-01-18 12:29] LABS: Appearance Urine Clear (Clear); Bilirubin Urine Negative (Negative); Blood Urine Negative (Negative); Color Urine Yellow; Glucose Urine UA 2+ (Negative); Ketones Urine Negative (Negative); Leukocyte Esterase Urine Negative (Negative); Nitrite Urine Negative (Negative); Protein Urine Negative (Negative); Specific Gravity Urine 1.012 (1.000-1.030); Urobilinogen Urine Negative (Negative)
[2022-01-18] MEDS ORDERED: DEXTROSE 50% 50 ML SYRINGE IV PRN (15:33)
[2022-01-18] MEDS ORDERED: POLYETHYLENE (MIRALAX) 17 GM PACK PO PRN (15:33)
[2022-01-18] MEDS ORDERED: CARBOHYDRATES FOR HYPOGLYCEMIA PO PRN (15:33)
[2022-01-18] MEDS ORDERED: ACETAMINOPHEN 325 MG TAB PO PRN (15:33)
[2022-01-18] MEDS ORDERED: GLUCOSE 40% GEL 15 GM TUBE PO PRN (15:33)
[2022-01-18] MEDS ORDERED: hydrALAZINE HCL 20 MG/ML VIAL IV PRN (15:33)
[2022-01-18] MEDS ORDERED: ONDANSETRON INJ 2 MG/ML 2 ML VIAL IV PRN (15:33)
[2022-01-18] MEDS ORDERED: GLUCOSE 10 TAB/TUBE PO PRN (15:33)
[2022-01-18] MEDS ORDERED: GLUCAGON FOR INJ 1 MG VIAL SQ PRN (15:33)
[2022-01-18] MEDS ORDERED: amLODIPine BESYLATE 5 MG TAB PO ONE (15:33)
[2022-01-18] MEDS ORDERED: CEFEPIME 1,000 MG in SYRINGE 0 ML IV SCH (16:00)
[2022-01-18] MEDS: SODIUM CHLORIDE 0.9% 1000ML 1,000 ML IV SCH ×2 (16:05→22:39)
[2022-01-18] MEDS: INSULIN ASPART PER UNIT SC SCH ×2 (17:14→22:15)
[2022-01-18 17:32] LABS: BUN Creatinine Ratio 18.8 (10-20); Calcium 8.5 mg/dl (8.5-10.1); Creatinine Clr Calc Pharmacy 44.4 ml/min; Est GFR (African American) 64.3 ml/min; Est GFR (Non-African American) 55.5 ml/min
[2022-01-18 17:38] LABS: Creatinine Urine Random 26.9 mg/dl; Urine Potassium 11.8 mmol/L
[2022-01-18 20:09] LABS: BUN Creatinine Ratio 17.3 (10-20); Calcium 8.6 mg/dl (8.5-10.1); Est GFR (African American) 58.4 ml/min; Est GFR (Non-African American) 50.3 ml/min; Potassium 3.9 mmol/L (3.5-5.1)
[2022-01-18] MEDS: HEPARIN SOD 5,000 UNIT/0.5 ML VIAL SQ SCH (20:48)
[2022-01-18] MEDS: ROSUVASTATIN CALCIUM 5 MG TAB PO SCH (20:49)
[2022-01-18] MEDS: LANTUS PER UNIT CHARGE SQ SCH (20:59)
[2022-01-19] MEDS: LEVOTHYROXINE SODIUM 100 MCG TABLET PO SCH (05:54)
--- NOTE | 2022-01-19 06:25 | Electrocardiogram Report ---
Test Reason : Blood Pressure : / mmHG Vent. Rate : 077 BPM Atrial Rate : 077 BPM P-R Int : 226 ms QRS Dur : 086 ms QT Int : 378 ms P-R-T Axes : 056 025 036 degrees QTc Int : 427 ms Sinus rhythm with 1st degree A-V block Otherwise normal ECG When compared with ECG of 11-JUN-2019 19:10, Premature atrial complexes are no longer Present Confirmed by Jona Moore ([id number]) on 01/19/2022 6:25:25 AM Referred By: Shasta Drake Confirmed By:Jona Moore
[2022-01-19 07:09] LABS: Basophils # (auto) 0.03 K/uL (0-0.2); Basophils % (auto) 0.3 %; Eosinophils # (auto) 0.13 K/uL (0-0.50); Eosinophils % (auto) 1.2 %; Hematocrit (blood only) 36.2 % (34.1-44.9); Immature Granulocytes # (auto) 0.09 K/uL (0.00-0.02); Immature Granulocytes % (auto) 0.9 %; Lymphocytes # (auto) 2.11 K/uL (1.2-3.4); Mean Corpuscular Hemoglobin 28.1 pg (25.0-34.0); Mean Corpuscular Hgb Conc 33.1 g/dL (32.0-36.0); Mean Corpuscular Volume 84.8 fL (80.0-100.0); Mean Platelet Volume 8.4 fL (9.4-12.3); Monocytes # (auto) 0.74 K/uL (0.24-0.82); Neutrophils # (auto) 7.47 K/uL (1.4-6.5); Neutrophils % (auto) 70.6 %; Platelet Count 318 K/uL (130-400); RDW Coefficient of Variation 14.1 % (11.5-14.5); RDW Standard Deviation 43.5 fL (36.4-46.3); Red Blood Count 4.27 M/uL (3.93-5.22); White Blood Count 10.57 K/ul (4.8-10.8)
--- NOTE | 2022-01-19 07:37 | Hospitalist Progress Note ---
Date of Service January 19, 2022 Assessment & Plan (1) Syncope: Plan: Mary Grace is a 81 year old female with history of hypertension, TIA, recurrent UTIs, DM, and eustachian tube dysfunction who was admitted after an episode of syncope and subsequent fall at home. - Ddx 2/2 Hyponatremia - patient hyponatremic on presentation (126) improved with administration of NS (128, 132) * Patient's baseline Sodium 133-135 * Recent CMP nml w/ exception of hyponatremia (132) and hyperglycemia (111) * Serum Osm - 274 L, Urine Osm - 233 L, Urine Na 47 N * No lower extremity edema or pulmonary edema, mucous membranes moist * Suspect hypovolemic hyponatremia * Will trend BMP for Na and glucose Ddx 2/2 Arrhythmia - patient has hx of arrhythmias/PACs and required a loop recorder by [facility] (nml at time) * High-sensitivity troponin 4.2 (nm) * CXR: No acute findings * EKG 01/18/22: Normal sinus rhythm, first-degree AV block NC 226, QTc 427, no acute ST segment changes/ Comparison EKG 06/2019: NC 202-208, sinus with PACs * [facility] Moderate concentric LVH, EF 60-64% (normal), Grade 1 diastolic dysfunction, Mild aortic valve stenosis, mild aortic regurg, Moderate mitral annular calcification, No significant mitral regurg, No clinically significant AAS/ Echocardiogram 05/2019: Concentric LVH, LV wall motion normal, EF approximately 62%, moderate aortic sclerosis with mild stenosis * Cardiology consult - Recommendation appreciated, advised to continue telemetry monitoring as there were no significant pauses, heart block, or symptomatic bradycardic episodes recorded since admission. Cardiology noted a recurrent syncopal episode recorded last evening attributed to antihypertensive therapy and documented hypotension with systolic blood pressure in the 60s. Cardiology agreed with gentle IV hydration in the setting of presumed volume depletion and hyponatremia. Recommended loop recorder interrogation at this time. * Candesartan on hold, will re-evaluate in AM - Ddx 2/2 UTI - patient endorsed ongoing dysuria, increased frequency, and inadequate treatment of a UTI in the last month * Most recent UTI found to be growing Lactobacillus, prior urine culture + for Klebsiella/Staph and Cefepime sensitive * Presented with leukocytosis at 13.62 01/18 w/ neutrophil predominance to 10.16, will continue to monitor * Urinalysis 01/19 - negative for acute infection, empiric treatment discontinued due to lack of UTI * Repeat CBC wnl except neutrophilia, will follow (2) Hyponatremia: Plan: See syncope. (3) Arrhythmia: Plan: See syncope. (4) Hypothyroid: Plan: - TSH normal on admission (1.57) (5) HLD (hyperlipidemia): Plan: - Continue home medications (6) Hypertension: Plan: - Continue home Candesartan 16 mg daily. (7) Diabetes mellitus: Plan: - Patient only taking Lantus 6 units in AM, without short acting throughout the day - Currently on Lantus 8 units daily + sliding scale - Recent HbA1c 7.3 - Patient on DM diet while inpatient (8) Nocturia: Plan: - Intolerable to anticholinergics, not taking Myrbetriq - Offered desmopressin/nerve stimulation/Botox previously, she declined - Bladder scan pending Plan DVT prophylaxis: Heparin twice daily, history of epistaxis, SCDs Diet: Heart healthy, DM2 Code Status: DNR/DNI Dispo: Medical/telemetry Admission and Anticipated Discharge Date Admission Date: January 18, 2022 Supervising Physician Co-Signing Physician Notes Patient seen and examined with PGY-1 Dr. Newton. Agree with history, exam findings, assessment and plan of care as outlined. In brief, Ms Garner is an 81 year old female with history of HTN, hypothyroid, TIA, cardiac arrhythmia admitted following a syncopal episode. [facility] resident. Reporting some right leg pain following the episode of syncope. No palpitations or lightheadedness. VS and nursing notes reviewed. Well appearing. Heart with II/ systolic murmur over the left sternal border and at the 2nd right intercostal space. Regular rate and rhythm. No edema. Lungs are clear to auscultation throughout. Labs and imaging reviewed. 1. syncope. EKG with bradycardia; repeat EKG with NSR. bond manager without pauses, block or supraventricular rhythm. Loop recorder will be interrogated. Recent TTE with mild aortic stenosis; moderate concentric LVH, grade 1 diastolic dysfunction. Defer imaging of the carotids at this time. Appreciate cardiology recommendations. 2. hyponatremia. Hypovolemic. Na 126 on admission, slowly improving with IVFs. If Na continues to improve and PO intake is adequate, can stop IVFs tomorrow. 3. Dysuria. UA without signs of infection. D/C'ed cefepime. 4. hx of TIA. Continue home crestor and Plavix. 5. DM. Continue with basal-bolus insulin. 6. HTN. Holding home candesartan. Did receive amlodipine yesterday. 7. leg pain. likely from soft tissue injury when she fell. Reviewed CT Abd/Pelvis that has good imaging of the FA joint--no fracture. Dispo: pending clinical improvement. PT/OT consulted. Warren Brody is a 81 year old female with history of hypertension, TIA, recurrent UTIs, DM, and eustachian tube dysfunction who was admitted after an episode of syncope. Today 01/19/22: - Patient resting comfortably in her bed with only concern for mild discomfort in her right hip 2/2 fall - Patient primarily interested in getting up and walking around today - She denies any fevers, chest pain, shortness of breath, headaches, lightheadedness, dizziness, or abdominal pains - Patient denies any difficulty moving her leg, notes that it feels achy and bruised Patient endorses 64+ ounces of fluid intake and low dietary intake at [facility]. She endorses walking around the community TID without difficulty. Patient noted recent UTI while on a cruise last month and that she has continued dysuria, but no flank pain or suprapubic pressure. Review of Systems Review of Systems: See HPI. Physical Exam Physical Exam: Gen: NAD, alert, interactive HEENT: Supple, no LAD, no thyromegaly, no JVD Resp:Non-labored, no wheezing/rhonchi/rales, CTAB CV:RRR, normal S1/S2, diastolic murmur at 2nd right and left intercostal space and left sternal border Abd: Soft, non-distended, no TTP, normoactive bowels, no masses Extr: 2+ dp bilaterally, no edema, minimal ecchymosis inferior to right greater trochanter Skin: No rashes lesions or erythema Results & Data Results & Data ([facility]) Vital Signs (Past 12 Hours) Vital Signs Temp Pulse Pulse Resp BP Pulse Ox O2 Del Method 01/19/22 03:34 36.8 C 74 18 148/78 H 98 Room Air 01/18/22 22:19 88 01/18/22 23:31 36.9 C 83 18 128/70 95 Room Air 01/18/22 19:40 126/77 Resident Activity Tracking Resident Involvement: Resident Care Provided Care Provided: Adult Hospital Medicine (1) Diabetes mellitus Diabetes mellitus complication status: without complication Diabetes mellitus [facility]cfp insulin use: without fleet sales 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
[2022-01-19] MEDS: HEPARIN SOD 5,000 UNIT/0.5 ML VIAL SQ SCH ×2 (08:03→20:47)
[2022-01-19] MEDS: CLOPIDOGREL BISULFATE 75 MG TAB PO SCH (08:05)
[2022-01-19] MEDS: INSULIN ASPART PER UNIT SC SCH ×4 (08:09→21:53)
[2022-01-19] MEDS ORDERED: LANTUS PER UNIT CHARGE SQ SCH ×2 (09:00→21:00)
[2022-01-19] MEDS ORDERED: ACETAMINOPHEN 500 MG TAB PO PRN (10:39)
[2022-01-19] MEDS ORDERED: PHARMACY GLYCEMIC MGMT CONSULT PRN (10:54)
[2022-01-19 11:20] LABS: BUN Creatinine Ratio 16.7 (10-20); Calcium 8.6 mg/dl (8.5-10.1); Creatinine Clr Calc Pharmacy 47.5 ml/min; Est GFR (African American) 69.5 ml/min; Potassium 4.4 mmol/L (3.5-5.1)
[2022-01-19 11:24] LABS: Estimated Average Glucose 163 mg/dl; Hemoglobin A1C 7.3 % (4.5-5.6)
[2022-01-19] MEDS: SODIUM CHLORIDE 0.9% 1000ML 1,000 ML IV SCH ×2 (11:55→22:14)
--- NOTE | 2022-01-19 11:55 | Electrocardiogram Report ---
Test Reason : Blood Pressure : / mmHG Vent. Rate : 047 BPM Atrial Rate : 047 BPM P-R Int : 242 ms QRS Dur : 074 ms QT Int : 442 ms P-R-T Axes : 067 054 062 degrees QTc Int : 391 ms Sinus bradycardia with 1st degree A-V block Poor R wave progression, consider anterior HI vs. lead placement vs. LVH Abnormal ECG When compared with ECG of 18-JAN-2022 09:31, Vent. rate has decreased BY 30 BPM Nonspecific T wave abnormality now evident in Anterior leads Confirmed by Romeo Vasquez ([id number]) on 01/19/2022 11:55:30 AM Referred By: Shasta Drake Confirmed By:Romeo Vasquez
--- NOTE | 2022-01-19 12:00 | Electrocardiogram Report ---
Test Reason : Blood Pressure : / mmHG Vent. Rate : 078 BPM Atrial Rate : 078 BPM P-R Int : 208 ms QRS Dur : 078 ms QT Int : 386 ms P-R-T Axes : 068 037 053 degrees QTc Int : 440 ms Normal sinus rhythm with 1st degree A-V block Normal ECG When compared with ECG of 18-JAN-2022 18:01, (unconfirmed) MO interval has decreased Vent. rate has increased BY 31 BPM Nonspecific T wave abnormality no longer evident in Anterior leads Confirmed by Romeo Vasquez ([id number]) on 01/19/2022 12:00:06 PM Referred By: Shasta Drake Confirmed By:Romeo Vasquez
[2022-01-19] MEDS: ACETAMINOPHEN 500 MG TAB PO PRN ×2 (12:25→20:55)
--- NOTE | 2022-01-19 13:30 | Cardiology Consultation ---
Date of Consultation January 19, 2022 Assessment & Plan (1) Syncope: (2) Implantable loop recorder present: (3) Aortic stenosis, mild: (4) Acute hyponatremia: Plan 81-year-old female admitted with acute syncopal episode. Recommend loop recorder interrogation. Orders placed. 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 No need to repeat echocardiogram at this time as study was performed approximately 9 days ago demonstrating preserved LV systolic function and mild aortic valve stenosis. Continue telemetry monitoring. There are no significant pauses, heart block, or symptomatic bradycardic episodes recorded since admission. Recurrent syncopal episode recorded last evening attributed to antihypertensive therapy and documented hypotension with systolic blood pressure in the 60s. Agree with gentle IV hydration in the setting of presumed volume depletion and hyponatremia. Further recommendations pending review of loop recorder interrogation. Thank you for allow me to participate in the care of your patient. History of Present Illness Reason for Consultation: Syncope, possible tachybradycardia Requesting Physician: Dr. Newton Attending Physician: Petros Mckeon DO History of Present Illness 81-year-old female presented to the emergency department with syncope. Patient reports awakening in the a.m. 01/18/2022 and sitting on the edge of her bed. States "I felt I was going out". Lost consciousness and fell to the floor. Notes some mild left-sided hip discomfort. No head trauma or injury. She regained consciousness on the floor and came to the ER for further evaluation and treatment. At approximately 6 PM last night patient suffered a recurrent syncopal episode associated with hypotension. A systolic blood pressure recorded at 63 mmHg. She received a 5 mg dose of amlodipine approximately 90 minutes prior to this episode. Telemetry reviewed demonstrating sinus rhythm, sinus bradycardia, as well as blocked PACs. Minimum heart rate of 47 bpm rec orded. No significant pauses or heart block recorded. Currently resting comfortably. States she has not felt well since her recent trip to [place]. Treated for a bacterial urinary tract infection with Bactrim upon returning home. Found to be hyponatremic on admission. Serum sodium has improved. Carries history of recurrent syncope dating back several years. Loop recorder implanted by Dr. Wynn more than 2 years ago. Most recent interrogation 01/09/2022 without evidence of significant bradycardia or pauses. ECGs since admission demonstrating sinus rhythm and sinus bradycardia. Allergies Allergy/AdvReac Type Severity Reaction Status Date / Time oxycodone AdvReac Severe VOMITING Verified 06/13/20 10:44 aspirin AdvReac Unknown "stomach Verified 06/13/20 10:44 bleeds" codeine AdvReac Unknown vomiting Verified 06/13/20 10:44 Home Medications Medication Instructions Recorded Confirmed Type esomeprazole magnesium 40 mg 40 mg PO QAM 05/11/19 01/20/22 History capsule,delayed release (Nexium) levothyroxine 100 mcg tablet 100 mcg PO QAM 05/11/19 01/20/22 History (Synthroid) metformin 500 mg tablet 1,500 mg PO QPM 05/11/19 06/13/20 History candesartan 8 mg tablet 16 mg PO QPM 05/26/19 01/20/22 History clopidogrel 75 mg tablet (Plavix) 75 mg PO QAM 05/26/19 01/20/22 History rosuvastatin 5 mg tablet (Crestor) 5 mg QPM 05/26/19 01/20/22 History verapamil 240 mg tablet,extended 240 mg PO QPM 05/26/19 07/12/19 History release calcium carbonate 600 mg calcium 1,200 mg PO DAILY 06/11/19 01/20/22 History (1,500 mg) tablet (Calcium) cholecalciferol (vitamin D3) 50 0 unit PO DAILY 06/11/19 01/20/22 History mcg (2,000 unit) tablet (Vitamin D3) cyanocobalamin (vitamin B-12) 0 mcg PO DAILY 06/11/19 01/20/22 History 1,000 mcg tablet (Vitamin B-12) ondansetron HCl 4 mg tablet 4 mg PO Q8H PRN nausea and 06/14/19 07/12/19 Rx (Zofran) vomiting #20 tabs ciprofloxacin 0.3 %-dexamethasone 4 drp otic (ear) BID #7.5 mL 06/30/19 07/12/19 Rx 0.1 % ear drops,suspension omega 0-nhm-ydn-fish oil 1,000 mg 1 cap PO DAILY 07/12/19 07/12/19 History (120 mg-180 mg) capsule (Fish Oil) pioglitazone 45 mg tablet 45 mg PO 02/03/20 02/03/20 History cefuroxime axetil 250 mg tablet 250 mg PO BID #14 tabs 05/02/20 Rx mirabegron 50 mg tablet,extended 50 mg PO DAILY #90 tabs 08/14/20 08/14/20 Rx release 24 hr (Myrbetriq) ciprofloxacin HCl 500 mg tablet 500 mg PO BID 5 days #10 tabs 08/13/21 Rx Patient History Medical History Abrasion, shoulder w/o infection Acute pyelonephritis (~07/2019) Contusion of multiple sites Diabetes mellitus ETD (eustachian tube dysfunction) Fall HTN, goal below 130/80 TIA (transient ischemic attack) Urinary symptom or sign Surgical History History of cholecystectomy History of knee replacement RIGHT History of shoulder surgery History of tonsillectomy and adenoidectomy Family History Sister Hypertension Mother Diabetes Denies family history of Cancer Social History Smoking Status: Former smoker Second Hand Exposure: No; Do You Dip or Chew Tobacco: No; Tobacco Cessation Education Requested by Patient: No Hx Alcohol Use: Yes Alcohol type: wine Hx Substance Use: No Preferred Language: Romansh Communication Ability: Effective Visual Impairment: No Limitations Hearing Ability: Normal Manager Cost Required: No Beliefs That Will Affect Care: Orthodox marital status: / Current Living Situation: Alone and Personal Care Facility Current Living Situation Comment: lives at [facility] current occupational status: retired How many Children do You have: 0 Other Information That Helps Us Care for You: No Feels Safe at Home: Yes Safety Concerns: Feels Safe At This Time during the past year weight has: decreased > 10 lbs Assistive Devices: None Assistive Devices Comment: partial lower Review of Systems Review of Systems: All systems reviewed & are unremarkable except as noted in Subjective Physical Exam Constitutional: well nourished; no acute distress Respiratory: no respiratory distress, no labored breathing and no retractions Auscultation: lungs clear to auscultation bilaterally; no crackles, no rales, no rhonchi and no wheezes Cardiovascular: Rate/Rhythm: regular rate and regular rhythm Heart Sounds: normal S1, normal S2 and + murmur (2/6 systolic ejection murmur heard best at the base) Vessels: radial pulses present; no JVD and no carotid bruit Extremities: no edema Gastrointestinal (Abdomen): Inspection/Auscultation: abdomen normal to inspection and normal bowel sounds; abdomen not distended Percu ssion/Palpation: abdomen soft; abdomen nontender, no guarding and abdomen not rigid Neurologic: CN's II-XI intact bilaterally and moves all extremities; no focal motor deficits Motor/Sensory: no tremor Psychiatric: A+Ox3, euthymic affect Results & Data ([facility]) Vital Signs (Past 12 Hours) Vital Signs Temp Pulse Pulse Resp BP Pulse Ox O2 Del Method 01/19/22 11:54 36.7 C 70 18 137/70 98 Room Air 01/19/22 08:35 65 01/19/22 08:31 36.8 C 77 18 115/73 98 Room Air 01/19/22 03:34 36.8 C 74 18 148/78 H 98 Room Air Diagnostic Findings 2D echocardiogram report [facility] 01/10/2022: The left ventricular cavity size is normal. The LV wall thickness is moderately increased (concentric). The left ventricular wall motion is normal. The qualitative LV ejection fraction is 60-64% (normal). The left ventricular diastolic function is mildly abnormal (grade I). The aortic valve leaflets are mildly calcified greatest in the non coronary cusp. Mild aortic valve stenosis is present. Mild aortic valve regurgitation is present. There is moderate mitral annular calcification. Significant mitral regurgitation is absent.
[2022-01-19] MEDS: LANTUS PER UNIT CHARGE SQ SCH (20:51)
[2022-01-19] MEDS ORDERED: CANDESARTAN 16 MG PO SCH (21:00)
[2022-01-19] MEDS ORDERED: MELATONIN 3 MG TAB PO PRN (21:00)
[2022-01-19] MEDS: ROSUVASTATIN CALCIUM 5 MG TAB PO SCH (22:15)
[2022-01-20] MEDS: LEVOTHYROXINE SODIUM 100 MCG TABLET PO SCH (06:39)
[2022-01-20] MEDS: ACETAMINOPHEN 500 MG TAB PO PRN (06:41)
[2022-01-20 07:32] LABS: Basophils # (auto) 0.04 K/uL (0-0.2); Basophils % (auto) 0.5 %; Eosinophils # (auto) 0.14 K/uL (0-0.50); Eosinophils % (auto) 1.7 %; Hemoglobin 11.1 g/dl (12.0-16.0); Immature Granulocytes # (auto) 0.07 K/uL (0.00-0.02); Immature Granulocytes % (auto) 0.9 %; Lymphocytes # (auto) 1.78 K/uL (1.2-3.4); Lymphocytes % (auto) 22.1 %; Mean Corpuscular Hemoglobin 27.7 pg (25.0-34.0); Mean Corpuscular Hgb Conc 32.6 g/dL (32.0-36.0); Mean Corpuscular Volume 84.8 fL (80.0-100.0); Mean Platelet Volume 8.6 fL (9.4-12.3); Monocytes # (auto) 0.64 K/uL (0.24-0.82); Monocytes % (auto) 7.9 %; Neutrophils # (auto) 5.39 K/uL (1.4-6.5); Neutrophils % (auto) 66.9 %; Platelet Count 286 K/uL (130-400); RDW Coefficient of Variation 13.9 % (11.5-14.5); RDW Standard Deviation 43.5 fL (36.4-46.3); Red Blood Count 4.01 M/uL (3.93-5.22); White Blood Count 8.06 K/ul (4.8-10.8)
[2022-01-20] MEDS: HEPARIN SOD 5,000 UNIT/0.5 ML VIAL SQ SCH ×2 (08:13→20:34)
[2022-01-20] MEDS: CLOPIDOGREL BISULFATE 75 MG TAB PO SCH (08:13)
[2022-01-20 08:15] LABS: Albumin Globulin Ratio 1.8 (0.9-2); Albumin Level 3.2 gm/dl (3.4-5.0); BUN Creatinine Ratio 18.3 (10-20); Bilirubin,Total 0.4 mg/dl (0.2-1.0); Calcium 8.3 mg/dl (8.5-10.1); Creatinine Clr Calc Pharmacy 60.7 ml/min; Est GFR (African American) 92.6 ml/min; Est GFR (Non-African American) 79.9 ml/min; Globulin 1.8 gm/dl (2.5-4.0); Potassium 4.3 mmol/L (3.5-5.1)
[2022-01-20] MEDS: INSULIN ASPART PER UNIT SC SCH ×4 (08:23→20:34)
[2022-01-20] MEDS: SODIUM CHLORIDE 0.9% 1000ML 1,000 ML IV SCH ×2 (08:23→20:42)
[2022-01-20] MEDS ORDERED: ARTIFICIAL TEARS OP PRN (10:14)
--- NOTE | 2022-01-20 10:58 | Hospitalist Progress Note ---
Date of Service January 20, 2022 Assessment & Plan (1) Syncope: Plan: Mary Grace is a 81 year old female with history of hypertension, TIA, recurrent UTIs, DM, and eustachian tube dysfunction who was admitted after an episode of syncope and subsequent fall at home. - Ddx 2/2 Hyponatremia - patient hyponatremic on presentation (126) improved with administration of NS (128, 132) * Patient's baseline Sodium 133-135 * Recent CMP nml w/ exception of hyponatremia (132) and hyperglycemia (111) * Serum Osm - 274 L, Urine Osm - 233 L, Urine Na 47 N * No lower extremity edema or pulmonary edema, mucous membranes moist * Suspect hypovolemic hyponatremia * Will trend BMP for Na and glucose Ddx 2/2 Arrhythmia - patient has hx of arrhythmias/PACs and required a loop recorder by [facility] (nml at time) * High-sensitivity troponin 4.2 (nm) * CXR: No acute findings * EKG 01/18/22: Normal sinus rhythm, first-degree AV block NC 226, QTc 427, no acute ST segment changes/ Comparison EKG 06/2019: NC 202-208, sinus with PACs * Echocardiogram 01/2022 ([employer] [facility]): Moderate concentric LVH, EF 60-64% (normal), Grade 1 diastolic dysfunction, Mild aortic valve stenosis, mild aortic regurg, Moderate mitral annular calcification, No significant mitral regurg, No clinically significant AAS/ Echocardiogram 05/2019: Concentric LVH, LV wall motion normal, EF approximately 62%, moderate aortic sclerosis with mild stenosis * Cardiology consult - Recommendation appreciated, advised to continue telemetry monitoring as there were no significant pauses, heart block, or symptomatic bradycardic episodes recorded since admission. Cardiology noted a recurrent syncopal episode recorded last evening attributed to antihypertensive therapy and documented hypotension with systolic blood pressure in the 60s. Cardiology agreed with gentle IV hydration in the setting of presumed volume depletion and hyponatremia. Recommended loop recorder interrogation at this time. * Candesartan on hold, will re-evaluate in AM - Ddx 2/2 UTI - patient endorsed ongoing dysuria, increased frequency, and inadequate treatment of a UTI in the last month * Most recent UTI found to be growing Lactobacillus, prior urine culture + for Klebsiella/Staph and Cefepime sensitive * Presented with leukocytosis at 13.62 01/18 w/ neutrophil predominance to 10.16, will continue to monitor * Urinalysis 01/19 - negative for acute infection, empiric treatment discontinued due to lack of UTI * Repeat CBC wnl except neutrophilia, will follow (2) Hyponatremia: Plan: See syncope. (3) Arrhythmia: Plan: See syncope. (4) Hypothyroid: Plan: - TSH normal on admission (1.57) (5) HLD (hyperlipidemia): Plan: - Continue home medications (6) Hypertension: Plan: - Continue home Candesartan 16 mg daily. (7) Diabetes mellitus: Plan: - Patient only taking Lantus 6 units in AM, without short acting throughout the day - Currently on Lantus 8 units daily + sliding scale - Recent HbA1c 7.3 - Patient on DM diet while inpatient (8) Nocturia: Plan: - Intolerable to anticholinergics, not taking Myrbetriq - Offered desmopressin/nerve stimulation/Botox previously, she declined - Bladder scan pending Plan DVT prophylaxis: Heparin twice daily, history of epistaxis, SCDs Diet: Heart healthy, DM2 Code Status: DNR/DNI Dispo: Medical/telemetry Admission and Anticipated Discharge Date Admission Date: January 19, 2022 Supervising Physician Co-Signing Physician Notes Patient seen and examined with PGY-1 Dr. Newton. Agree with history, exam findings, assessment and plan of care as outlined. In brief, Ms Garner is an 81 year old female with history of HTN, hypothyroid, TIA, cardiac arrhythmia admitted following a syncopal episode. [facility] resident. No chest pain, dyspnea, dizziness or lightheadedness. VS and nursing notes reviewed. Well appearing. Heart with II/ systolic murmur over the left sternal border and at the 2nd right intercostal space. Regular rate and rhythm. No edema. Lungs are clear to auscultation throughout. Labs and imaging reviewed. 1. syncope. Suspect that this was due to a combination of hyponatremia, hypovolemia, and orthostatic hypotension. Recent TTE with mild aortic stenosis; moderate concentric LVH, grade 1 diastolic dysfunction. Loop recorder interrogation did not show any correlation with arrhythmia or bradycardia with syncopal episode. Defer imaging of the carotid vessels at this time. 2. hyponatremia. Hypovolemic. Na 126 on admission, slowly improving with IVFs. Encouraged PO intake. 3. orthostatic hypotension in the setting of chronic hypertension. review of blood pressure here showed isolated systolic hypertension when she is supine, but normotensive during the day when she is seated. Orthostatic vital signs today show significant drop in systolic blood pressure from supine position to seated to standing. HR remained in the 60's. Will hold home candesartan. 4. hx of TIA. Continue home Crestor and Plavix. 5. DM. Continue with basal-bolus insulin. Dispo: Anticipate if she continues to improve, she can be discharged tomorrow. Warren Brody is a 81 year old female with history of hypertension, TIA, recurrent UTIs, DM, and eustachian tube dysfunction who was admitted after an episode of syncope. Today 01/20/22: - Patient resting comfortably in her bed with only concern for mild discomfort in her right hip 2/2 fall - Patient primarily interested in getting up and walking around today - She denies any fevers, chest pain, shortness of breath, headaches, lightheadedness, dizziness, or abdominal pains - Patient denies any difficulty moving her leg, notes that it feels achy and bruised Patient endorses 64+ ounces of fluid intake and low dietary intake at [facility]. She endorses walking around the community TID without difficulty. Patient noted recent UTI while on a cruise last month and that she has continued dysuria, but no flank pain or suprapubic pressure. Review of Systems Review of Systems: See HPI. Physical Exam Physical Exam: Gen: NAD, alert, interactive HEENT: Supple, no LAD, no thyromegaly, no JVD Resp:Non-labored, no wheezing/rhonchi/rales, CTAB CV:RRR, normal S1/S2, diastolic murmur at 2nd right and left intercostal space and left sternal border Abd: Soft, non-distended, no TTP, normoactive bowels, no masses Extr: 2+ dp bilaterally, no edema, minimal ecchymosis inferior to right greater trochanter Skin: No rashes lesions or erythema Results & Data Results & Data ([facility]) Vital Signs (Past 12 Hours) Vital Signs Temp Pulse Pulse Resp BP Pulse Ox O2 Del Method 01/20/22 09:57 64 01/20/22 08:14 36.7 C 60 18 133/71 96 Room Air 01/20/22 04:27 36.5 C 67 18 159/71 H 97 Room Air 01/20/22 02:03 63 (1) Diabetes mellitus Diabetes mellitus complication status: without complication 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
--- NOTE | 2022-01-20 11:18 | Cardiology Progress Note ---
Date of Service January 20, 2022 Assessment & Plan (1) Syncope: (2) Implantable loop recorder present: (3) Aortic stenosis, mild: (4) Acute hyponatremia: Plan 81-year-old female admitted with acute syncopal episode. Loop recorder interrogation demonstrating sinus bradycardia without associated symptoms on the day of admission. There were no bradycardic events, significant pauses, or heart block correlating with syncopal episode occurring at 7:30 AM. No indication for permanent pacemaker implantation at this time. I suspect syncopal episode related to labile blood pressure and intermittent hypotension. Agree with assessing orthostatic hypotension and discontinuation of candesartan. Add bilateral lower extremity compression stockings. Addition of fludrocortisone may be considered in the future if patient demonstrates significant symptomatic orthostatic hypotension refractory to conservative measures. Agree with gentle IV hydration in the setting of presumed volume depletion and hyponatremia. Admission and Anticipated Discharge Date Admission Date: January 19, 2022 Subjective Patient seen examined the bedside. Feeling well today. No recurrent lightheadedness or dizziness. Telemetry reveals sinus rhythm and sinus bradycardia. Occasional blocked PACs and sinus pauses less than 2 seconds recorded overnight during presumed sleep. Loop recorder interrogation reveals an episode of sinus bradycardia at approximately 5:55 AM 01/18/2022. The bradycardic episode does not correlate with the timing of patient's syncope which occurred at approximately 7:30 AM. Review of Systems Review of Systems: All systems reviewed & are unremarkable except as noted in Subjective Physical Exam Constitutional: well nourished; no acute distress Respiratory: no respiratory distress, no labored breathing and no retractions Auscultation: lungs clear to auscultation bilaterally; no crackles, no rales, no rhonchi and no wheezes Cardiovascular: Rate/Rhythm: regular rate and regular rhythm Heart Sounds: normal S1, normal S2 and + murmur (2/6 systolic ejection murmur heard best at the base) Vessels: radial pulses present; no JVD and no carotid bruit Extremities: no edema Gastrointestinal (Abdomen): Inspection/Auscultation: abdomen normal to inspection and normal bowel sounds; abdomen not distended Percussion/Palpation: abdomen soft; abdomen nontender, no guarding and abdomen not rigid Neurologic: CN's II-XI intact bilaterally and moves all extremities; no focal motor deficits Motor/Sensory: no tremor Psychiatric: A+Ox3, euthymic affect Results & Data ([facility]) Vital Signs (Past 12 Hours) Vital Signs Temp Pulse Pulse Resp BP Pulse Ox O2 Del Method 01/20/22 09:57 64 01/20/22 08:14 36.7 C 60 18 133/71 96 Room Air 01/20/22 04:27 36.5 C 67 18 159/71 H 97 Room Air 01/20/22 02:03 63
--- NOTE | 2022-01-20 14:43 | Pharmacy Report ---
Pharmacy Glycemic Short Note 2 - Date of Service January 20, 2022 - Glycemic Short BSG Results (Last 24 hours): 01/19/22 01/19/22 01/20/22 16:50 20:21 00:55 Glucose POC Glucose 174 H 71 101 H 01/20/22 01/20/22 01/20/22 06:24 07:44 11:20 Glucose 109 H POC Glucose 115 H 100 H OUTPATIENT ANTIDIABETIC REGIMEN: * Lantus 6 units SQ QAM ASSESSMENT: * 81 y/o admitted for acute syncope and fall. She has history of Type 2 diabetes managed on basal insulin 6 units at home. * Pharmacy was consulted for glycemic management yesterday. * BSGs are fairly well controlled except for slightly high pre-dinner BSG yesterday. * Fasting BSG is 109 mg/dl today. Continued with initially ordered basal 8 units of insulin at HS. * HS BSG yesterday dropped to 71 mg/dl. Loosened Novolog parameters today. * If patient remains stable, then pharmacy can likely sign off tomorrow. PLAN FOR INPATIENT GLYCEMIC CONTROL: * Basal insulin * Lantus 8 units SQ HS * Bolus insulin: loosened CF/CR * NovoLog per scale ACHS or Q6hrs while NPO * Goal Range: Low 110 mg/dL - High 140 mg/dL * Correction Factor: 40 mg/dL/unit * Nutritional / Prandial insulin per carb ratio of 1 unit per 20 grams CHO consumed
[2022-01-20] MEDS: LANTUS PER UNIT CHARGE SQ SCH (20:34)
[2022-01-20] MEDS: ROSUVASTATIN CALCIUM 5 MG TAB PO SCH (20:35)
[2022-01-21] MEDS: LEVOTHYROXINE SODIUM 100 MCG TABLET PO SCH (06:01)
[2022-01-21] MEDS: SODIUM CHLORIDE 0.9% 1000ML 1,000 ML IV SCH (06:43)
[2022-01-21] MEDS: CLOPIDOGREL BISULFATE 75 MG TAB PO SCH (08:07)
[2022-01-21] MEDS: INSULIN ASPART PER UNIT SC SCH ×2 (08:07→12:16)
[2022-01-21 08:20] LABS: Hematocrit (blood only) 37.6 % (34.1-44.9); Hemoglobin 12.2 g/dl (12.0-16.0); Mean Corpuscular Hemoglobin 28.2 pg (25.0-34.0); Mean Corpuscular Hgb Conc 32.4 g/dL (32.0-36.0); Mean Corpuscular Volume 86.8 fL (80.0-100.0); Mean Platelet Volume 8.2 fL (9.4-12.3); Platelet Count 284 K/uL (130-400); RDW Coefficient of Variation 14.2 % (11.5-14.5); RDW Standard Deviation 45.1 fL (36.4-46.3); Red Blood Count 4.33 M/uL (3.93-5.22); White Blood Count 9.05 K/ul (4.8-10.8)
[2022-01-21 08:40] LABS: BUN Creatinine Ratio 15.2 (10-20); Calcium 8.9 mg/dl (8.5-10.1); Creatinine Clr Calc Pharmacy 54.9 ml/min; Est GFR (African American) 81.4 ml/min; Est GFR (Non-African American) 70.2 ml/min; Potassium 4.4 mmol/L (3.5-5.1)
[2022-01-21] MEDS: HEPARIN SOD 5,000 UNIT/0.5 ML VIAL SQ SCH (08:47)
--- NOTE | 2022-01-21 09:23 | Discharge Summary ---
Date of Service January 21, 2022 Admission HPI Per Admitting Provider Cha Stephen is an 81-year-old female with a past medical history of hypothyroidism, mild aortic stenosis, hyperlipidemia, eustachian tube dysfunction, diabetes mellitus, hypertension who lives at [facility] and presents after an episode of syncope with 1 month of feeling poorly. Episode of syncope. 1mo unwellness since UTI on a cruise. Recent cruise, had a UTI and was put on Bactrim but did not finish the Bactrim due to feeling sick while on Endorses back pain radiating to her right hip at baseline, on steroids for back pain as an outpatient Prior episode of syncope reports she felt hot and diaphoretic. Down for approximately 30 minutes Denies chest pain, chest pressure, headache. Endorses right hip pain for approximately 10 days Endorses dysuria. Hx TIA on plaavix Eating and drinking OK Reports 1 month ago she went on a cruise with her boyfriend. After returning home she felt ill. Urgent care doctor diagnosed her with a UTI and she took bactrim for 3 days but felt extremely ill to the stomach and stopped after 3 days. Several COVID tests were all negative during and the day after the cruise. Day after returning reji efelt tired and 'collapsed'. She got a shot which she is not sure what, but thinks it was an antibiotic for a kidney infection and felt much better. Slowly over the last few weeks does not think she has recovered and progressively has felt more tired. She was going about her normal routine this [facility] and walked in the shower and felt suddenly lightheaded 'and going' and next thing she knew she was bathed in sweat on the floor. Was able to get up on the bed after that, scraped her hand, but felt very weak and tired washed out. She did eat some breakfast since she was diabetic (BSG 109 after the episode) then sat on her chair and read the paper but energy felt progressively more poor and was recommended for ER evaluation. no chest pain or chest pressure. +heart murmur. No nausea, vomiting, diarrhea, or abdominal pain. Hx of vertigo, but reports this did not feel like vertigo, no spinning Did feel syncope coming for a few seconds beforehand Did not hit her head, endorses she scraped her hand Endorses chronic back pain from L2-L4 protruding disk which she finished a prednisone taper for yesterday (taper was ~7 days) Endorses dysuria which has been intermittent but continued in the last month. Endorses recurrent UTIs. Endorses nocturia. Does not take Mybetriq. Has q2h ugency recently for small volumes, worse at night. Denies difficulty voiding, but notes she does have some dribbling and follows with Dr. Serna. Denies change in voiding ability. No URI or cold like symptoms. Medical History: Reviewed Medications: Reviewed. Took all medications this AM. Candasartan, crestor, plaavix, synthroid. Takes insulin for DM (no longer on DM or pioglitasone. '6 clicks of lantus'). No longer taking verapamil. Surgical History: Reviewed Allergies: Reviewed. No narcotics, no aspirin, and notes severe upset stomach to bactrim/sulfa Social History: No tobacco product use, rare social alcohol use Code Status: Surrogate DM would be sister Nanda [phone]. DNR/DNI, discussed with patient at bedside. Admission Exam Per Admitting Provider General: A&Ox3. NAD. Cooperative. HEENT: Atraumatic, normocephalic. Pulm: CTAB A&P. -wheezes, -rales, -rhonchi. Symmetrical chest rise. No increased work of breathing. No respiratory distress. Cardiac: RRR, +SM. Radial pulses intact and symmetrical. Abdominal: Nontender, nondistended, soft. BS present. Ext: Warm, dry. Moving equally. No edema. Principal Diagnosis Syncope, unspecified Discharge Exam Gen: NAD, alert, interactive HEENT: Supple, no LAD, no thyromegaly, no JVD Resp:Non-labored, no wheezing/rhonchi/rales, CTAB CV:RRR, normal S1/S2, diastolic murmur at 2nd right and left intercostal space and left sternal border Abd: Soft, non-distended, no TTP, normoactive bowels, no masses Extr: 2+ dp bilaterally, no edema, minimal ecchymosis inferior to right greater trochanter Skin: No rashes lesions or erythema Discharge Data Allergies Allergy/AdvReac Type Severity Reaction Status Date / Time oxycodone AdvReac Severe VOMITING Verified 06/13/20 10:44 aspirin AdvReac Unknown "stomach Verified 06/13/20 10:44 bleeds" codeine AdvReac Unknown vomiting Verified 06/13/20 10:44 Consultations 01/18/22 11:25 ED Decision to Admit Stat 01/19/22 10:36 Consult Cardiology Routine Ordered Studies 01/18/22 09:47 CT head/brain wo con Stat CT stones [CT abd pelvis wo con] Stat Negative for acute processes. Hospital Course (1) Syncope: Mary Grace is a 81 year old female with history of hypertension, TIA, recurrent UTIs, DM, and eustachian tube dysfunction who was admitted after an episode of syncope and subsequent fall at home. Likely 2/2 an episode of orthostatic hypotension. - Pdx Orthostatic Hypotension * Patient's episodes of syncope correlated with periods of hypotension * Orthostatic vitals + during admission * Candesartan held * Recommend outpatient evaluation of need for antihypertensives residential * BP elevated when flat, normal when upright - Ddx 2/2 Hyponatremia - Patient hyponatremic on presentation (126) improved with administration of NS (134) * Patient's baseline Sodium 133-135 * Recent CMP nml w/ exception of hyponatremia and hyperglycemia (111) * Serum Osm - 274 L, Urine Osm - 233 L, Urine Na 47 N * No lower extremity edema or pulmonary edema, mucous membranes moist * Suspect hypovolemic hyponatremia 2/2 dehydration Ddx 2/2 Arrhythmia - Patient has hx of arrhythmias/PACs and required a loop recorder by [facility] * High-sensitivity troponin 4.2 (nml) * CXR: No acute findings * EKG 01/18/22: Normal sinus rhythm, first-degree AV block IA 226, QTc 427, no acute ST segment changes/ Comparison EKG 06/2019: IA 202-208, sinus with PACs * Echocardiogram 01/2022 ([facility]): Moderate concentric LVH, EF 60-64% (normal), Grade 1 diastolic dysfunction, Mild aortic valve stenosis, mild aortic regurg, Moderate mitral annular calcification, No significant mitral regurg, No clinically significant AAS/ Echocardiogram 05/2019: Concentric LVH, LV wall motion normal, EF approximately 62%, moderate aortic sclerosis with mild stenosis * Cardiology consult - Cardiology noted a recurrent syncopal episode attributed to antihypertensive therapy and documented hypotension with systolic blood pressure in the 60s. Cardiology agreed with gentle IV hydration in the setting of presumed volume depletion and hyponatremia. Loop recorder was interogated and found to show episodes of sinus bradycardia with PACs, episodes of bradycardia were asymptomatic and did not correlated with syncopal events. No additional cardiac procedures were recommended. Cardiology agreed with discontinuation of Candesartan. * Candesartan on held. BP elevated overnight when flat, normal in daytime when upright. - Ddx 2/2 UTI - patient endorsed ongoing dysuria, increased frequency, and inadequate treatment of a UTI in the last month * Presented with leukocytosis at 13.62 01/18 w/ neutrophil predominance to 10.16, will continue to monitor * Urinalysis 01/19 - negative for acute infection, empiric treatment discontinued due to lack of UTI * Dysuria resolved with hydration (2) Hyponatremia: See syncope. (3) Arrhythmia: See syncope. (4) Hypothyroid: - TSH normal on admission (1.57) (5) HLD (hyperlipidemia): - Continue home medications (6) Hypertension: - Continue home Candesartan 16 mg daily. (7) Diabetes mellitus: - Patient only taking Lantus 6 units in AM at home, without short acting throughout the day - Currently on Lantus 7 units daily + sliding scale (does not use sliding scale at home, only uses Lantus in AM) - Recent HbA1c 7.3 - Patient on DM diet while inpatient (8) Nocturia: - Intolerable to anticholinergics, not taking Myrbetriq - Pt. offered desmopressin/nerve stimulation/Botox previously, she declined Plan DVT prophylaxis: Heparin BID inpatient, SCDs Diet: Heart healthy, DM2 Code Status: DNR/DNI Dispo: Home to independent living at [facility] Total Time Total Time Spent Total Time Spent (In Minutes): <30 Discharge Plan Discharge Items Patient Disposition: Personal Senior Living Reason For Visit: SYNCOPE, HYPOATREMIA, ARRYTHMIA Discharge Diagnosis: Syncope 2/2 Orthostatic Hypotension Condition on Discharge: Good Activity: Resume your previous activity Lifting: Gradually increase as tolerated Sexual Activity: When tolerated Weightbearing: Full weightbearing Non-emergency contact: Primary Care Provider Call non-emergency contact if: you have any medication questions, your symptoms worsen, you have a fever and your temperature is above 101 Follow-up/Referrals: Shasta Drake [Primary Care Provider] - Diet: Regular Fluids: 2000ml (8 cups) Diet Comment: Include electrolyte supplementation (avoid added sugar) Addtl Attending Provider Instructions: You were admitted to the hospital for syncope (passing out) and hyponatremia (low sodium levels). For your hyponatremia you were treated with fluids (normal saline) and your low sodium levels gradually improved. For your syncope, you were seen by Cardiology and evaluated for arrhythmias and orthostatic hypotension (low blood pressures when you change positions).After interrogation of your loop recorder, it was determined that your syncopal event did not line up with your periods of bradycardia (slow heart rate). Rather, your syncopal events seemed to align with low blood pressures. We evaluated your blood pressure in different positions, and it showed us that your blood pressure drops significantly when you move from laying to sitting and sitting to standing. This is called orthostatic hypotension. Your blood pressure medications were stopped to help with the orthostatic hypotension. A discharge summary will be sent to your primary care physician to ensure continuity of care. Please bring this discharge summary with you to your next office appointment so that your provider can review it at that time. Follow-up appointments: - Make a follow-up appointment with your PCP within the next week. It is very important that you follow up with them shortly after discharge from the hospital. We have requested a follow-up appointment with your primary care physician within one week of discharge. Please call their office if you do not hear from them. Medications: - Your medication list has been reviewed and reconciled upon discharge to ensure accuracy and continuity of care. An updated list of all your medications is included with your hospital discharge paperwork. Please review this list closely, and make note of any changes. - We discontinued your Candesartan, please do not take this medication after discharge. Follow up with your PCP regarding continued use or discontinuation of this medication. - Please ensure that you are consuming at least 64 ounces of water each day, I recommend supplementing your fluid intake with a low sugar electrolyte supplement. - Call your primary care provider before taking any new medicines (including over- the-counter medicines, vitamins, and supplements), because some of these may interact with your current medications, or may make your symptoms worse. Contact your Primary Care Provider if you experience: - Lightheadedness/Dizziness upon transitioning from laying to sitting or sitting to standing - You have an additional syncopal event (pass out again) - Difficulty following your treatment plan or taking medications Call 911 or go to the emergency department if you experience: - Sudden, severe abdominal pain or nausea/vomiting - Severe chest pain, or chest pain that radiates (moves) to your jaw or arm - Sudden, severe shortness of breath or difficulty breathing It was a pleasure to be a part of your care, Dr. Lázaro Newton Pending Studies at Discharge: No Stand-Alone Forms: My [facility] Mayi Zhaopin, Smoking Cessation Skilled Items Patient informed of condition?: Yes DNR: Yes Discharge Level of Care: Other Communicable Disease: No Discharge Prognosis: Stable Lines: None Urinary Catheter: No Medications and DC Order Prescriptions: New Insulin Glargine Per Unit [Lantus Per Unit] 7 unit subcut HS 90 Days Qty: 1 0RF Continued omega 1-qnx-rww-fish oil [Fish Oil] 1,000 mg (120 mg-180 mg) capsule 1 cap PO DAILY Myrbetriq 50 mg tablet extended release 24 hr 50 mg PO DAILY Qty: 90 3RF metformin 500 mg tablet 1,500 mg PO QPM esomeprazole magnesium [Nexium] 40 mg capsule,delayed release(DR/EC) 40 mg PO QAM levothyroxine [Synthroid] 100 mcg tablet 100 mcg PO QAM ciprofloxacin-dexamethasone 0.3-0.1 % drops,suspension 4 drp OT BID Qty: 7.5 1RF Rx Instructions: Apply to affected ear twice daily for 14 days cyanocobalamin (vitamin B-12) [Vitamin B-12] 1,000 mcg Tablet 0 mcg PO DAILY calcium carbonate [Calcium 600] 600 mg calcium (1,500 mg) Tablet 1,200 mg PO DAILY cholecalciferol (vitamin D3) [Vitamin D3] 2,000 unit Tablet 0 unit PO DAILY ondansetron HCl [Zofran] 4 mg tablet 4 mg PO Q8H PRN (Reason: nausea and vomiting) Qty: 20 0RF clopidogrel [Plavix] 75 mg Tablet 75 mg PO QAM rosuvastatin [Crestor] 5 mg Tablet 5 mg QPM Discontinued cefuroxime axetil 250 mg tablet 250 mg PO BID Qty: 14 0RF ciprofloxacin HCl 500 mg tablet 500 mg PO BID 5 Days Qty: 10 0RF pioglitazone 45 mg tablet 45 mg PO candesartan 8 mg Tablet 16 mg PO QPM verapamil 240 mg Tablet Extended Release 240 mg PO QPM Discharge Orders: Discharge Order (Routine); Ordered 01/21/22 Ordered By: Lázaro Tejada/Other Patient Handouts: Managing Type 2 Diabetes Admission Data Admit Date/Time: 01/19/22 12:06 Attending Provider: Jason Haney Admit Provider: Lázaro Newton Primary Care Provider: Shasta Drake Other Providers: Misha Palmer ; Karson Maloney ; Gabriel Briceno ; Kenneth Hernandez ; Hebert Meneses ; Pj Alexander ; John Beltran ; Shira Juarez ; Fiona Wynn ; Anyi Ledbetter ; Shaji Gupta ; Petros Mckeon. Other Interventions: Discharge Summary Assessment (RN) Last Done: 01/21/22 13:10 Supervising Physician Co-Signing Physician Notes I personally examined the patient and verified all robbins points of history and exam, discussed case, and agree with decision making with Dr Newton Feeling better would like to go home. Stands up without any dizziness. Vitals noted, in general she is awake and alert pleasant no distress. HEENT normocephalic atraumatic mucous membranes moist. Breathing unlabored no accessory muscle use good effort. 1. syncope. Suspect that this was due to a combination of hyponatremia, hypovolemia, and orthostatic hypotension. Recent TTE with mild aortic stenosis; moderate concentric LVH, grade 1 diastolic dysfunction. Loop recorder interrogation did not show any correlation with arrhythmia or bradycardia with syncopal episode. -safe/stable for home, doing well enough to be independent. 2. hyponatremia. Hypovolemic.improving w fluids. outpt f/u 3. orthostatic hypotension in the setting of chronic hypertension. review of blood pressure here showed isolated systolic hypertension when she is supine, but normotensive during the day when she is seated. Orthostatic vital signs earlier in stay showed significant drop in systolic blood pressure from supine position to seated to standing. HR remained in the 60's. Will hold home candesartan -encouraged her to check blood pressures multiple times a day at home. I suspect that some of her orthostasis was from dehydration, but I also wonder if some is that she may have passed her need for an ARBand may not need as much treatment for hypertension. We will have her follow blood pressures closely at home to determine this. If pressures suggested, PCP can start 4. hx of TIA. Continue home Crestor and Plavix. 5. DM. Home regimen and outpatient follow-up Resident Activity Tracking Resident Involvement: Resident Care Provided Care Provided: Adult Hospital Medicine
--- NOTE | 2022-01-21 17:50 | Billing Data ---
Date of Service January 21, 2022 Coding Level of Care Code D/C DAY MANAGEMENT <30 MINS
--- NOTE | 2022-01-21 17:50 | Billing Data ---
Date of Service January 21, 2022 Coding Level of Care Code D/C DAY MANAGEMENT <30 MINS
[2022-01-21] MEDS ORDERED: LANTUS PER UNIT CHARGE SQ SCH (21:00)
== END 2022-01-21 15:59 | disposition home or self-care (01) | DRG 312 ==
LOC: 2N 09:21 → ED 09:21 → SUATTDRO 11:24 → 2N 15:15 → SUATTDRO 01-19 12:06

== ENCOUNTER 2023-07-29 09:04 | Observation (INO) ==
--- NOTE | 2023-06-26 12:20 | PAT Medication Instructions ---
Medication Instructions Date of Service June 26, 2023 Home Medications esomeprazole magnesium 40 mg capsule,delayed release (Nexium) 40 mg PO QAM clopidogrel 75 mg tablet (Plavix) 75 mg PO QAM rosuvastatin 5 mg tablet (Crestor) 5 mg PO QAM omega 7-lgf-ibv-fish oil 1,000 mg (120 mg-180 mg) capsule (Fish Oil) 1 cap PO DAILY candesartan 4 mg tablet 4 mg PO QAM levothyroxine 88 mcg tablet (Synthroid) 88 mcg PO QAM metformin 1,000 mg tablet,extended release 24hr (osmotic) 1,000 mg PO DAILY lunchtime nutritional supplement-fiber oral liquid (Juice Plus) 1 ea PO QAM ubiquinol 100 mg 1 cap PO QAM MEDICATION INSTRUCTIONS ASK your prescriber and surgeon clopidogrel 75 mg tablet (Plavix) 75 mg PO QAM STOP taking 2 weeks before surgery omega 2-jwy-qwp-fish oil 1,000 mg (120 mg-180 mg) capsule (Fish Oil) 1 cap PO DAILY nutritional supplement-fiber oral liquid (Juice Plus) 1 ea PO QAM ubiquinol 100 mg 1 cap PO QAM DO NOT take the morning of surgery candesartan 4 mg tablet 4 mg PO QAM metformin 1,000 mg tablet,extended release 24hr (osmotic) 1,000 mg PO DAILY lunchtime Take morning of surgery With a small sip of water, OTHERWISE NOTHING TO EAT OR DRINK AFTER MIDNIGHT: esomeprazole magnesium 40 mg capsule,delayed release (Nexium) 40 mg PO QAM levothyroxine 88 mcg tablet (Synthroid) 88 mcg PO QAM rosuvastatin 5 mg tablet (Crestor) 5 mg PO QAM Other Notes If you have any questions please call us at [phone] or [phone] or [phone] or [phone]
--- NOTE | 2023-07-01 10:32 | Anesthesiology Consultation ---
Date of Service July 01, 2023 Assessment & Plan (1) Encounter for pre-operative examination: - Check BSG AM DOS - Infectious disease screening: Per assessment on 07/01/23: No known infectious disease contacts or current infectious disease symptoms. Patient at [facility]- independent living. No noted recent Covid positive test result. - Outpatient joint assessment: Pt currently scheduled for inpatient pathway. If surgeon requests review for outpatient joint pathway, patient is not recommended candidate for outpatient joint program from anesthesia standpoint based on available information. - S/P Right TKA (11/12/13): SAB at L3-4 + regional at [facility] >"had awareness and did not like it" during this procedure - Plavix/clopidogrel instructions: patient made aware that for neuraxial anesthesia, Plavix/clopidogrel needs to be held 7 days prior to surgery. Patient voiced understanding/will check if okay with prescriber. - EP/cardiology visit (06/10/23): "Pt returns to EP due to preop evaluation.. Recurrent syncope s/p Linq new insertion and explant of prior 04/09/2023.. Pt is having TKR on the left in July.. Tt doing well from cardiovascular perspective at this time.. Moderate cardiovascular risk for her upcoming TKR; no further cardiac testing necessary.. Continue Plavixif she has to hold it for preop that is okay and I would restart it right afterwards. Educated patient on caution with changing positions to minimize symptomatic orthostatic hypotension" Chart Review Chart Review: Acceptable Risk for Surgery and Patient seen in Pre Admission Testing Teaching & Discussion Pre-Anesthesia Teaching/Discussion Notes: Instructed NPO after midnight before surgery,except medications with 15 cc of water. Medication instructions provided according to the PAT guidelines. History Surgery Operation Date: 07/29/23 07:00 Proposed Procedures p Left Total Knee Arthroplasty - Gabriel Rosado MD Height/Weight Height: 5 ft 4 in Weight: 69.9 kg Allergies Allergy/AdvReac Type Severity Reaction Status Date / Time oxycodone AdvReac Severe Vomiting Verified 07/01/23 10:23 aspirin AdvReac Unknown "Stomach Verified 07/01/23 10:23 bleeds" codeine AdvReac Unknown Vomiting Verified 07/01/23 10:23 Medications Home Medications Medication Instructions Recorded Confirmed Last Taken esomeprazole magnesium 40 mg 40 mg PO QAM 05/11/19 06/26/23 Unknown capsule,delayed release (Nexium) clopidogrel 75 mg tablet (Plavix) 75 mg PO QAM 05/26/19 06/26/23 Unknown rosuvastatin 5 mg tablet (Crestor) 5 mg PO QAM 05/26/19 06/26/23 Unknown omega 9-hnr-jkf-fish oil 1,000 mg 1 cap PO DAILY 07/12/19 06/26/23 Unknown (120 mg-180 mg) capsule (Fish Oil) candesartan 4 mg tablet 4 mg PO QAM 06/26/23 06/26/23 Unknown levothyroxine 88 mcg tablet 88 mcg PO QAM 06/26/23 06/26/23 Unknown (Synthroid) metformin 1,000 mg tablet,extended 1,000 mg PO DAILYBL 06/26/23 06/26/23 Unknown release 24hr (osmotic) nutritional supplement-fiber oral 1 ea PO QAM 06/26/23 06/26/23 Unknown liquid ubiquinol 100 mg-pyrroloquinoline 1 cap PO QAM 06/26/23 06/26/23 Unknown quinone (coenzyme PQQ) 10 mg capsule insulin glargine 8 unit INJ DAILY 07/01/23 07/01/23 Unknown Past Medical History Medical History Aortic stenosis, mild Echo 01/2022: Mild aortic stenosis (HOANG 1.2-1.3cm2, MG 8.2-10 mmhg) Arrhythmia Follows with Dr. Wynn, LINQ II recorder, hx supraventricular ectopic beats BPPV (benign paroxysmal positional vertigo) Chronic hyponatremia Fluctuating levels with sodium levels between high 120s- low 130s Diabetes mellitus IDDM ETD (eustachian tube dysfunction) HLD (hyperlipidemia) on statin HTN, goal below 130/80 Hx of syncope Hx recurrent syncope/falls (none since 2021); had LINQ recorder placed Following with Dr. Wynn Hypothyroid Implantable loop recorder present Medtronic LINQ II (replaced 04/2023) Nocturia TIA (transient ischemic attack) Remote hx "long time ago" Exercise / Class Metabolic Activity III < 4 Walking/Shop/Light housework Past Family History Family History Sister Hypertension Mother Diabetes Other Asthma Stroke Denies family history of Cancer Past Surgical History Surgical History History of cholecystectomy History of knee replacement Right TKA (11/12/13): SAB at L3-4 + regional at [facility] "had awareness and did not like it" during this procedure History of shoulder surgery History of tonsillectomy and adenoidectomy Past Anesthesia History Other (Awareness with Right TKA) Mother- PONV History of PONV No Hx of Motion Sickness and History of PONV Social History Smoking Status: Former smoker Do You Dip or Chew Tobacco: No Smoking End Date: Quit 1974 Hx Alcohol Use: Yes (Very rare) Hx Substance Use: No substance use type: does not use Review of Systems Patient denies chest pain, shortness of breath, fever, chills, cough, wheezing, palpitations. Physical Exam Vital Signs VITALS BP 122/70 P 75 TEMP SP02 98%RA RESP 18 PHYSICAL Full cervical extension range of motion. Full TMJ range of motion. TMD 2.5 finger breaths (small chin) Mallampati Score 2 Dentition: full upper plate, partial lower plate Lungs: clear throughout to auscultation Cardiac: regular rate and rhythm, II-III/ systolic murmur with faint carotid radiation Spine: normal Extremities: no LE edema Lab Results Anesthesia Preop Results Results Anesthesia Widget: WBC 6.82 K/ul (4.8-10.8) 07/01/23 Hgb 11.6 g/dl (12.0-16.0) L 07/01/23 Hct 35.0 % (37.0-47.0) L 07/01/23 Plt 270 K/uL (130-400) 07/01/23 Na 130 mmol/L (136-145) L 07/01/23 K 4.4 mmol/L (3.5-5.1) 07/01/23 Cl 98 mmol/L (98-107) 07/01/23 CO2 26 mmol/L (21-32) 07/01/23 BUN 16 mg/dl (6-23) 07/01/23 Creat 0.81 mg/dl (0.6-1.2) 07/01/23 Glucose Level 101 mg/dl (70-99(Fasting)) H 07/01/23 PT 10.9 Seconds (9.0-12.0) 07/01/23 PTT 28 Seconds (21-31) 07/01/23 INR 1.0 (0.9-1.1) 07/01/23 HA1c 7.1 % (4.5-5.6) H 07/01/23 Blood Type O Negative 07/01/23 Antibody Screen NEGATIVE 07/01/23 Testing Electrocardiogram Date: 07/01/23 SR with first degree AVB at 68bpm. "Otherwise normal ECG" No significant change compared to 01/18/2022 per editorial clerk comparison. Chest X-Ray Date: 07/01/23 FINDINGS: A loop recorder is seen. Calcified aortic knob is seen. The lungs are clear. No evidence of pleural effusion or pneumothorax. IMPRESSION: No acute chest disease. Echocardiogram Date: 01/10/22 LVEF 60-64%. LV wall motion is normal. Moderately increased concentric LV wall thickness. Grade 1 diastolic dysfunction. Aortic valve leaflets are mildly calcified greatest at the noncoronary cusp. Mild AV stenosis (HOANG 1.2-1.3 cm, MG 8.2-10 mmHg). Mild AR. Moderate mitral annular calcification. Other Testing Carotid duplex Date: 08/17/2019 Bilateral ICA stenosis less than 50%. Bilateral vertebral artery antegrade flow. Linq II interrogation Date: 05/29/2023 Alerts or events: None. Presenting rhythm sinus rhythm. Zero tachy/pause/andree/AT/AF. 0.4% PVCs. "Normal remote diagnostic device check"
--- NOTE | 2023-07-26 11:00 | History & Physical Report ---
Date of Service July 26, 2023 Assessment & Plan (1) Left knee DJD: 83-year-old female 10 years out from a right knee replacement with advanced left knee arthritis. She has failed conservative measures. She is ready to have her left knee replaced. Plan: We will take her to the operating room and do a left knee replacement. The risks Mente this procedure planed the patient include but not limited to DVT PE infection neurological injury vascular injury bleeding palm pain limb range of motion sepsis fairly with symptoms excetra. The patient understands and desires to proceed. Informed consent was obtained. Under preoperative workup her sodium was low. She is undergoing treatment with a sodium tablet as well as fluid restriction and her sodium is now normal. She is planning to be discharged to [facility] where she lives. Dr. Rendonges her medical doctor. Will continue the fluid restrictions. She knows to stop the Plavix 7 days preop. Will follow her electrolytes closely postoperatively. DVT prophylaxis will be thigh-high teds, SCDs, and back on her Plavix. (2) History of total right knee replacement: History of Present Illness Chief Complaint: . Persistent left knee pain Primary Care Provider: [facility] . Patient is an 83-year-old female who now presents for surgical treatment of her left knee. Is got a long history of knee problems had a right knee replaced done about 10 years ago. She done well from this. Over the past several years she developed increased pain discomfort in her left knee. As she been through extensive conservative treatment which has become less successful over time. The shots help her temporarily. Meds do not help much at all. She like to get her knee fixed. Allergies Allergy/AdvReac Type Severity Reaction Status Date / Time oxycodone AdvReac Severe Vomiting Verified 07/01/23 10:23 aspirin AdvReac Unknown "Stomach Verified 07/01/23 10:23 bleeds" codeine AdvReac Unknown Vomiting Verified 07/01/23 10:23 Home Medications Medication Instructions Recorded Confirmed Type esomeprazole magnesium 40 mg 40 mg PO QAM 05/11/19 06/26/23 History capsule,delayed release (Nexium) clopidogrel 75 mg tablet (Plavix) 75 mg PO QAM 05/26/19 06/26/23 History rosuvastatin 5 mg tablet (Crestor) 5 mg PO QAM 05/26/19 06/26/23 History omega 8-zzv-vuy-fish oil 1,000 mg 1 cap PO DAILY 07/12/19 06/26/23 History (120 mg-180 mg) capsule (Fish Oil) candesartan 4 mg tablet 4 mg PO QAM 06/26/23 06/26/23 History levothyroxine 88 mcg tablet 88 mcg PO QAM 06/26/23 06/26/23 History (Synthroid) metformin 1,000 mg tablet,extended 1,000 mg PO DAILYBL 06/26/23 06/26/23 History release 24hr (osmotic) nutritional supplement-fiber oral 1 ea PO QAM 06/26/23 06/26/23 History liquid ubiquinol 100 mg-pyrroloquinoline 1 cap PO QAM 06/26/23 06/26/23 History quinone (coenzyme PQQ) 10 mg capsule insulin glargine 8 unit INJ DAILY 07/01/23 07/01/23 History Past Med/Surg History Medical History Chronic hyponatremia Fluctuating levels with sodium levels between high 120s- low 130s BPPV (benign paroxysmal positional vertigo) Hx of syncope Hx recurrent syncope/falls (none since 2021); had LINQ recorder placed Following with Dr. Wynn Nocturia Implantable loop recorder present Medtronic LINQ II (replaced 04/2023) Hypothyroid Aortic stenosis, mild Echo 01/2022: Mild aortic stenosis (HOANG 1.2-1.3cm2, MG 8.2-10 mmhg) HLD (hyperlipidemia) on statin Arrhythmia Follows with Dr. Wynn, LINQ II recorder, hx supraventricular ectopic beats ETD (eustachian tube dysfunction) TIA (transient ischemic attack) Remote hx "long time ago" HTN, goal below 130/80 Diabetes mellitus IDDM Surgical History History of knee replacement Right TKA (11/12/13): SAB at L3-4 + regional at [facility] "had awareness and did not like it" during this procedure History of tonsillectomy and adenoidectomy History of shoulder surgery History of cholecystectomy Family History Sister Hypertension Mother Diabetes Other Asthma Stroke Denies family history of Cancer Social History Smoking Status: Never smoker Second Hand Exposure: No; Do You Dip or Chew Tobacco: No; Hx Alcohol Use: Yes (Very rare) Alcohol type: wine Hx Substance Use: No Preferred Language: Turkmen Communication Ability: Effective Visual Impairment: No Limitations Hearing Ability: Normal Accounts Executive Required: No Beliefs That Will Affect Care: None marital status: / Current Living Situation: Alone Current Living Situation Comment: at [facility] current occupational status: retired How many Children do You have: 0 Feels Safe at Home: Yes during the past year weight has: decreased > 10 lbs Assistive Devices: Denture - Upper, Denture - Lower, Glasses and Hearing Aid - Bilateral Review of Systems All systems reviewed & are unremarkable except as noted in HPI & below. Physical Exam . Physical examination reveals a pleasant elderly female. She looks to be in reasonably good health. Examination of the left knee reveal patient ambulates independently. She does limp on his left side. Good varus alignment to her knee. She is tender over the medial joint line. She got bony hypertrophy medially. Small knee effusion. Range of motion is near full extension to 120 degrees of flexion. No instability. No pain with hip motion. Constitutional WD/WN, vitals as above Neck trachea midline, no thyromegaly Respiratory normal respiratory effort, lungs clear to auscultation Cardiovascular RRR, no murmur, no edema Gastrointestinal (Abdomen) normal bowel sounds, soft, nontender, no hepatosplenomegaly Results & Data Results & Data Laboratory Results . Diagnostic Findings . X-rays of the left knee were reviewed. Shows advanced medial compartment arthritis. She got complete loss of her medial joint space. She got osteophytes primarily medially. A little bit of chondrocalcinosis. The right knee replacement looks to be good position without problems. PG Care Time/CCT Total # of Minutes Spent Total Time Spent with Patient: Total time spent is greater than 50% in coordination of care (as documented) at patient's floor/unit and/or counseling patient: Coding Level of Care Code None Diagnoses Left knee DJD M17.12 History of total right knee replacement Z96.651
[~2023-07-29 09:04] MED LIST changes: -ACET-1693 PO; +BUPIVACAINE 0.5 % 5 MG/1 ML PF 10ML VIAL ONE; -CALC1CHW PO; -CHOL1000 PO; -CLOP1TAB5 PO; -DVN80 PO; -LEVO100T PO; -METF750T PO; -NXM/40 PO; +ROPIVACAINE 0.5% 5 MG/ML 30 ML VIAL ONE; -ROSU5TAB PO; -SPIR25TA5 PO; -VRPSR240 PO
[2023-07-29] MEDS: LR 60ML/HR IV SCH (09:22)
[2023-07-29] MEDS: ACETAMINOPHEN 500 MG TAB PO SCH ×2 (09:22→17:22)
[2023-07-29] MEDS: FAMOTIDINE 20 MG TAB PO SCH (09:22)
[2023-07-29] MEDS: CeleBREX 200 MG CAP PO SCH (09:22)
[2023-07-29] MEDS: METOCLOPRAMIDE HCL 10 MG TABLET PO SCH (09:23)
[2023-07-29] MEDS: LR 500ML BOLUS, THEN 15ML/HR IV SCH (09:30)
[2023-07-29] MEDS ORDERED: fentaNYL citrate PF 100 MCG/2 ML VIAL ONE (10:25)
[2023-07-29] MEDS ORDERED: ATROPINE SULFATE 0.1 MG/ML 10ML SYR IV PRN (10:29)
[2023-07-29] MEDS ORDERED: fentaNYL citrate PF 100 MCG/2 ML VIAL IV PRN (10:29)
[2023-07-29] MEDS ORDERED: ePHEDrine sulfate 50 MG/ML AMP IV PRN (10:29)
--- NOTE | 2023-07-29 10:42 | History & Physical Bridge Note ---
Date of Service July 29, 2023 History & Physical Bridge Note I have examined the patient, reviewed the History & Physical and in the interval since the performance of the History & Physical I have noted the following changes of clinical significance: no changes noted
[2023-07-29] MEDS: ceFAZolin 2000MG 2,000 MG/15 ML SYR IV SCH (11:06)
[2023-07-29] MEDS ORDERED: LIDOCAINE 2% 2 ML VIAL/AMP(20MG/ML) INFIL ONE (11:26)
[2023-07-29] MEDS ORDERED: PROPOFOL IV EMULSION 10 MG/ML 20 ML VIAL IV ONE ×2 (11:26→11:45)
[2023-07-29] MEDS: TRANEXAMIC ACID 1,000 MG **IV Intra-op IV SCH (11:55)
[2023-07-29] MEDS: ROPIV 0.5% 246mg, Ketorolac 30mg, EPINEPHrine 0.5mg in NSS INFIL SCH (11:58)
[2023-07-29] MEDS: ORTHO JOINT ANESTHETIC ONE (12:12)
--- NOTE | 2023-07-29 12:55 | Operative Report ---
PG Post Operative Report Pre & Post Diagnosis Operation Date: 07/29/23 10:40 Pre-Op Diagnosis: Left Knee Advanced Degenerative Joint Disease Post-Op Diagnosis: Left Knee Advanced Degenerative Joint Disease I identified the patient and participated in the time-out.: Yes Procedure Operation Date: 07/29/23 10:40 Actual Procedures p Left Total Knee Arthroplasty(Left) - Gabriel Rosado MD Surgeon Gabriel Rosado MD Home Office Claims Examiner Martín Garcia PA-C Estimated Blood Loss 50 Findings Consistent with Post-Op Diagnosis Operative findings revealed advanced left knee DJD. She had grade 4 pnlq-dl-rjre disease the medial compartment. She had a fixed varus deformity to her knee. Moderate-sized joint effusion. Osteophytes primarily medially. Specimens Left knee sent for pathology Anesthesia Type Spinal MAC Complications none Disposition Accompanied Patient To Recovery: No Indications Patient 83-year-old female is had a long history of knee problems over the years. She been through extensive conservative treatment. She had a right knee replaced in the past and done well with this. She continues to be limited by left knee pain and discomfort. She failed conservative measures and elected proceed with a left total knee arthroplasty. Description of Procedure Operative implants consist of: 1. Biomet Vanguard size 62.5 left posterior stabilized femoral component. 2. Biomet size 67 tibial tray. 3. 10 mm post stabilized polyethylene insert. 4. 28 x 8 all poly. The patient was taken to the operating, identified, placed on the operating table in the supine position. All contact areas were appropriately padded. IV antibiotics tried by anesthesia team. A spinal anesthetic and abductor canal block had provided in the holding area. Ramey catheter was placed in sterile fashion to the left was then placed in the left lower extremities then prepped and draped in usual sterile fashion. The left leg was elevated exsanguinated with use of an Esmarch and the tourniquet was placed at 300 mmHg. An anterior approach the left knee was then performed through a longitudinal incision centered over the patella. Sharp dissection was carried through subcutaneous tissues down to the extensor mechanism. A medial parapatellar arthrotomy incision was made. Some subperiosteal dissection was carried out medially. The fat pad was resected from Neath patella tendon. The lateral patellofemoral ligament was released. Patella subluxated laterally and the knee was flexed. The osteophytes were taken off distal femur. The ACL and PCL were then released from distal femur and the tibia subluxated anteriorly. The external treatment line jig was then placed in the interface the tibia and adjusted 14 mm medially. Proximal tibial cut was made removed by millimeter bone from most deficient aspect medial tibial plateau. Some osteophytes taken off medially. Tibia sized to a size 67. Attention drawn to the femur. The distal femur 7 the sharp drill. Intramedullary canal was suction. A left 5 degree valgus cutting guide was placed. Distal femoral cutting block was pinned in place. Distal femoral cut was made to take an additional 3 mm of bone off distal femur. The femur was then sized to a size 62.5. The AP cutting block was pinned parallel to the epicondylar axis which was 5 degrees of external rotation. The anterior cut, anterior chamfer, posterior cut, posterior chamfer cuts were made. The box cutting guide was placed in a just slight lateral and the box cut was made. The knee was flexed. The remnants of the medial and lateral menisci were excised. The osteophytes were taken off the posterior aspect the femur. Trial femoral component was placed. The tibial tray was pinned Cleopatra external rotation and the drill and stem punch used to create defect in proximal tibia for the tibial tray. The knee was then trialed and the 10 mm insert fit most appropriately. Attention drawn the patella. The patella was cleaned of all soft tissues. Patella thickness measured 20 mm in thickness was cut down to 13. Was sized to a size 28 patella. The lug holes were drilled for the 28 patella. The lateral osteophyte was removed. Patella button was placed. The knee was taken through a range of motion and the patella tracked nicely with no thumbs test. Attention drawn to place the permanent components. All trial components were removed. Bone plug was placed into this femur limit blood loss. A double batch Palacos G cement was mixed. Biomet Vanguard size 62.5 left Po stabilized femoral component, size 67 tibial tray, 10 mm post stabilized polyethylene insert, and a 28 x 8 all poly patella were then cemented in place. The knee was brought out into full extension till cement hardened. Final cement check was then performed. The pericapsular tissues were injected with total of 100 cc of combination of 20 cc of Exparel, 30 cc normal saline, 50 cc of quarter percent Marcaine with epinephrine. Patient did receive 1 g of tranexamic acid. The tourniquet was let down for final tourniquet time 52 minutes. Hemostasis assured use electrocautery. Extensor Metros then closed with combination 1 PDS suture #1 Vicryl suture in a [id number] fashion. Extensor Meclomen checked found to be intact through the subcutaneous tissues then closed with 2 Dexon suture in a buried interrupted fashion skin was closed skin cielo. Leg was then cleaned and dried and sterile dressing with Xeroform, 4 fours, sterile cast padding, Peter bandage were applied. The patient was then transferred to the recovery room in stable condition. Patient tolerated the procedure well and there were no complications. Martín Garcia, my physician electrician's assistant, was present for the entire procedure. His assistance was essential and required for appropriate patient positioning, prepping and draping, surgical exposure, performing the technical details of the operation, placement the implants, closure of the wound, and placement of the sterile bandage. I attest to the content of the Intraoperative Record and any orders documented therein. Any exceptions are noted below.
[2023-07-29] MEDS: ONDANSETRON INJ 2 MG/ML 2 ML VIAL IV PRN ×2 (13:26→18:40)
--- NOTE | 2023-07-29 13:38 | Anesthesiology Progress Note ---
Date of Service July 29, 2023 Anesthesia Post Procedure Vital Signs Vital Signs: Temp Pulse Pulse Resp BP Pulse Ox O2 Del Method 07/29/23 13:35 98.4 F 82 15 169/65 H 95 Room Air 07/29/23 13:25 91 H 21 96 Room Air 07/29/23 13:15 91 H 15 166/88 H 96 Room Air 07/29/23 13:05 84 20 155/78 H 100 Oxymask 07/29/23 12:55 85 20 156/58 H 100 Oxymask 07/29/23 12:47 97.7 F 92 H 18 140/85 99 Oxymask 07/29/23 09:19 97.9 F 76 20 182/73 H 99 Room Air O2 Flow Rate 07/29/23 13:35 07/29/23 13:25 07/29/23 13:15 07/29/23 13:05 2 07/29/23 12:55 8 07/29/23 12:47 8 07/29/23 09:19 Pain Intensity Left Knee: Pain Intensity: 4 Transfer of Care Handoff Completed per policy Notes Mental Status: alert / awake / arousable and participated in evaluation Patient Amnestic to Procedure: Yes Nausea / Vomiting: adequately controlled Pain: adequately controlled Airway Patency, RR, SpO2: stable & adequate BP & HR: stable & adequate Hydration State: stable & adequate Neuraxial Anesthesia: was administered and sensory block is resolving Anesthetic Complications: no major complications apparent and Pt Satisfied with anesthetic care
[2023-07-29] MEDS ORDERED: GLUCAGON FOR INJ 1 MG VIAL SQ PRN (13:57)
[2023-07-29] MEDS ORDERED: CARBOHYDRATES FOR HYPOGLYCEMIA PO PRN (13:57)
[2023-07-29] MEDS ORDERED: oxyCODONE HCL IR 5 MG TAB (IMMEDIATE RELEASE) PO PRN (13:57)
[2023-07-29] MEDS ORDERED: bisacodyL 10 MG SUPP PR PRN (13:57)
[2023-07-29] MEDS ORDERED: MAGNESIUM HYDROXIDE SUSP 30 ML UDC PO PRN (13:57)
[2023-07-29] MEDS ORDERED: ALUMINUM/MAGNESIUM SUSP 30 ML UDC PO PRN (13:57)
[2023-07-29] MEDS ORDERED: GLUCOSE 10 TAB/TUBE PO PRN (13:57)
[2023-07-29] MEDS ORDERED: NALOXONE HCL 0.4 MG/1 ML VIAL/CARP IV PRN (13:57)
[2023-07-29] MEDS ORDERED: DEXTROSE 50% 50 ML SYRINGE IV PRN (13:57)
[2023-07-29] MEDS ORDERED: PHARMACY GLYCEMIC MGMT CONSULT PRN (13:57)
[2023-07-29] MEDS ORDERED: GLUCOSE 40% GEL 15 GM TUBE PO PRN (13:57)
[2023-07-29] MEDS ORDERED: HYDROmorphone INJ 0.5 MG/0.5 ML SYR IV PRN (13:57)
[2023-07-29] MEDS ORDERED: METOCLOPRAMIDE HCL INJ 5 MG/ML 2 ML VIAL IV PRN (13:57)
--- NOTE | 2023-07-29 14:27 | XRay Report ---
LEFT KNEE 2 VIEWS History: Left total knee arthroplasty. Degenerative arthritis. Postop. FINDINGS: The patient is status post a left total knee arthroplasty. The hardware is intact. No fract ure or dislocation. Skin cielo are in place. IMPRESSION: Left total knee arthroplasty. No evidence for hardware complication. ACT 112: Negative or not required by law. Electronically signed by: Eduardo Paulson M.D. 07/29/2023 2:26 PM
--- NOTE | 2023-07-29 14:33 | Pharmacy Report ---
Pharmacy Glycemic Short Note 2 - Date of Service July 29, 2023 - Glycemic Short BSG Results (Last 24 hours): 07/29/23 07/29/23 07/29/23 09:23 12:54 14:17 POC Glucose 117 H 149 H 152 H OUTPATIENT ANTIDIABETIC REGIMEN: * metformin Er 1000mg PO QDL * Lantus 8 units SQ daily * HbA1c 7.1% (07/01/23) ASSESSMENT: * Cha is an 83 YOF admitted status post left total knee arthroplasty with a history of type 2 diabetes mellitus. Pharmacy has been consulted for glycemic management while inpatient. * Preoperative BSG within goal range, currently receiving Ancef, does not appear she received any preoperative steroids, will start with basal insulin at 50% of home dose if BSG is in goal range or higher. May need additional basal insulin tomorrow as dexamethasone 10mg IV * Novolog initiated at a weight based stress of 2. PLAN FOR INPATIENT GLYCEMIC CONTROL: * Hold outpatient oral diabetes medications * Basal insulin * Lantus 4 units SQ daily * Bolus insulin * NovoLog per scale ACHS or Q6hrs while NPO * Goal Range: Low 110 mg/dL - High 140 mg/dL * Correction Factor: 35 mg/dL/unit * Nutritional / Prandial insulin per carb ratio of 1 unit per 11 grams CHO consumed
[2023-07-29] MEDS: INSULIN ASPART PER UNIT CHARGE SC SCH (14:54)
[2023-07-29] MEDS: KETOROLAC TROMETHAMINE 15 MG/ML VIAL IV SCH (15:57)
[2023-07-29] MEDS: LANTUS PER UNIT CHARGE SC SCH (17:21)
[2023-07-29] MEDS: ASCORBIC ACID 500 MG TAB PO SCH (17:22)
[2023-07-29] MEDS: ceFAZolin 1000MG 1,000 MG/7.5 ML SYR IV SCH (18:37)
[2023-07-29] MEDS: TRANEXAMIC ACID / 0.7% NACL 1,000 MG/100 ML BAG IV SCH (18:38)
--- NOTE | 2023-07-29 19:23 | Hospitalist Consultation ---
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 Rosado on 07/29/2023 Patient remains on for postoperative DVT prevention and her history of (2) Hyponatremia: Patient has history of chronic hyponatremia reportedly has volume restriction at home her preoperative sodium level however was normal Initially placed on 1000 mL fluid restriction postoperatively we will check a sodium level release fluid restriction at this time due to her hypertension and give her some crystalloid informal normal saline (3) Diabetes mellitus: Patient typically on metformin and glargine. Currently metformin is on hold will have sliding scale insulin Last hemoglobin A1c 7.1 (4) Hypertension: Patient typically takes candesartan ACEs and ARB will be held and postoperative course to avoid orthostatic hypotension If blood pressure clinic control is required we will employ postoperative intravenous hydralazine and/or amlodipine (5) Syncope: Patient sees doctors as Bailey and has a loop recorder implanted, will try to interrogate this on 07/30/2023. Last admission exhibited status bradycardia however there were no previously recorded bradycardic events pauses or heart block 1 loop recorder was interrogated during her admission in January 2022. Concerns for orthostatic hypotension and consideration of compressive stockings and fludrocortisone History of Present Illness Attending Physician: Gabriel Rosado MD History of Present Illness 83-year-old female underwent right total knee arthroplasty on 07/29/[address] Rosado. Sheri luciano was called somewhere around 6:45 PM. The patient had a presyncopal/syncopal event where she was lost conscious for a brief period of time she was diaphoretic and hypotensive. She was slightly bradycardic. Patient is a history of having a loop recorder and previous syncopal events but has not had any for about a year. Reportedly postoperatively she was placed on 1000 mL fluid restriction EKG checked at that time showed to be a first-degree block bradycardia no acute ST or T wave changes and a sinus mechanism was recommended Patient received 150 mL normal saline bolus her blood pressure improved we will complete the remainder of the liter. Laboratories to be checked including a CBC chemistry magnesium. Allergies Allergy/AdvReac Type Severity Reaction Status Date / Time oxycodone AdvReac Severe Vomiting Verified 07/29/23 09:29 aspirin AdvReac Unknown "Stomach Verified 07/29/23 09:29 bleeds" codeine AdvReac Unknown Vomiting Verified 07/29/23 09:29 Home Medications Medication Instructions Recorded Confirmed Type esomeprazole magnesium 40 mg 40 mg PO QAM 05/11/19 07/29/23 History capsule,delayed release (Nexium) clopidogrel 75 mg tablet (Plavix) 75 mg PO QAM 05/26/19 07/29/23 History rosuvastatin 5 mg tablet (Crestor) 5 mg PO QAM 05/26/19 07/29/23 History omega 5-nas-rit-fish oil 1,000 mg 1 cap PO DAILY 07/12/19 07/29/23 History (120 mg-180 mg) capsule (Fish Oil) candesartan 4 mg tablet 4 mg PO QAM 06/26/23 07/29/23 History levothyroxine 88 mcg tablet 88 mcg PO QAM 06/26/23 07/29/23 History (Synthroid) metformin 1,000 mg tablet,extended 1,000 mg PO DAILYBL 06/26/23 07/29/23 History release 24hr (osmotic) nutritional supplement-fiber oral 1 ea PO QAM 06/26/23 07/29/23 History liquid ubiquinol 100 mg-pyrroloquinoline 1 cap PO QAM 06/26/23 07/29/23 History quinone (coenzyme PQQ) 10 mg capsule insulin glargine 8 unit INJ DAILY 07/01/23 07/29/23 History acetaminophen 500 mg tablet 1,000 mg (2 x 500 mg) PO TID pain 07/27/23 07/29/23 Rx (Tylenol Extra Strength) 30 days #180 tabs cefadroxil 500 mg capsule 500 mg PO BID 7 days #14 caps 07/27/23 07/29/23 Rx ondansetron 4 mg disintegrating 4 mg PO Q8 PRN nausea #20 tabs 07/27/23 07/29/23 Rx tablet sennosides 8.6 mg tablet (Senokot) 8.6 mg PO BID prevent constipation 07/27/23 07/29/23 Rx 14 days #28 tabs Patient History Medical History (Updated 07/30/23 @ 12:21 by Gabriel Rosado MD) Failed total left knee replacement Chronic hyponatremia Fluctuating levels with sodium levels between high 120s- low 130s BPPV (benign paroxysmal positional vertigo) Hx of syncope Hx recurrent syncope/falls (none since 2021); had LINQ recorder placed Following with Dr. Wynn Nocturia Implantable loop recorder present Medtronic LINQ II (replaced 04/2023) Hypothyroid Aortic stenosis, mild Echo 01/2022: Mild aortic stenosis (HOANG 1.2-1.3cm2, MG 8.2-10 mmhg) HLD (hyperlipidemia) on statin Arrhythmia Follows with Dr. Wynn, LINQ II recorder, hx supraventricular ectopic beats ETD (eustachian tube dysfunction) TIA (transient ischemic attack) Remote hx "long time ago" HTN, goal below 130/80 Diabetes mellitus IDDM Surgical History History of knee replacement Right TKA (11/12/13): SAB at L3-4 + regional at [facility] "had awareness and did not like it" during this procedure History of tonsillectomy and adenoidectomy History of shoulder surgery History of cholecystectomy Family History Sister Hypertension Mother Diabetes Other Asthma Stroke Denies family history of Cancer Social History Smoking Status: Never smoker Second Hand Exposure: No; Do You Dip or Chew Tobacco: No; Hx Alcohol Use: Yes (Very rare) Alcohol type: wine Hx Substance Use: No Preferred Language: [place] Communication Ability: Effective Visual Impairment: No Limitations Hearing Ability: Normal Orthopedic Mechanic Required: No Beliefs That Will Affect Care: None marital status: / Current Living Situation: Alone Current Living Situation Comment: at [facility] current occupational status: retired How many Children do You have: 0 Feels Safe at Home: Yes during the past year weight has: decreased > 10 lbs Assistive Devices: Walker Physical Exam Physical Exam: Code purple the patient only was initially fatigued and her mental status improved. She also initially was pale without improved blood pressure. She is awake alert appropriate oriented x 3 Card exam is regular I hear no systolic murmur Lungs are clear without wheezes or crackles Abdomen is soft nontender nondistended Left leg has a compressive bandage in place Right leg has teds in place. Results & Data Results & Data Vital Signs (Past 12 Hours) Vital Signs Temp Pulse Pulse Resp BP Pulse Ox O2 Del Method 07/29/23 19:09 97.9 F 63 16 133/65 98 Room Air 07/29/23 18:56 79/39 L 07/29/23 18:51 63/36 L 07/29/23 18:50 54 L 12 80/48 L 99 Room Air 07/29/23 16:38 98.1 F 75 18 129/67 98 Room Air 07/29/23 15:27 79 16 148/73 H 97 Room Air 07/29/23 14:48 86 18 145/67 H 97 Room Air 07/29/23 14:06 Room Air 07/29/23 14:01 97.7 F 81 16 165/69 H 96 Room Air 07/29/23 13:35 98.4 F 82 15 169/65 H 95 Room Air 07/29/23 13:25 91 H 21 96 Room Air 07/29/23 13:15 91 H 15 166/88 H 96 Room Air 07/29/23 13:05 84 20 155/78 H 100 Oxymask 07/29/23 12:55 85 20 156/58 H 100 Oxymask 07/29/23 12:47 97.7 F 92 H 18 140/85 99 Oxymask 07/29/23 09:19 97.9 F 76 20 182/73 H 99 Room Air O2 Flow Rate 07/29/23 19:09 07/29/23 18:56 07/29/23 18:51 07/29/23 18:50 07/29/23 16:38 07/29/23 15:27 07/29/23 14:48 07/29/23 14:06 07/29/23 14:01 07/29/23 13:35 07/29/23 13:25 07/29/23 13:15 07/29/23 13:05 2 07/29/23 12:55 8 07/29/23 12:47 8 07/29/23 09:19 PG Care Time/CCT Total # of Minutes Spent Total Time Spent with Patient: Total time spent is greater than 50% in coordination of care (as documented) at patient's floor/unit and/or counseling patient: Coding Level of Care Code 22531 IN/OBS CONSULT LVL 4,60M Diagnoses Left knee DJD M17.12 Hyponatremia E87.1 Type 2 diabetes mellitus without complication, without long-term current use of insulin E11.9 Diabetes mellitus complication status: without complication Diabetes mellitus custodial insulin use: without continuous churn buttermaker use Diabetes mellitus type: type 2 Hypertension I10 Syncope R55 (3) Diabetes mellitus Diabetes mellitus complication status: without complication Diabetes mellitus continuous churn buttermaker insulin use: without custodial use Diabetes mellitus type: type 2 Qualified Code(s): E11.9 - Type 2 diabetes mellitus without complications
[2023-07-29] MEDS: SODIUM CHLORIDE 0.9% 250 ML IV ONE (19:30)
[2023-07-29 19:51] LABS: Hematocrit (blood only) 32.1 % (37.0-47.0); Hemoglobin 10.2 g/dl (12.0-16.0); Mean Corpuscular Hemoglobin 27.5 pg (25.0-34.0); Mean Corpuscular Hgb Conc 31.8 g/dL (32.0-36.0); Mean Corpuscular Volume 86.5 fL (80.0-100.0); Platelet Count 237 K/uL (130-400); RDW Coefficient of Variation 13.7 % (11.5-14.5); RDW Standard Deviation 43.6 fL (36.4-46.3); Red Blood Count 3.71 M/uL (4.20-5.40); White Blood Count 12.92 K/ul (4.8-10.8)
[2023-07-29] MEDS: SODIUM CHLORIDE 0.9% 1,000 ML IV SCH (20:01)
[2023-07-29 20:03] LABS: BUN Creatinine Ratio 21.8 (10-20); Calcium 8.3 mg/dl (8.6-10.3); Creatinine Clr Calc Pharmacy 36.6 ml/min; Est GFR (African American) 53.8 ml/min; Est GFR (Non-African American) 46.4 ml/min; Magnesium 1.6 mg/dl (1.7-2.4); Potassium 4.1 mmol/L (3.5-5.1)
[2023-07-29] MEDS ORDERED: SENNA 8.6 MG TAB PO SCH (21:00)
[2023-07-29] MEDS: DOCUSATE SODIUM 100 MG CAP PO SCH (21:15)
[2023-07-29] MEDS: SENNA 8.6 MG TAB PO SCH (21:15)
[2023-07-30] MEDS: LEVOTHYROXINE SODIUM 88 MCG TABLET PO SCH (05:30)
[2023-07-30 06:26] LABS: Hemoglobin 9.3 g/dl (12.0-16.0); Mean Corpuscular Hemoglobin 27.7 pg (25.0-34.0); Mean Corpuscular Hgb Conc 32.1 g/dL (32.0-36.0); Mean Corpuscular Volume 86.3 fL (80.0-100.0); Mean Platelet Volume 9.1 fL (9.4-12.4); Platelet Count 216 K/uL (130-400); RDW Coefficient of Variation 13.7 % (11.5-14.5); RDW Standard Deviation 43.2 fL (36.4-46.3); Red Blood Count 3.36 M/uL (4.20-5.40); White Blood Count 10.39 K/ul (4.8-10.8)
[2023-07-30 06:57] LABS: Calcium 8.3 mg/dl (8.6-10.3); Creatinine Clr Calc Pharmacy 45.3 ml/min; Est GFR (African American) 69.5 ml/min; Est GFR (Non-African American) 59.9 ml/min
--- NOTE | 2023-07-30 08:22 | Electrocardiogram Report ---
Test Reason : Blood Pressure : / mmHG Vent. Rate : 061 BPM Atrial Rate : 061 BPM P-R Int : 220 ms QRS Dur : 074 ms QT Int : 438 ms P-R-T Axes : 052 046 048 degrees QTc Int : 440 ms Sinus rhythm with 1st degree A-V block Otherwise normal ECG When compared with ECG of 01-JUL-2023 11:01, No significant change was found Confirmed by Pa Todd ([id number]) on 07/30/2023 8:22:00 AM Referred By: Gabriel Rosado Confirmed By:Dominguez Todd
[2023-07-30] MEDS: dexAMETHasone 10 MG in SYRINGE 0 ML IV SCH (08:27)
[2023-07-30] MEDS: MULTIVITAMIN TAB PO SCH (08:28)
[2023-07-30] MEDS: PANTOprazole 40 MG TAB PO SCH (08:28)
[2023-07-30] MEDS: OMEGA-3 (PURIFIED FISH OIL) 1 GM CAP PO SCH (08:28)
[2023-07-30] MEDS: ROSUVASTATIN CALCIUM 5 MG TAB PO SCH (08:28)
[2023-07-30] MEDS: MAGNESIUM SULFATE / D5W 1 GM/100 ML BAG IV ONE (08:41)
[2023-07-30] MEDS ORDERED: [UNRECOGNIZED DRUG - OTHER] PO SCH (09:00)
[2023-07-30] MEDS ORDERED: NON-FORMULARY MEDICATION (Nutritional Supplement-Fiber Liquid) PO SCH (09:00)
[2023-07-30] MEDS ORDERED: LOSARTAN POTASSIUM 25 MG TAB PO SCH (09:00)
--- NOTE | 2023-07-30 11:59 | Pharmacy Report ---
Pharmacy Glycemic Short Note 2 - Date of Service July 30, 2023 - Glycemic Short BSG Results (Last 24 hours): 07/29/23 07/29/23 07/29/23 12:54 14:17 16:19 Glucose POC Glucose 149 H 152 H 176 H 07/29/23 07/29/23 07/29/23 18:50 19:24 20:24 Glucose 142 H POC Glucose 165 H 111 H 07/30/23 07/30/23 07/30/23 05:33 07:30 11:39 Glucose 85 POC Glucose 96 224 H OUTPATIENT ANTIDIABETIC REGIMEN: * metformin Er 1000mg PO QDL * Lantus 8 units SQ daily * HbA1c 7.1% (07/01/23) ASSESSMENT: 07/30 * Patient received total of 11 units of insulin, of which 4 units were basal (50 % home dose) * Fasting BSG 85 mg/dL - dexamethasone ordered this AM, anticipate BSGs to rise. Held NPH this AM due to lower BSGs, however now rising at lunch time >200 - will give 0.2 units/kg NPH x 1 now and tighten to stress of 3 dosing for novolog 07/29 * Cha is an 83 YOF admitted status post left total knee arthroplasty with a history of type 2 diabetes mellitus. Pharmacy has been consulted for glycemic management while inpatient. * Preoperative BSG within goal range, currently receiving Ancef, does not appear she received any preoperative steroids, will start with basal insulin at 50% of home dose if BSG is in goal range or higher. May need additional basal insulin tomorrow as dexamethasone 10mg IV * Novolog initiated at a weight based stress of 2. PLAN FOR INPATIENT GLYCEMIC CONTROL: * Hold outpatient oral diabetes medications * Basal insulin * NPH 14 units x 1 (cover dexamethasone 10 mg iv x 1) * Bolus insulin * NovoLog per scale ACHS or Q6hrs while NPO * Goal Range: Low 110 mg/dL - High 140 mg/dL * Correction Factor: 25 mg/dL/unit * Nutritional / Prandial insulin per carb ratio of 1 unit per 8 grams CHO consumed
--- NOTE | 2023-07-30 12:22 | Surgery Progress Note ---
Date of Service July 30, 2023 Assessment & Plan (1) Failed total left knee replacement: Plan: 83-year-old female postop day 1 from left knee replacement doing pretty well. Pain is controlled. She is neurologically intact. She did have this episode last evening but no further symptoms or problems. Sounds like a vasovagal episode. Plan: 1. DVT prophylaxis including thigh-high teds, SCDs, and back on her Plavix. 2. PT/OT. Weight-bear as tolerated. Left total knee protocol. 3. Pain control doing well with current pain regimen. 4. Disposition plan to discharge to [facility]. Admission and Anticipated Discharge Date Admission Date: July 29, 2023 Subjective 83-year-old female postop day 1 from Left knee replacement.She is doing pretty well. Therapy went well. She did have a vasovagal episode last night and was seen by the hospitalist. No further nausea. Denies any chest pain or shortness of breath. Not feeling dizzy or lightheaded. Physical Exam Physical Exam: Physical examination is a pleasant elderly female. She sitting up in a bedside chair. Usually she looks comfortable. Examination of left leg reveals the dressing be clean dry and intact. She can dorsiflex and plantarflex her foot appropriately. She is neurologically intact. Respiratory: normal respiratory effort, lungs clear to auscultation Cardiovascular: RRR, no murmur, no edema Gastrointestinal (Abdomen): normal bowel sounds, soft, nontender, no hepatosplenomegaly Results & Data Vital Signs (Past 12 Hours) Vital Signs Temp Pulse Resp BP Pulse Ox O2 Del Method 07/30/23 07:29 37.2 C 75 18 125/59 L 95 Room Air 07/30/23 03:00 37.1 C 71 16 124/66 96 Room Air Laboratory Results Hemoglobin is 9.3. Hematocrit is 29.0. Electrolytes are stable.Sodium is normal. PG Care Time/CCT Total # of Minutes Spent Total Time Spent with Patient: Total time spent is greater than 50% in coordination of care (as documented) at patient's floor/unit and/or counseling patient: Coding Level of Care Code 23847 Post Operative Follow-Up Diagnoses Failed total left knee replacement T84.093A
[2023-07-30] MEDS: NovoLIN-N (NPH) PER UNIT CHARGE SQ ONE (12:34)
[2023-07-30] MEDS: CLOPIDOGREL BISULFATE 75 MG TAB PO SCH (12:35)
--- NOTE | 2023-07-30 19:59 | Hospitalist Progress Note ---
Date of Service July 30, 2023 Assessment & Plan (1) Left knee DJD: Plan: Patient underwent left hip total arthroplasty with Dr. Rosado on 07/29/2023 Patient remains on for postoperative DVT prevention (2) Hyponatremia: Plan: Patient did not exhibit any hyponatremia during her hospital stay (3) Diabetes mellitus: Plan: Patient typically on metformin and glargine. On discharge resume her home medication Last hemoglobin A1c 7.1 (4) Hypertension: Plan: Patient typically takes candesartan this can be resumed as an outpatient (5) Syncope: Plan: Patient sees doctors [place] and has a loop recorder implanted, unable to interrogate the loop recorder prior to discharge. Last admission exhibited status bradycardia however there were no previously recorded bradycardic events pauses or heart block 1 loop recorder was interrogated during her admission in January 2022. Admission and Anticipated Discharge Date Admission Date: July 29, 2023 Subjective Patient was seen. She has no untoward effect from last evening. Her blood pressure was improved however her ARB was held. Her sodium and not changed despite not having strict fluid restriction as previously ordered. Physical Exam Physical Exam: Awake alert appropriate oriented x 3 Neurological exam is nonfocal however cannot appropriately test left leg due to recent left knee arthroplasty Card exam is regular lungs are clear Results & Data Results & Data Vital Signs (Past 12 Hours) Vital Signs Temp Pulse Resp BP BP Pulse Ox O2 Del Method 07/30/23 15:19 97.9 F 72 18 130/68 96 Room Air 07/30/23 14:52 99.0 F 75 18 125/59 L 109/62 96 07/30/23 14:23 96 PG Care Time/CCT Total # of Minutes Spent Total Time Spent with Patient: Total time spent is greater than 50% in coordination of care (as documented) at patient's floor/unit and/or counseling patient: Coding Level of Care Code 81610 SUB INP/OBS CARE 235MIN Diagnoses Left knee DJD M17.12 Hyponatremia E87.1 Type 2 diabetes mellitus without complication, without long-term current use of insulin E11.9 Diabetes mellitus type: type 2 Diabetes mellitus shelter insulin use: without shelter use Diabetes mellitus complication status: without complication Hypertension I10 Syncope R55 (3) Diabetes mellitus Diabetes mellitus type: type 2 Diabetes mellitus terminal worker insulin use: without shelter use Diabetes mellitus complication status: without complication Qualified Code(s): E11.9 - Type 2 diabetes mellitus without complications
--- NOTE | 2023-08-07 07:56 | Discharge Summary ---
Date of Service August 07, 2023 Discharge Data Consultations 07/29/23 18:59 Consult Hospitalist Stat Procedures Performed Operation Date: 07/29/23 10:40 Actual Procedures p Left Total Knee Arthroplasty(Left) - Gabriel Rosado MD Hospital Course (1) Status post total left knee replacement: This is a 83 year old patient admitted on 07/29/23 and underwent total knee arthroplasty. She tolerated the procedure well and there were no complications. Transferred to the PACU post op and later to the orthopedic floor for further c are. She was given ancef for antibiotic prophylaxis. She was also given TANESHA stockings, SCDs, and plavix for DVT prophylaxis. Hemoglobin, hematocrit, and vital signs were monitored during her hospital stay and remained stable. Did not require any blood transfusions. She did have a vasovagal/syncopal episode post op and the hospitalist service was consulted. There were no complications during her hospital stay. By post op day #1 the patient was tolerating a diabetic diet, pain was reasonably controlled with oral pain medicine, and she was participating in physical therapy. On post op day #1 the patient was discharged home and set up with home health care. She was given printed discharge instructions including prescriptions for extra strength tylenol, cefadroxil, zofran, and senokot. Continue physical therapy, weight bearing as tolerated. Continue TANESHA stockings. Follow up approximately 2 weeks post op or sooner if there are problems or concerns. Coding Level of Care Code None Diagnoses Status post total left knee replacement Z96.652
== END 2023-07-30 16:14 ==
LOC: ASU 09:04 → INTOOBSV 12:53 → 3E 12:53

== ENCOUNTER 2024-01-26 15:57 | Inpatient (IN) ==
--- NOTE | 2024-01-26 16:11 | ED Triage Note ---
Date of Service January 26, 2024 Provider in Triage Author: Sylwia Santiago History of Present Illness This patient was briefly evaluated while in triage. An abbreviated physical exam was performed. This patient is a 83-year-old Female who presents to the ED for evaluation for possible stroke. Pt. states she lost vision Demetrio evening. States this is in the left eye. Saw Dr. Janine O.D. today outpatient and was diagnosed with CRAO OS. Visual acuity decreased. Pt. is scheduled to see retina specialist. Eye doctor concerned for GCA. Physical Exam VITALS: Vitals are noted on the nurse's note and reviewed by myself. GENERAL: This is an 83 year old female, in no acute distress, nondiaphoretic, well-developed well-nourished. SKIN: No obvious rashes, edema, erythema HEAD: Normocephalic atraumatic. EYES: Conjunctivae without injection, sclerae without icterus. NECK: No JVD. LUNGS: No retractions or accessory muscle use. MUSCULOSKELETAL: Normal gait. NEURO: Patient was alert and oriented to person place and time. No focal neurological deficits. Initial orders for labs and / or imaging were placed and patient was placed in the waiting area until a bed is available. Please see further documentation for the full ED course.
--- NOTE | 2024-01-26 16:34 | Emergency Department Note ---
Impression & Plan Acute CVA (cerebrovascular accident), Change in vision, Central retinal artery occlusion ED Provider Note HISTORY OF PRESENT ILLNESS: Patient is an 83-year-old female presenting with strokelike symptoms. Patient reports that 4 days ago she developed loss of vision in her left eye. She states that it was "like a veil coming down over my left eye." She states that vision did not return and she saw her eye doctor today, Dr. Mehta, at [facility] and was referred to the emergency department for stroke workup. Patient is on Plavix. She denies any headache. Denies any numbness or tingling or weakness in extremities. She states that she now can only see vague outlines of things with her left eye and has complete loss of vision in her central visual mitchell. Reports that she is able to make out outlines along the peripheral vision and is able to see light in the periphery. She did have her eyes dilated at the eye doctor. Denies any chest pain or shortness of breath. Denies any previous history of strokes. ROS: as above PHYSICAL EXAM: Constitutional: Patient appears in no acute distress. HENT: Head: Normocephalic and atraumatic. Eyes: EOMI. Pupils dilated but reactive. Mouth/Throat: Mucous membranes moist. Neck: Trachea midline. Neck supple. Cardiovascular: RRR, No murmurs, rubs or gallops. Intact distal pulses. Pulmonary/Chest: No respiratory distress. Breath sounds clear and equal bilaterally. No wheezes or rales. Abdominal: Abdomen soft, no tenderness, rebound or guarding. Musculoskeletal: No edema, tenderness or deformity noted. Skin: Warm and dry. No rash, erythema, pallor or cyanosis Psychiatric: Appropriate mood and affect for situation. Neurological: Alert and keenly responsive. Facies symmetric. Able to raise eyebrows, close eyes, smile, puff mouth, stick out tongue, move tongue left and right and raise palate symmetrically. Able to shrug shoulders. PERRLA. SILT to forehead below eye and at jawline. Can hear soft noise bilaterally. Strength 5/5 in bilateral upper and lower extremities. SILT throughout bilateral upper and lower extremities. On vision testing, the patient is unable to distinguish anything within the central field of vision. Her lateral peripheral visual mitchell are still intact. Unable to distinguish fingers or shapes on medial peripheral visual mitchell. MDM: - Vitals signs showed hypertension - History obtained via patient. History as above. - Chronic conditions affecting care: HTN; DM-2; hyponatremia; aortic stenosis; HLD; hypothyroidism; implantable loop recorder - Differential diagnoses include, but are not limited to: CVA; central retinal artery occlusion; hypertensive emergency; TIA; intracranial hemorrhage - Order placed for continuous cardiac monitoring. At this time, monitor showed rate of 75 bpm with normal sinus rhythm, per my interpretation. - External medical records reviewed. Documentation from the [facility] was reviewed. Patient previously had 20 out of 30 vision in her left eye about 3 months ago and is now unable to perform visual acuity. Self Pay Specialist concern for central retinal artery occlusion. - EKG interpreted by myself showed normal sinus rhythm. Rate 73 bpm. QT 368. No acute ischemic changes. - Laboratory workup interpreted by myself showed normal WBC; slight hyponatremia (Na 130); normal PT/INR; normal troponin - CT head wo contrast negative for acute pathology - CTA head/neck negative for acute hemorrhage or acute territorial ischemia. Noted at moderate to high-grade focal stenosis of the left posterior cerebral artery. - Patient given 10 mg IV labetalol for her significant hypertension in the emergency department. On reassessment, her blood pressures have trended to a more normal range. - Dr. Mehta did call the emergency department to give report and reports that she is concerned the patient is having central retinal artery occlusion. - Patient is over 72 hours into symptoms and so is not a candidate for TNK. No evidence of large vessel occlusion on physical exam or CT imaging, so not a thrombectomy candidate at this time. Will admit to hospital service for further stroke workup and medical management of risk factors. - Discussion was had with employment evaluator/case manager about patient's case and need for admission - Hospitalist, Dr. Palmer, consulted for admission - Patient admitted to [facility] service for further evaluation and management. 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 Encounter for loop recorder at end of battery life Excessive cerumen in both ear canals Abrasion, shoulder w/o infection (Acute) Advance care planning Contusion of multiple sites (Acute) Diabetes mellitus IDDM Fall (Acute) none recent per pt; last 2021 per chart review HTN, goal below 130/80 Head injury, closed (Acute) Hypomagnesemia (Acute) Intractable vomiting (Acute) Weakness (Acute) Weakness (Acute) ETD (eustachian tube dysfunction) Perforation of right tympanic membrane Mixed hearing loss, bilateral Hx of syncope Hx recurrent syncope/falls (none since 2021); had LINQ recorder placed Following with Dr. Wynn Sepsis (Acute) DVT prophylaxis Urinary symptom or sign Syncope (Acute) Hyponatremia Acute hyponatremia (Acute) Hypertension Nocturia Acid reflux Adverse reaction to anesthetic agent History of total right knee replacement Trochanteric bursitis, left hip Medical History Encounter for pre-operative examination Left knee DJD Chronic hyponatremia Fluctuating levels with sodium levels between high 120s- low 130s BPPV (benign paroxysmal positional vertigo) Nocturia Implantable loop recorder present Medtronic LINQ II (replaced 04/2023) Hypothyroid Aortic stenosis, mild Echo 01/2022: Mild aortic stenosis (HOANG 1.2-1.3cm2, MG 8.2-10 mmhg) HLD (hyperlipidemia) on statin Arrhythmia Follows with Dr. Wynn, LINQ II recorder, hx supraventricular ectopic beats TIA (transient ischemic attack) Remote hx "long time ago" Surgical History History of knee replacement History of tonsillectomy and adenoidectomy History of shoulder surgery History of cholecystectomy Family History Sister Hypertension Mother Diabetes Other Asthma Stroke Denies family history of Cancer Social History Smoking Status: Former smoker Tobacco Type: Cigarettes Second Hand Exposure: No; Do You Dip or Chew Tobacco: No; Hx Alcohol Use: Yes (Very rare) Alcohol type: wine Hx Substance Use: No Preferred Language: Citizen Of [place] Communication Ability: Effective Visual Impairment: No Limitations Hearing Ability: Normal Stereotype Caster Required: No Beliefs That Will Affect Care: None marital status: / Current Living Situation: Alone Current Living Situation Comment: at [facility] current occupational status: retired How many Children do You have: 0 Feels Safe at Home: Yes during the past year weight has: decreased > 10 lbs Assistive Devices: Walker Allergies Allergies Allergy/AdvReac Type Severity Reaction Status Date / Time cefadroxil AdvReac Severe DIARRHEA Verified 11/16/23 18:36 FOR 4 WEEKS oxycodone AdvReac Severe Vomiting Verified 11/16/23 18:36 aspirin AdvReac Intermediate "Stomach Verified 11/16/23 18:36 bleeds" codeine AdvReac Intermediate Vomiting Verified 11/16/23 18:36 Home Meds Home Medications Medication Instructions Recorded Confirmed esomeprazole magnesium 40 mg 40 mg PO QAM 05/11/19 11/16/23 capsule,delayed release (Nexium) clopidogrel 75 mg tablet (Plavix) 75 mg PO QAM 05/26/19 11/16/23 omega [id number]-[id number]-fish oil 1,000 mg 1 cap PO DAILY 07/12/19 11/16/23 (120 mg-180 mg) capsule (Fish Oil) candesartan 4 mg tablet 4 mg PO QAM 06/26/23 11/16/23 levothyroxine 88 mcg tablet 88 mcg PO QAM 06/26/23 11/16/23 (Synthroid) nutritional supplement-fiber oral 1 ea PO QAM 06/26/23 11/16/23 liquid ubiquinol 100 mg-pyrroloquinoline 1 cap PO QAM 06/26/23 11/16/23 quinone (coenzyme PQQ) 10 mg capsule insulin glargine 100 unit/mL (3 8 unit subcut DAILY 11/16/23 11/16/23 mL) subcutaneous pen (Lantus Solostar U-100 Insulin) metformin 1,000 mg 24 hr 1,000 mg PO DAILY 11/16/23 11/16/23 tablet,extended release (gastric reten.) rosuvastatin 5 mg tablet 5 mg PO QAM 11/16/23 11/16/23 Previous Rx's Medication Instructions Recorded acetaminophen 500 mg tablet 1,000 mg (2 x 500 mg) PO TID pain 07/27/23 (Tylenol Extra Strength) 30 days #180 tabs ondansetron 4 mg disintegrating 4 mg PO Q8 PRN nausea #20 tabs 02/18/24 tablet sennosides 8.6 mg tablet (Senokot) 8.6 mg PO BID prevent constipation 07/27/23 14 days #28 tabs Results & Data (ED) Vital Signs Vital Signs - 24 hr 01/26/24 16:07 01/26/24 16:38 01/26/24 17:00 Temperature 36.5 C Temperature Source Temporal Artery Scan Pulse Rate 82 72 Pulse Rate [Right Finger] 72 Pulse Rate from SpO2 Sensor Pulse Rhythm [Right Finger] Regular Pulse Strength [Right Finger] Normal Respiratory Rate 18 20 Respiratory Effort / Characteristics Non-Labored Spontaneous Non-Labored Respiratory Depth Normal Normal Respiratory Pattern Regular Regular Blood Pressure 201/81 H Blood Pressure [Right Arm] 190/73 H Blood Pressure Mean 121 Blood Pressure Mean [Right Arm] 112 Blood Pressure Position [Right Arm] Sitting Pulse Oximetry 94 97 Oxygen Delivery Method Room Air Room Air Sepsis Recent Fever Within 48 Hours No Sepsis New/Unexplained Change in Mental Status N/A Sepsis Action Taken by Nursing No Action Required 01/26/24 17:00 01/26/24 17:33 01/26/24 17:38 Temperature Temperature Source Pulse Rate 70 78 79 Pulse Rate [Right Finger] Pulse Rate from SpO2 Sensor 79 Pulse Rhythm [Right Finger] Pulse Strength [Right Finger] Respiratory Rate 18 23 Respiratory Effort / Characteristics Respiratory Depth Respiratory Pattern Blood Pressure 169/61 H 180/100 H 180/100 H Blood Pressure [Right Arm] Blood Pressure Mean 97 126 Blood Pressure Mean [Right Arm] Blood Pressure Position [Right Arm] Pulse Oximetry 97 100 Oxygen Delivery Method Room Air Sepsis Recent Fever Within 48 Hours Sepsis New/Unexplained Change in Mental Status Sepsis Action Taken by Nursing 01/26/24 17:39 01/26/24 17:42 01/26/24 17:52 Temperature Temperature Source Pulse Rate 76 72 75 Pulse Rate [Right Finger] Pulse Rate from SpO2 Sensor 76 72 Pulse Rhythm [Right Finger] Pulse Strength [Right Finger] Respiratory Rate 17 12 14 Respiratory Effort / Characteristics Respiratory Depth Respiratory Pattern Blood Pressure 177/71 H 161/64 H 151/66 H Blood Pressure [Right Arm] Blood Pressure Mean 106 96 121 Blood Pressure Mean [Right Arm] Blood Pressure Position [Right Arm] Pulse Oximetry 98 98 98 Oxygen Delivery Method Room Air Sepsis Recent Fever Within 48 Hours Sepsis New/Unexplained Change in Mental Status Sepsis Action Taken by Nursing Laboratory Data 01/26/24 16:31 01/26/24 16:31 Lab Results 01/26/24 01/26/24 Range/Units 16:31 16:56 WBC 7.54 (4.8-10.8) K/ul RBC 4.26 (4.20-5.40) M/uL Hgb 11.6 L (12.0-16.0) g/dl Hct 36.4 L (37.0-47.0) % MCV 85.4 (80.0-100.0) fL MCH 27.2 (25.0-34.0) pg MCHC 31.9 L (32.0-36.0) g/dL RDW Std Deviation 41.8 (36.4-46.3) fL RDW Coeff of Gadiel 13.4 (11.5-14.5) % Plt Count 301 (130-400) K/uL MPV 8.5 L (9.4-12.4) fL Immature Gran % (Auto) 0.3 % Neut % (Auto) 74.0 % Lymph % (Auto) 13.9 % Hall % (Auto) 9.0 % Eos % (Auto) 2.1 % Baso % (Auto) 0.7 % Neut # (Auto) 5.58 (1.40-6.50) K/uL Lymph # (Auto) 1.05 L (1.20-3.40) K/uL Hall # (Auto) 0.68 H (0.11-0.59) K/uL Eos # (Auto) 0.16 (0.00-0.50) K/uL Baso # (Auto) 0.05 (0.00-0.20) K/uL Immature Gran # (Auto) 0.02 (0.01-0.20) K/uL PT 10.3 (9.0-12.0) Seconds INR 0.9 (0.9-1.1) APTT 24 (21-31) Seconds PTT Ratio 0.9 Sodium 130 L (136-145) mmol/L Potassium 4.5 (3.5-5.1) mmol/L Chloride 98 (98-107) mmol/L Carbon Dioxide 25 (21-32) mmol/L Anion Gap 7 (3-11) BUN 21 (6-23) mg/dl Creatinine 0.78 (0.6-1.2) mg/dl Est Cr Clr Drug Dosing 51.5 ml/min Est GFR ( Amer) 81.5 ml/min Est GFR (Non-Af Amer) 70.3 ml/min BUN/Creatinine Ratio 26.9 H (10-20) Glucose 130 H (70-99(Fasting)) mg/dl Calcium 9.4 (8.6-10.3) mg/dl Magnesium 1.7 (1.7-2.4) mg/dl Total Bilirubin 0.5 (0.2-1.0) mg/dl AST 13 (13-39) U/L ALT 8 (7-52) U/L Alkaline Phosphatase 69 (34-104) U/L Troponin I High Sens 6.8 (0-14) pg/ml Total Protein 6.6 (6.0-8.3) gm/dl Albumin 4.3 (3.4-5.0) gm/dl Globulin 2.3 L (2.5-4.0) gm/dl Albumin/Globulin Ratio 1.9 (0.9-2) Blood Type O Negative Antibody Screen NEGATIVE Administered Medications Discontinued Medications Ioversol (Optiray 320 125ml) 119 ml IV ONCE ONE Stop: 01/26/24 17:28 Last Admin: 01/26/24 17:28 Dose: 119 ml Documented By: PLW Labetalol HCl (Labetalol Hcl Iv 5 Mg/Ml 20ml) 10 mg IV NOW STA Stop: 01/26/24 17:04 Last Admin: 01/26/24 17:38 Dose: 10 mg Documented By: NH Pantoprazole Sodium (Pantoprazole 40 Mg Tab) 40 mg PO NOW STA Stop: 01/26/24 18:13 Last Admin: 01/26/24 18:18 Dose: 40 mg Documented By: HS Imaging Data Radiologist's Impression: Head CT 01/26/24 16:[address] OF THE BRAIN; CT ANGIOGRAM OF THE BRAIN; CT ANGIOGRAM OF THE NECK CLINICAL HISTORY: Neurological deficit. Stroke like symptoms. COMPARISON STUDY: CT of the brain dated 11/16/2023. CT angiogram of the head and neck dated 07/15/2017. TECHNIQUE: Unenhanced axial CT scan of the brain is performed. Subsequently, following the IV administration of 119 of Optiray 320, CT angiogram of the head and neck was performed from the aortic arch to the vertex. Images are reviewed in the axial, sagittal, and coronal planes. 3-D MIPS images are created and assessed. IV contrast was administered without complication. All measurements were calculated based on NASCET criteria. A dose lowering technique was utilized adhering to the principles of ALARA. CT DOSE: 999.12 mGy.cm FINDINGS: Brain parenchyma: There is age-related involutional change noting moderate subcortical and periventricular microangiopathic disease. There is no hemorrhage, mass effect, or evidence of acute territorial ischemia by CT criteria. There is no evidence of enhancing mass lesion on the angiogram phase images. Mineralization is noted in the basal ganglia. The ventricles, sulci, and cisterns are prominent secondary to involutional change. Carrillo-white matter differentiation is preserved. No extra-axial fluid collection is seen. Thoracic aorta: There is atherosclerotic calcification of the thoracic aorta. Visualized portions of the thoracic aorta are normal in caliber. The aortic arch demonstrates standard 3-vessel anatomy. Right carotid arterial system: The right common carotid artery is widely patent. Advanced atherosclerotic plaque in the carotid bulb causes less than 50% luminal narrowing at the origin of the right internal carotid artery. The internal and external carotid arteries are otherwise widely patent. Left carotid arterial system: The left common carotid artery is widely patent, as are the left internal and external carotid arteries. Calcified plaque is seen in the carotid bulb. Vertebral arteries: There is mild stenosis at the origin of the left vertebral artery. The vertebral arteries are otherwise patent bilaterally and codominant. Subclavian arteries: Widely patent bilaterally. Intracranial vasculature: There is atherosclerotic calcification of the cavernous carotid arteries. The internal carotid arteries are patent at the skull base, as are the anterior and middle cerebral arteries bilaterally. The vertebrobasilar system and posterior cerebral arteries are widely patent. The vertebral arteries are codominant. A posterior communicating artery is seen on the right. There is moderate to high-grade stenosis of the proximal left posterior cerebral artery seen on axial image #75. There is a focal vessel cut off is identified throughout the intracranial circulation. Jugular veins: Patent bilaterally. Dural sinuses: Patent. Lung apices: A calcific granuloma seen at the left apex. Partially visualized upper lobe lung parenchyma otherwise appears clear. Soft tissues: The visualized pharyngeal soft tissues are normal in appearance noting angiographic phase technique. The oropharyngeal airway appears widely patent. The thyroid gland is atrophic. No cervical lymphadenopathy is seen. Skeletal structures: The skeletal structures are osteopenic. The calvarium appears intact. The cervical spine is maintained noting multilevel spondylosis. Orbits: The bony orbits are intact. Orbital contents are normal as visualized noting bilateral ocular lens implants. Sinuses and mastoids: There is trace mucosal thickening within the maxillary antra. The remaining paranasal sinuses are clear. There are left larger than right mastoid effusions. IMPRESSION: 1. There is no hemorrhage, mass effect, or evidence of acute territorial ischemia by CT criteria. 2. 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 3. Otherwise unremarkable CT of the brain. 4. There is mild stenosis at the origin of the left vertebral artery. 5. There is no evidence of hemodynamically significant carotid artery stenosis. ACT 112: Negative or not required by law. Electronically signed by: Bertin Siu M.D. 01/26/2024 5:49 PM Head CTA 01/26/24 16:[address] OF THE BRAIN; CT ANGIOGRAM OF THE BRAIN; CT ANGIOGRAM OF THE NECK CLINICAL HISTORY: Neurological deficit. Stroke like symptoms. COMPARISON STUDY: CT of the brain dated 11/16/2023. CT angiogram of the head and neck dated 07/15/2017. TECHNIQUE: Unenhanced axial CT scan of the brain is performed. Subsequently, following the IV administration of 119 of Optiray 320, CT angiogram of the head and neck was performed from the aortic arch to the vertex. Images are reviewed in the axial, sagittal, and coronal planes. 3-D MIPS images are created and assessed. IV contrast was administered without complication. All measurements were calculated based on NASCET criteria. A dose lowering technique was utilized adhering to the principles of ALARA. CT DOSE: 999.12 mGy.cm FINDINGS: Brain parenchyma: There is age-related involutional change noting moderate subcortical and periventricular microangiopathic disease. There is no hemorrhage, mass effect, or evidence of acute territorial ischemia by CT criteria. There is no evidence of enhancing mass lesion on the angiogram phase images. Mineralization is noted in the basal ganglia. The ventricles, sulci, and cisterns are prominent secondary to involutional change. Carrillo-white matter differentiation is preserved. No extra-axial fluid collection is seen. Thoracic aorta: There is atherosclerotic calcification of the thoracic aorta. Visualized portions of the thoracic aorta are normal in caliber. The aortic arch demonstrates standard 3-vessel anatomy. Right carotid arterial system: The right common carotid artery is widely patent. Advanced atherosclerotic plaque in the carotid bulb causes less than 50% luminal narrowing at the origin of the right internal carotid artery. The internal and external carotid arteries are otherwise widely patent. Left carotid arterial system: The left common carotid artery is widely patent, as are the left internal and external carotid arteries. Calcified plaque is seen in the carotid bulb. Vertebral arteries: There is mild stenosis at the origin of the left vertebral artery. The vertebral arteries are otherwise patent bilaterally and codominant. Subclavian arteries: Widely patent bilaterally. Intracranial vasculature: There is atherosclerotic calcification of the cavernous carotid arteries. The internal carotid arteries are patent at the skull base, as are the anterior and middle cerebral arteries bilaterally. The vertebrobasilar system and posterior cerebral arteries are widely patent. The vertebral arteries are codominant. A posterior communicating artery is seen on the right. There is moderate to high-grade stenosis of the proximal left posterior cerebral artery seen on axial image #75. There is a focal vessel cut off is identified throughout the intracranial circulation. Jugular veins: Patent bilaterally. Dural sinuses: Patent. Lung apices: A calcific granuloma seen at the left apex. Partially visualized upper lobe lung parenchyma otherwise appears clear. Soft tissues: The visualized pharyngeal soft tissues are normal in appearance noting angiographic phase technique. The oropharyngeal airway appears widely patent. The thyroid gland is atrophic. No cervical lymphadenopathy is seen. Skeletal structures: The skeletal structures are osteopenic. The calvarium appears intact. The cervical spine is maintained noting multilevel spondylosis. Orbits: The bony orbits are intact. Orbital contents are normal as visualized noting bilateral ocular lens implants. Sinuses and mastoids: There is trace mucosal thickening within the maxillary antra. The remaining paranasal sinuses are clear. There are left larger than right mastoid effusions. IMPRESSION: 1. There is no hemorrhage, mass effect, or evidence of acute territorial ischemia by CT criteria. 2. 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 3. Otherwise unremarkable CT of the brain. 4. There is mild stenosis at the origin of the left vertebral artery. 5. There is no evidence of hemodynamically significant carotid artery stenosis. ACT 112: Negative or not required by law. Electronically signed by: Bertin Siu M.D. 01/26/2024 5:49 PM Neck CTA 01/26/24 16:[address] OF THE BRAIN; CT ANGIOGRAM OF THE BRAIN; CT ANGIOGRAM OF THE NECK CLINICAL HISTORY: Neurological deficit. Stroke like symptoms. COMPARISON STUDY: CT of the brain dated 11/16/2023. CT angiogram of the head and neck dated 07/15/2017. TECHNIQUE: Unenhanced axial CT scan of the brain is performed. Subsequently, following the IV administration of 119 of Optiray 320, CT angiogram of the head and neck was performed from the aortic arch to the vertex. Images are reviewed in the axial, sagittal, and coronal planes. 3-D MIPS images are created and assessed. IV contrast was administered without complication. All measurements were calculated based on NASCET criteria. A dose lowering technique was utilized adhering to the principles of ALARA. CT DOSE: 999.12 mGy.cm FINDINGS: Brain parenchyma: There is age-related involutional change noting moderate subcortical and periventricular microangiopathic disease. There is no hemorrhage, mass effect, or evidence of acute territorial ischemia by CT criteria. There is no evidence of enhancing mass lesion on the angiogram phase images. Mineralization is noted in the basal ganglia. The ventricles, sulci, and cisterns are prominent secondary to involutional change. Carrillo-white matter differentiation is preserved. No extra-axial fluid collection is seen. Thoracic aorta: There is atherosclerotic calcification of the thoracic aorta. Visualized portions of the thoracic aorta are normal in caliber. The aortic arch demonstrates standard 3-vessel anatomy. Right carotid arterial system: The right common carotid artery is widely patent. Advanced atherosclerotic plaque in the carotid bulb causes less than 50% luminal narrowing at the origin of the right internal carotid artery. The internal and external carotid arteries are otherwise widely patent. Left carotid arterial system: The left common carotid artery is widely patent, as are the left internal and external carotid arteries. Calcified plaque is seen in the carotid bulb. Vertebral arteries: There is mild stenosis at the origin of the left vertebral artery. The vertebral arteries are otherwise patent bilaterally and codominant. Subclavian arteries: Widely patent bilaterally. Intracranial vasculature: There is atherosclerotic calcification of the cavernous carotid arteries. The internal carotid arteries are patent at the skull base, as are the anterior and middle cerebral arteries bilaterally. The vertebrobasilar system and posterior cerebral arteries are widely patent. The vertebral arteries are codominant. A posterior communicating artery is seen on the right. There is moderate to high-grade stenosis of the proximal left posterior cerebral artery seen on axial image #75. There is a focal vessel cut off is identified throughout the intracranial circulation. Jugular veins: Patent bilaterally. Dural sinuses: Patent. Lung apices: A calcific granuloma seen at the left apex. Partially visualized upper lobe lung parenchyma otherwise appears clear. Soft tissues: The visualized pharyngeal soft tissues are normal in appearance noting angiographic phase technique. The oropharyngeal airway appears widely patent. The thyroid gland is atrophic. No cervical lymphadenopathy is seen. Skeletal structures: The skeletal structures are osteopenic. The calvarium appears intact. The cervical spine is maintained noting multilevel spondylosis. Orbits: The bony orbits are intact. Orbital contents are normal as visualized noting bilateral ocular lens implants. Sinuses and mastoids: There is trace mucosal thickening within the maxillary antra. The remaining paranasal sinuses are clear. There are left larger than right mastoid effusions. IMPRESSION: 1. There is no hemorrhage, mass effect, or evidence of acute territorial ischemia by CT criteria. 2. 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 3. Otherwise unremarkable CT of the brain. 4. There is mild stenosis at the origin of the left vertebral artery. 5. There is no evidence of hemodynamically significant carotid artery stenosis. ACT 112: Negative or not required by law. Electronically signed by: Bertin Siu M.D. 01/26/2024 5:49 PM Discharge Plan Visit Data Chief Complaint: Stroke/CVA Symptoms Stated Complaint: REF BY DOC FOR A STROKE WORKUP ED Provider: Drea Guerrero Discharge Problem: Acute CVA (cerebrovascular accident), Change in vision, Central retinal artery occlusion Forms Stand Alone Forms: My [email or web address] Prescriptions Prescriptions: No Action ondansetron 4 mg tablet,disintegrating 4 mg PO Q8 PRN (Reason: nausea) Qty: 20 1RF Rx Instructions: Take as needed for nausea sennosides [Senokot] 8.6 mg tablet 8.6 mg PO BID 14 Days Qty: 28 0RF Rx Instructions: Take two times a day to prevent/treat constipation acetaminophen [Tylenol Extra Strength] 500 mg tablet 1,000 mg PO TID 30 Days Qty: 180 0RF Rx Instructions: Take 3 times per day to lessen pain. omega 4-zgs-hmt-fish oil [Fish Oil] 1,000 mg (120 mg-180 mg) capsule 1 cap PO DAILY esomeprazole magnesium [Nexium] 40 mg capsule,delayed release(DR/EC) 40 mg PO QAM clopidogrel [Plavix] 75 mg Tablet 75 mg PO QAM levothyroxine [Synthroid] 88 mcg tablet 88 mcg PO QAM nutritional supplement-fiber Liquid 1 ea PO QAM ubiquinol-pyrroloquin quinone 100-10 mg Capsule 1 cap PO QAM candesartan 4 mg Tablet 4 mg PO QAM rosuvastatin 5 mg tablet 5 mg PO QAM metformin 1,000 mg Tablet,Er Reji.Retention 24 Hr 1,000 mg PO DAILY insulin glargine [Lantus Solostar U-100 Insulin] 100 unit/mL (3 mL) insulin pen 8 unit SUBCUT DAILY Referrals Referrals: Shasta Drake [Primary Care Provider] -
[2024-01-26 16:51] LABS: Basophils # (auto) 0.05 K/uL (0.00-0.20); Basophils % (auto) 0.7 %; Eosinophils # (auto) 0.16 K/uL (0.00-0.50); Eosinophils % (auto) 2.1 %; Hematocrit (blood only) 36.4 % (37.0-47.0); Hemoglobin 11.6 g/dl (12.0-16.0); Immature Granulocytes # (auto) 0.02 K/uL (0.01-0.20); Immature Granulocytes % (auto) 0.3 %; Lymphocytes # (auto) 1.05 K/uL (1.20-3.40); Lymphocytes % (auto) 13.9 %; Mean Corpuscular Hemoglobin 27.2 pg (25.0-34.0); Mean Corpuscular Hgb Conc 31.9 g/dL (32.0-36.0); Mean Corpuscular Volume 85.4 fL (80.0-100.0); Mean Platelet Volume 8.5 fL (9.4-12.4); Monocytes # (auto) 0.68 K/uL (0.11-0.59); Neutrophils # (auto) 5.58 K/uL (1.40-6.50); Platelet Count 301 K/uL (130-400); RDW Coefficient of Variation 13.4 % (11.5-14.5); RDW Standard Deviation 41.8 fL (36.4-46.3); Red Blood Count 4.26 M/uL (4.20-5.40); White Blood Count 7.54 K/ul (4.8-10.8)
[2024-01-26 17:02] LABS: Albumin Globulin Ratio 1.9 (0.9-2); Albumin Level 4.3 gm/dl (3.4-5.0); BUN Creatinine Ratio 26.9 (10-20); Bilirubin,Total 0.5 mg/dl (0.2-1.0); Calcium 9.4 mg/dl (8.6-10.3); Creatinine Clr Calc Pharmacy 51.5 ml/min; Est GFR (African American) 81.5 ml/min; Est GFR (Non-African American) 70.3 ml/min; Globulin 2.3 gm/dl (2.5-4.0); Magnesium 1.7 mg/dl (1.7-2.4); Potassium 4.5 mmol/L (3.5-5.1); Total Protein 6.6 gm/dl (6.0-8.3)
[2024-01-26 17:08] LABS: Troponin I High Sensitivity 6.8 pg/ml (0-14)
[2024-01-26 17:15] LABS: INR 0.9 (0.9-1.1); Partial Thromboplastin Ratio 0.9; Partial Thromboplastin Time 24 Seconds (21-31); Prothrombin Time 10.3 Seconds (9.0-12.0)
[2024-01-26] MEDS: OPTIRAY 320 125ml IV ONE (17:28)
[2024-01-26] MEDS: LABETALOL HCL IV 5 MG/ML 20ML IV STA (17:38)
--- NOTE | 2024-01-26 17:51 | CT Scan Report ---
UNENHANCED CT OF THE BRAIN; CT ANGIOGRAM OF THE BRAIN; CT ANGIOGRAM OF THE NECK CLINICAL HISTORY: Neurological deficit. Stroke like symptoms. COMPARISON STUDY: CT of the brain dated 11/16/2023. CT angiogram of the head and neck dated 07/15/2017. TECHNIQUE: Unenhanced axial CT scan of the brain is performed. Subsequently, following the IV adminis tration of 119 of [address], CT angiogram of the head and neck was performed from the aortic arch t o the vertex. Images are reviewed in the axial, sagittal, and coronal planes. 3-D MIPS images are cre ated and assessed. IV contrast was administered without complication. All measurements were calculate d based on NASCET criteria. A dose lowering technique was utilized adhering to the principles of ALA RA. CT DOSE: 999.12 mGy.cm FINDINGS: Brain parenchyma: There is age-related involutional change noting moderate subcortical and periventri cular microangiopathic disease. There is no hemorrhage, mass effect, or evidence of acute territorial ischemia by CT criteria. There is no evidence of enhancing mass lesion on the angiogram phase images . Mineralization is noted in the basal ganglia. The ventricles, sulci, and cisterns are prominent sec ondary to involutional change. Carrillo-white matter differentiation is preserved. No extra-axial fluid c ollection is seen. Thoracic aorta: There is atherosclerotic calcification of the thoracic aorta. Visualized portions of the thoracic aorta are normal in caliber. The aortic arch demonstrates standard 3-vessel anatomy. Right carotid arterial system: The right common carotid artery is widely patent. Advanced atheroscler otic plaque in the carotid bulb causes less than 50% luminal narrowing at the origin of the right int ernal carotid artery. The internal and external carotid arteries are otherwise widely patent. Left carotid arterial system: The left common carotid artery is widely patent, as are the left internet merchant al and external carotid arteries. Calcified plaque is seen in the carotid bulb. Vertebral arteries: There is mild stenosis at the origin of the left vertebral artery. The vertebral arteries are otherwise patent bilaterally and codominant. Subclavian arteries: Widely patent bilaterally. Intracranial vasculature: There is atherosclerotic calcification of the cavernous carotid arteries. T he internal carotid arteries are patent at the skull base, as are the anterior and middle cerebral ar teries bilaterally. The vertebrobasilar system and posterior cerebral arteries are widely patent. The vertebral arteries are codominant. A posterior communicating artery is seen on the right. There is m oderate to high-grade stenosis of the proximal left posterior cerebral artery seen on axial image #75 . There is a focal vessel cut off is identified throughout the intracranial circulation. Jugular veins: Patent bilaterally. Dural sinuses: Patent. Lung apices: A calcific granuloma seen at the left apex. Partially visualized upper lobe lung parench yma otherwise appears clear. Soft tissues: The visualized pharyngeal soft tissues are normal in appearance noting angiographic pha se technique. The oropharyngeal airway appears widely patent. The thyroid gland is atrophic. No cervi mya lymphadenopathy is seen. Skeletal structures: The skeletal structures are osteopenic. The calvarium appears intact. The cervic al spine is maintained noting multilevel spondylosis. Orbits: The bony orbits are intact. Orbital contents are normal as visualized noting bilateral ocular lens implants. Sinuses and mastoids: There is trace mucosal thickening within the maxillary antra. The remaining par anasal sinuses are clear. There are left larger than right mastoid effusions. IMPRESSION: 1. There is no hemorrhage, mass effect, or evidence of acute territorial ischemia by CT criteria. 2. 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 3. Otherwise unremarkable CT of the brain. 4. There is mild stenosis at the origin of the left vertebral artery. 5. There is no evidence of hemodynamically significant carotid artery stenosis. ACT 112: Negative or not required by law. Electronically signed by: Bertin Siu M.D. 01/26/2024 5:49 PM
--- NOTE | 2024-01-26 18:13 | History & Physical Report ---
Date of Service January 26, 2024 Assessment & Plan (1) Central retinal artery occlusion: Plan: Admit to the PCU on telemetry Currently stable with ongoing loss of vision in the majority of her left eye which started on 01/23/2024 Was sent to the ED after being evaluated by her net mvc developer earlier today and diagnosed with central retinal artery occlusion CT of the head notes moderate to high-grade focal stenosis of the proximal left posterior cerebral artery CT of the neck is probably mild stenosis of the origin of the left vertebral artery Will give patient full dose enteric-coated aspirin now, continue enteric- coated 81 mg daily tomorrow Will continue home Plavix as well Will obtain MRI of the brain without contrast, TTE, fasting lipid panel, and hemoglobin A1c tomorrow for further evaluation Patient has been on 5 mg Crestor daily, will give an additional 10 mg now and then start high-dose 20 mg daily tomorrow Every 4 hours neuro checks, fall/aspiration precautions, dysphagia screen, PT/OT consults have been placed Bilateral SCDs for DVT prophylaxis Heart healthy/DM type II diet AM CBC, CMP, mag, PT/INR (2) Diabetes mellitus: Plan: Hold metformin Monitor BSG ACHS, goal is [id number] Continue home 8 units a.m. Lantus Start CF of 50 ACHS but hold CR for now as she typically does not eat much for dinner Adjust regimen as needed (3) HTN, goal below 130/80: Plan: Was noted to be hypertensive at 201/81 on arrival and was given 10 mg IV labetalol in the ED Currently stable at 151/66 Will allow for permissive hypertension overnight, can plan to resume home candesartan tomorrow evening if stable (4) Hyponatremia: Plan: Sodium noted to be 130 today, baseline sodium runs in the low 130's Not currently symptomatic Monitor a.m. electrolytes (5) Hypothyroid: Plan: Continue levothyroxine Plan The patient was discussed with Dr. Palmer at the time of the admission History of Present Illness Chief Complaint: Stroke-like symptoms Primary Care Provider: Shasta Eubanks is an 83-year-old female with a past medical history significant for hypertension, diabetes mellitus type 2, hyponatremia, previous TIA, hypothyroidism who presented to the [facility] ED on 01/26/2024 at the recommendation of her net mvc developer due to concerns for retinal artery occlusion in the left eye. On arrival to the ED the patient was noted to be hypertensive with blood pressure of 201/81 but was otherwise stable. Labs were significant for a sodium of 130 but were otherwise unremarkable. CT of the head and brain without contrast and CTA of the head and neck with contrast were read as negative for hemorrhage, mass effect, or evidence of acute tentorial ischemia by CT criteria. 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 Otherwise unremarkable CT of the brain. There is mild stenosis at the origin of the left vertebral artery. There is no evidence of hemodynamically significant carotid artery stenosis. Prior to admission the patient was given 10 mg IV labetalol. Patient was sitting in bed no acute distress at time of exam with her sister sitting bedside, history was obtained from both. Patient states that she was standing in her living room looking out the window the evening of 01/23/2024 when she had sensation that she was pulled over the exam and her left eye causing significant vision loss except for the extreme periphery in her left eye. Symptoms remained constant since they started, she did not seek evaluation over the weekend as she was of the symptoms. She called her net mvc developer this morning who evaluated the tracker board so we can saturate MDS the patient experienced yeah I appreciate the help of her central retinal artery get back in the positional based on dilated eye exam. Patient denies any recent headaches, peristasis, unilateral weakness, gait imbalance, or recent falls. No vision changes in the right eye since symptoms started. She has been taking her Plavix and Crestor as prescribed without recent missed doses. When asked as to why she was taken off aspirin in the past she explains that she had significant nausea while taking aspirin. She explains that she told her PCP about the symptoms and was taken off aspirin and switch to Plavix. Since being switched to Plavix she has been without GI upset. She denies ever undergoing EGD for evaluation of possible stomach ulcer. We discussed CODE STATUS, she wishes to be a full code and for his sister to make medical decisions for her if she cannot make them herself. Please refer to Dr. Palmer's attestation for any changes to the treatment plan Allergies Allergy/AdvReac Type Severity Reaction Status Date / Time cefadroxil AdvReac Severe DIARRHEA Verified 01/26/24 19:15 FOR 4 WEEKS oxycodone AdvReac Severe Vomiting Verified 01/26/24 19:15 aspirin AdvReac Intermediate "Stomach Verified 01/26/24 19:15 bleeds" codeine AdvReac Intermediate Vomiting Verified 01/26/24 19:15 Home Medications Medication Instructions Recorded Confirmed Type esomeprazole magnesium 40 mg 40 mg PO QAM 05/11/19 01/26/24 History capsule,delayed release (Nexium) clopidogrel 75 mg tablet (Plavix) 75 mg PO QAM 05/26/19 01/26/24 History omega 6-gqx-vgl-fish oil 1,000 mg 1 cap PO DAILY 07/12/19 01/26/24 History (120 mg-180 mg) capsule (Fish Oil) candesartan 4 mg tablet 4 mg PO QPM 06/26/23 01/26/24 History levothyroxine 88 mcg tablet 88 mcg PO QAM 06/26/23 01/26/24 History (Synthroid) ubiquinol 100 mg-pyrroloquinoline 1 cap PO QPM 06/26/23 01/26/24 History quinone (coenzyme PQQ) 10 mg capsule acetaminophen 500 mg tablet 1,000 mg (2 x 500 mg) PO TID pain 07/27/23 01/26/24 Rx (Tylenol Extra Strength) 30 days #180 tabs ondansetron 4 mg disintegrating 4 mg PO Q8 PRN nausea #20 tabs 07/27/23 01/26/24 Rx tablet insulin glargine 100 unit/mL (3 8 unit subcut DAILY 11/16/23 01/26/24 History mL) subcutaneous pen (Lantus Solostar U-100 Insulin) metformin 1,000 mg 24 hr 1,000 mg PO DAILY 11/16/23 01/26/24 History tablet,extended release (gastric reten.) rosuvastatin 5 mg tablet 5 mg PO QAM 11/16/23 01/26/24 History Juice Plus Tabs 6 tabs PO QAM 01/26/24 01/26/24 History Past Med/Surg History Problem List (Updated 01/26/24 @ 18:45 by Drea Guerrero MD) Central retinal artery occlusion (Acute) Change in vision (Acute) Acute CVA (cerebrovascular accident) (Acute) 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 Encounter for loop recorder at end of battery life Excessive cerumen in both ear canals Abrasion, shoulder w/o infection (Acute) Advance care planning Contusion of multiple sites (Acute) Diabetes mellitus IDDM Fall (Acute) none recent per pt; last 2021 per chart review HTN, goal below 130/80 Head injury, closed (Acute) Hypomagnesemia (Acute) Intractable vomiting (Acute) Weakness (Acute) Weakness (Acute) ETD (eustachian tube dysfunction) Perforation of right tympanic membrane Mixed hearing loss, bilateral Hx of syncope Hx recurrent syncope/falls (none since 2021); had LINQ recorder placed Following with Dr. Wynn Sepsis (Acute) DVT prophylaxis Urinary symptom or sign Syncope (Acute) Hyponatremia Acute hyponatremia (Acute) Hypertension Nocturia Acid reflux Adverse reaction to anesthetic agent History of total right knee replacement Trochanteric bursitis, left hip Medical History Encounter for pre-operative examination Left knee DJD Chronic hyponatremia Fluctuating levels with sodium levels between high 120s- low 130s BPPV (benign paroxysmal positional vertigo) Nocturia Implantable loop recorder present Medtronic LINQ II (replaced 04/2023) Hypothyroid Aortic stenosis, mild Echo 01/2022: Mild aortic stenosis (HOANG 1.2-1.3cm2, MG 8.2-10 mmhg) HLD (hyperlipidemia) on statin Arrhythmia Follows with Dr. Wynn, LINQ II recorder, hx supraventricular ectopic beats TIA (transient ischemic attack) Remote hx "long time ago" Surgical History History of knee replacement History of tonsillectomy and adenoidectomy History of shoulder surgery History of cholecystectomy Family History Sister Hypertension Mother Diabetes Other Asthma Stroke Denies family history of Cancer Social History Smoking Status: Former smoker Tobacco Type: Cigarettes Second Hand Exposure: No; Do You Dip or Chew Tobacco: No; Hx Alcohol Use: Yes (Very rare) Alcohol type: wine Hx Substance Use: No Preferred Language: Greenlandic Communication Ability: Effective Visual Impairment: No Limitations Hearing Ability: Normal Quality Consultant Required: No Beliefs That Will Affect Care: None marital status: / Current Living Situation: Alone Current Living Situation Comment: at [facility] current occupational status: retired How many Children do You have: 0 Feels Safe at Home: Yes during the past year weight has: decreased > 10 lbs Assistive Devices: Walker Physical Exam Physical Exam: Physical Exam: General: In no acute distress, stated age, well-nourished, good hygiene HEENT: Normocephalic, atraumatic, no scleral icterus, bilateral pupils are currently dilated from recent ophthalmologic exam but around, symmetrical, with right pupil being reactive to light, moist mucus membranes, trachea midline, no thyromegaly Chest/Pulm: No respiratory distress, symmetrical chest expansion, clear breath sounds throughout Cardiac: RRR, 3 out of 6 systolic murmur noted in the aortic region with radiation to the bilateral carotids Abdomen: Negative for ascites and bruising, normoactive bowel sounds, soft, non-tender to palpation throughout Musculoskeletal: Symmetrical and without signs of acute trauma, upper and lower extremities with full ROM, no atrophy, spasticity, or flaccidity Extremities: Radial, dorsalis pedis, and posterior tibial pulses are intact and symmetrical, no edema noted in the BL LE's Skin: Warm, dry, no rashes , lesions, or scars noted Neuro: Alert and oriented to person, place, month, year, and president, no focal defects, CN II-XII tested with patient being able to see the outline of shapes in the left eye but unable to see details, right eye with intact visual mitchell and with vision intact, patient only able to see left lateral visual field on confrontation during testing of the left eye, negative cerebellar and pronator drift testing in the BL upper extremities, no tremors noted Psych: No acute distress, calm and cooperative during the exam Results & Data Results & Data Vital Signs (Past 12 Hours) Vital Signs Temp Pulse Pulse Resp BP BP Pulse Ox 01/26/24 17:52 75 14 151/66 H 98 01/26/24 17:42 72 12 161/64 H 98 01/26/24 17:39 76 17 177/71 H 98 01/26/24 17:38 79 180/100 H 01/26/24 17:33 78 23 180/100 H 100 01/26/24 17:00 70 18 169/61 H 97 01/26/24 17:00 72 01/26/24 16:38 72 20 190/73 H 97 01/26/24 16:07 36.5 C 82 18 201/81 H 94 O2 Del Method 01/26/24 17:52 01/26/24 17:42 01/26/24 17:39 Room Air 01/26/24 17:38 01/26/24 17:33 Room Air 01/26/24 17:00 01/26/24 17:00 01/26/24 16:38 Room Air 01/26/24 16:07 Room Air Laboratory Results Abnormal lab results 01/26/24 Range/Units 16:31 Hgb 11.6 L (12.0-16.0) g/dl Hct 36.4 L (37.0-47.0) % MCHC 31.9 L (32.0-36.0) g/dL MPV 8.5 L (9.4-12.4) fL Lymph # (Auto) 1.05 L (1.20-3.40) K/uL Dupage # (Auto) 0.68 H (0.11-0.59) K/uL Sodium 130 L (136-145) mmol/L BUN/Creatinine Ratio 26.9 H (10-20) Glucose 130 H (70-99(Fasting)) mg/dl Globulin 2.3 L (2.5-4.0) gm/dl Diagnostic Findings Head CT 01/26/24 16:[address] OF THE BRAIN; CT ANGIOGRAM OF THE BRAIN; CT ANGIOGRAM OF THE NECK CLINICAL HISTORY: Neurological deficit. Stroke like symptoms. COMPARISON STUDY: CT of the brain dated 11/16/2023. CT angiogram of the head and neck dated 07/15/2017. TECHNIQUE: Unenhanced axial CT scan of the brain is performed. Subsequently, following the IV administration of 119 of Optiray 320, CT angiogram of the head and neck was performed from the aortic arch to the vertex. Images are reviewed in the axial, sagittal, and coronal planes. 3-D MIPS images are created and assessed. IV contrast was administered without complication. All measurements were calculated based on NASCET criteria. A dose lowering technique was ut ilized adhering to the principles of ALARA. CT DOSE: 999.12 mGy.cm FINDINGS: Brain parenchyma: There is age-related involutional change noting moderate subcortical and periventricular microangiopathic disease. There is no hemorrhage, mass effect, or evidence of acute territorial ischemia by CT criteria. There is no evidence of enhancing mass lesion on the angiogram phase images. Mineralization is noted in the basal ganglia. The ventricles, sulci, and cisterns are prominent secondary to involutional change. Carrillo-white matter differentiation is preserved. No extra-axial fluid collection is seen. Thoracic aorta: There is atherosclerotic calcification of the thoracic aorta. Visualized portions of the thoracic aorta are normal in caliber. The aortic arch demonstrates standard 3-vessel anatomy. Right carotid arterial system: The right common carotid artery is widely patent. Advanced atherosclerotic plaque in the carotid bulb causes less than 50% luminal narrowing at the origin of the right internal carotid artery. The internal and external carotid arteries are otherwise widely patent. Left carotid arterial system: The left common carotid artery is widely patent, as are the left internal and external carotid arteries. Calcified plaque is seen in the carotid bulb. Vertebral arteries: There is mild stenosis at the origin of the left vertebral artery. The vertebral arteries are otherwise patent bilaterally and codominant. Subclavian arteries: Widely patent bilaterally. Intracranial vasculature: There is atherosclerotic calcification of the cavernous carotid arteries. The internal carotid arteries are patent at the skull base, as are the anterior and middle cerebral arteries bilaterally. The vertebrobasilar system and posterior cerebral arteries are widely patent. The vertebral arteries are codominant. A posterior communicating artery is seen on the right. There is moderate to high-grade stenosis of the proximal left posterior cerebral artery seen on axial image #75. There is a focal vessel cut off is identified throughout the intracranial circulation. Jugular veins: Patent bilaterally. Dural sinuses: Patent. Lung apices: A calcific granuloma seen at the left apex. Partially visualized upper lobe lung parenchyma otherwise appears clear. Soft tissues: The visualized pharyngeal soft tissues are normal in appearance noting angiographic phase technique. The oropharyngeal airway appears widely patent. The thyroid gland is atrophic. No cervical lymphadenopathy is seen. Skeletal structures: The skeletal structures are osteopenic. The calvarium appears intact. The cervical spine is maintained noting multilevel spondylosis. Orbits: The bony orbits are intact. Orbital contents are normal as visualized noting bilateral ocular lens implants. Sinuses and mastoids: There is trace mucosal thickening within the maxillary antra. The remaining paranasal sinuses are clear. There are left larger than right mastoid effusions. IMPRESSION: 1. There is no hemorrhage, mass effect, or evidence of acute territorial ischemia by CT criteria. 2. 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 3. Otherwise unremarkable CT of the brain. 4. There is mild stenosis at the origin of the left vertebral artery. 5. There is no evidence of hemodynamically significant carotid artery stenosis. ACT 112: Negative or not required by law. Electronically signed by: Bertin Siu M.D. 01/26/2024 5:49 PM Head CTA 01/26/24 16:[address] OF THE BRAIN; CT ANGIOGRAM OF THE BRAIN; CT ANGIOGRAM OF THE NECK CLINICAL HISTORY: Neurological deficit. Stroke like symptoms. COMPARISON STUDY: CT of the brain dated 11/16/2023. CT angiogram of the head and neck dated 07/15/2017. TECHNIQUE: Unenhanced axial CT scan of the brain is performed. Subsequently, following the IV administration of 119 of Optiray 320, CT angiogram of the head and neck was performed from the aortic arch to the vertex. Images are reviewed in the axial, sagittal, and coronal planes. 3-D MIPS images are created and assessed. IV contrast was administered without complication. All measurements were calculated based on NASCET criteria. A dose lowering technique was utilized adhering to the principles of ALARA. CT DOSE: 999.12 mGy.cm FINDINGS: Brain parenchyma: There is age-related involutional change noting moderate subcortical and periventricular microangiopathic disease. There is no hemorrhage, mass effect, or evidence of acute territorial ischemia by CT criteria. There is no evidence of enhancing mass lesion on the angiogram phase images. Mineralization is noted in the basal ganglia. The ventricles, sulci, and cisterns are prominent secondary to involutional change. Carrillo-white matter differentiation is preserved. No extra-axial fluid collection is seen. Thoracic aorta: There is atherosclerotic calcification of the thoracic aorta. Visualized portions of the thoracic aorta are normal in caliber. The aortic arch demonstrates standard 3-vessel anatomy. Right carotid arterial system: The right common carotid artery is widely patent. Advanced atherosclerotic plaque in the carotid bulb causes less than 50% luminal narrowing at the origin of the right internal carotid artery. The internal and external carotid arteries are otherwise widely patent. Left carotid arterial system: The left common carotid artery is widely patent, as are the left internal and external carotid arteries. Calcified plaque is seen in the carotid bulb. Vertebral arteries: There is mild stenosis at the origin of the left vertebral artery. The vertebral arteries are otherwise patent bilaterally and codominant. Subclavian arteries: Widely patent bilaterally. Intracranial vasculature: There is atherosclerotic calcification of the cavernous carotid arteries. The internal carotid arteries are patent at the skull base, as are the anterior and middle cerebral arteries bilaterally. The vertebrobasilar system and posterior cerebral arteries are widely patent. The vertebral arteries are codominant. A posterior communicating artery is seen on the right. There is moderate to high-grade stenosis of the proximal left posterior cerebral artery seen on axial image #75. There is a focal vessel cut off is identified throughout the intracranial circulation. Jugular veins: Patent bilaterally. Dural sinuses: Patent. Lung apices: A calcific granuloma seen at the left apex. Partially visualized upper lobe lung parenchyma otherwise appears clear. Soft tissues: The visualized pharyngeal soft tissues are normal in appearance noting angiographic phase technique. The oropharyngeal airway appears widely patent. The thyroid gland is atrophic. No cervical lymphadenopathy is seen. Skeletal structures: The skeletal structures are osteopenic. The calvarium appears intact. The cervical spine is maintained noting multilevel spondylosis. Orbits: The bony orbits are intact. Orbital contents are normal as visualized noting bilateral ocular lens implants. Sinuses and mastoids: There is trace mucosal thickening within the maxillary antra. The remaining paranasal sinuses are clear. There are left larger than right mastoid effusions. IMPRESSION: 1. There is no hemorrhage, mass effect, or evidence of acute territorial ischemia by CT criteria. 2. 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 3. Otherwise unremarkable CT of the brain. 4. There is mild stenosis at the origin of the left vertebral artery. 5. There is no evidence of hemodynamically significant carotid artery stenosis. ACT 112: Negative or not required by law. Electronically signed by: Bertin Siu M.D. 01/26/2024 5:49 PM Neck CTA 01/26/24 16:[address] OF THE BRAIN; CT ANGIOGRAM OF THE BRAIN; CT ANGIOGRAM OF THE NECK CLINICAL HISTORY: Neurological deficit. Stroke like symptoms. COMPARISON STUDY: CT of the brain dated 11/16/2023. CT angiogram of the head and neck dated 07/15/2017. TECHNIQUE: Unenhanced axial CT scan of the brain is performed. Subsequently, following the IV administration of 119 of Optiray 320, CT angiogram of the head and neck was performed from the aortic arch to the vertex. Images are reviewed in the axial, sagittal, and coronal planes. 3-D MIPS images are created and assessed. IV contrast was administered without complication. All measurements were calculated based on NASCET criteria. A dose lowering technique was utilized adhering to the principles of ALARA. CT DOSE: 999.12 mGy.cm FINDINGS: Brain parenchyma: There is age-related involutional change noting moderate subcortical and periventricular microangiopathic disease. There is no hemorrhage , mass effect, or evidence of acute territorial ischemia by CT criteria. There is no evidence of enhancing mass lesion on the angiogram phase images. Mineralization is noted in the basal ganglia. The ventricles, sulci, and cisterns are prominent secondary to involutional change. Carrillo-white matter differentiation is preserved. No extra-axial fluid collection is seen. Thoracic aorta: There is atherosclerotic calcification of the thoracic aorta. Visualized portions of the thoracic aorta are normal in caliber. The aortic arch demonstrates standard 3-vessel anatomy. Right carotid arterial system: The right common carotid artery is widely patent. Advanced atherosclerotic plaque in the carotid bulb causes less than 50% luminal narrowing at the origin of the right internal carotid artery. The internal and external carotid arteries are otherwise widely patent. Left carotid arterial system: The left common carotid artery is widely patent, as are the left internal and external carotid arteries. Calcified plaque is seen in the carotid bulb. Vertebral arteries: There is mild stenosis at the origin of the left vertebral artery. The vertebral arteries are otherwise patent bilaterally and codominant. Subclavian arteries: Widely patent bilaterally. Intracranial vasculature: There is atherosclerotic calcification of the cavernous carotid arteries. The internal carotid arteries are patent at the skull base, as are the anterior and middle cerebral arteries bilaterally. The vertebrobasilar system and posterior cerebral arteries are widely patent. The vertebral arteries are codominant. A posterior communicating artery is seen on the right. There is moderate to high-grade stenosis of the proximal left posterior cerebral artery seen on axial image #75. There is a focal vessel cut o ff is identified throughout the intracranial circulation. Jugular veins: Patent bilaterally. Dural sinuses: Patent. Lung apices: A calcific granuloma seen at the left apex. Partially visualized upper lobe lung parenchyma otherwise appears clear. Soft tissues: The visualized pharyngeal soft tissues are normal in appearance noting angiographic phase technique. The oropharyngeal airway appears widely patent. The thyroid gland is atrophic. No cervical lymphadenopathy is seen. Skeletal structures: The skeletal structures are osteopenic. The calvarium appears intact. The cervical spine is maintained noting multilevel spondylosis. Orbits: The bony orbits are intact. Orbital contents are normal as visualized noting bilateral ocular lens implants. Sinuses and mastoids: There is trace mucosal thickening within the maxillary antra. The remaining paranasal sinuses are clear. There are left larger than right mastoid effusions. IMPRESSION: 1. There is no hemorrhage, mass effect, or evidence of acute territorial ischemia by CT criteria. 2. 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 3. Otherwise unremarkable CT of the brain. 4. There is mild stenosis at the origin of the left vertebral artery. 5. There is no evidence of hemodynamically significant carotid artery stenosis. ACT 112: Negative or not required by law. Electronically signed by: Bertin Siu M.D. 01/26/2024 5:49 PM ECG Additional Comments: Sinus rhythm with first-degree AV block premature atrial complexes no acute ST segment or T wave changes Code Status & VTE Plan Code Status Full code VTE Prophylaxis Plan VTE Prophylaxis will be ordered: Yes Supervising Physician Co-Signing Physician Notes Patient seen and examined, chart reviewed, case discussed with Brigido Tirado PA-C and I agree with the assessment and plan as above except as otherwise noted Labs and images reviewed 83-year-old female with past medical history of DM2 well-controlled, hypertension, hyponatremia, prior TIA, hypothyroidism on aspirin who experienced amaurosis fugax in the left eye approximately 3 days ago. Vision did not return to normal and she saw ophthalmology, was referred to the ER for suspected central retinal artery occlusion. CTAhead and neck shows mild stenosis at the left vertebral artery, moderate to high-grade stenosis of the proximal left posterior cerebral artery, and otherwise no acute findings. CThead without evidence of acute stroke. Remains with R minimal visual acuity centrally only seeing shadows + with some peripheral field vision. Agree w/ secondary stroke risk management. Recommend DAPT for at least 3 weeks. She is outside of the window for thrombolytics or procedural intervention. Continue rosuvastatin 10 mg. Blood pressure control, DM control. Patient is up-to-date with her diabetes exam unfortunately this has been well-controlled. Agree with assessment and management above. 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
[2024-01-26] MEDS: PANTOprazole 40 MG TAB PO STA (18:18)
[2024-01-26] MEDS ORDERED: PHARMACIST DISCHARGE MED REC CONSULT PRN (18:44)
[2024-01-26] MEDS ORDERED: GLUCOSE 10 TAB/TUBE PO PRN (18:48)
[2024-01-26] MEDS ORDERED: GLUCAGON FOR INJ 1 MG VIAL SQ PRN (18:48)
[2024-01-26] MEDS ORDERED: CARBOHYDRATES FOR HYPOGLYCEMIA PO PRN (18:48)
[2024-01-26] MEDS ORDERED: DEXTROSE 50% 50 ML SYRINGE IV PRN (18:48)
[2024-01-26] MEDS ORDERED: GLUCOSE 40% GEL 15 GM TUBE PO PRN (18:48)
[2024-01-26] MEDS: ASPIRIN 325 MG ECTAB PO STA (20:07)
[2024-01-26] MEDS: ROSUVASTATIN CALCIUM 10 MG TAB PO STA (20:25)
[2024-01-26] MEDS: INSULIN ASPART PER UNIT CHARGE SC SCH (21:26)
--- OUTSIDE RECORDS SUMMARY | 2024-01-27 00:31 | External Medical Summary | Continuity of Care Document ---
Author Name Unknown Organization [facility] [address] [facility] [address] [id number] Care Team Providers Care Coat Fitter Name Role Phone Mina Enamorado Primary Care Physician [phone] Encounter [facility] [id number] Date(s): 12/05/23 - 12/05/23 [facility] [address] [phone] Encounter Diagnosis Alcantara angioma(Discharge Diagnosis) - 12/05/23 Seborrheic keratosis(Discharge Diagnosis) - 12/05/23 Encounter for exam following cancer surgery(Discharge Diagnosis) - 12/05/23 Discharge Disposition: Home or Self Care Attending Physician: NICOLE Hidalgo Holly C Allergies, Adverse Reactions, Alerts Substance Criticality Severity Reaction Reaction Severity Status Non-Asprin Active Acetaminophen-HYDROcodone Bitartrate Active Assessment and Plan Extracted from: Title:Dermatology Office Visit Note Author:NICOLE Hidalgo Holly C Date:12/05/23 1.Alcantara angioma Chronic Stable Provided reassurance aboutthe benign nature of this lesion. No indication for treatment today. 2.Seborrheic keratosis Chronic Stable Discussed benign nature of lesions. May treat prn if become painful or irritated. Discussed signs and symptoms of skin cancer with patient and advised to call and schedule an appointment if develops any new or concerning lesions or wounds that won't heal. Advised to wear hats, sunscreens and SPF clothing. 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 Has had actinic keratosis treated in the past with liquid nitrogen Discussed signs and symptoms of skin cancer with patient and advised to call and schedule an appointment if develops any new or concerning lesions or wounds that won t heal. Advised to wear hats, sunscreens and SPF clothing. No evidence of recurrence. Previous notes by Vivienne SERRANOcreviewed. Previous Biopsy results reviewed. Advised patient to call with any problems, questions, or concerns. States understanding. Patient was seen independently,Dr Bal for immediate collaboration as needed during this visit. Will follow up in 1 yearfor skin exam Medications Caltrate 600 + D Start: 05/26/14 10:18:00 AM EST, 1 tab, PO, bid Start Date: 05/26/14 Status: Ordered candesartan 16 mg oral tablet Start: 02/22/20 1:41:00 PM EDT, 1 tab, PO, Daily Start Date: 02/22/20 Status: Ordered Crestor 5 mg oral tablet Start: 05/26/14 10:19:00 AM EST, 1 tab, PO, Daily Start Date: 05/26/14 Status: Ordered Lantus Solostar Pen Start: 06/15/20 10:51:00 AM EST, 5 unit =, subQ, Daily Start Date: 06/15/20 Status: Ordered NexIUM Start: 05/26/14 10:18:00 AM EST, PO, Daily Start Date: 05/26/14 Status: Ordered Plavix 75 mg oral tablet Start: 06/15/20 10:51:00 AM EST, 1 tab, PO, ONCE Start Date: 06/15/20 Status: Ordered Probiotic Formula Start: 07/17/21 8:28:00 AM EST Start Date: 07/17/21 Status: Ordered Protopic 0.1% topical ointment Start: 05/07/22 1:49:00 PM EST, 1 appl, topical, bid, Disp# 30 g, Refills: 2, to AA on belly and leg creases., Pharmacy: [facility] Start Date: 05/07/22 Status: Ordered Synthroid 100 mcg (0.1 mg) oral tablet Start: 05/26/14 10:18:00 AM EST, 1 tab, PO, Daily, 88 mcg Start Date: 05/26/14 Status: Ordered triamcinolone 0.1% topical ointment Start: 09/03/22 1:03:00 PM EDT, 1 appl, topical, bid, Disp# 80 g, Refills: 0, to AA under belly and in groin x 3 weeks., Pharmacy: [facility] Start Date: 09/03/22 Status: Ordered Vitamin B12 Start: 06/17/22 9:14:00 AM EST, 1,000 mcg =, PO, Daily Start Date: 06/17/22 Status: Ordered Vitamin D3 Start: 06/17/22 9:15:00 AM EST Start Date: 06/17/22 Status: Ordered Mental Status 12/05/23 Barriers to Learning one year None evide nt Mandatory Health Literacy Documentation Yes Communication Barrier Present No Health Literacy Communication Barriers N ever Primary Language Montenegrin Problem List Condition Confirmation Course Effective Dates Status Health St atus Informant Diabetes Confirmed Active Encounter for exam following cancer surgery 1 Confirmed Active Skin sore 2 Confirmed Active 1History of SCCIS left preauricular with MOH's 06/17/2022, no evidence of recurrence. Has had actinic keratosis treated in the past withliquid nitrogen 2Right Buttock Diagnosis Diagnosis Type Effective Dates Health Status Clinical Service Informant Encounter for exam following cancer surgery Discharge Diagnosis 12/05/23 Non-Specified Seborrheic keratosis Discharge Diagnosis 12/05/23 Non-Specified Alcantara angioma Discharge Diagnosis 12/05/23 Non-Specified Procedures Procedure Date Related Diagnosis Body Site Status Shave biopsy and cauterization of skin 05/07/22 Completed Surgery 02/2020 Completed Appendectomy Completed Gallbladder absent 1 Comp leted Knee joint 2 Completed 1removed 2replacement Social History Social History Type Response Smoking Status Former Smoker, quit > 1 yr Sex Female Dermatology Outpatient Note * NICOLE Hidalgo, Aleah Cho: PERFORM Event Display: Dermatology Outpt Note Authored Date: [id number] Chief Complaint 1 year skin check History of Present Illness 83 YearsoldFemalepatient here for skin check. Patient reports area of concern today: brown spots to be checked. Family history melanoma:no Family history of BCC or SCC no Tanning bed use:no History of severe, blistering sunburns:yes Sun protection:Useshats and sunscreensbut not out much. 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 Has had actinic keratosis treated in the past withliquid nitrogen No other skin areas of concern. Otherwise healthy. Saw Dawaudra11/23/2023.Grew up in [place] but lived in [place]. 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 She has never worked outdoors. Lives at [facility]. [1] Physical Exam General: Well developed, well nourished, whitefemalein no acute distress. Oriented x3 with appropriate mood and affect. Skin: complete skin exam performed of hair, scalp, ears, face, nose, lips, neck, chest, abdomen, buttocks, back, axilla, upper and lower extremities, hands, feet, nails, and digits. The groin and genitals were notincluded: brown waxy keratotic papules and plaques consistent with seborrheic keratoses. Multiple red, papules consistent with alcantara angiomas. Nolesions suspicious for skin cancer. No unusual features on dermoscopy. Denied any other areas of concerns.Patient declined further exam. Assessment/Plan 1.Alcantara angioma Chronic Stable Provided reassurance aboutthe benign nature of this lesion. No indication for treatment today. 2.Seborrheic keratosis Chronic Stable Discussed benign nature of lesions. May treat prn if become painful or irritated. Discussed signs and symptoms of skin cancer with patient and advised to call and schedule an appointment if develops any new or concerning lesions or wounds that won't heal. Advised to wear hats, sunscreens and SPF clothing. 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 Has had actinic keratosis treated in the past withliquid nitrogen Discussed signs and symptoms of skin cancer with patient and advised to call and schedule an appointment if develops any new or concerning lesions or wounds that wont heal. Advised to wear hats, sunscreens and SPF clothing. No evidence of recurrence. Previous notes Anish CHAVES-creviewed. Previous Biopsy results reviewed. Advised patient to call with any problems, questions, or concerns. States understanding. Patient was seenindependently,Dr Bal for immediate collaboration as needed during this visit. Will follow up in1 yearfor skin exam Problem List/Past Medical History Ongoing Diabetes Encounter for exam following cancer surgery Skin sore Procedure/Surgical History Shave biopsy and cauterization of skin| Service Date: 05/07/2022urgery| Service Date: 02/2020Gallbladder absentKnee jointAppendectomy Medications bifidobacterium-lactobacillus(Probiotic Formula) calcium and vitamin D combination(Caltrate 600 + D), 1 tab, PO, bid candesartan(candesartan 16 mg oral tablet), 16 mg= 1 tab, PO, Daily cholecalciferol(Vitamin D3) clopidogrel(Plavix 75 mg oral tablet), 75 mg= 1 tab, PO, ONCE cyanocobalamin(Vitamin B12), 1000 mcg, PO, Daily esomeprazole(NexIUM), PO, Daily insulin glargine(Lantus Solostar Pen), 5 unit, subQ, Daily levothyroxine(Synthroid 100 mcg (0.1 mg) oral tablet), 100 mcg= 1 tab, PO, Daily rosuvastatin(Crestor 5 mg oral tablet), 5 mg= 1 tab, PO, Daily tacrolimus topical(Protopic 0.1% topical ointment), 1 appl, topical, bid, 2 refills triamcinolone topical(triamcinolone 0.1% topical ointment), 1 appl, topical, bid Allergies Acetaminophen-HYDROcodone Bitartrate Non-Asprin Social History Smoking Status Former Smoker, quit > 1 yr Alcohol - Denies Alcohol Use Employment/School - Not employed or in school Exercise - Does not exercise Home/Environment - Low Risk Nutrition/Health - Low Risk Other - No Risk Sexual - No Sexual Activity Substance Abuse - Denies Substance Abuse Tobacco - Denies Tobacco Use Family History Dementia: Father. Diabetes...: Mother. Heart attack: Mother. Health Status Family Member(s) [1]Office Visit Note; NICOLE Saha Dawn M 11/22/2022 10:08 EDT Electronic Signature on File Electronically Reviewed/Signed by: Aleah Hidalgo PA-C Author Signature Dt/Tm:12/05/2023 10:39 AM Department of Dermatology Electronically Reviewed/Signed by: MD Mago Swanigner Signature Dt/Tm: 12/05/2023 11:35 AM Department of Dermatology [facility] Patient Care team information Care Team Personnel Name: MD Enamorado Rodney M Position: Referring Member Role: Primary Care Provider Address: Address: [address] [place] [address], [facility] [place] Care Team Related Persons Name: SULLY CANNON Address: home [address] [facility] [place] [id number] Name: MANJU CANNON Address: home [address] [place] [id number]"
--- NOTE | 2024-01-27 01:55 | Magnetic Resonance Report ---
Exam(s): MRI HEAD Without Contrast EXAM: MR Head Without Intravenous Contrast CLINICAL HISTORY: Reason for exam: stroke workup. TECHNIQUE: Magnetic resonance images of the head/brain without intravenous contrast in multiple planes. COMPARISON: Prior head CT from January 26, 2024. FINDINGS: Brain: Moderate nonspecific white matter changes. The flow voids at the base of the line are intact. No mass. No hemorrhage. No acute infarct. Ventricles: Mild ventriculomegaly. Bones/joints: Moderate to advanced facet arthropathy at C2-3, C3-4, C4- 5 and C5-6. No acute fracture. Sinuses: Chronic ethmoid sinusitis. No acute sinusitis. Mastoid air cells: Unremarkable as visualized. No mastoid effusion. Orbits: Bilateral lens replacements. IMPRESSION: No evidence of acute intracranial pathology. Electronically signed by: Jennifer Betts MD 01/27/24 01:54 AM
[2024-01-27] MEDS: LEVOTHYROXINE SODIUM 88 MCG TABLET PO SCH (06:48)
--- NOTE | 2024-01-27 08:30 | Electrocardiogram Report ---
Test Reason : Blood Pressure : */* mmHG Vent. Rate : 73 BPM Atrial Rate : 73 BPM P-R Int : 242 ms QRS Dur : 58 ms QT Int : 368 ms P-R-T Axes : 63 12 44 degrees QTcB Int : 405 ms Sinus rhythm with 1st degree A-V block with Premature atrial complexes Low voltage QRS Poor R wave progression, consider anterior WV vs. lead placement vs. LVH Abnormal ECG When compared with ECG of 29-Jul-2023 19:03, Premature atrial complexes are now Present Confirmed by Miller Chris ([id number]) on 01/27/2024 8:29:35 AM Referred By: Dipti Mehta Confirmed By: Miller Chris
[2024-01-27 09:01] LABS: Basophils # (auto) 0.04 K/uL (0.00-0.20); Basophils % (auto) 0.6 %; Eosinophils # (auto) 0.16 K/uL (0.00-0.50); Eosinophils % (auto) 2.5 %; Hematocrit (blood only) 32.9 % (37.0-47.0); Hemoglobin 10.6 g/dl (12.0-16.0); Immature Granulocytes # (auto) 0.02 K/uL (0.01-0.20); Immature Granulocytes % (auto) 0.3 %; Lymphocytes # (auto) 0.79 K/uL (1.20-3.40); Lymphocytes % (auto) 12.4 %; Mean Corpuscular Hemoglobin 26.9 pg (25.0-34.0); Mean Corpuscular Hgb Conc 32.2 g/dL (32.0-36.0); Mean Corpuscular Volume 83.5 fL (80.0-100.0); Mean Platelet Volume 8.8 fL (9.4-12.4); Monocytes % (auto) 7.8 %; Neutrophils # (auto) 4.88 K/uL (1.40-6.50); Neutrophils % (auto) 76.4 %; Platelet Count 271 K/uL (130-400); RDW Coefficient of Variation 13.5 % (11.5-14.5); RDW Standard Deviation 41.3 fL (36.4-46.3); Red Blood Count 3.94 M/uL (4.20-5.40); White Blood Count 6.39 K/ul (4.8-10.8)
[2024-01-27 09:06] LABS: Chol HDL Ratio 2.7 (0-5)
[2024-01-27] MEDS: ROSUVASTATIN CALCIUM 20 MG TAB PO SCH (09:42)
[2024-01-27] MEDS: CLOPIDOGREL BISULFATE 75 MG TAB PO SCH (09:42)
[2024-01-27] MEDS: PANTOprazole 40 MG TAB PO SCH (09:42)
[2024-01-27] MEDS: ASPIRIN 81 MG ECTAB PO SCH (09:42)
[2024-01-27] MEDS: LANTUS PER UNIT CHARGE SQ SCH (09:49)
[2024-01-27 10:21] LABS: Estimated Average Glucose 140 mg/dl; Hemoglobin A1C 6.5 % (4.5-5.6)
[2024-01-27 11:38] VITALS: BP 122/66; PULSE 65; RESP 18; TEMP 97.9; O2SAT 95
--- NOTE | 2024-01-27 12:25 | Pharmacy Report ---
- Date of Service January 27, 2024 - Pharmacy CVA/TIA Medication Review Medications to Prevent Stroke handout has been added to the patients discharge packet. Antiplatelet(s) * Dual Antiplatelet therapy for 3 weeks- Aspirin 81 mg + Plavix 75 mg daily. Cholesterol * High intensity statin: rosuvastatin 20 mg daily DVT Prophylaxis * SCD knee Therapeutic Anticoagulation * No history of Afib/Aflutter noted Type 2 Diabetes * Patient has T2DM, a diabetes medication with proven CVD benefit will be deferred to their outpatient provider due to familiarity with risks/benefits of such therapies. "Medications to prevent stroke" handout has already been added to the patient's discharge packet, which instructs the patient to follow up with their outpatient provider to evaluate which diabetes medication with proven CVD benefit is best for them
--- NOTE | 2024-01-27 12:39 | Discharge Summary ---
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 Probably embolic. Cardiac echo reveals moderate aortic valve stenosis with mild left ventricular hypertrophy and normal ejection fraction. Mild left atrial enlargement noted. No evidence of any thrombus or septal defect. She is now on combined aspirin and Plavix therapy. Multiple vascular studies were done which revealed noncritical disease consistent with age. (2) Diabetes mellitus: ADA diet. Sliding scale coverage. Metformin is temporarily on hold while hospitalized. Continue usual basal insulin therapy (3) HTN, goal below 130/80: Hypertensive on admission. Now stable. Continue current medical management (4) Hyponatremia: Appears to be chronic. Mild on admission. Asymptomatic. No intervention necessary (5) Hypothyroid: Stable. Continue current levothyroxine replacement dosage Plan Home today, January 26, on aspirin and Plavix Admission HPI Per Admitting Provider Cha is an 83-year-old female with a past medical history significant for hypertension, diabetes mellitus type 2, hyponatremia, previous TIA, hypothyroidism who presented to the [facility] ED on 01/26/2024 at the recommendation of her rocket engine mechanic due to concerns for retinal artery occlusion in the left eye. On arrival to the ED the patient was noted to be hypertensive with blood pressure of 201/81 but was otherwise stable. Labs were significant for a sodium of 130 but were otherwise unremarkable. CT of the head and brain without contrast and CTA of the head and neck with contrast were read as negative for hemorrhage, mass effect, or evidence of acute tentorial ischemia by CT criteria. 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 Otherwise unremarkable CT of the brain. There is mild stenosis at the origin of the left vertebral artery. There is no evidence of hemodynamically significant carotid artery stenosis. Prior to admission the patient was given 10 mg IV labetalol. Patient was sitting in bed no acute distress at time of exam with her sister sitting bedside, history was obtained from both. Patient states that she was standing in her living room looking out the window the evening of 01/23/2024 when she had sensation that she was pulled over the exam and her left eye causing significant vision loss except for the extreme periphery in her left eye. Symptoms remained constant since they started, she did not seek evaluation over the weekend as she was of the symptoms. She called her rocket engine mechanic this morning who evaluated the tracker board so we can saturate MDS the patient experienced yeah I appreciate the help of her central retinal artery get back in the positional based on dilated eye exam. Patient denies any recent headaches, peristasis, unilateral weakness, gait imbalance, or recent falls. No vision changes in the right eye since symptoms started. She has been taking her Plavix and Crestor as prescribed without recent missed doses. When asked as to why she was taken off aspirin in the past she explains that she had significant nausea while taking aspirin. She explains that she told her PCP about the symptoms and was taken off aspirin and switch to Plavix. Since being switched to Plavix she has been without GI upset. She denies ever undergoing EGD for evaluation of possible stomach ulcer. We discussed CODE STATUS, she wishes to be a full code and for his sister to make medical decisions for her if she cannot make them herself. Please refer to Dr. Palmer's attestation for any changes to the treatment plan Discharge Exam General-alert and oriented x3, no fever, no chills HEENT-head atraumatic and normocephalic, pupils equal and reactive to light, extraocular muscles intact Neck-no lymphadenopathy or thyromegaly, trachea midline Chest-clear to auscultation. No rales, wheezing or rhonchi Cardiac-regular rate and rhythm, normal S1 and S2 Abdomen-normal bowel sounds, no hepatosplenomegaly Extremities-no cyanosis, clubbing, or edema Neuro-cranial nerves II through XII intact, motor and sensory function within normal limits, strength symmetrical, no focal deficits Psych-normal affect, normal mood Discharge Plan Discharge Items Patient Disposition: Home - Self-Care Reason For Visit: STROKE LIKE SYMPTOMS Discharge Diagnosis: Loss of vision left eye due to embolic a central retinal artery occlusion Activity: Resume your previous activity Non-emergency contact: Primary Care Provider and Lift Truck Mechanic Call non-emergency contact if: your symptoms worsen Follow-up/Referrals: Shasta Drake [Primary Care Provider] - Diet: Carb Consistent or DM2 and Heart Healthy Addtl Attending Provider Instructions: Take 81 mg aspirin in addition to Plavix once daily. The medications do not have to be taken at the same time. Use a walker to prevent falling. No driving until cleared by primary care provider Pending Studies at Discharge: No Stand-Alone Forms: My [facility], Smoking Cessation, Medications to Prevent Stroke Medications and DC Order Prescriptions: New aspirin 81 mg Tablet,Delayed Release (Dr/Ec) 81 mg PO DAILY Qty: 0 0RF Continued ondansetron 4 mg tablet,disintegrating 4 mg PO Q8 PRN (Reason: nausea) Qty: 20 1RF Rx Instructions: Take as needed for nausea acetaminophen [Tylenol Extra Strength] 500 mg tablet 1,000 mg PO TID 30 Days Qty: 180 0RF Rx Instructions: Take 3 times per day to lessen pain. omega 1-tte-ygu-fish oil [Fish Oil] 1,000 mg (120 mg-180 mg) capsule 1 cap PO DAILY esomeprazole magnesium [Nexium] 40 mg capsule,delayed release(DR/EC) 40 mg PO QAM clopidogrel [Plavix] 75 mg Tablet 75 mg PO QAM levothyroxine [Synthroid] 88 mcg tablet 88 mcg PO QAM ubiquinol-pyrroloquin quinone 100-10 mg Capsule 1 cap PO QPM candesartan 4 mg Tablet 4 mg PO QPM rosuvastatin 5 mg tablet 5 mg PO QAM metformin 1,000 mg Tablet,Er Reji.Retention 24 Hr 1,000 mg PO DAILY insulin glargine [Lantus Solostar U-100 Insulin] 100 unit/mL (3 mL) insulin pen 8 unit SUBCUT DAILY Juice Plus Tabs 6 tabs PO QAM Discharge Orders: Discharge Order (Routine); Ordered 01/27/24 Ordered By: Jorge A Altman Admission Data Admit Date/Time: 01/26/24 18:16 Attending Provider: Jorge A Altman Admit Provider: Misha Palmer Primary Care Provider: Shasta Drake Other Providers: Misha Palmer Hospital Stay Data Consultations 01/26/24 18:19 ED Decision to Admit Stat Diagnostic Imagining Performed 01/26/24 16:07 CT angio head w con Stat CT angio neck with con Stat CT head/brain wo con Stat 01/26/24 18:50 MRI Brain [MR brain wo con] Routine Pending Results Patient Have Any Pending Studies at Discharge: No Discharge Instructions Given to Patient (Per Discharging Provider) Take 81 mg aspirin in addition to Plavix once daily. The medications do not have to be taken at the same time. Use a walker to prevent falling. 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
[2024-01-27] MEDS: STROKE PATIENT DISCHARGE STA (12:47)
[2024-01-27] MEDS ORDERED: PNEUMOCOCCAL VACCINE (PCV20) 20-VAL CONJ-DIP CRM/PF 0.5 ML SYR IM ONE (17:00)
[2024-01-27] MEDS ORDERED: LOSARTAN POTASSIUM 25 MG TAB PO SCH (21:00)
== END 2024-01-27 13:50 | disposition home or self-care (01) | DRG 125 ==
LOC: ED 15:57 → EDINP 18:16 → SUATTDRO 18:16 → EDINP 20:22 → 2N 01-27 06:00

== ENCOUNTER 2025-01-24 11:33 | Inpatient (IN) ==
--- NOTE | 2025-01-24 11:59 | Emergency Department Note ---
Impression & Plan Acute UTI, Hyponatremia, Dysuria, Leukocytosis ED Provider Note CHIEF COMPLAINT: UTI HISTORY OF PRESENTING ILLNESS: The patient is an 84-year-old female who presents to the emergency department via EMS from [facility]. She was diagnosed with a UTI yesterday and was started on nitrofurantoin yesterday as well. She states that she was referred to the emergency department today by her [facility] PCP because she is not feeling any better. She reports having a history of kidney infections and is concerned that she may have one. She states that her burning with urination has improved but overall she is experiencing chills, nausea, and fatigue. Yesterday she had diffuse flank and back pain that is better today. She denies fever, vomiting, chest pain, shortness of breath, abdominal pain, blood in her urine, constipation, diarrhea. REVIEW OF SYSTEMS: See HPI for pertinent positives and pertinent negatives. ALLERGIES: Codeine, aspirin, oxycodone, cefadroxil MEDICATIONS: See below PAST MEDICAL HISTORY: See below PHYSICAL EXAM: VITALS: Vitals are noted on the nurses note and reviewed by myself. Vital signs stable. Mildly elevated temperature on recheck 37.8. GENERAL: 84-year-old female, shivering in bed with multiple blankets, in no acute distress, nondiaphoretic, well-developed well-nourished. SKIN: Capillary refill less than 2 seconds. HEENT: Normocephalic. PERRLA. EOMI. Nares patent. Mucous membranes moist. Neck is supple. HEART: Regular rate and rhythm without murmurs gallops or rubs. LUNGS: CTA BL without wheezes, rales or rhonchi. No retractions or accessory muscle use. ABDOMEN: Positive BS x 4. Soft, nontender, without masses or organomegaly. No guarding or rebound tenderness. MUSCULOSKELETAL: No gross musculoskeletal defects. No pedal edema. No calf tenderness. NEURO: Patient was alert and oriented. No focal neurological deficits. DIFFERENTIAL DIAGNOSIS: appendicitis, diverticulitis, bowel obstruction, inflammatory bowel disease, renal colic, PUD, biliary pathology, pancreatitis, mesenteric ischemia, aortic pathology, infection, genitourinary, UTI, pyelonephritis, sepsis, among others. ED COURSE AND MEDICAL DECISION MAKING: HISTORY FROM INDEPENDENT HISTORIAN: The patient herself. MEDICATIONS GIVEN: 2 L normal saline IV, Tylenol 1000 mg IV, 2 g Rocephin IV INTERPRETATION OF LABS: I interpreted the labs with full lab results as below in the lab section of this note. Pertinent lab results discussed in the MDM section below. INTERPRETATION OF IMAGING: Imaging studies were interpreted by myself and read by radiology as per the imaging section of this note. CT abdomen and pelvis - No acute findings. Chest x-ray - No acute cardiopulmonary findings. No pneumonia. ESCALATION OF CARE CONSIDERED: Escalation of care was considered as the patient presented with urinary symptoms, chills, nausea and fatigue. A full workup was completed showing leukocytosis, hyponatremia, and an elevated temperature here in the emergency department. The patient was admitted to medicine for IV antibiotics. CONSULTATIONS: On-call [facility]ist - Presented the patient to the provider and known UTI, leukocytosis, chills and nausea, with an elevated temperature from 36.6-37.8, and hyponatremia. They agreed to evaluate the patient admitting her to medicine for IV antibiotics and further workup. MDM SUMMARY: I evaluated the 84-year-old female who presents to the emergency department due to urinary symptoms, chills, nausea, and fatigue. See HPI and physical exam above. IV access was established and labs were obtained. 2 L normal saline, Tylenol, and 2 g Rocephin IV was given for symptom management. Vitals within normal limits upon triage. On temperature recheck as the patient was experiencing an episode of chills requiring 6 blankets temperature changed from 36.6 to 37.8. Leukocytosis WBC 14.74. Hemodynamically stable. Hyponatremia 127. Lactate normal 1.6. Procalcitonin normal 0.16. Urinalysis was obtained showing trace protein, trace glucose, trace leukocyte Estrace, 1+ urine bacteria. The patient has been on oral antibiotics for UTI for [address] abdomen and pelvis as well as chest x-ray shows no acute finding. All laboratory and imaging results were thoroughly reviewed with the patient. The patient's sister was with her at bedside who states that she does not personally believe the patient is well-appearing compared to her baseline. The patient reports mild balance issues normally but states that she has been so fatigued lately that walking is more difficult. I had to personally help her ambulate to the restroom to provide a urine sample and she required my support the entirety of the way. A consultation with the on-call [facility] hospitalist can be seen in detail above. The patient is agreeable to admission and all questions were answered. The patient was admitted in stable condition. DIAGNOSIS: Acute UTI, hyponatremia, dysuria, leukocytosis The chart was completed utilizing [employer] Speech voice recognition software. Grammatical errors, random word insertions, pronoun errors, and incomplete sentences are an occasional consequence of this system due to software limitations, ambient noise, and hardware issues. Any formal questions or concerns about the content, text, or information contained within the body of this dictation should be directly addressed to the provider for clarification. 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 Wynn Mixed hearing loss, bilateral Perforation of right tympanic membrane ETD (eustachian tube dysfunction) Weakness (Acute) Weakness (Acute) Intractable vomiting (Acute) Hypomagnesemia (Acute) Head injury, closed (Acute) Fall (Acute) none recent per pt; last 2021 per chart review Contusion of multiple sites (Acute) Advance care planning Abrasion, shoulder w/o infection (Acute) Medical History Hx of syncope Hx recurrent syncope/falls -had LINQ recorder placed Following with Dr. Wynn Central retinal artery occlusion Acid reflux [facility] resident [place] HTN, goal below 130/80 Diabetes mellitus IDDM Encounter for pre-operative examination Left knee DJD Chronic hyponatremia Fluctuating levels with sodium levels between high 120s- low 130s BPPV (benign paroxysmal positional vertigo) Nocturia Implantable loop recorder present Medtronic LINQ II (replaced 04/2023) Aortic stenosis, mild Echo 01/2022: Mild aortic stenosis (HOANG 1.2-1.3cm2, MG 8.2-10 mmhg) HLD (hyperlipidemia) on statin Arrhythmia Follows with Dr. yWnn, LINQ II recorder, hx supraventricular ectopic beats TIA (transient ischemic attack) Remote hx "long time ago" Surgical History History of knee replacement (2023) Right TKA (11/12/13): SAB at L3-4 + regional at [facility] "had awareness and did not like it" during this procedure LEFT KNEE: 2023 History of tonsillectomy and adenoidectomy History of shoulder surgery History of cholecystectomy Family History Sister Hypertension Mother Diabetes Other Asthma Stroke Denies family history of Cancer Social History Smoking Status: Former smoker Tobacco Type: Cigarettes Hx Alcohol Use: Yes Alcohol type: wine Hx Substance Use: No Preferred Language: Chinese Communication Ability: Effective Communication Ability Comment: unk Visual Impairment: No Limitations 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: Normal 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 Beliefs That Will Affect Care: None marital status: / Current Living Situation: Other Current Living Situation Comment: [facility] [place] current occupational status: retired How many Children do You have: 0 Feels Safe at Home: Yes Safety Concerns: Feels Safe At This Time during the past year weight has: decreased > 10 lbs Assistive Devices: Denture - Upper, Denture - Lower, Glasses, Hearing Aid - Bilateral and Walker Allergies Allergies Allergy/AdvReac Type Severity Reaction Status Date / Time cefadroxil AdvReac Severe DIARRHEA Verified 12/24/24 12:40 FOR 4 WEEKS oxycodone AdvReac Severe Vomiting Verified 12/24/24 12:40 aspirin AdvReac Intermediate "Stomach Verified 12/24/24 12:47 bleeds" codeine AdvReac Intermediate Vomiting Verified 12/24/24 12:40 Home Meds Home Medications Medication Instructions Recorded Confirmed esomeprazole magnesium 40 mg 40 mg PO QAM 05/11/19 01/24/25 capsule,delayed release (Nexium) candesartan 4 mg tablet 4 mg PO QPM 06/26/23 01/24/25 levothyroxine 88 mcg tablet 88 mcg PO QAM 06/26/23 01/24/25 (Synthroid) insulin glargine 100 unit/mL (3 8 unit subcut HS 11/16/23 01/24/25 mL) subcutaneous pen (Lantus Solostar U-100 Insulin) metformin 1,000 mg 24 hr 1,000 mg PO DAILY 11/16/23 01/24/25 tablet,extended release (gastric reten.) rosuvastatin 5 mg tablet 10 mg PO QAM 11/16/23 01/24/25 betaxolol 0.25 % eye 1 drp OPL BID 12/16/24 01/24/25 drops,suspension (Betoptic S) bimatoprost 0.01 % eye drops 1 drp OPL DAILY 12/16/24 01/24/25 (Lumigan) brinzolamide 1 %-brimonidine 0.2 % 1 drp OPL BID 12/16/24 01/24/25 eye drops,suspension (Simbrinza) calcium carbonate 1,800 mg PO DAILY 12/16/24 01/24/25 cholecalciferol (vitamin D3) 25 25 mcg PO DAILY 12/16/24 01/24/25 mcg (1,000 unit) tablet (Vitamin D3) cyanocobalamin (vitamin B-12) 1,000 mcg PO DAILY 12/16/24 01/24/25 1,000 mcg tablet diclofenac sodium 1 % topical gel 2 g topical TID PRN . 12/16/24 01/24/25 sodium chloride 1,000 mg soluble 1,000 mg PO BID 12/16/24 01/24/25 tablet vibegron 75 mg tablet (Gemtesa) 75 mg PO QPM 12/16/24 01/24/25 acetazolamide 500 mg 0 mg PO UD 12/24/24 01/24/25 capsule,extended release Previous Rx's Medication Instructions Recorded aspirin 81 mg tablet,delayed 81 mg PO DAILY #0 tabs 01/27/24 release Results & Data (ED) Vital Signs Vital Signs - 24 hr 01/24/25 11:42 01/24/25 14:05 Temperature 36.6 C 37.8 C H Temperature Source Oral Oral Pulse Rate 78 Respiratory Rate 18 Respiratory Effort / Characteristics Non-Labored Spontaneous Respiratory Depth Normal Blood Pressure 114/54 L Blood Pressure Mean 74 Pulse Oximetry 96 Oxygen Delivery Method Room Air Sepsis Recent Fever Within 48 Hours No Sepsis New/Unexplained Change in Mental Status No Sepsis Action Taken by Nursing No Action Required Laboratory Data 01/24/25 12:24 01/24/25 12:24 Lab Results 01/24/25 01/24/25 Range/Units 12:24 13:32 WBC 14.74 H (4.8-10.8) K/ul RBC 4.04 L (4.20-5.40) M/uL Hgb 11.0 L (12.0-16.0) g/dl Hct 34.2 L (37.0-47.0) % MCV 84.7 (80.0-100.0) fL MCH 27.2 (25.0-34.0) pg MCHC 32.2 (32.0-36.0) g/dL RDW Std Deviation 41.1 (36.4-46.3) fL RDW Coeff of Gadiel 13.2 (11.5-14.5) % Plt Count 228 (130-400) K/uL MPV 9.0 L (9.4-12.4) fL Immature Gran % (Auto) 0.5 % Neut % (Auto) 86.7 % Lymph % (Auto) 4.2 % Walton % (Auto) 8.2 % Eos % (Auto) 0.1 % Baso % (Auto) 0.3 % Neut # (Auto) 12.78 H (1.40-6.50) K/uL Lymph # (Auto) 0.62 L (1.20-3.40) K/uL Walton # (Auto) 1.21 H (0.11-0.59) K/uL Eos # (Auto) 0.01 (0.00-0.50) K/uL Baso # (Auto) 0.04 (0.00-0.20) K/uL Immature Gran # (Auto) 0.08 (0.01-0.20) K/uL Sodium 127 L (136-145) mmol/L Potassium 4.5 (3.5-5.1) mmol/L Chloride 96 L (98-107) mmol/L Carbon Dioxide 24 (21-32) mmol/L Anion Gap 7 (3-11) BUN 22 (6-23) mg/dl Creatinine 0.90 (0.6-1.2) mg/dl Est Cr Clr Drug Dosing Not Reportable eGFR 63.04 BUN/Creatinine Ratio 24.4 H (10-20) Glucose 179 H (70-99(Fasting)) mg/dl Lactate 1.6 (0.4-2.0) mmol/L Calcium 9.2 (8.6-10.3) mg/dl Total Bilirubin 0.8 (0.2-1.0) mg/dl AST 10 L (13-39) U/L ALT 8 (7-52) U/L Alkaline Phosphatase 58 (34-104) U/L Total Protein 6.8 (6.0-8.3) gm/dl Albumin 3.7 (3.4-5.0) gm/dl Globulin 3.1 (2.5-4.0) gm/dl Albumin/Globulin Ratio 1.2 (0.9-2) Procalcitonin 0.16 (0-0.5) ng/ml Urine Color Yellow Urine Appearance Clear (Clear) Urine pH 6.0 (4.5-7.5) Ur Specific Kent <= 1.005 (1.000-1.030) Urine Protein Trace H (Negative) Urine Glucose (UA) Trace H (Negative) Urine Ketones Negative (Negative) Urine Blood Negative (Negative) Urine Nitrite Negative (Negative) Urine Bilirubin Negative (Negative) Urine Urobilinogen Negative (Negative) Ur Leukocyte Esterase Trace H (Negative) Urine RBC 0-2 (0-2) /hpf Urine WBC 6-10 H (0-5) /hpf Ur Epithelial Cells 0-2 (0-2) /hpf Urine Bacteria 1+ H (None Seen) Hyaline Casts Present A (None Presnt) /lpf Granular Casts Present A (None Prsent) /lpf Urine Comment Administered Medications Betaxolol HCl (Betaxolol Hcl 0.25% Op Susp 10 Ml Btl) 1 drops OPL BID@1000,1800 [facility] Stop: 02/23/25 17:59 Last Admin: 01/24/25 17:59 Dose: 1 drops Documented By: IRINEO Brinzolamide/Brimonidine Tartrate (Brinzolamide/Brimonidine Tart 119 Drops/8 Ml Btl) 1 drops OPL TID@1000,1200,1800 [facility] Stop: 02/23/25 17:59 Last Admin: 01/24/25 18:02 Dose: 1 drops Documented By: IRINEO Sodium Chloride (Nss) 1,000 mls @ 80 mls/hr IV .[id number] SUSAN Stop: 01/25/25 16:14 Last Admin: 01/24/25 16:18 Dose: 80 mls/hr Documented By: IRINEO Discontinued Medications Sodium Chloride (Nss) 1,000 mls @ 999 mls/hr IV .Q1H1M ONE Stop: 01/24/25 13:12 Last Infusion: 01/24/25 15:35 Dose: Infused Documented By: Admin: 01/24/25 12:28 Dose: 999 mls/hr Documented By: NBA Acetaminophen (Ofirmev) 1,000 mg in 100 mls @ 400 mls/hr IV NOW STA Stop: 01/24/25 14:35 Last Infusion: 01/24/25 15:30 Dose: Infused Documented By: Admin: 01/24/25 14:44 Dose: 400 mls/hr Documented By: NBA Sodium Chloride (Nss) 1,000 mls @ 999 mls/hr IV .Q1H1M ONE Stop: 01/24/25 15:21 Last Infusion: 01/24/25 16:17 Dose: Infused Documented By: Admin: 01/24/25 15:08 Dose: 999 mls/hr Documented By: CRISTOFER Ceftriaxone Sodium (Rocephin) 2,000 mg in 50 mls @ 100 mls/hr IV NOW STA Stop: 01/24/25 14:56 Last Infusion: 01/24/25 15:30 Dose: Infused Documented By: Admin: 01/24/25 14:44 Dose: 100 mls/hr Documented By: NBA Ioversol (Optiray 320 100ml) 92 ml IV ONCE ONE Stop: 01/24/25 13:19 Last Admin: 01/24/25 13:18 Dose: 92 ml Documented By: THAO Imaging Data Radiologist's Impression: Abdomen/Pelvis CT 01/24/25 12:[address] WITH IV CONTRAST CT DOSE: 1032.67 mGy.cm HISTORY: back pain, UTI, chills, nausea TECHNIQUE: Multiaxial CT images of the abdomen and pelvis were performed following the IV administration of 90 cc of Optiray, A dose lowering technique was utilized adhering to the principles of ALARA. COMPARISON STUDY: 01/18/2022 FINDINGS: Stable lower lung calcified pulmonary granuloma. ABDOMEN: Stable calcifications at spleen consistent with prior granulomatous disease. Gallbladder is surgically absent. Stable 5 mm cystic finding at the pancreatic body. Otherwise liver, spleen, pancreas, and adrenal glands are unremarkable. Stable renal cysts. There is no hydronephrosis bilaterally. Stable tiny left renal calculus or vascular calcification. There are scattered atherosclerotic calcifications. No abdominal aortic aneurysm. Pelvis: Uterus and adnexa are grossly unremarkable. Urinary bladder is distended. There is moderate retained stool. No bowel inflammation or obstruction seen. No free fluid or free air. No enlarged adenopathy. Osseous structures: there is diffuse lumbar degenerative disc disease. No acute osseous finding seen. IMPRESSION: No acute findings. Otherwise as described. ACT 112: Negative or not required by law. The above report was generated using voice recognition software. It may contain grammatical, syntax or spelling errors. Electronically signed by: Karson Mejia M.D. 01/24/2025 1:31 PM Chest X-Ray 01/24/25 14:11 XR chest 1V portable CLINICAL HISTORY: fever, white count COMPARISON STUDY: 07/01/2023 FINDINGS: Stable cardiac loop recorder. Heart size and pulmonary vasculature are normal. No consolidation or pleural effusion. Stable calcified granuloma medial right lung base. IMPRESSION: No pneumonia seen. ACT 112: Negative or not required by law. Electronically signed by: Karson Mejia M.D. 01/24/2025 2:26 PM Discharge Plan Visit Data Chief Complaint: Urinary Symptoms Stated Complaint: UTI ED Provider: Heide Hester ED Midlevel Provider: Seda Hansen Discharge Problem: Acute UTI, Hyponatremia, Dysuria, Leukocytosis Patient Disposition: Admitted As Inpatient Condition: Good Discharge Instructions Interventions: ED Discharge Assessment Last Done: 01/24/25 15:56 Discharge Problem: Leukocytosis Qualifiers: Leukocytosis type: unspecified Qualified Code(s): D72.829 - Elevated white blood cell count, unspecified
[2025-01-24] MEDS: SODIUM CHLORIDE 0.9% 1,000 ML IV ONE ×2 (12:28→15:08)
[2025-01-24 12:43] LABS: Hematocrit (blood only) 34.2 % (37.0-47.0); Hemoglobin 11.0 g/dl (12.0-16.0); Immature Granulocytes # (auto) 0.08 K/uL (0.01-0.20); Immature Granulocytes % (auto) 0.5 %; Mean Corpuscular Hemoglobin 27.2 pg (25.0-34.0); Mean Corpuscular Volume 84.7 fL (80.0-100.0); Platelet Count 228 K/uL (130-400); RDW Standard Deviation 41.1 fL (36.4-46.3); Red Blood Count 4.04 M/uL (4.20-5.40); White Blood Count 14.74 K/ul (4.8-10.8)
[2025-01-24 12:56] LABS: Alanine Aminotransferase 8 U/L (7-52); Albumin Globulin Ratio 1.2 (0.9-2); Alkaline Phosphatase 58 U/L (34-104); Anion Gap 7 (3-11); Bilirubin,Total 0.8 mg/dl (0.2-1.0); Blood Urea Nitrogen 22 mg/dl (6-23); Calcium 9.2 mg/dl (8.6-10.3); Carbon Dioxide 24 mmol/L (21-32); Chloride 96 mmol/L (98-107); Globulin 3.1 gm/dl (2.5-4.0); Glucose 179 mg/dl (70-99(Fasting)); Potassium 4.5 mmol/L (3.5-5.1); Sodium 127 mmol/L (136-145); Total Protein 6.8 gm/dl (6.0-8.3)
[2025-01-24] MEDS: OPTIRAY 320 100ml IV ONE (13:18)
--- NOTE | 2025-01-24 13:34 | CT Scan Report ---
ABDOMEN AND PELVIS CT WITH IV CONTRAST CT DOSE: 1032.67 mGy.cm HISTORY: back pain, UTI, chills, nausea TECHNIQUE: Multiaxial CT images of the abdomen and pelvis were performed following the IV administrat ion of 90 cc of Optiray, A dose lowering technique was utilized adhering to the principles of ALARA. COMPARISON STUDY: 01/18/2022 FINDINGS: Stable lower lung calcified pulmonary granuloma. ABDOMEN: Stable calcifications at spleen consistent with prior granulomatous disease. Gallbladder is surgically absent. Stable 5 mm cystic finding at the pancreatic body. Otherwise liver, spleen, pancre as, and adrenal glands are unremarkable. Stable renal cysts. There is no hydronephrosis bilaterally. Stable tiny left renal calculus or vascular calcification. There are scattered atherosclerotic calcif ications. No abdominal aortic aneurysm. Pelvis: Uterus and adnexa are grossly unremarkable. Urinary bladder is distended. There is moderate r etained stool. No bowel inflammation or obstruction seen. No free fluid or free air. No enlarged grzegorz opathy. Osseous structures: there is diffuse lumbar degenerative disc disease. No acute osseous finding seen. IMPRESSION: No acute findings. Otherwise as described. ACT 112: Negative or not required by law. The above report was generated using voice recognition software. It may contain grammatical, syntax o r spelling errors. Electronically signed by: Karson Mejia M.D. 01/24/2025 1:31 PM
[2025-01-24 13:46] LABS: Appearance Urine Clear (Clear); Glucose Urine UA Trace (Negative)
[2025-01-24 14:00] LABS: Epithelial Cell Urine 0-2 /hpf (0-2)
--- NOTE | 2025-01-24 14:28 | XRay Report ---
XR chest 1V portable CLINICAL HISTORY: fever, white count COMPARISON STUDY: 07/01/2023 FINDINGS: Stable cardiac loop recorder. Heart size and pulmonary vasculature are normal. No consolida tion or pleural effusion. Stable calcified granuloma medial right lung base. IMPRESSION: No pneumonia seen. ACT 112: Negative or not required by law. Electronically signed by: Karson Mejia M.D. 01/24/2025 2:26 PM
--- NOTE | 2025-01-24 14:37 | History & Physical Report ---
Date of Service January 24, 2025 Assessment & Plan (1) UTI (urinary tract infection): (2) Hyponatremia: (3) Hypertension: (4) Diabetes mellitus: Plan Cha is an 83-year-old female with a past medical history significant for hypertension, diabetes mellitus type 2, hyponatremia, previous TIA, hypothyroidism who presented to the [facility] ED after concerns of dysuria and chills #UTI - with leukocytosis (14), negative procal, normal kidney function UC: E.coli, awaiting sensitivies. Blood cultures: pending Continue ceftriaxone PT/OT #hyponatremia - acute on chronic Na 127 on admission, suspect from acute illness. baseline ~ 133 2L NSS in ED, hydrate overnight Continue home salt tabs AM BMP #HTN continue candesartan or formulary equivalent #DMT2 Home reigmen: lantus 8units HS, and metformin. - hold metformin A1c 12/2024: 7.7 Contitnue lantus. Monitor BSG for additon of SSI #hypothyroid - contnue synthroid #HLD - continue statin Dispo:admit to med/surg DVT proh: lovenox History of Present Illness Chief Complaint: UTI Primary Care Provider: [facility] Cha is an 83-year-old female with a past medical history significant for hypertension, diabetes mellitus type 2, hyponatremia, previous TIA, hypothyroidism who presented to the [facility] ED after concerns of dysuria and chills. Lives in the [facility] and was diagnosed with a UTI yesterday, took two doses of her prescribed macrobid but not feeling better so came in today. States that her symptoms started Friday. now having rigors and chills appetite has been good. took her pills this morning Lives independently at baseline would like to be a DNR/DNI ED course: Ceftriaxone tylenol Allergies Allergy/AdvReac Type Severity Reaction Status Date / Time cefadroxil AdvReac Severe DIARRHEA Verified 12/24/24 12:40 FOR 4 WEEKS oxycodone AdvReac Severe Vomiting Verified 12/24/24 12:40 aspirin AdvReac Intermediate "Stomach Verified 12/24/24 12:47 bleeds" codeine AdvReac Intermediate Vomiting Verified 12/24/24 12:40 Home Medications Medication Instructions Recorded Confirmed Type esomeprazole magnesium 40 mg 40 mg PO QAM 05/11/19 01/24/25 History capsule,delayed release (Nexium) candesartan 4 mg tablet 4 mg PO QPM 06/26/23 01/24/25 History levothyroxine 88 mcg tablet 88 mcg PO QAM 06/26/23 01/24/25 History (Synthroid) insulin glargine 100 unit/mL (3 8 unit subcut HS 11/16/23 01/24/25 History mL) subcutaneous pen (Lantus Solostar U-100 Insulin) metformin 1,000 mg 24 hr 1,000 mg PO DAILY 11/16/23 01/24/25 History tablet,extended release (gastric reten.) rosuvastatin 5 mg tablet 10 mg PO QAM 11/16/23 01/24/25 History aspirin 81 mg tablet,delayed 81 mg PO DAILY #0 tabs 01/27/24 01/24/25 Rx release betaxolol 0.25 % eye 1 drp OPL BID 12/16/24 01/24/25 History drops,suspension (Betoptic S) bimatoprost 0.01 % eye drops 1 drp OPL DAILY 12/16/24 01/24/25 History (Lumigan) brinzolamide 1 %-brimonidine 0.2 % 1 drp OPL BID 12/16/24 01/24/25 History eye drops,suspension (Simbrinza) calcium carbonate 1,800 mg PO DAILY 12/16/24 01/24/25 History cholecalciferol (vitamin D3) 25 25 mcg PO DAILY 12/16/24 01/24/25 History mcg (1,000 unit) tablet (Vitamin D3) cyanocobalamin (vitamin B-12) 1,000 mcg PO DAILY 12/16/24 01/24/25 History 1,000 mcg tablet diclofenac sodium 1 % topical gel 2 g topical TID PRN . 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 Wynn Mixed hearing loss, bilateral Perforation of right tympanic membrane ETD (eustachian tube dysfunction) Weakness (Acute) Weakness (Acute) Intractable vomiting (Acute) Hypomagnesemia (Acute) Head injury, closed (Acute) Fall (Acute) none recent per pt; last 2021 per chart review Contusion of multiple sites (Acute) Advance care planning Abrasion, shoulder w/o infection (Acute) Medical History Hx of syncope Hx recurrent syncope/falls -had LINQ recorder placed Following with Dr. Wynn Central retinal artery occlusion Acid reflux half-way resident Nikolas HTN, goal below 130/80 Diabetes mellitus IDDM Encounter for pre-operative examination Left knee DJD Chronic hyponatremia Fluctuating levels with sodium levels between high 120s- low 130s BPPV (benign paroxysmal positional vertigo) Nocturia Implantable loop recorder present Medtronic LINQ II (replaced 04/2023) Aortic stenosis, mild Echo 01/2022: Mild aortic stenosis (HOANG 1.2-1.3cm2, MG 8.2-10 mmhg) HLD (hyperlipidemia) on statin Arrhythmia Follows with Dr. Wynn, LINQ II recorder, hx supraventricular ectopic beats TIA (transient ischemic attack) Remote hx "long time ago" Surgical History History of knee replacement (2023) Right TKA (11/12/13): SAB at L3-4 + regional at [facility] "had awareness and did not like it" during this procedure LEFT KNEE: 2023 History of tonsillectomy and adenoidectomy History of shoulder surgery History of cholecystectomy Family History Sister Hypertension Mother Diabetes Other Asthma Stroke Denies family history of Cancer Social History Smoking Status: Never smoker Tobacco Type: Cigarettes Hx Alcohol Use: No Preferred Language: Montenegrin Communication Ability: Effective Communication Ability Comment: unk Visual Impairment: No Limitations Hearing Ability: Normal Firewall Administrator Required: No Beliefs That Will Affect Care: None marital status: / Current Living Situation: Personal Care Facility Current Living Situation Comment: [facility] current occupational status: retired How many Children do You have: 0 Feels Safe at Home: Yes during the past year weight has: decreased > 10 lbs Assistive Devices: Glasses and Walker Review of Systems Review of Systems: All systems reviewed & are unremarkable except as noted in Subjective Physical Exam Physical Exam: General: NAD, VS as above, appears ill, rigors on exam Resp: normal respiratory effort, lungs clear to auscultation CV: RRR, no murmur, Abd: normal bowel sounds, non tender, no hepatosplenomegaly Extremities: Moves all extremities, no edema Neuro: A&O x3, Results & Data Results & Data Vital Signs (Past 12 Hours) Vital Signs Temp Pulse Resp BP Pulse Ox O2 Del Method 01/24/25 14:05 100.0 F H 01/24/25 11:42 97.9 F 78 18 114/54 L 96 Room Air Supervising Physician Co-Signing Physician Notes The patient was not seen by me. The chart was reviewed. Case discussed with ANASTACIO Montemayor. Agree with assessment and plan PG Care Time/CCT Total # of Minutes Spent Total Time Spent with Patient: Total time spent is greater than 50% in coordination of care (as documented) at patient's floor/unit and/or counseling patient: Coding Level of Care Code 83146 INT INP/OBS CARE 3/75MIN Diagnoses Acute pyelonephritis N10 Urinary tract infection type: acute pyelonephritis Hyponatremia E87.1 Hypertension I10 Type 2 diabetes mellitus without complication, without long-term current use of insulin E11.9 Diabetes mellitus complication status: without complication Diabetes mellitus terminal supervisor insulin use: without terminal supervisor use Diabetes mellitus type: type 2 (1) UTI (urinary tract infection) Urinary tract infection type: acute pyelonephritis Qualified Code(s): N10 - Acute pyelonephritis (4) Diabetes mellitus Diabetes mellitus complication status: without complication Diabetes mellitus terminal supervisor insulin use: without terminal supervisor use Diabetes mellitus type: type 2 Qualified Code(s): E11.9 - Type 2 diabetes mellitus without complications
[2025-01-24] MEDS: cefTRIAXone SODIUM 2,000 MG/50 ML BAG IV STA (14:44)
[2025-01-24] MEDS: ACETAMINOPHEN 1,000 MG/100 ML VIAL IV STA (14:44)
[2025-01-24] MEDS ORDERED: ONDANSETRON INJ 2 MG/ML 2 ML VIAL IV PRN (16:11)
[2025-01-24] MEDS ORDERED: GLUCOSE 10 TAB/TUBE PO PRN (16:11)
[2025-01-24] MEDS ORDERED: POLYETHYLENE (MIRALAX) 17 GM PACK PO PRN (16:11)
[2025-01-24] MEDS ORDERED: DEXTROSE 50% 50 ML SYRINGE IV PRN (16:11)
[2025-01-24] MEDS ORDERED: GLUCAGON FOR INJ 1 MG VIAL SQ PRN (16:11)
[2025-01-24] MEDS ORDERED: CARBOHYDRATES FOR HYPOGLYCEMIA PO PRN (16:11)
[2025-01-24] MEDS ORDERED: DICLOFENAC SOD 1% GEL 100 GM TUBE EXT PRN (16:11)
[2025-01-24] MEDS ORDERED: MELATONIN 3 MG TAB PO PRN (16:11)
[2025-01-24] MEDS ORDERED: GLUCOSE 40% GEL 15 GM TUBE PO PRN (16:11)
[2025-01-24] MEDS: SODIUM CHLORIDE 0.9% 1,000 ML IV SCH (16:18)
[2025-01-24] MEDS ORDERED: Nursing to Pharmacy Communication SCH (17:30)
[2025-01-24] MEDS: BETAXOLOL HCL 0.25% OPL SCH (17:59)
[2025-01-24] MEDS: BRINZOLAMIDE/BRIMONIDINE TART 119 DROPS/8 ML BTL OPL SCH (18:02)
[2025-01-24] MEDS: BIMATOPROST 0.01% OP SOLN 2.5 ML BTL OPL SCH (20:06)
[2025-01-24] MEDS: VIBEGRON 75 MG TAB PO SCH (20:09)
[2025-01-24] MEDS: SODIUM CHLORIDE 1 GM TABLET PO SCH (20:10)
[2025-01-24] MEDS: LANTUS PER UNIT CHARGE SQ SCH (20:29)
[2025-01-24] MEDS: INSULIN ASPART PER UNIT CHARGE SC SCH (20:29)
[2025-01-24] MEDS: LOSARTAN POTASSIUM 25 MG TAB PO SCH (20:29)
[2025-01-24] MEDS ORDERED: BETAXOLOL HCL 0.25% OPL SCH (21:00)
[2025-01-24] MEDS: ACETAMINOPHEN 500 MG TAB PO PRN (23:03)
[2025-01-25 06:11] LABS: Hematocrit (blood only) 33.1 % (37.0-47.0); Hemoglobin 10.4 g/dl (12.0-16.0); Immature Granulocytes # (auto) 0.03 K/uL (0.01-0.20); Immature Granulocytes % (auto) 0.3 %; Mean Corpuscular Hemoglobin 27.2 pg (25.0-34.0); Mean Corpuscular Volume 86.4 fL (80.0-100.0); Platelet Count 184 K/uL (130-400); RDW Standard Deviation 42.2 fL (36.4-46.3); Red Blood Count 3.83 M/uL (4.20-5.40); White Blood Count 9.74 K/ul (4.8-10.8)
[2025-01-25] MEDS: LEVOTHYROXINE SODIUM 88 MCG TABLET PO SCH (06:16)
[2025-01-25 06:26] LABS: Anion Gap 5.0 (3-11); Blood Urea Nitrogen 17.0 mg/dl (6-23); Calcium 8.3 mg/dl (8.6-10.3); Carbon Dioxide 23.0 mmol/L (21-32); Chloride 106.0 mmol/L (98-107); Creatinine Clr Calc Pharmacy 46.2 ml/min; Glucose 128.0 mg/dl (70-99(Fasting)); Potassium 3.9 mmol/L (3.5-5.1); Sodium 134.0 mmol/L (136-145)
[2025-01-25] MEDS ORDERED: BIMATOPROST 0.01% OP SOLN 2.5 ML BTL OPL SCH (09:00)
[2025-01-25] MEDS: ROSUVASTATIN CALCIUM 10 MG TAB PO SCH (09:07)
[2025-01-25] MEDS: ASPIRIN 81 MG ECTAB PO SCH (09:08)
[2025-01-25] MEDS: ENOXAPARIN INJ 40 MG/0.4 ML SYR SQ SCH (09:08)
[2025-01-25] MEDS ORDERED: Nursing to Pharmacy Communication SCH (11:15)
--- NOTE | 2025-01-25 12:09 | Hospitalist Progress Note ---
Date of Service January 25, 2025 Assessment & Plan (1) UTI (urinary tract infection): (2) Hyponatremia: (3) Hypertension: (4) Diabetes mellitus: Plan Cha is an 83-year-old female with a past medical history significant for hypertension, diabetes mellitus type 2, hyponatremia, previous TIA, hypothyroidism who presented to the [facility] ED after concerns of dysuria and chills #UTI - with leukocytosis (14), negative procal, normal kidney function on admission UC: E.coli, pansensitive Blood cultures: pending Continue ceftriaxone PT/OT pending Leukocytosis has improved, clinically improving. Continued inpatient stay for IV antibiotics while waiting blood cultures #hyponatremia - acute on chronic Na 127 on admission, suspect from acute illness. baseline ~ 133 2L NSS in ED, hydrate overnight Continue home salt tabs sodium improved to 134 today #HTN continue candesartan or formulary equivalent #DMT2 Home reigmen: lantus 8units HS, and metformin. - hold metformin A1c 12/2024: 7.7 Continue lantus. SSI added with CF only #hypothyroid - continue Synthroid #HLD - continue statin Dispo: continued inpatient stay awaiting blood cultures, continue IV antibiotics. Possible discharge tomorrow if cleared by therapy and blood cultures are negative and patient continues to feel well DVT proh: lovenox Admission and Anticipated Discharge Date Admission Date: January 24, 2025 Supervising Physician Co-Signing Physician Notes Attending Attestation - Chart reviewed, care plan d/w ANASTACIO Manriquez. I agree w/ the robbins components of her documentation. Sharath Olivo MD Subjective Cha seen lying in bed. Reports feeling much better this morning. Reports that she had significant night sweats overnight and required her gown to be changed. No fevers this morning. No longer has rigors. Did work with PT and feels like she did well. Denies urinary symptoms Review of Systems Review of Systems: All systems reviewed & are unremarkable except as noted in Subjective Physical Exam Physical Exam: General: NAD, VS as above, appears much better than yesterday Resp: normal respiratory effort, lungs clear to auscultation CV: RRR, no murmur, Abd: normal bowel sounds, non tender, no hepatosplenomegaly Extremities: Moves all extremities, no edema Neuro: A&O x3, Results & Data Results & Data Vital Signs (Past 12 Hours) Vital Signs Temp Pulse Resp BP BP Pulse Ox O2 Del Method 01/25/25 09:11 98.1 F 72 18 146/66 H 97 Room Air 01/25/25 00:26 99.5 F 76 14 119/56 L 95 Room Air Laboratory Results CBC and chemistry reviewed Blood cultures reviewed PG Care Time/CCT Total # of Minutes Spent Total Time Spent with Patient: Total time spent is greater than 50% in coordination of care (as documented) at patient's floor/unit and/or counseling patient: Coding Level of Care Code 71201 SUB INP/OBS CARE 3/50MIN Diagnoses Acute pyelonephritis N10 Urinary tract infection type: acute pyelonephritis Hyponatremia E87.1 Hypertension I10 Type 2 diabetes mellitus without complication, without long-term current use of insulin E11.9 Diabetes mellitus complication status: without complication Diabetes mellitus snf insulin use: without long term care pharmacist use Diabetes mellitus type: type 2 (1) UTI (urinary tract infection) Urinary tract infection type: acute pyelonephritis Qualified Code(s): N10 - Acute pyelonephritis (4) Diabetes mellitus Diabetes mellitus complication status: without complication Diabetes mellitus long term care pharmacist insulin use: without snf use Diabetes mellitus type: type 2 Qualified Code(s): E11.9 - Type 2 diabetes mellitus without complications
[2025-01-25] MEDS: cefTRIAXone SODIUM 2,000 MG/50 ML BAG IV SCH (12:22)
[2025-01-26 07:25] VITALS: BP 151/65; PULSE 60; RESP 17; TEMP 97.7; O2SAT 98
[2025-01-26] MEDS: ROSUVASTATIN CALCIUM 10 MG TAB PO SCH (08:10)
[2025-01-26] MEDS ORDERED: Nursing to Pharmacy Communication SCH (09:00)
--- NOTE | 2025-01-26 09:00 | Discharge Summary ---
Discharge Summary Date of Service January 26, 2025 Principal Dx & Hospital Course #1 = Principal Diagnosis (1) UTI (urinary tract infection): (2) Hyponatremia: (3) Hypertension: (4) Diabetes mellitus: Plan #UTI Cha is an 83-year-old female with a past medical history significant for hypertension, diabetes mellitus type 2, hyponatremia, previous TIA, hypothyroidism who presented to the [facility] ED after concerns of dysuria and chills. Leukocytosis (14), negative procal, normal kidney function on admission. UC: E.coli, pansensitive - received 3 days of IV ceftriaxone, will continue antibiotic regimen with oral Augmentin (patient has intolerance to many other antibiotics). PT/OT cleared patient for home. Blood cultures negative at 24 hours on discharge. #hyponatremia - acute on chronic.Na 127 on admission, suspect from acute illness. baseline ~ 133. Improved to 134 with hydration. continue home salt tabs #HTN - continue candesartan #DMT2 - Continue home: lantus 8units HS, and metformin. #hypothyroid - continue Synthroid #HLD - continue statin Dispo: discharge back to home today Notes For Next Care Provider Medication Changes From Visit augmentnin BID x 4 days Admission HPI Per Admitting Provider Cha is an 83-year-old female with a past medical history significant for hypertension, diabetes mellitus type 2, hyponatremia, previous TIA, hypothyroidism who presented to the [facility] ED after concerns of dysuria and chills. Lives in the [facility] and was diagnosed with a UTI yesterday, took two doses of her prescribed macrobid but not feeling better so came in today. States that her symptoms started Friday. now having rigors and chills appetite has been good. took her pills this morning Lives independently at baseline would like to be a DNR/DNI ED course: Ceftriaxone tylenol Discharge Exam General: NAD, VS as above, appears well, sitting up in the chair Resp: normal respiratory effort, lungs clear to auscultation CV: RRR, no murmur, Abd: normal bowel sounds, non tender, no hepatosplenomegaly Extremities: Moves all extremities, no edema Neuro: A&O x3, Discharge Plan Discharge Items Patient Disposition: Home - Self-Care Reason For Visit: UTI Discharge Diagnosis: UTI Condition on Discharge: Good Activity: Resume your previous activity Weightbearing: Full weightbearing Non-emergency contact: Primary Care Provider Call non-emergency contact if: you have any medication questions, your pain is not controlled and your temperature is above 101 Follow-up/Referrals: Shasta Drake [Primary Care Provider] - (follow up within one week ) Diet: Carb Consistent or DM2 Addtl Attending Provider Instructions: Ms. Garner You were admitted to the hospital after having UTI symptoms. Thankfully you have been fever free for > 24 hours and symptoms are much improved. You have recieved 3 days of IV antibiotics and will need four more days of oral antibiotics starting 01/26. You have blood cultures pending at the time of discharge, they are negative at 24 hours but take 5 days to get final results. If they turn positive you will be notified, you can also check in with your PCP or the [facility] portal. H owever, given your symptoms I do not expect they will be positive. No other changes to your home medications. Activity: You can do normal everyday activities as your body allows. Take rest breaks if you feel tired. Do not overexert. Stop activity if you have pain, shortness of breath or feel dizzy. Follow-up appointments: Make an appointment with your primary care physician within one week of discharge. A copy of this summary will be sent to them. Every time you see your primary care physician, or any other doctor, bring your medication list, and a list of questions. CONTACT YOUR PRIMARY CARE PROVIDER if you experience any of the following: Shortness of breath or difficulty breathing Fevers or chills Feeling tired with normal activity or experiencing dizziness or fainting Difficulty following your treatment plan, or difficulty taking medications CALL 911 OR GO TO THE EMERGENCY DEPARTMENT if you experience any of the following: Severe abdominal pain or nausea/vomiting Severe chest pain, or chest pain that radiates (moves) to your jaw or arm Sudden, severe shortness of breath or difficulty breathing Thank you for allowing us to participate in your care. Pending Studies at Discharge: Yes (Blood cultures) Stand-Alone Forms: [employer] Medications and DC Order Prescriptions: New amoxicillin-pot clavulanate 875-125 mg tablet 1 tab PO BID 4 Days Qty: 8 0RF Continued esomeprazole magnesium [Nexium] 40 mg capsule,delayed release(DR/EC) 40 mg PO QAM levothyroxine [Synthroid] 88 mcg tablet 88 mcg PO QAM candesartan 4 mg Tablet 4 mg PO QPM rosuvastatin 5 mg tablet 10 mg PO QAM metformin 1,000 mg Tablet,Er Reji.Retention 24 Hr 1,000 mg PO DAILY insulin glargine [Lantus Solostar U-100 Insulin] 100 unit/mL (3 mL) insulin pen 8 unit SUBCUT HS Betoptic S 0.25 % drops,suspension 1 drp OPL BID cyanocobalamin (vitamin B-12) 1,000 mcg Tablet 1,000 mcg PO DAILY calcium carbonate 600 mg calcium (1,500 mg) Tablet 1,800 mg PO DAILY sodium chloride 1,000 mg Tablet,Soluble 1,000 mg PO BID cholecalciferol (vitamin D3) [Vitamin D3] 25 mcg (1,000 unit) Tablet 25 mcg PO DAILY diclofenac sodium 1 % Gel 2 g TOPICAL TID PRN (Reason: .) Rx Instructions: apply to single elbow, wrist or hand; for hand includes palm/fingers/back of hand Lumigan 0.01 % drops 1 drp OPL DAILY Simbrinza 1-0.2 % drops,suspension 1 drp OPL BID Gemtesa 75 mg tablet 75 mg PO QPM aspirin 81 mg Tablet,Delayed Release (Dr/Ec) 81 mg PO DAILY Qty: 0 0RF Discontinued acetazolamide 500 mg capsule, extended release 0 mg PO UD Patient Comments: 01/24- Not on faxed med list Discharge Orders: Discharge Order (Routine); Ordered 01/26/25 Ordered By: Jaki Manriquez Admission Data Admit Date/Time: 01/24/25 15:08 Attending Provider: Payton Rodriguez Admit Provider: Jorge A Altman Primary Care Provider: Shasta Drake Other Providers: Jorge A Altman Hospital Stay Data Consultations 01/24/25 14:36 ED Decision to Admit Stat Diagnostic Imagining Performed 01/24/25 12:10 CT Abd and Pelvis [CT abd pelvis IV con only] Stat Pending Results Patient Have Any Pending Studies at Discharge: Yes (Blood cultures) Discharge Instructions Given to Patient (Per Discharging Provider) Ms. Garner You were admitted to the hospital after having UTI symptoms. Thankfully you have been fever free for > 24 hours and symptoms are much improved. You have recieved 3 days of IV antibiotics and will need four more days of oral antibiotics starting 01/26. You have blood cultures pending at the time of discharge, they are negative at 24 hours but take 5 days to get final results. If they turn positive you will be notified, you can also check in with your PCP or the [facility] portal. However, given your symptoms I do not expect they will be positive. No other changes to your home medications. Activity: You can do normal everyday activities as your body allows. Take rest breaks if you feel tired. Do not overexert. Stop activity if you have pain, shortness of breath or feel dizzy. Follow-up appointments: Make an appointment with your primary care physician within one week of discharge. A copy of this summary will be sent to them. Every time you see your primary care physician, or any other doctor, bring your medication list, and a list of questions. CONTACT YOUR PRIMARY CARE PROVIDER if you experience any of the following: Shortness of breath or difficulty breathing Fevers or chills Feeling tired with normal activity or experiencing dizziness or fainting Difficulty following your treatment plan, or difficulty taking medications CALL 911 OR GO TO THE EMERGENCY DEPARTMENT if you experience any of the following: Severe abdominal pain or nausea/vomiting Severe chest pain, or chest pain that radiates (moves) to your jaw or arm Sudden, severe shortness of breath or difficulty breathing Thank you for allowing us to participate in your care. Total Time Total Time Spent Total Time Spent (In Minutes): Time spent day of discharge 36 minutes including direct patient care, medication reconciliation, documentation, review of labs and images, and coordination of care. Coding Level of Care Code 33284 INP/OBS DISCH >30 MIN Diagnoses Acute pyelonephritis N10 Urinary tract infection type: acute pyelonephritis Hyponatremia E87.1 Hypertension I10 Type 2 diabetes mellitus without complication, without long-term current use of insulin E11.9 Diabetes mellitus type: type 2 Diabetes mellitus termite control servicer insulin use: without termite control servicer use Diabetes mellitus complication status: without complication
== END 2025-01-26 15:10 | disposition home or self-care (01) | DRG 690 ==
LOC: SUATTDRO → ED 11:33 → SUATTDRO 15:08 → 3E 15:08

== ENCOUNTER 2025-03-21 15:24 | Inpatient (IN) ==
[2025-03-21] MEDS: SODIUM CHLORIDE 0.9% 500 ML IV ONE (15:54)
--- NOTE | 2025-03-21 16:13 | Emergency Department Note ---
Impression & Plan Chest pain, exertional, Syncope, Elevated troponin ED Provider Note NAME: MARKEL YE AGE: 84 SEX: F : 1940 ARRIVES VIA: Ambulance INFORMANT: Patient ED PROVIDER(S): Steffen Krishnan MD CHIEF COMPLAINT: Syncope, chest pain with exertion PLAN: Disposition: Admit MEDICAL DECISION MAKING: The patient is a pleasant 84-year-old woman with a past medical history of hypertension, hyperlipidemia, hypothyroidism, type 2 diabetes who presents to Emergency Department via EMS from her home at [facility] and accompanied by her friend for evaluation of episode of syncope which occurred prior to arrival. Patient reports she had finished having lunch at the dining [place] and was walking up the hill back to her home when she started to feel increasing shortness of breath and pressure in her chest. She reports feeling lightheaded as if she were going to pass out. She was able to make it to her home and sit in her recliner. She reports when sitting in her recliner she finally "passed out". She reports she quickly came to and realize she had urinated herself and so walked to the bathroom to move her bowels which she reports was normal. She then walked to her bedroom where she continued to feel lightheaded and contacted staff who then contacted EMS. She denies any chest pain or shortness of breath at this time. Patient reports she does have a loop recorder. Additionally, she reports having a recent outpatient echocardiogram through her [facility] bumper operator. On evaluation the patient is no acute distress, afebrile blood pressure 180/70s and vital signs otherwise stable. She appears euvolemic to dry. She exhibits no focal neurologic deficits. EKG without overt acute ischemia. CXR negative for acute cardiopulmonary process per my personal preliminary review/interpretation. WBC and platelets within normal limits. H/H similar to prior. Chemistry without metabolic acidosis. Electrolytes without significant abnormality. LFTs unremarkable. High styptic troponin is mildly elevated at 34.6, nonspecific. TSH within limits. UA without evidence of infection. Given patient report of exertional shortness of breath and chest pain prior to symptoms with in setting of her elevated troponin full dose aspirin ordered out of caution. Patient does agree with plan for admission for further evaluation. Interrogation of the patient's loop recorder is ordered and pending. Dr. Altman, [facility] hospitalist, to evaluate the patient for admission. Further management per admitting team. Triage Nursing notes reviewed and agree them. Prior/external medical records reviewed Vital Signs: reviewed Differential diagnosis: Vasovagal event, dehydration, infection, hypoglycemia, electrolyte abnormalities, cardiac sources, intracerebral event, pulmonary embolism, seizure, toxicologic, neurologic, as well as other pathologies. ER treatment provided: See below. Diagnostics interpreted by me: ECG: Normal sinus rhythm, sinus arrhythmia, 65 bpm, no ectopy, no overt ST elevation or depression, QTc 440, QRS 80 Cardiac Monitoring: An order for continuous cardiac monitoring was placed and demonstrated Normal sinus rhythm, sinus arrhythmia, 65 bpm, no ectopy, Laboratory studies: See below Imaging studies: See below Consultation(s): Dr. Altman, [facility] hospitalist HPI: Per MDM. ROS: See above HPI for pertinent positives & negatives. A total of 10 systems reviewed and were otherwise negative. VITALS:See Below PHYSICAL EXAMINATION: GENERAL: Awake, alert, well-appearing, in no distress HENT: Normocephalic, atraumatic. Oropharynx unremarkable. EYES: Normal conjunctiva. Sclera non-icteric. NECK: Supple. No nuchal rigidity. FROM. No JVD. RESPIRATORY: Clear to auscultation. CARDIAC: Regular rate, normal rhythm. Extremities warm and well perfused. Pulses equal. ABDOMEN: Soft, non-distended. No tenderness to palpation. No rebound or guarding. No masses. MUSCULOSKELETAL: Chest examination reveals no tenderness. The back is symmetrical on inspection without obvious abnormality. There is no CVA tenderness to palpation. No joint edema. LOWER EXTREMITIES: Calves are equal size bilaterally and non-tender. No edema. No discoloration. NEURO: Normal sensorium. No sensory or motor deficits noted. SKIN: No rash or jaundice noted. 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 Wynn Mixed hearing loss, bilateral Perforation of right tympanic membrane ETD (eustachian tube dysfunction) Weakness (Acute) Weakness (Acute) Intractable vomiting (Acute) Hypomagnesemia (Acute) Head injury, closed (Acute) Fall (Acute) none recent per pt; last 2021 per chart review Contusion of multiple sites (Acute) Advance care planning Abrasion, shoulder w/o infection (Acute) Medical History Hypertension Hyponatremia Hx of syncope Hx recurrent syncope/falls -had LINQ recorder placed Following with Dr. Wynn Central retinal artery occlusion Acid reflux [facility] resident [place] HTN, goal below 130/80 Diabetes mellitus IDDM Encounter for pre-operative examination Left knee DJD Chronic hyponatremia Fluctuating levels with sodium levels between high 120s- low 130s BPPV (benign paroxysmal positional vertigo) Nocturia Implantable loop recorder present [employer] LINQ II (replaced 04/2023) Aortic stenosis, mild Echo 01/2022: Mild aortic stenosis (HOANG 1.2-1.3cm2, MG 8.2-10 mmhg) HLD (hyperlipidemia) on statin Arrhythmia Follows with Dr. Wynn, LINQ II recorder, hx supraventricular ectopic beats TIA (transient ischemic attack) Remote hx "long time ago" Surgical History History of knee replacement (2023) Right TKA (11/12/13): SAB at L3-4 + regional at [facility] "had awareness and did not like it" during this procedure LEFT KNEE: 2023 History of tonsillectomy and adenoidectomy History of shoulder surgery History of cholecystectomy Family History Sister Hypertension Mother Diabetes Other Asthma Stroke Denies family history of Cancer Social History Smoking Status: Never smoker Tobacco Type: Cigarettes Hx Alcohol Use: Yes Alcohol type: wine Hx Substance Use: No Preferred Language: Romansh Communication Ability: Effective Communication Ability Comment: unk Visual Impairment: No Limitations Hearing Ability: Normal 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 Leasing 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 Required: No Beliefs That Will Affect Care: None marital status: / Current Living Situation: Other Current Living Situation Comment: Independent Living [place] current occupational status: retired How many Children do You have: 0 Feels Safe at Home: Yes during the past year weight has: decreased > 10 lbs Assistive Devices: Walker Allergies Allergies Allergy/AdvReac Type Severity Reaction Status Date / Time codeine Allergy Intermediate Rash Verified 03/21/25 17:33 sitagliptin [From Januvia] Allergy Intermediate Rash Verified 03/21/25 17:33 Sulfa (Sulfonamide Allergy Intermediate Rash Verified 03/21/25 17:33 Antibiotics) tramadol [From Ultram] Allergy Intermediate Rash Verified 03/21/25 17:33 cefadroxil AdvReac Severe DIARRHEA Verified 03/21/25 17:29 FOR 4 WEEKS oxycodone AdvReac Severe Vomiting Verified 03/21/25 17:29 prednisone AdvReac Severe HYPONATREMI Verified 03/21/25 17:33 A aspirin AdvReac Intermediate "Stomach Verified 03/21/25 17:29 bleeds" Calcium Channel Blocking AdvReac Intermediate Hypotension Verified 03/21/25 21:43 Agent Dilt Calcium Channel Blocking AdvReac Intermediate Hypotension Verified 03/21/25 21:43 Agents-Dih ciprofloxacin [From Cipro] AdvReac Mild Nausea Verified 03/21/25 17:33 dulaglutide [From Trulicity] AdvReac Mild Nausea Verified 03/21/25 17:33 ezetimibe [From Zetia] AdvReac Mild Nausea Verified 03/21/25 17:33 Home Meds Home Medications Medication Instructions Recorded Confirmed esomeprazole magnesium 40 mg 40 mg PO QAM 05/11/19 03/21/25 capsule,delayed release (Nexium) candesartan 4 mg tablet 4 mg PO DAILY 06/26/23 03/21/25 levothyroxine 88 mcg tablet 88 mcg PO DAILYBB 06/26/23 03/21/25 (Synthroid) insulin glargine 100 unit/mL (3 8 unit subcut HS 11/16/23 03/21/25 mL) subcutaneous pen (Lantus Solostar U-100 Insulin) metformin 1,000 mg 24 hr 1,000 mg PO DAILY 11/16/23 03/21/25 tablet,extended release (gastric reten.) betaxolol 0.25 % eye 1 drp OPL BID 12/16/24 03/21/25 drops,suspension (Betoptic S) bimatoprost 0.01 % eye drops 1 drp OPL DAILY 12/16/24 03/21/25 (Lumigan) brinzolamide 1 %-brimonidine 0.2 % 1 drp OPL BID 12/16/24 03/21/25 eye drops,suspension (Simbrinza) calcium carbonate 1,800 mg PO DAILY 12/16/24 03/21/25 cholecalciferol (vitamin D3) 25 25 mcg PO DAILY 12/16/24 03/21/25 mcg (1,000 unit) tablet (Vitamin D3) cyanocobalamin (vitamin B-12) 1,000 mcg PO DAILY 12/16/24 03/21/25 1,000 mcg tablet diclofenac sodium 1 % topical gel 2 g topical TID PRN JOINT PAIN 12/16/24 03/21/25 sodium chloride 1,000 mg soluble 1,000 mg PO BID 12/16/24 03/21/25 tablet vibegron 75 mg tablet (Gemtesa) 75 mg PO QPM 12/16/24 03/21/25 fluconazole 150 mg tablet 150 mg PO Q3D PRN NEEDED 03/21/25 03/21/25 rosuvastatin 10 mg tablet 10 mg PO DAILY 03/21/25 03/21/25 Previous Rx's Medication Instructions Recorded aspirin 81 mg tablet,delayed 81 mg PO DAILY #0 tabs 01/27/24 release Results & Data (ED) Vital Signs Vital Signs - 24 hr 03/21/25 15:29 03/21/25 15:56 03/21/25 16:12 Temperature 36.6 C Temperature Source Oral Pulse Rate 63 64 Pulse Rate [Apical] Pulse Rhythm Regular Pulse Strength Normal Respiratory Rate 16 Respiratory Effort / Characteristics Non-Labored Spontaneous Respiratory Depth Normal Respiratory Pattern Regular Blood Pressure 180/72 H Blood Pressure [Right Arm] Blood Pressure Mean 108 Blood Pressure Mean [Right Arm] Blood Pressure Position Sitting Pulse Oximetry 98 98 Oxygen Delivery Method Room Air Room Air Sepsis Recent Fever Within 48 Hours No Sepsis New/Unexplained Change in Mental Status No Sepsis Action Taken by Nursing No Action Required 03/21/25 16:12 03/21/25 16:12 03/21/25 18:00 Temperature Temperature Source Pulse Rate 69 Pulse Rate [Apical] 74 72 Pulse Rhythm Pulse Strength Respiratory Rate 16 16 16 Respiratory Effort / Characteristics Respiratory Depth Respiratory Pattern Blood Pressure Blood Pressure [Right Arm] 178/69 H 143/65 H Blood Pressure Mean Blood Pressure Mean [Right Arm] 105 91 Blood Pressure Position Pulse Oximetry 98 98 95 Oxygen Delivery Method Room Air Room Air Room Air Sepsis Recent Fever Within 48 Hours Sepsis New/Unexplained Change in Mental Status Sepsis Action Taken by Nursing 03/21/25 19:37 Temperature Temperature Source Pulse Rate 72 Pulse Rate [Apical] Pulse Rhythm Pulse Strength Respiratory Rate Respiratory Effort / Characteristics Respiratory Depth Respiratory Pattern Blood Pressure Blood Pressure [Right Arm] Blood Pressure Mean Blood Pressure Mean [Right Arm] Blood Pressure Position Pulse Oximetry Oxygen Delivery Method Sepsis Recent Fever Within 48 Hours Sepsis New/Unexplained Change in Mental Status Sepsis Action Taken by Nursing Laboratory Data Attestation: I reviewed the patient's lab results. 03/21/25 16:11 03/21/25 16:11 Lab Results 03/21/25 03/21/25 03/21/25 Range/Units 16:11 16:36 18:38 WBC 7.75 (4.8-10.8) K/ul RBC 4.18 L (4.20-5.40) M/uL Hgb 11.1 L (12.0-16.0) g/dl Hct 35.4 L (37.0-47.0) % MCV 84.7 (80.0-100.0) fL MCH 26.6 (25.0-34.0) pg MCHC 31.4 L (32.0-36.0) g/dL RDW Std Deviation 42.7 (36.4-46.3) fL RDW Coeff of Gadiel 13.7 (11.5-14.5) % Plt Count 246 (130-400) K/uL MPV 8.7 L (9.4-12.4) fL Immature Gran % (Auto) 0.4 % Neut % (Auto) 81.0 % Lymph % (Auto) 10.6 % [place] % (Auto) 5.5 % Eos % (Auto) 1.9 % Baso % (Auto) 0.6 % Neut # (Auto) 6.27 (1.40-6.50) K/uL Lymph # (Auto) 0.82 L (1.20-3.40) K/uL [place] # (Auto) 0.43 (0.11-0.59) K/uL Eos # (Auto) 0.15 (0.00-0.50) K/uL Baso # (Auto) 0.05 (0.00-0.20) K/uL Immature Gran # (Auto) 0.03 (0.01-0.20) K/uL PT 10.3 (9.0-12.0) Seconds INR 1.0 (0.9-1.1) Sodium 130 L (136-145) mmol/L Potassium 4.3 (3.5-5.1) mmol/L Chloride 99 (98-107) mmol/L Carbon Dioxide 25 (21-32) mmol/L Anion Gap 6 (3-11) BUN 20 (6-23) mg/dl Creatinine 0.82 (0.6-1.2) mg/dl Est Cr Clr Drug Dosing Not Reportable eGFR 70.49 BUN/Creatinine Ratio 24.4 H (10-20) Glucose 154 H (70-99(Fasting)) mg/dl Calcium 9.2 (8.6-10.3) mg/dl Phosphorus 3.7 (2.5-4.9) mg/dl Magnesium 1.9 (1.7-2.4) mg/dl Total Bilirubin 0.4 (0.2-1.0) mg/dl AST 14 (13-39) U/L ALT 11 (7-52) U/L Alkaline Phosphatase 64 (34-104) U/L Troponin I High Sens 34.6 H 80.2 H* D (0-14) pg/ml Total Protein 6.5 (6.0-8.3) gm/dl Albumin 4.0 (3.4-5.0) gm/dl Globulin 2.5 (2.5-4.0) gm/dl Albumin/Globulin Ratio 1.6 (0.9-2) Lipase 9 L (11-82) U/L TSH 1.789 (0.300-4.500) uIu/ml Urine Color Yellow Urine Appearance Clear (Clear) Urine pH 8.0 H (4.5-7.5) Ur Specific [place] 1.010 (1.000-1.030) Urine Protein Negative (Negative) Urine Glucose (UA) Negative (Negative) Urine Ketones Negative (Negative) Urine Blood Negative (Negative) Urine Nitrite Negative (Negative) Urine Bilirubin Negative (Negative) Urine Urobilinogen Negative (Negative) Ur Leukocyte Esterase Negative (Negative) Urine Comment Administered Medications Betaxolol HCl (Betaxolol Hcl 0.25% Op Susp 10 Ml Btl) 1 drops OPL BID SUSAN Stop: 04/20/25 21:39 Last Admin: 03/21/25 22:54 Dose: 1 drops Documented By: LUCY Bimatoprost (Bimatoprost 0.01% Op Soln 2.5 Ml Btl) 1 drops OPL HS [facility] Stop: 04/20/25 21:44 Last Admin: 03/21/25 22:54 Dose: 1 drops Documented By: LUCY Heparin Sodium (Porcine) (Heparin Sod 5,000 Unit/0.5 Ml Vial) 5,000 units SQ Q12 SUSAN Stop: 04/20/25 21:39 Last Admin: 03/21/25 23:03 Dose: 5,000 units Documented By: LUCY Insulin Aspart (Insulin Aspart Per Unit Charge) 0 units SC ACHS SUSAN Stop: 04/20/25 21:39 Last Admin: 03/21/25 22:55 Dose: Not Given Documented By: LUCY Losartan Potassium (Losartan Potassium 25 Mg Tab) 12.5 mg PO HS [facility] Stop: 04/20/25 23:29 Last Admin: 03/21/25 23:42 Dose: 12.5 mg Documented By: LUCY Miscellaneous ((Brinzolamide-Brimonidine [Simbrinza] 1-0.2 % Drops,Suspension)Order Awaiting Action) 1 each N/A QS SUSAN Stop: 04/20/25 21:59 Last Admin: 03/21/25 22:55 Dose: Not Given Documented By: LUCY Nitroglycerin (Nitroglycerin 2% Ointment 30gm Tube) 0.5 inch EXT Q6 [facility] Stop: 04/20/25 21:59 Last Admin: 03/21/25 23:03 Dose: Not Given Documented By: LUCY Discontinued Medications Aspirin (Aspirin Chew 324 Mg) 324 mg PO NOW STA Stop: 03/21/25 17:48 Last Admin: 03/21/25 18:03 Dose: 324 mg Documented By: NRB Sodium Chloride (Nss) 500 mls @ 999 mls/hr IV .Q31M ONE Stop: 03/21/25 16:09 Last Infusion: 03/21/25 17:22 Dose: Infused Documented By: Admin: 03/21/25 15:54 Dose: 999 mls/hr Documented By: CRISTOFER Vibegron (Vibegron 75 Mg Tab) 75 mg PO QPM SUSAN Stop: 04/20/25 21:39 Last Admin: 03/21/25 23:02 Dose: Not Given Documented By: [facility] Imaging Data Radiologist's Impression: Chest X-Ray 03/21/25 15:39 Chest radiograph, one view History: Chest pain Comparison: None Findings: Single AP view of the chest performed. No focal consolidation or pleural effusion. No pneumothorax. The cardiomediastinal silhouette is within normal limits. Normal pulmonary vascularity. No evidence for lymphadenopathy. No visualized bony or soft tissue abnormality. Impression: Normal chest radiograph Electronically signed by Pa Hansen 03-21-2025 4:52 PM Discharge Plan Visit Data Chief Complaint: Syncope ED Provider: Steffen Krishnan Discharge Problem: Chest pain, exertional, Syncope, Elevated troponin Patient Disposition: Admitted As Inpatient Condition: Fair Discharge Instructions Interventions: ED Discharge Assessment Last Done: 03/21/25 20:50 Discharge Problem: Syncope Qualifiers: Syncope type: unspecified Qualified Code(s): R55 - Syncope and collapse
[2025-03-21 16:43] LABS: Hematocrit (blood only) 35.4 % (37.0-47.0); Hemoglobin 11.1 g/dl (12.0-16.0); Immature Granulocytes # (auto) 0.03 K/uL (0.01-0.20); Immature Granulocytes % (auto) 0.4 %; Mean Corpuscular Hemoglobin 26.6 pg (25.0-34.0); Mean Corpuscular Volume 84.7 fL (80.0-100.0); Platelet Count 246 K/uL (130-400); RDW Standard Deviation 42.7 fL (36.4-46.3); Red Blood Count 4.18 M/uL (4.20-5.40); White Blood Count 7.75 K/ul (4.8-10.8)
[2025-03-21 16:49] LABS: Appearance Urine Clear (Clear); Glucose Urine UA Negative (Negative)
--- NOTE | 2025-03-21 16:52 | XRay Report ---
Chest radiograph, one view History: Chest pain Comparison: None Findings: Single AP view of the chest performed. No focal consolidation or pleural effusion. No pneumothorax. The cardiomediastinal silhouette is within normal limits. Normal pulmonary vascularity. No evidence for lymphadenopathy. No visualized bony or soft tissue abnormality. Impression: Normal chest radiograph Electronically signed by Pa Hansen 03-21-2025 4:52 PM
[2025-03-21 17:03] LABS: Alanine Aminotransferase 11 U/L (7-52); Albumin Globulin Ratio 1.6 (0.9-2); Albumin Level 4.0 gm/dl (3.4-5.0); Alkaline Phosphatase 64 U/L (34-104); Anion Gap 6 (3-11); Bilirubin,Total 0.4 mg/dl (0.2-1.0); Blood Urea Nitrogen 20 mg/dl (6-23); Calcium 9.2 mg/dl (8.6-10.3); Carbon Dioxide 25 mmol/L (21-32); Chloride 99 mmol/L (98-107); Globulin 2.5 gm/dl (2.5-4.0); Glucose 154 mg/dl (70-99(Fasting)); Lipase 9 U/L (11-82); Magnesium 1.9 mg/dl (1.7-2.4); Potassium 4.3 mmol/L (3.5-5.1); Sodium 130 mmol/L (136-145); Total Protein 6.5 gm/dl (6.0-8.3)
[2025-03-21 17:09] LABS: INR 1.0 (0.9-1.1); Prothrombin Time 10.3 Seconds (9.0-12.0)
[2025-03-21 17:19] LABS: Thyroid Stimulating Hormone 1.789 uIu/ml (0.300-4.500)
[2025-03-21] MEDS: ASPIRIN CHEW 324 MG PO STA (18:03)
--- NOTE | 2025-03-21 19:59 | History & Physical Report ---
Date of Service March 21, 2025 Assessment & Plan (1) Angina pectoris: Plan: Telemetry. [facility] cardiology consultation. Serial troponin enzymes. Dobutamine stress echo ordered for tomorrow, March 22. Aspirin therapy (2) Syncope: Plan: Telemetry. Await cardiology evaluation (3) Essential hypertension: Plan: Currently stable. Hold ARB for now. (4) Type 2 diabetes mellitus: Plan: ADA diet. Sliding scale coverage for now. Metformin is on hold. Will avoid basal insulin therapy at bedtime for now Plan To be determined by dobutamine stress echo results and cardiology consultation History of Present Illness Chief Complaint: Syncope, exertional chest discomfort/diaphoresis/shortness of breath Primary Care Provider: [facility] 84-year-old white female who suffered a syncopal episode today accompanied by urinary incontinence. She was walking uphill after eating and developed vague chest discomfort accompanied by shortness of breath and diaphoresis. She says this has occurred with walking uphill several times in the recent past. She was brought to the ED for evaluation. No acute EKG changes with normal sinus rhythm and chest x-ray is unremarkable for age. Troponin is minimally elevated however. Recent cardiac echo revealed mild left ventricular hypertrophy with normal ejection fraction. She does have moderate aortic valve stenosis causing her systolic heart murmur. Troponin is minimally elevated at 34. She was given aspirin in the ED and is currently asymptomatic. She will be admitted for further evaluation. Serial troponin enzymes ordered and repeat EKG will be done in the morning. [facility] cardiology consultation has been requested. Dobutamine stress echo ordered for the morning. She is diabetic, type II, and sliding scale insulin coverage has been ordered. Scheduled basal insulin and metformin are on hold. Allergies Allergy/AdvReac Type Severity Reaction Status Date / Time codeine Allergy Intermediate Rash Verified 03/21/25 17:33 sitagliptin [From Januvia] Allergy Intermediate Rash Verified 03/21/25 17:33 Sulfa (Sulfonamide Allergy Intermediate Rash Verified 03/21/25 17:33 Antibiotics) tramadol [From Ultram] Allergy Intermediate Rash Verified 03/21/25 17:33 cefadroxil AdvReac Severe DIARRHEA Verified 03/21/25 17:29 FOR 4 WEEKS oxycodone AdvReac Severe Vomiting Verified 03/21/25 17:29 prednisone AdvReac Severe HYPONATREMI Verified 03/21/25 17:33 A aspirin AdvReac Intermediate "Stomach Verified 03/21/25 17:29 bleeds" ciprofloxacin [From Cipro] AdvReac Mild Nausea Verified 03/21/25 17:33 dulaglutide [From Trulicity] AdvReac Mild Nausea Verified 03/21/25 17:33 ezetimibe [From Zetia] AdvReac Mild Nausea Verified 03/21/25 17:33 CALCIUM CHANNEL BLOCKERS AdvReac Intermediate Hypotension Uncoded 03/21/25 17:33 Home Medications Medication Instructions Recorded Confirmed Type esomeprazole magnesium 40 mg 40 mg PO QAM 05/11/19 03/21/25 History capsule,delayed release (Nexium) candesartan 4 mg tablet 4 mg PO DAILY 06/26/23 03/21/25 History levothyroxine 88 mcg tablet 88 mcg PO DAILYBB 06/26/23 03/21/25 History (Synthroid) insulin glargine 100 unit/mL (3 8 unit subcut HS 11/16/23 03/21/25 History mL) subcutaneous pen (Lantus Solostar U-100 Insulin) metformin 1,000 mg 24 hr 1,000 mg PO DAILY 11/16/23 03/21/25 History tablet,extended release (gastric reten.) aspirin 81 mg tablet,delayed 81 mg PO DAILY #0 tabs 01/27/24 03/21/25 Rx release betaxolol 0.25 % eye 1 drp OPL BID 12/16/24 03/21/25 History drops,suspension (Betoptic S) bimatoprost 0.01 % eye drops 1 drp OPL DAILY 12/16/24 03/21/25 History (Lumigan) brinzolamide 1 %-brimonidine 0.2 % 1 drp OPL BID 12/16/24 03/21/25 History eye drops,suspension (Simbrinza) calcium carbonate 1,800 mg PO DAILY 12/16/24 03/21/25 History cholecalciferol (vitamin D3) 25 25 mcg PO DAILY 12/16/24 03/21/25 History mcg (1,000 unit) tablet (Vitamin D3) cyanocobalamin (vitamin B-12) 1,000 mcg PO DAILY 12/16/24 03/21/25 History 1,000 mcg tablet diclofenac sodium 1 % topical gel 2 g topical TID PRN JOINT PAIN 12/16/24 03/21/25 History sodium chloride 1,000 mg soluble 1,000 mg PO BID 12/16/24 03/21/25 History tablet vibegron 75 mg tablet (Gemtesa) 75 mg PO QPM 12/16/24 03/21/25 History fluconazole 150 mg tablet 150 mg PO Q3D PRN NEEDED 03/21/25 03/21/25 History rosuvastatin 10 mg tablet 10 mg PO DAILY 03/21/25 03/21/25 History Past Med/Surg History Problem List (Updated 03/21/25 @ 19:57 by Jorge A Altman MD) Type 2 diabetes mellitus Essential hypertension Syncope Angina pectoris Acute UTI (Acute) Right rotator cuff tear 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 Wynn Mixed hearing loss, bilateral Perforation of right tympanic membrane ETD (eustachian tube dysfunction) Weakness (Acute) Weakness (Acute) Intractable vomiting (Acute) Hypomagnesemia (Acute) Head injury, closed (Acute) Fall (Acute) none recent per pt; last 2021 per chart review Contusion of multiple sites (Acute) Advance care planning Abrasion, shoulder w/o infection (Acute) Medical History Hypertension Hyponatremia Hx of syncope Hx recurrent syncope/falls -had LINQ recorder placed Following with Dr. Wynn Central retinal artery occlusion Acid reflux [facility] [place] HTN, goal below 130/80 Diabetes mellitus IDDM Encounter for pre-operative examination Left knee DJD Chronic hyponatremia Fluctuating levels with sodium levels between high 120s- low 130s BPPV (benign paroxysmal positional vertigo) Nocturia Implantable loop recorder present [employer] LINQ II (replaced 04/2023) Aortic stenosis, mild Echo 01/2022: Mild aortic stenosis (HOANG 1.2-1.3cm2, MG 8.2-10 mmhg) HLD (hyperlipidemia) on statin Arrhythmia Follows with Dr. Wynn, LINQ II recorder, hx supraventricular ectopic beats TIA (transient ischemic attack) Remote hx "long time ago" Surgical History History of knee replacement (2023) Right TKA (11/12/13): SAB at L3-4 + regional at [facility] "had awareness and did not like it" during this procedure LEFT KNEE: 2023 History of tonsillectomy and adenoidectomy History of shoulder surgery History of cholecystectomy Family History Sister Hypertension Mother Diabetes Other Asthma Stroke Denies family history of Cancer Social History Smoking Status: Never smoker Tobacco Type: Cigarettes Hx Alcohol Use: Yes Alcohol type: wine Hx Substance Use: No Preferred Language: Sami Communication Ability: Effective Communication Ability Comment: unk Visual Impairment: No Limitations Hearing Ability: Normal Wardrobe Manager Required: No Beliefs That Will Affect Care: None marital status: / Current Living Situation: Other Current Living Situation Comment: [facility] [place] current occupational status: retired How many Children do You have: 0 Feels Safe at Home: Yes during the past year weight has: decreased > 10 lbs Assistive Devices: Walker Review of Systems 2 Review of Systems: Constitutionalno fever or chills ENTno blurred vision, no double vision, no epistaxis, no sore throat Respiratoryno cough, no wheezing, no shortness of breath Cardiacno palpitations. Exertional chest discomfort and shortness of breath and diaphoresis Ashley nausea, vomiting, diarrhea, melena, hematochezia GUno urinary retention, no urinary incontinence, no dysuria, no hematuria Musculoskeletalno joint pain, no muscle tenderness Skinno bruising, no rashes, no pruritus Neurono isolated weakness, no paresthesia, no weakness Psychno depression, no anxiety Physical Exam 2 Physical Exam: General-alert and oriented x3, no fever, no chills HEENT-head atraumatic and normocephalic, pupils equal and reactive to light, extraocular muscles intact Neck-no lymphadenopathy or thyromegaly, trachea midline Chest-clear to auscultation. No rales, wheezing or rhonchi Cardiac-regular rate and rhythm, grade 3/6 pansystolic harsh murmur, normal S1 and S2 Abdomen-normal bowel sounds, no hepatosplenomegaly Extremities-no cyanosis, clubbing, or edema Neuro-cranial nerves II through XII intact, motor and sensory function within normal limits, strength symmetrical, no focal deficits Psych-normal affect, normal mood Results & Data Results & Data Vital Signs (Past 12 Hours) Vital Signs Temp Pulse Pulse Resp BP BP Pulse Ox 03/21/25 18:00 72 16 143/65 H 95 03/21/25 16:12 69 16 98 03/21/25 16:12 74 16 178/69 H 98 03/21/25 16:12 98 03/21/25 15:56 64 03/21/25 15:29 36.6 C 63 16 180/72 H 98 O2 Del Method 03/21/25 18:00 Room Air 03/21/25 16:12 Room Air 03/21/25 16:12 Room Air 03/21/25 16:12 Room Air 03/21/25 15:56 03/21/25 15:29 Room Air Laboratory Results 03/21/25 16:11 03/21/25 16:11 Code Status & VTE Plan Code Status DNR/DNI PG Care Time/CCT Total # of Minutes Spent Total Time Spent with Patient: Total time spent is greater than 50% in coordination of care (as documented) at patient's floor/unit and/or counseling patient: Coding Level of Care Code 24412 INT INP/OBS CARE 3/75MIN Diagnoses Angina pectoris I20.9 Syncope R55 Essential hypertension I10 Type 2 diabetes mellitus E11.9
[2025-03-21] MEDS ORDERED: GLUCAGON FOR INJ 1 MG VIAL SQ PRN (21:40)
[2025-03-21] MEDS ORDERED: GLUCOSE 40% GEL 15 GM TUBE PO PRN (21:40)
[2025-03-21] MEDS ORDERED: ONDANSETRON INJ 2 MG/ML 2 ML VIAL IV PRN (21:40)
[2025-03-21] MEDS ORDERED: NITROGLYCERIN SL 0.4 MG/TAB TAB SL PRN (21:40)
[2025-03-21] MEDS ORDERED: CARBOHYDRATES FOR HYPOGLYCEMIA PO PRN (21:40)
[2025-03-21] MEDS ORDERED: GLUCOSE 10 TAB/TUBE PO PRN (21:40)
[2025-03-21] MEDS ORDERED: ACETAMINOPHEN 325 MG TAB PO PRN (21:40)
[2025-03-21] MEDS ORDERED: DEXTROSE 50% 50 ML SYRINGE IV PRN (21:40)
[2025-03-21] MEDS: BETAXOLOL HCL 0.25% OPL SCH (22:54)
[2025-03-21] MEDS: BIMATOPROST 0.01% OP SOLN 2.5 ML BTL OPL SCH (22:54)
[2025-03-21] MEDS: VIBEGRON 75 MG TAB PO SCH (22:55)
[2025-03-21] MEDS: INSULIN ASPART PER UNIT CHARGE SC SCH (22:55)
[2025-03-21] MEDS: NITROGLYCERIN 2% OINTMENT 30GM TUBE EXT SCH (23:03)
[2025-03-21] MEDS: HEPARIN SOD 5,000 UNIT/0.5 ML VIAL SQ SCH (23:03)
[2025-03-21] MEDS: LOSARTAN POTASSIUM 25 MG TAB PO SCH (23:42)
[2025-03-22] MEDS: LEVOTHYROXINE SODIUM 88 MCG TABLET PO SCH (06:00)
--- NOTE | 2025-03-22 08:38 | Cardiology Consultation ---
Date of Consultation March 22, 2025 Assessment & Plan (1) Elevated troponin: (2) Syncope: (3) Chest pain, exertional: (4) NSTEMI (non-ST elevated myocardial infarction): (5) Essential hypertension: (6) Aortic stenosis: Plan Patient is an 84 year old female with history of hypertension, dyslipidemia, moderate aortic stenosis presents with complaints of exertional chest tightness, dyspnea, and syncopal episode yesterday afternoon after walking up a hill. Patient had similar symptoms last week with exertional chest tightness/dyspnea, each time she walked up a hill at her living facility. Elevated troponin peaking at 80. No acute ischemic EKG changes. No current symptoms. Resting in bed comfortably. Symptoms concerning for crescendo angina in setting of moderate , possible hypertensive urgency. She has LINQ device implanted. Assessment: NSTEMI with exertional chest pain and elevated troponin at 80. Hypertensive urgency Moderate Aortic stenosis Syncope with current LINQ device implanted PLAN: Patient currently asymptomatic. No CP at rest or SOB. Interrogation of LINQ device ordered - [employer] rep to perform this morning. R/O arrhythmias correlating with syncopal event yesterday Recent echo with preserved LVEF and moderate aortic stenosis Increase losartan to 25 mg this morning (currently on 12.5 at night). Continue ASA and statin If needed add nitrates for recurrent chest pain. Resting HR in the 60's. Will avoid beta anyi for now. Given symptoms suggestive of crescendo angina over the last few weeks, elevated troponin on admission, would consider proceeding with diagnostic cardiac catheterization. Further recommendations pending review of LINQ and further discussion with Dr. Hernandez. Case discussed with Dr. Hernandez I spent a total of 60 minutes on the date of service in preparation, delivery, and documentation of the care provided to this patient, excluding any time spent in the performance of separately billed services. Shira Juarez PA-C Department of Cardiology, [facility] This chart was completed in part utilizing Speech Voice Recognition Software. Grammatical errors, random word insertions, pronoun errors, and incomplete sentences are an occasional consequence of this system due to software limitations, ambient noise, and hardware issues. Any formal questions or concerns about the content, text, or information contained within the body of this dictation should be directly addressed to the provider for clarification. Supervising Physician Co-Signing Physician Notes Patient was seen and personally examined. Chart, medications, telemetry reviewed. Full assessment and plan as outlined by advanced provider as above. Care and management discussed, personally. Endorsed 84-year-old female with intermittent episodes of syncope longstanding with indwelling Linq recorder. Over the past 2 to 3 weeks exertional symptoms yesterday culminating in chest pressure and shortness of breath marked fatigue when walking uphill. An attempt to recover sat down at home and suffered transient syncopal event. Exam pleasant age-appropriate female in no acute distress No carotid delay Lungs clear Cardiovascular Miguel Ángel regular grade 2 over 6 systolic murmur S2 preserved No diastolic murmur no gallop Intact pulses radial and femoral Linq recorder demonstrates sinus bradycardia during event to minimum 38 bpm preceded by elevated heart rate in the high 90s consistent with exercise history. Troponins consistent with non-ST segment elevation myocardial infarction with symptoms suggestive of exertional angina. Discussed options of management recommended proceeding with diagnostic coronary angiography with further recommendations pending results. Patient had breakfast this morning we will proceed later this afternoon History of Present Illness Reason for Consultation: Syncope; Chest pain Requesting Physician: NIRALI Hospitalist - Dr. Altman Attending Physician: Dr. Hernandez History of Present Illness Patient is an 84 year old female who presented to [facility] yesterday with complaints of SOB, substernal chest tightness and syncope. History includes: 1. HTN 2. Dyslipidemia 3. Possible CVA in the past - Retinal occlusion? 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 previously on ASA and Plavix. now on ASA. 4. Recurrent syncope s/p LINQ recorder implant x2 ([employer]) 5. Aortic stenosis - moderate per recent echo 03/2025 She reports symptoms began last week where she was experiencing worsening SOB and mild substernal chest tightness each time she went for her a walk. She lives at [facility] and she has to go up a hill each time she leaves/returns from her apartment. She would feel the need to sit down after her walk and rest and symptoms would resolve. This occurred several times last week and was "new" for her. She also reported fighting a cold with sinus congestion last week so she thought her symptoms may be related to her cold symptoms. No fever, cough, chills. Yesterday, she went for her usual walk climbing the hill and developed recurrent dyspnea and chest tightness. She reports she barely made it back to her apartment. She sat in the chair and then reported a syncopal episode. She thinks she was only out for a few seconds/minute. When she awakened, she felt the need to have a BM and went to the restroom. She was diaphoretic and "sweaty". She returned to her bed and decided to call for assistance from the nursing staff at the [facility]. Due to her symptoms, she was sent to the ER for evaluation. Upon ER evaluation, EKG demonstrated NSR with possible old anterior infarct, previously reported. No acute ischemic changes. HS troponin initially elevated at 34 - peaking at 80- 49-24. Repeat EKG without acute ischemic changes. She had recent echo on 03/15/25 revealing Normal LVEF at 60-65%, no wall motion abnormalities, moderate aortic stenosis, mild AI. No significant change from previous. Her BP was elevated on arrival last evening. She typically takes candesartan at home. This was changed to losartan last night due to formulary and received 12.5 mg daily at bedtime. At time of consult, patient resting in bed comfortably. No current dyspnea or chest pain. Repeat EKG this morning without acute ischemic changes. No orthopnea, PND, or edema. BP remains uncontrolled this morning. No headache, vision changes, or dizziness. Allergies Allergy/AdvReac Type Severity Reaction Status Date / Time codeine Allergy Intermediate Rash Verified 03/21/25 17:33 sitagliptin [From Januvia] Allergy Intermediate Rash Verified 03/21/25 17:33 Sulfa (Sulfonamide Allergy Intermediate Rash Verified 03/21/25 17:33 Antibiotics) tramadol [From Ultram] Allergy Intermediate Rash Verified 03/21/25 17:33 cefadroxil AdvReac Severe DIARRHEA Verified 03/21/25 17:29 FOR 4 WEEKS oxycodone AdvReac Severe Vomiting Verified 03/21/25 17:29 prednisone AdvReac Severe HYPONATREMI Verified 03/21/25 17:33 A aspirin AdvReac Intermediate "Stomach Verified 03/21/25 17:29 bleeds" Calcium Channel Blocking AdvReac Intermediate Hypotension Verified 03/21/25 21:43 Agent Dilt Calcium Channel Blocking AdvReac Intermediate Hypotension Verified 03/21/25 21:43 Agents-Dih ciprofloxacin [From Cipro] AdvReac Mild Nausea Verified 03/21/25 17:33 dulaglutide [From Trulicity] AdvReac Mild Nausea Verified 03/21/25 17:33 ezetimibe [From Zetia] AdvReac Mild Nausea Verified 03/21/25 17:33 Home Medications Medication Instructions Recorded Confirmed Type esomeprazole magnesium 40 mg 40 mg PO QAM 05/11/19 03/21/25 History capsule,delayed release (Nexium) candesartan 4 mg tablet 4 mg PO DAILY 06/26/23 03/21/25 History levothyroxine 88 mcg tablet 88 mcg PO DAILYBB 06/26/23 03/21/25 History (Synthroid) insulin glargine 100 unit/mL (3 8 unit subcut HS 11/16/23 03/21/25 History mL) subcutaneous pen (Lantus Solostar U-100 Insulin) metformin 1,000 mg 24 hr 1,000 mg PO DAILY 11/16/23 03/21/25 History tablet,extended release (gastric reten.) aspirin 81 mg tablet,delayed 81 mg PO DAILY #0 tabs 01/27/24 03/21/25 Rx release betaxolol 0.25 % eye 1 drp OPL BID 12/16/24 03/21/25 History drops,suspension (Betoptic S) bimatoprost 0.01 % eye drops 1 drp OPL DAILY 12/16/24 03/21/25 History (Lumigan) brinzolamide 1 %-brimonidine 0.2 % 1 drp OPL BID 12/16/24 03/21/25 History eye drops,suspension (Simbrinza) calcium carbonate 1,800 mg PO DAILY 12/16/24 03/21/25 History cholecalciferol (vitamin D3) 25 25 mcg PO DAILY 12/16/24 03/21/25 History mcg (1,000 unit) tablet (Vitamin D3) cyanocobalamin (vitamin B-12) 1,000 mcg PO DAILY 12/16/24 03/21/25 History 1,000 mcg tablet diclofenac sodium 1 % topical gel 2 g topical TID PRN JOINT PAIN 12/16/24 03/21/25 History sodium chloride 1,000 mg soluble 1,000 mg PO BID 12/16/24 03/21/25 History tablet vibegron 75 mg tablet (Gemtesa) 75 mg PO QPM 12/16/24 03/21/25 History fluconazole 150 mg tablet 150 mg PO Q3D PRN NEEDED 03/21/25 03/21/25 History rosuvastatin 10 mg tablet 10 mg PO DAILY 03/21/25 03/21/25 History Patient History Medical History Hypertension Hyponatremia Hx of syncope Hx recurrent syncope/falls -had LINQ recorder placed Following with Dr. Wynn Central retinal artery occlusion Acid reflux snf resident [facility] HTN, goal below 130/80 Diabetes mellitus IDDM Encounter for pre-operative examination Left knee DJD Chronic hyponatremia Fluctuating levels with sodium levels between high 120s- low 130s BPPV (benign paroxysmal positional vertigo) Nocturia Implantable loop recorder present [employer] LINQ II (replaced 04/2023) Aortic stenosis, mild Echo 01/2022: Mild aortic stenosis (HOANG 1.2-1.3cm2, MG 8.2-10 mmhg) HLD (hyperlipidemia) on statin Arrhythmia Follows with Dr. Wynn, LINQ II recorder, hx supraventricular ectopic beats TIA (transient ischemic attack) Remote hx "long time ago" Surgical History History of knee replacement (2023) Right TKA (11/12/13): SAB at [facility] + regional at [facility] "had awareness and did not like it" during this procedure LEFT KNEE: 2023 History of tonsillectomy and adenoidectomy History of shoulder surgery History of cholecystectomy Family History Sister Hypertension Mother Diabetes Other Asthma Stroke Denies family history of Cancer Social History Smoking Status: Never smoker Tobacco Type: Cigarettes Hx Alcohol Use: No Hx Substance Use: No Preferred Language: Mohawk Communication Ability: Effective Communication Ability Comment: unk Visual Impairment: No Limitations Hearing Ability: Normal Family Educator Required: No Beliefs That Will Affect Care: None marital status: / Current Living Situation: Personal Care Facility Current Living Situation Comment: [facility] current occupational status: retired How many Children do You have: 0 Feels Safe at Home: Yes during the past year weight has: decreased > 10 lbs Assistive Devices: Walker Review of Systems Review of Systems: All systems reviewed & are unremarkable except as noted in HPI & below Physical Exam Constitutional: WD/WN, vitals as above no acute distress Neck: trachea midline, no thyromegaly Respiratory: normal respiratory effort Auscultation: lungs clear to auscultation bilaterally; no crackles and no wheezes Cardiovascular: Rate/Rhythm: regular rate and regular rhythm Heart Sounds: + murmur (II/ systolic murmur) Gastrointestinal (Abdomen): normal bowel sounds, soft, nontender, no hepatosplenomegaly Musculoskeletal: no cyanosis or clubbing, extremities motor strength 5/5 Neurologic: PERRL, EOMI, accommodation nl, no face palsy, no dysarthria Psychiatric: A+Ox3, euthymic affect Results & Data Vital Signs (Past 12 Hours) Vital Signs Temp Pulse Pulse Resp BP BP Pulse Ox 03/22/25 04:36 36.6 C 66 16 153/66 H 98 03/21/25 23:24 36.6 C 58 L 18 188/69 H 97 03/21/25 21:41 71 03/21/25 21:30 36.6 C 67 20 196/76 H 98 03/21/25 20:50 73 16 167/67 H 97 O2 Del Method 03/22/25 04:36 Room Air 03/21/25 23:24 Room Air 03/21/25 21:41 03/21/25 21:30 Room Air 03/21/25 20:50 Room Air Laboratory Results Cardiac Enzymes 03/21/25 03/21/25 03/21/25 Range/Units 16:11 18:38 22:35 AST 14 (13-39) U/L Troponin I High Sens 34.6 H 80.2 H* D 49.7 H D (0-14) pg/ml 03/22/25 Range/Units 03:40 AST (13-39) U/L Troponin I High Sens 24.6 H D (0-14) pg/ml Coagulation 03/21/25 Range/Units 16:11 PT 10.3 (9.0-12.0) Seconds CBC 03/21/25 Range/Units 16:11 WBC 7.75 (4.8-10.8) K/ul RBC 4.18 L (4.20-5.40) M/uL Hgb 11.1 L (12.0-16.0) g/dl Hct 35.4 L (37.0-47.0) % Plt Count 246 (130-400) K/uL Neut # (Auto) 6.27 (1.40-6.50) K/uL Lymph # (Auto) 0.82 L (1.20-3.40) K/uL [place] # (Auto) 0.43 (0.11-0.59) K/uL Eos # (Auto) 0.15 (0.00-0.50) K/uL Baso # (Auto) 0.05 (0.00-0.20) K/uL Comprehensive Metabolic Panel 03/21/25 Range/Units 16:11 Sodium 130 L (136-145) mmol/L Potassium 4.3 (3.5-5.1) mmol/L Chloride 99 (98-107) mmol/L Carbon Dioxide 25 (21-32) mmol/L BUN 20 (6-23) mg/dl Creatinine 0.82 (0.6-1.2) mg/dl Glucose 154 H (70-99(Fasting)) mg/dl Calcium 9.2 (8.6-10.3) mg/dl AST 14 (13-39) U/L ALT 11 (7-52) U/L Alkaline Phosphatase 64 (34-104) U/L Total Protein 6.5 (6.0-8.3) gm/dl Albumin 4.0 (3.4-5.0) gm/dl Intake and Output 03/21/25 03/22/25 03/22/25 22:59 06:59 14:59 Intake Total 500 / 500 Balance 500 / 500 Intake: IV 500 / 500 Sodium Chloride 0.9% 500 ml @ 500 / 500 999 mls/hr IV .Q31M ONE Rx#: [id number] Other: # Unmeasured Voids 1 Weight 64.3 kg Weight Measurement Method Built in [facility] Diagnostic Findings Telemetry reviewed: NSR. No arrhythmias EKG reviewed from admission: NSR with 1st degree AV block Possible old anteroseptal infarct. No ischemic changes Repeat EKG this morning, 03/22/25: NSR with 1st degree AV block possible old anterior infarct No significant change from previous Chest X-Ray 03/21/25 15:39 Findings: Single AP view of the chest performed. No focal consolidation or pleural effusion. No pneumothorax. The cardiomediastinal silhouette is within normal limits. Normal pulmonary vascularity. No evidence for lymphadenopathy No visualized bony or soft tissue abnormality. Impression: Normal chest radiograph Electronically signed by Pa Hansen 03-21-2025 4:52 PM Echo report reviewed dated / Medications Administered Current Inpatient Medications Acetaminophen (Acetaminophen 325 Mg Tab) 650 mg PO Q6H PRN PRN Reason: Fever or headache Stop: 04/20/25 21:39 Aspirin (Aspirin 81 Mg Ectab) 81 mg PO DAILY SUSAN Stop: 04/21/25 08:59 Last Admin: 03/22/25 08:42 Dose: 81 mg Betaxolol HCl (Betaxolol Hcl 0.25% Op Susp 10 Ml Btl) 1 drops OPL BID SUSAN Stop: 04/20/25 21:39 Last Admin: 03/21/25 22:54 Dose: 1 drops Bimatoprost (Bimatoprost 0.01% Op Soln 2.5 Ml Btl) 1 drops OPL HS SUSAN Stop: 04/20/25 21:44 Last Admin: 03/21/25 22:54 Dose: 1 drops Brimonidine Tartrate (Brimonidine Tartrate 0.2% 5ml) 1 drops OPL BID SUSAN Stop: 04/21/25 08:59 Brinzolamide (Brinzolamide (Azopt) Ops 10 Ml Btl) 1 drops OPL BID SUSAN Stop: 04/21/25 08:59 Calcium Carbonate (Calcium Carbonate 1250mg Tab) 3 tab PO DAILY SUSAN Stop: 04/21/25 08:59 Last Admin: 03/22/25 08:41 Dose: 3 tab Cyanocobalamin (Cyanocobalamin (B-12) 500 Mcg Tablet) 1,000 mcg PO DAILY SUSAN Stop: 04/21/25 08:59 Last Admin: 03/22/25 08:41 Dose: 1,000 mcg Dextrose (Dextrose 50% 50 Ml Syringe) 25 - 50 ml IV UD PRN; Protocol PRN Reason: Hypoglycemia Protocol Stop: 04/20/25 21:39 Glucagon (Glucagon For Inj 1 Mg Vial) 1 mg SQ UD PRN; Protocol PRN Reason: Hypoglycemia Protocol Stop: 04/20/25 21:39 Glucose (Glucose 40% Gel 15 Gm Tube) 15 - 30 gm PO UD PRN; Protocol PRN Reason: Hypoglycemia Protocol Stop: 04/20/25 21:39 Glucose (Glucose 10 Tab/Tube) 4 - 8 tab PO UD PRN; Protocol PRN Reason: Hypoglycemia Protocol Stop: 04/20/25 21:39 Heparin Sodium (Porcine) (Heparin Sod 5,000 Unit/0.5 Ml Vial) 5,000 units SQ Q12 SUSAN Stop: 04/20/25 21:39 Last Admin: 03/22/25 08:42 Dose: 5,000 units Insulin Aspart (Insulin Aspart Per Unit Charge) 0 units SC ACHS SUSAN Stop: 04/20/25 21:39 Last Admin: 03/22/25 08:40 Dose: 4 units Levothyroxine Sodium (Levothyroxine Sodium 88 Mcg Tablet) 88 mcg PO DAILYBB SUSAN Stop: 04/21/25 06:29 Last Admin: 03/22/25 06:00 Dose: 88 mcg Losartan Potassium (Losartan Potassium 25 Mg Tab) 12.5 mg PO HS [facility] Stop: 04/20/25 23:29 Last Admin: 03/21/25 23:42 Dose: 12.5 mg Losartan Potassium (Losartan Potassium 25 Mg Tab) 25 mg PO QAM [facility] Stop: 04/21/25 09:14 Miscellaneous (Carbohydrates For Hypoglycemia ) 15 - 30 gm PO UD PRN PRN Reason: Hypoglycemia Protocol Stop: 04/20/25 21:39 Nitroglycerin (Nitroglycerin 2% Ointment 30gm Tube) 0.5 inch EXT Q6 SUSAN Stop: 04/20/25 21:59 Last Admin: 03/22/25 06:00 Dose: Not Given Nitroglycerin (Nitroglycerin Sl 0.4 Mg/Tab Tab) 0.4 mg SL Q5M PRN PRN Reason: Chest Pain Stop: 04/20/25 21:39 Ondansetron HCl (Ondansetron Inj 2 Mg/Ml 2 Ml Vial) 4 mg IV Q6H PRN PRN Reason: Nausea And Vomiting Stop: 04/20/25 21:39 Pantoprazole Sodium (Pantoprazole 40 Mg Tab) 40 mg PO QAM [facility] Stop: 04/21/25 08:59 Last Admin: 03/22/25 08:42 Dose: 40 mg Rosuvastatin Calcium (Rosuvastatin Calcium 10 Mg Tab) 10 mg PO DAILY SUSAN Stop: 04/21/25 08:59 Last Admin: 03/22/25 08:41 Dose: Not Given Vitamin D (Cholecalciferol 25 Mcg (1000 Units) Tab) 25 mcg PO DAILY SUSAN Stop: 04/21/25 08:59 Last Admin: 03/22/25 08:42 Dose: 25 mcg PG Care Time/CCT Total # of Minutes Spent Total Time Spent with Patient: Total time spent is greater than 50% in coordination of care (as documented) at patient's floor/unit and/or counseling patient: 60 minutes Coding Level of Care Code 27120 IN/OBS CONSULT LVL 5,80M Diagnoses Elevated troponin R79.89 Syncope R55 Syncope type: unspecified Chest pain, exertional R07.9 NSTEMI (non-ST elevated myocardial infarction) I21.4 Essential hypertension I10 Nonrheumatic aortic valve stenosis I35.0 Cardiac valve disease etiology: nonrheumatic (2) Syncope Syncope type: unspecified Qualified Code(s): R55 - Syncope and collapse (6) Aortic stenosis Cardiac valve disease etiology: nonrheumatic Qualified Code(s): I35.0 - Nonrheumatic aortic (valve) stenosis
[2025-03-22] MEDS: CYANOCOBALAMIN (B-12) 500 MCG TABLET PO SCH (08:41)
[2025-03-22] MEDS: ROSUVASTATIN CALCIUM 10 MG TAB PO SCH (08:41)
[2025-03-22] MEDS: CALCIUM CARBONATE 1250MG TAB PO SCH (08:41)
[2025-03-22] MEDS: ASPIRIN 81 MG ECTAB PO SCH (08:42)
[2025-03-22] MEDS: CHOLECALCIFEROL 25 MCG (1000 UNITS) TAB PO SCH (08:42)
[2025-03-22] MEDS: LOSARTAN POTASSIUM 25 MG TAB PO SCH (10:09)
[2025-03-22] MEDS: BRIMONIDINE TARTRATE 0.2% 5ML OPL SCH (10:11)
[2025-03-22] MEDS: BRINZOLAMIDE (AZOPT) OPS 10 ML BTL OPL SCH (10:14)
--- NOTE | 2025-03-22 12:05 | Hospitalist Progress Note ---
Date of Service March 22, 2025 Assessment & Plan (1) Angina pectoris: Plan: Telemetry. [facility] cardiology consultation appreciated. EKG #2 reveals no acute changes. Cardiology feels that she may have suffered a non-ST elevation MN however and cardiac catheterization is likely this admission. Aspirin therapy has been initiated along with topical nitrates. (2) Syncope: Plan: Telemetry. Her monitoring device will be evaluated today, March 22. No significant dysrhythmias seen on telemetry to date (3) Essential hypertension: Plan: Losartan dosage has been uptitrated by cardiology. Currently stable. (4) Type 2 diabetes mellitus: Plan: ADA diet. Sliding scale coverage. Metformin is on hold. Glucose 154 this morning, March 22 Plan To be determined by left heart catheterization results Admission and Anticipated Discharge Date Admission Date: March 21, 2025 Subjective Alert and oriented. She denies any chest discomfort. Cardiology consultation noted. Her troponin increased to 80 although there are no acute EKG changes. Considering her symptoms, there is a possibility of non-ST elevation MN. She will likely undergo cardiac catheterization this admission. Losartan has been uptitrated slightly. She remains on intravenous Rocephin, day 2. Urine culture is pending. Review of Systems 2 Review of Systems: Constitutionalno fever or chills ENTno blurred vision, no double vision, no epistaxis, no sore throat Respiratoryno cough, no wheezing, no shortness of breath Cardiacno palpitations. Exertional chest discomfort and shortness of breath and diaphoresis Ashley nausea, vomiting, diarrhea, melena, hematochezia GUno urinary retention, no urinary incontinence, no dysuria, no hematuria Musculoskeletalno joint pain, no muscle tenderness Skinno bruising, no rashes, no pruritus Neurono isolated weakness, no paresthesia, no weakness Psychno depression, no anxiety Physical Exam 2 Physical Exam: General-alert and oriented x3, no fever, no chills HEENT-head atraumatic and normocephalic, pupils equal and reactive to light, extraocular muscles intact Neck-no lymphadenopathy or thyromegaly, trachea midline Chest-clear to auscultation. No rales, wheezing or rhonchi Cardiac-regular rate and rhythm, grade 3/6 pansystolic harsh murmur, normal S1 and S2 Abdomen-normal bowel sounds, no hepatosplenomegaly Extremities-no cyanosis, clubbing, or edema Neuro-cranial nerves II through XII intact, motor and sensory function within normal limits, strength symmetrical, no focal deficits Psych-normal affect, normal mood Results & Data Results & Data Vital Signs (Past 12 Hours) Vital Signs Temp Pulse Resp BP Pulse Ox O2 Del Method 03/22/25 11:10 36.8 C 61 18 147/66 H 96 Room Air 03/22/25 09:09 36.8 C 68 16 180/70 H 96 Room Air 03/22/25 04:36 36.6 C 66 16 153/66 H 98 Room Air Laboratory Results 03/21/25 16:11 03/21/25 16:11 PG Care Time/CCT Total # of Minutes Spent Total Time Spent with Patient: Total time spent is greater than 50% in coordination of care (as documented) at patient's floor/unit and/or counseling patient: Coding Level of Care Code 29306 SUB INP/OBS CARE 2/35MIN Diagnoses Angina pectoris I20.9 Syncope R55 Essential hypertension I10 Type 2 diabetes mellitus E11.9
--- NOTE | 2025-03-22 15:00 | Pre Anesthesia Assessment ---
Date of Service March 22, 2025 Pre Sedation Assessment Vital Signs Temp Pulse Pulse Resp BP BP Pulse Ox 03/22/25 14:35 99 H 16 195/79 H 97 03/22/25 14:02 65 03/22/25 11:10 36.8 C 61 18 147/66 H 96 03/22/25 09:09 36.8 C 68 16 180/70 H 96 03/22/25 08:00 71 03/22/25 04:36 36.6 C 66 16 153/66 H 98 03/21/25 23:24 36.6 C 58 L 18 188/69 H 97 03/21/25 21:41 71 03/21/25 21:30 36.6 C 67 20 196/76 H 98 03/21/25 20:50 73 16 167/67 H 97 03/21/25 20:00 70 18 167/67 H 95 03/21/25 19:37 72 03/21/25 18:00 72 16 143/65 H 95 03/21/25 16:12 69 16 98 03/21/25 16:12 74 16 178/69 H 98 03/21/25 16:12 98 03/21/25 15:56 64 03/21/25 15:29 36.6 C 63 16 180/72 H 98 O2 Del Method 03/22/25 14:35 Room Air 03/22/25 14:02 03/22/25 11:10 Room Air 03/22/25 09:09 Room Air 03/22/25 08:00 03/22/25 04:36 Room Air 03/21/25 23:24 Room Air 03/21/25 21:41 03/21/25 21:30 Room Air 03/21/25 20:50 Room Air 03/21/25 20:00 Room Air 03/21/25 19:37 03/21/25 18:00 Room Air 03/21/25 16:12 Room Air 03/21/25 16:12 Room Air 03/21/25 16:12 Room Air 03/21/25 15:56 03/21/25 15:29 Room Air Cardiovascular RRR, no murmur, no edema Respiratory normal respiratory effort, lungs clear to auscultation Pre-Sedation Airway Assessment Smoking Status: Never smoker Hx Sleep Apnea: No Short, Thick Neck: No Thyromental Distance: > or= 3.5 Finger Breadths Oral Cavity: + Dentures Mallampati Class: III ASA: ASA3 NPO Status Date of Last Intake of Fluids: 03/22/25 Time of Last Intake of Fluids: 08:00 Date of Last Intake of Solid Food: 03/22/25 Time of Last Intake of Solid Foods: 08:00 Notes The planned sedation has been discussed with the patient. Informed Consent was obtained. I have identified the patient, determined the appropriateness of sedation and have assessed the patient immediately prior to the procedure. All medicine(s) and interventions are by my order.
[2025-03-22] MEDS: HEPARIN (PORCINE) 1000 UNIT/ML 10 ML (CATH LAB USE ONLY) ONE (15:36)
[2025-03-22] MEDS: MIDAZOLAM HCL 1 MG/ML 2ML VIAL ONE (15:36)
[2025-03-22] MEDS: NITROGLYCERIN/D5W 100MCG/ML 20ML SYR ONE (15:36)
[2025-03-22] MEDS: OPTIRAY 350 ONE (15:37)
[2025-03-22] MEDS: niCARdipine 2,000 MCG/20 ML SYR ONE (15:37)
--- NOTE | 2025-03-22 15:41 | Post Anesthesia Assessment ---
Date of Service March 22, 2025 Post Sedation Assessment Vital Signs Temp Pulse Pulse Resp BP BP Pulse Ox 03/22/25 14:35 99 H 16 195/79 H 97 03/22/25 14:02 65 03/22/25 11:10 36.8 C 61 18 147/66 H 96 03/22/25 09:09 36.8 C 68 16 180/70 H 96 03/22/25 08:00 71 03/22/25 04:36 36.6 C 66 16 153/66 H 98 03/21/25 23:24 36.6 C 58 L 18 188/69 H 97 03/21/25 21:41 71 03/21/25 21:30 36.6 C 67 20 196/76 H 98 03/21/25 20:50 73 16 167/67 H 97 03/21/25 20:00 70 18 167/67 H 95 03/21/25 19:37 72 03/21/25 18:00 72 16 143/65 H 95 03/21/25 16:12 69 16 98 03/21/25 16:12 74 16 178/69 H 98 03/21/25 16:12 98 03/21/25 15:56 64 O2 Del Method 03/22/25 14:35 Room Air 03/22/25 14:02 03/22/25 11:10 Room Air 03/22/25 09:09 Room Air 03/22/25 08:00 03/22/25 04:36 Room Air 03/21/25 23:24 Room Air 03/21/25 21:41 03/21/25 21:30 Room Air 03/21/25 20:50 Room Air 03/21/25 20:00 Room Air 03/21/25 19:37 03/21/25 18:00 Room Air 03/21/25 16:12 Room Air 03/21/25 16:12 Room Air 03/21/25 16:12 Room Air 03/21/25 15:56 Recovery Score Activity: Moves 4 extremities Respiration: Deep Breath/Cough Circulation: +/-20% PreAnes Value Consciousness: Fully Awake Oxygen Saturation: > 92% On Room Air Discharge Sedation Level of Care: Fast Track Phase II Post Sedation Plan On clinical assessment, the patient appears to have tolerated the sedation without complications. Patient is recovering as anticipated. Patient will continue to be monitored by nursing and may be discharged when sedation discharge criteria are met per below protocol. Upon Completions of procedure up to 15 minutes continue every 5 minute vital signs and the P.A.R. score; then discharge to a Phase I or Fast Track to Phase II per the following guidelines: * Discharge Patient to appropriate Phase II area if PAR is 8 or greater or return to pre- procedure baseline. The post - procedure orders will be as directed. * If PAR score is less than 8 or not return to pre-procedure baseline then patient will follow Phase I monitoring till PAR is reached for Phase II. The Phase I may be done in procedure room or may call to secure a Phase I area. * If naloxone or flumazenil are used for reversal, hold in Phase I for continued monitoring from when last reversal dose was given for a minimum of 60 minutes or longer pending the nurse and/or physician discretion of patient condition before discharge to Phase II. Please call the Sedation Physician to re-evaluate and complete post-note for discharge to Phase II area. Do NOT discharge from procedure sedation or Phase 1 until post- sedation evaluation note is complete by procedure /sedation MD Sedation Discharge Instructions to be given to the patient at discharge to home. [facility]odes (Charges) Indication for Procedure Indication for procedure: syncope NSTEMI
--- NOTE | 2025-03-22 16:10 | Cardiac Catheterization ---
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 Cardiac Status Clinical evaluation leading to the procedure CAD Presenation: Non STEMI Anginal Classification: CCS III Heart Failure: No Cardiogenic Shock within 24 Hours: No Cardiac Arrest within 24 Hours: No Imaging Studies Past 6 Months: Yes Stress Studies Past 6 Months: No Coronary Anatomy Dominant: Co-Dominant Left Main (% Stenosis): Proximal (95%) LAD (% Stenosis): Proximal (40-50%) and Mid (40%) D1 (% Stenosis): Proximal (70%) Circumflex (% Stenosis): Proximal (50%) OM1 (% Stenosis): Proximal (60%) OM2 (% Stenosis): Normal (Diffuse severe) L PL1 (% Stenosis): Normal L PDA (% Stenosis): Normal RCA (% Stenosis): Proximal (80 to 90%) R PDA (% Stenosis): Normal Ramus (% Stenosis): Ostial (99%) Diagnostic Physicians Name: Gabriel Lopez MD, PhD Closure Device Percutaneous Entry Location: Radial Closure Device: Radial Band Recommendations: Medical Therapy and/or Counseling and CABG Cardiac Cath Procedure Full Procedure Date March 22, 2025 Pre-Procedure Diagnosis Pre-Procedure Diagnosis: Non STEMI and Cardiothoracic Symptom (Recurrent syncope) AUC Score AUC Score: 08 Post-Procedure Diagnosis Post-Procedure Diagnosis: Severe CAD Procedure(s) Performed Procedure(s) Performed: Coronary Angiography Software Development Test Engineer Gabriel Lopez MD, PhD Estimated Blood Loss Estimated Blood Loss: 5 cc Medication(s) Medication(s): Fentanyl, Heparin, Lidocaine 1%, Nicardipine, Nitroglycerin and Versed Summary of Findings Brief description: Patient was brought to the cardiac catheterization suite where she was shaved and prepped in a sterile fashion. Sedated using IV Versed and fentanyl. Soft tissues of the right wrist were anesthetized using 2 mL of 1% Xylocaine. The right radial artery was accessed with modified Seldinger technique and a 6 Cymro radial artery glide sheath was placed. All catheters were advanced and exchanged over a 0.035 J-tip wire. Patient was provided anticoagulation with IV heparin and antispasmodics including nicardipine and nitroglycerin. Left coronary angiography in orthogonal views with 5 Cymro Agness 4 diagnostic catheter. Right coronary angiography in orthogonal views with a 5 Cymro Agness 4 diagnostic catheter. Diagnostic catheters were removed. Radial artery sheath was removed. Hemostasis was obtained using the TR band. Patient was hemodynamically stable and asymptomatic. She was returned to the recovery area. This ended the case. Coronary angiography findings: HMI-nheeb-qbuaxss vessel with heavy calcification. There is a proximal 95% stenosis and pressure dampening on cannulation. PQB-jaixz-szmbrbj vessel which is transapical. Ostial to proximal calcified 40 to 50% stenosis. Mid vessel has calcified less than 40% stenosis. LAD gives a medium to large caliber branching first diagonal. This has diffuse disease in the proximal segment before the bifurcation with up to 70% stenosis. GPi-opblj-fulxkdq vessel which is codominant. Travels in the AV groove where the proximal segment has up to 50% stenosis. The first major OM is large and branching. It has proximal 60% stenosis before the branch. OM 2 is medium with diffuse severe disease. Next branch is a medium caliber posterolateral which has luminal irregularities. There are several insignificant posterolateral branches and finally, circumflex terminates in a medium caliber PDA which has no significant disease. Ramus-this is medium caliber and branches distally. There is ostial 99% stenosis RCA-medium caliber and probably codominant. Proximal focal stenosis of 80 to 90%. The vessel beyond this is very small and terminates in a small caliber long PDA. Summary: 1. Severe multivessel coronary artery disease not appropriate for PCI at this institution. 2. Guideline directed medical therapy for secondary prevention of coronary disease per primary electrolysist. Hemodynamics Rest Ao:: 126/61 mmHg Final Ao: 129/66 mmHg LV: Not performed Recommendations Recommendations: Medical Therapy and/or Counseling and CABG Radiation Exposure (mGy) 401 mGy, fluoroscopy time 2.7 Contrast (mls) 50 cc Anesthesia 2 mg Versed, 50 mcg fentanyl IV. 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 Any exceptions are noted below. [facility] Card Cath Procedure Codes Cardiac Catheterization Procedure 1: Cardiovascular Cath Procedures: 24887 Coronaries Moderate Sedation Procedure 1: Sedation/Anesthesia: 14618 Mod Sedation by the same physician;Init15 Min Child Age 5 & Up (Initial 15 minutes, start time 151, end time 1532) PG Care Time/CCT Total # of Minutes Spent Total Time Spent with Patient: Total time spent is greater than 50% in coordination of care (as documented) at patient's floor/unit and/or counseling patient:
--- NOTE | 2025-03-22 16:15 | Communication Note ---
Date of Service: March 22, 2025 Patient referred and underwent coronary angiography as planned. Study demonstrates critical ostial left main disease and essentially left dominant anatomy with diffuse disease in right coronary artery as well. Surgical targets in left circumflex and left anterior descending appear present. Underlying issues also include moderate aortic stenosis. Discussed findings in detail with patient. "Not ready to throw in the towel" and willing to consider surgical revascularization, valve replacement as indicated. Plan: Transfer to [facility] after review. Anticoagulation after radial band removed with IV heparin
[2025-03-22] MEDS ORDERED: Heparin IV Adult Wt-Based Standard *NO* INITIAL Bolus Protocol IV STA (16:58)
[2025-03-22] MEDS ORDERED: HEPARIN 25000 UNIT/500 ML D5W 25,000 UNITS/500 ML BAG IV SCH (17:15)
[2025-03-22 17:55] LABS: Hematocrit (blood only) 37.5 % (37.0-47.0); Hemoglobin 11.9 g/dl (12.0-16.0); Immature Granulocytes # (auto) 0.02 K/uL (0.01-0.20); Immature Granulocytes % (auto) 0.3 %; Mean Corpuscular Hemoglobin 26.8 pg (25.0-34.0); Mean Corpuscular Volume 84.5 fL (80.0-100.0); Platelet Count 265 K/uL (130-400); RDW Standard Deviation 42.4 fL (36.4-46.3); Red Blood Count 4.44 M/uL (4.20-5.40); White Blood Count 7.73 K/ul (4.8-10.8)
[2025-03-22 18:34] LABS: INR 1.1 (0.9-1.1); Prothrombin Time 11.1 Seconds (9.0-12.0)
[2025-03-22 18:38] LABS: Partial Thromboplastin Time 98 Seconds (21-31)
[2025-03-22 19:30] VITALS: PULSE 66; RESP 18; TEMP 98.2; O2SAT 94
[2025-03-22 20:03] VITALS: BP 194/70
--- NOTE | 2025-03-23 15:57 | Discharge Summary ---
Discharge Summary Date of Service March 23, 2025 Principal Dx & Hospital Course #1 = Principal Diagnosis (1) Angina pectoris: Telemetry. [facility] cardiology consultation appreciated. EKG #2 reveals no acute changes. Cardiology feels that she probably suffered a non-ST elevation PA. Left heart catheterization was completed on March 22 and revealed a high- grade left main trunk stenosis along with other blockages. Cardiology has recommended transfer to [facility] tertiary care center. Aspirin therapy has been initiated along with topical nitrates. Heparin drip will be initiated once pressure dressing has been removed and hemostasis achieved at the catheterization site. (2) Syncope: Telemetry. Her monitoring device was evaluated on March 22. No significant dysrhythmias seen on telemetry to date (3) Essential hypertension: Losartan dosage has been uptitrated by cardiology. Currently stable. (4) Type 2 diabetes mellitus: ADA diet. Sliding scale coverage. Metformin is on hold. Glucose 154 this morning, March 22 Plan Transfer to [facility] for tertiary cardiac care Admission HPI Per Admitting Provider 84-year-old white female who suffered a syncopal episode today accompanied by urinary incontinence. She was walking uphill after eating and developed vague chest discomfort accompanied by shortness of breath and diaphoresis. She says this has occurred with walking uphill several times in the recent past. She was brought to the ED for evaluation. No acute EKG changes with normal sinus rhythm and chest x-ray is unremarkable for age. Troponin is minimally elevated however. Recent cardiac echo revealed mild left ventricular hypertrophy with normal ejection fraction. She does have moderate aortic valve stenosis causing her systolic heart murmur. Troponin is minimally elevated at 34. She was given aspirin in the ED and is currently asymptomatic. She will be admitted for further evaluation. Serial troponin enzymes ordered and repeat EKG will be done in the morning. [facility] cardiology consultation has been requested. Dobutamine stress echo ordered for the morning. She is diabetic, type II, and sliding scale insulin coverage has been ordered. Scheduled basal insulin and metformin are on hold. Discharge Exam General-alert and oriented x3, no fever, no chills HEENT-head atraumatic and normocephalic, pupils equal and reactive to light, extraocular muscles intact Neck-no lymphadenopathy or thyromegaly, trachea midline Chest-clear to auscultation. No rales, wheezing or rhonchi Cardiac-regular rate and rhythm, grade 3/6 pansystolic harsh murmur, normal S1 and S2 Abdomen-normal bowel sounds, no hepatosplenomegaly Extremities-no cyanosis, clubbing, or edema Neuro-cranial nerves II through XII intact, motor and sensory function within normal limits, strength symmetrical, no focal deficits Psych-normal affect, normal mood Discharge Plan Discharge Items Patient Disposition: Transfer Acute Care Hospital Reason For Visit: SYNCOPE, CHEST PAIN Discharge Diagnosis: NSTEMI, crescendo angina, high-grade left main trunk stenosis Condition on Discharge: Fair Activity: As commented below Activity Comment: Bedrest for now Non-emergency contact: Primary Care Provider and [employer] Worker Call non-emergency contact if: you have any medication questions and your symptoms worsen Follow-up/Referrals: Shasta Drake [Primary Care Provider] - Diet: Carb Consistent or DM2 and Heart Healthy Addtl Attending Provider Instructions: See primary care provider and creeler as soon as possible after discharge from [facility] Pending Studies at Discharge: No Stand-Alone Forms: My [facility] Skilled Items Patient informed of condition?: Yes DNR: No Discharge Level of Care: Other Communicable Disease: No Discharge Prognosis: Stable Lines: Peripheral IV Urinary Catheter: No Medications and DC Order Prescriptions: New losartan 25 mg Tablet 25 mg PO QAM Qty: 1 0RF nitroglycerin [Nitrostat] 0.4 mg Tablet, Sublingual 0.4 mg sublingual Q5M PRN (Reason: chest pain) Qty: 1 0RF acetaminophen 325 mg Tablet 650 mg PO Q6H PRN (Reason: fever or pain) Qty: 1 0RF Continued esomeprazole magnesium [Nexium] 40 mg capsule,delayed release(DR/EC) 40 mg PO QAM levothyroxine [Synthroid] 88 mcg tablet 88 mcg PO DAILYBB candesartan 4 mg Tablet 4 mg PO DAILY metformin 1,000 mg Tablet,Er Reji.Retention 24 Hr 1,000 mg PO DAILY insulin glargine [Lantus Solostar U-100 Insulin] 100 unit/mL (3 mL) insulin pen 8 unit SUBCUT HS Betoptic S 0.25 % drops,suspension 1 drp OPL BID cyanocobalamin (vitamin B-12) 1,000 mcg Tablet 1,000 mcg PO DAILY calcium carbonate 600 mg calcium (1,500 mg) Tablet 1,800 mg PO DAILY sodium chloride 1,000 mg Tablet,Soluble 1,000 mg PO BID cholecalciferol (vitamin D3) [Vitamin D3] 25 mcg (1,000 unit) Tablet 25 mcg PO DAILY diclofenac sodium 1 % Gel 2 g TOPICAL TID PRN (Reason: JOINT PAIN) Lumigan 0.01 % drops 1 drp OPL DAILY Simbrinza 1-0.2 % drops,suspension 1 drp OPL BID Gemtesa 75 mg tablet 75 mg PO QPM fluconazole 150 mg Tablet 150 mg PO Q3D PRN (Reason: NEEDED ) rosuvastatin 10 mg tablet 10 mg PO DAILY aspirin 81 mg Tablet,Delayed Release (Dr/Ec) 81 mg PO DAILY Qty: 0 0RF Discharge Orders: Discharge Order (Routine); Ordered 03/22/25 Ordered By: Jorge A Altman Admission Data Admit Date/Time: 03/21/25 19:43 Attending Provider: Jorge A Altman Admit Provider: Jorge A Altman Primary Care Provider: Shasta Drake Other Providers: Jorge A Altman; Gabriel Briceno Other Interventions: Discharge Summary Assessment (RN) Last Done: 03/22/25 19:59 Hospital Stay Data Consultations 03/21/25 18:07 ED Decision to Admit Stat 03/21/25 21:40 Consult Cardiology Routine 03/22/25 16:49 Burn CD for patient Stat Procedures Performed Operation Date: 03/22/25 14:30 Actual Procedures p Cineradiography w/Routine Exam - Gabriel Lopez MD, PhD p Cath, Coronaries ONLY (no LV) - Gabriel Lopez MD, PhD Diagnostic Imagining Performed 03/22/25 11:44 CL Cath Imgs for PACS use only Stat Pending Results Patient Have Any Pending Studies at Discharge: No Discharge Instructions Given to Patient (Per Discharging Provider) See primary care provider and creeler as soon as possible after discharge from [facility] Total Time Total Time Spent Total Time Spent (In Minutes): 50 minutes Coding Level of Care Code 20246 INP/OBS DISCH >30 MIN Diagnoses Angina pectoris I20.9 Syncope R55 Essential hypertension I10 Type 2 diabetes mellitus E11.9
--- NOTE | 2025-03-25 14:09 | Electrocardiogram Report ---
Test Reason : Blood Pressure : */* mmHG Vent. Rate : 65 BPM Atrial Rate : 65 BPM P-R Int : 200 ms QRS Dur : 80 ms QT Int : 424 ms P-R-T Axes : 68 33 49 degrees QTcB Int : 440 ms Normal sinus rhythm with sinus arrhythmia Cannot rule out Anterior infarct (cited on or before 26-Jan-2024) Abnormal ECG When compared with ECG of 26-Jan-2024 16:33, Premature atrial complexes are no longer Present Questionable change in initial forces of Anterior leads Confirmed by Florentin Vega ([id number]) on 03/25/2025 2:08:54 PM Referred By: REFERRED SELF Confirmed By: Florentin Vega
--- NOTE | 2025-03-25 15:26 | Electrocardiogram Report ---
Test Reason : Blood Pressure : */* mmHG Vent. Rate : 66 BPM Atrial Rate : 66 BPM P-R Int : 228 ms QRS Dur : 80 ms QT Int : 402 ms P-R-T Axes : 70 40 53 degrees QTcB Int : 421 ms Sinus rhythm with 1st degree A-V block Otherwise normal ECG When compared with ECG of 21-Mar-2025 15:46, (unconfirmed) No significant change was found Confirmed by Florentin Vega ([id number]) on 03/25/2025 3:25:25 PM Referred By: REFERRED SELF Confirmed By: Florentin Vega
== END 2025-03-22 20:03 | disposition short-term general hospital (02) | DRG 287 ==
LOC: SUATTDRO → ED 15:24 → 2S 19:43
PROC: CLB.CCO (2025-03-22 14:30)
DX: Z88.8 Allergy status to other drugs, medicaments and biological substances; Z79.84 Long term (current) use of oral hypoglycemic drugs; Z88.1 Allergy status to other antibiotic agents; I20.9 Angina pectoris, unspecified; Z96.653 Presence of artificial knee joint, bilateral; I10 Essential (primary) hypertension; E11.9 Type 2 diabetes mellitus without complications; Z88.6 Allergy status to analgesic agent; Z90.49 Acquired absence of other specified parts of digestive tract; Z79.890 Hormone replacement therapy; Z88.2 Allergy status to sulfonamides; M17.12 Unilateral primary osteoarthritis, left knee; Z88.5 Allergy status to narcotic agent; R32 Unspecified urinary incontinence; E78.5 Hyperlipidemia, unspecified; R55 Syncope and collapse; Z79.82 Long term (current) use of aspirin; I25.10 Atherosclerotic heart disease of native coronary artery without angina pectoris; Z79.4 Long term (current) use of insulin; F17.210 Nicotine dependence, cigarettes, uncomplicated; Z79.899 Other long term (current) drug therapy